=== PATIENT | female | born 2005 | race Caucasian/White ===

== ENCOUNTER 2023-06-19 23:42 | Emergency (ER) | payer MEDICAID, SELFPAY ==
[2023-06-19 23:48] VITALS: BP 132/85; PULSE 102; RESP 18; TEMP 37; O2SAT 100; BMI 17.8
--- NOTE | 2023-06-19 23:48 | ED_ITS ---
HPI - General Chief complaint: Urogenital-Female Stated complaint: WANTS A TEST DONE Time Seen by Provider: 06/19/23 23:48 History of Present Illness HPI Narrative: patient said that she took two tests at home but don't believe that the tests are correct. She has not contacted her PCP or a local [employer] C[employer]TING [employer] REPA[employer]ER. LMP was about 4 weeks ago. She admits to some fatigue and some nausea. She is not having an fever, chills, vaginal bleeding, pelvic pain or syncope. Her CONSULTING PROJECT DIRECTOR is Dr Womack. She had a previous with miscarriage at about 7 weeks. This would be her second . Related Data Home Medications Medication Instructions Recorded Confirmed venlafaxine 75 mg capsule,extended 75 mg PO DAILY 06/19/23 06/19/23 release 24 hr Allergies Allergy/AdvReac Type Severity Reaction Status Date / Time Sulfa (Sulfonamide Allergy Unknown Verified 06/19/23 23:52 Antibiotics) PFSH PFSH Social History Smoking status: Current every day smoker Exam Narrative Exam Narrative: Nurses notes and vital signs reviewed and patient is not hypoxic. afebrile General: Well-appearing and in no apparent distress. Skin: Warm, dry, no pallor noted. Head: Normocephalic, atraumatic. Eye: Pupils are equal, round and EOMI. No scleral icterus. Cardiovascular: Normal peripheral perfusion. Respiratory: No accessory muscle use or respiratory distress. Lungs are clear to auscultation, no wheezing, rales or rhonchi Back: No CVA tenderness GI: Abdomen is soft, non-distended. Normal bowel sounds. No masses appreciated. No tenderness to palpation. No rebound, guarding, or rigidity noted. Neurological: A&O x4. No cranial nerve dysfunction observed. No truncal ataxia. Moves all extremities. Sensation intact. Psychiatric: Cooperative and interactive. Normal mood and affect. Constitutional Vital Signs, click to edit/add: Last Vital Signs Temp 98.6 F 06/19/23 23:48 Pulse 102 H 06/19/23 23:48 Resp 18 06/19/23 23:48 BP 132/85 06/19/23 23:48 Pulse Ox 100 06/19/23 23:48 O2 Del Method Room Air 06/19/23 23:48 Course Vital Signs Vital signs: Vital Signs Temperature 98.6 F 06/19/23 23:48 Pulse Rate 102 H 08/31/23 23:48 Respiratory Rate 18 06/19/23 23:48 Blood Pressure 132/85 06/19/23 23:48 Pulse Oximetry 100 06/19/23 23:48 Oxygen Delivery Method Room Air 06/19/23 23:48 Temperature 98.6 F 06/19/23 23:48 Pulse Rate 102 H 06/19/23 23:48 Respiratory Rate 18 06/19/23 23:48 Blood Pressure 132/85 06/19/23 23:48 Pulse Oximetry 100 06/19/23 23:48 Oxygen Delivery Method Room Air 06/19/23 23:48 MDM - OB/Uterine Contractions MDM Narrative Medical decision making narrative: blood drawn for qualitative HCG test. Patient informed that this is not an emergency medical condition and improper use of the emergency department. Her serum HCG was positive. She was informed of results and discharged home. She can see Dr Womack for follow up in 4-6 weeks or sooner if necessary. Lab Data Labs: Lab Results 06/19/23 Range/Units 00:00 Serum HCG, Qual Positive A (NEGATIVE) Discharge Plan Discharge Chief Complaint: Urogenital-Female Clinical Impression: Patient Disposition: Home, Self-Care Time of Disposition Decision: 00:38 Prescriptions / Home Meds: No Action venlafaxine 75 mg capsule,extended release 24hr 75 mg PO DAILY Instructions: (ED) Stand Alone Forms: Portal Instructions Referrals: Preet Womack DO [Physician] - 1 week
[2023-06-20 00:15] LABS: HCG Qualitative POSITIVE (NEGATIVE)
== END 2023-06-20 01:10 | disposition home or self-care (01) ==
PROVIDERS: Emergency Provider Emergency Medicine; PCP Family Medicine
DX: Z32.01 Encounter for pregnancy test, result positive (principal)
CPT/HCPCS: 36415; 84703; 99283

== ENCOUNTER 2023-07-18 09:40 | Outpatient (OUT) | payer MEDICAID, SELFPAY ==
--- NOTE | 2023-07-18 09:42 | US_ITS ---
The [address] [address] Patient Name: SOLIS RASHID MRN: [id number] date: 2005 Sex: F Assigned Patient Location: US Current Patient Location: US Accession/Order Number: [id number] Exam Date: 07/18/2023 09:42 Report Date: 07/18/2023 16:30 At the request of: SARI RODRIGUEZ Procedure: US OB transvaginal EXAMINATION: US OB transvaginal HISTORY: MISSED MENSES COMPARISON: No relevant comparison available. FINDINGS: GESTATIONAL SAC: Present and normal appearing. YOLK SAC: Present and normal appearing. POLE: Present and normal appearing. CARDIAC: Present. UTERUS: Normal size and appearance. OVARIES: Right: Normal. Left: Normal. CERVIX: 3.9 cm in length and closed. CUL-DE-SAC: Normal. OTHER: None. AGE BY LMP: 8 weeks 5 days KAMRON BY LMP: 02/22/2024 AGE BY US CRL: 8 weeks 0 days KAMRON BY US CRL: 02/27/2024 US/US OB transvaginal IMPRESSION: 1. Single live intrauterine . Electronically authenticated by: PRESLEY ANDREWS Date: 07/18/2023 16:30
== END 2023-07-18 09:41 | disposition home or self-care (01) ==
LOC: US 09:41
PROVIDERS: PCP Family Medicine; Visit Provider Obstetrics & Gynecology
DX: Z34.91 Encounter for supervision of normal pregnancy, unspecified, first trimester (principal); Z3A.08 8 weeks gestation of pregnancy
CPT/HCPCS: 76817

== ENCOUNTER 2023-08-11 16:10 | Outpatient (OUT) | payer MEDICAID, SELFPAY ==
[2023-08-11 16:54] LABS: Basophils Percent Auto 0.3 % (0.2-2.0); Eosinophils Absolute Auto 0.1 10^3/uL (0.0-0.7); Eosinophils Percent Auto 0.7 % (0.9-7.0); Hematocrit 34.3 % (36.0-48.0); Immature Granulocytes Abs Auto 0.02 10^3/uL (0.00-0.03); Immature Granulocytes Pct Auto 0.2 % (0.0-0.5); Lymphocytes Percent Auto 21.2 % (20.5-60.0); Mean Corpuscular Hemoglobin 31.3 pg (26.7-34.0); Mean Corpuscular Volume 89.6 fL (81.0-99.0); Mean Platelet Volume 8.7 fL (9.5-13.5); Monocytes Absolute Auto 0.5 10^3/uL (0.3-0.8); Monocytes Percent Auto 5.2 % (1.7-12.0); Neutrophils Percent Auto 72.4 % (43.0-75.0); Platelet Count 228 10^3/uL (150-450); Red Blood Count 3.83 10^6/uL (4.20-5.40); Red Cell Distribution Width 11.7 % (11.0-15.0); White Blood Count 9.6 10^3/uL (4.0-11.0)
[2023-08-11 16:56] LABS: BOX Test Sent Out Y
[2023-08-11 17:09] LABS: Estimated Average Glucose 85 mg/dL; Glycohemoglobin A1C 4.6 % (4.5-6.2)
[2023-08-11 17:23] LABS: Thyroid Stimulating Hormone 1.257 uIU/mL (0.516-4.130)
[2023-08-13 07:12] LABS: Rubella Antibodies, IgG 5.01 index (Immune >0.99)
[2023-08-13 08:12] LABS: HIV Ab/p24 Ag Screen Non Reactive (Non Reactive)
[2023-08-13 10:11] LABS: Rapid Plasma Reagin, Quant Non Reactive titer (NonRea<1:1)
[2023-08-13 11:11] LABS: HBsAg Screen Negative (Negative); HCV Ab Non Reactive (Non Reactive)
== END 2023-08-11 16:11 | disposition home or self-care (01) ==
LOC: LAB 16:12
PROVIDERS: PCP Family Medicine; Visit Provider Obstetrics & Gynecology
DX: Z34.80 Encounter for supervision of other normal pregnancy, unspecified trimester (principal); Z3A.00 Weeks of gestation of pregnancy not specified
CPT/HCPCS: 36415; 83036; 84443; 85025; 86592; 86762; 86803; 86850; 86900; 86901; 87086; 87340; 87389

== ENCOUNTER 2023-10-06 12:51 | Outpatient (OUT) | payer MEDICAID, SELFPAY ==
--- NOTE | 2023-10-06 | US_ITS ---
[address] [address] Patient Name: SOLIS RASHID MRN: [id number] date: 2005 Sex: F Assigned Patient Location: US Current Patient Location: US Accession/Order Number: [id number] Exam Date: 10/06/2023 13:05 Report Date: 10/06/2023 15:23 At the request of: SARI RODRIGUEZ Procedure: US OB anatomy EXAMINATION: US OB anatomy, US OB transvaginal HISTORY: SECOND TRIMESTER COMPARISON: No relevant comparison available. TECHNIQUE: Transabdominal sonographic examination was performed for obstetrical and evaluation. FINDINGS: Number: 1 Heart Rate: 157.9 bpm H.B. /min Amniotic Fluid Volume: Subjectively normal position: cephalic presentation, longitudinal lie Placental Location: ANTERIOR, Grade 0, 4.2 cm from the placental edge to the internal os Cervix Length: 3.7 cm , closed Normal anatomy: Lateral ventricles, cerebellum, posterior fossa, nose, lips, orbits, four-chamber heart, RVOT, LVOT, diaphragm, stomach, kidneys, abdominal cord insertion, bladder, umbilical arteries, three-vessel cord, spine, extremities BIOMETRY: BPD: 4.6 cm 19 weeks 6 days , 39% HC: 17.5 cm 20 weeks 0 days, 36.3% AC: 14.7 cm 20 weeks 0 days, 39% FL: 3.1 cm 19 weeks 5 days ,26.4% EFW:318.0 grams; 11 oz, 30% FL/AC: 21.2 FL/BPD: 67.9 HC/AC: 1.2 GESTATIONAL AGE: Age by EDC: 20 weeks 1 days Age by current US: 19 weeks 6 days KAMRON by current US: 02/24/24 KAMRON by EDC: 02/22/24 US/US OB anatomy IMPRESSION: Normal anatomy scan *Reference: [facility] Practice Guideline for the performance of Obstetric Ultrasound Examinations, July 20, 2007. Electronically authenticated by: MEGHAN MELGAR Date: 10/06/2023 15:23
--- NOTE | 2023-10-06 | US_ITS ---
[address] [address] Patient Name: SOLIS RASHID MRN: [id number] date: 2005 Sex: F Assigned Patient Location: US Current Patient Location: US Accession/Order Number: [id number] Exam Date: 10/06/2023 13:05 Report Date: 10/06/2023 15:23 At the request of: SARI RODRIGUEZ Procedure: US OB transvaginal EXAMINATION: US OB anatomy, US OB transvaginal HISTORY: SECOND TRIMESTER COMPARISON: No relevant comparison available. TECHNIQUE: Transabdominal sonographic examination was performed for obstetrical and evaluation. FINDINGS: Number: 1 Heart Rate: 157.9 bpm H.B. /min Amniotic Fluid Volume: Subjectively normal position: cephalic presentation, longitudinal lie Placental Location: ANTERIOR, Grade 0, 4.2 cm from the placental edge to the internal os Cervix Length: 3.7 cm , closed Normal anatomy: Lateral ventricles, cerebellum, posterior fossa, nose, lips, orbits, four-chamber heart, RVOT, LVOT, diaphragm, stomach, kidneys, abdominal cord insertion, bladder, umbilical arteries, three-vessel cord, spine, extremities BIOMETRY: BPD: 4.6 cm 19 weeks 6 days , 39% HC: 17.5 cm 20 weeks 0 days, 36.3% AC: 14.7 cm 20 weeks 0 days, 39% FL: 3.1 cm 19 weeks 5 days ,26.4% EFW:318.0 grams; 11 oz, 30% FL/AC: 21.2 FL/BPD: 67.9 HC/AC: 1.2 GESTATIONAL AGE: Age by EDC: 20 weeks 1 days Age by current US: 19 weeks 6 days KAMRON by current US: 02/24/24 KAMRON by EDC: 02/22/24 US/US OB transvaginal IMPRESSION: Normal anatomy scan *Reference: [facility] Practice Guideline for the performance of Obstetric Ultrasound Examinations, July 20, 2007. Electronically authenticated by: MEGHAN MELGAR Date: 10/06/2023 15:23
== END 2023-10-06 12:52 | disposition home or self-care (01) ==
LOC: US 12:51
PROVIDERS: PCP Family Medicine; Visit Provider Obstetrics & Gynecology
DX: Z34.92 Encounter for supervision of normal pregnancy, unspecified, second trimester (principal); Z3A.20 20 weeks gestation of pregnancy
CPT/HCPCS: 76805; 76817

== ENCOUNTER 2023-11-13 19:14 | Emergency (ER) | payer MEDICAID, SELFPAY ==
[2023-11-13] VITALS (7 sets, daily range): BP systolic 103–106; BP diastolic 59–66; PULSE 78–98; RESP 14–21; TEMP 36.5; O2SAT 98–100; BMI 19.9
--- OUTSIDE RECORDS SUMMARY | 2023-11-13 19:25 | XMS_ITS | CCD ---
Author Name Unknown Address [address] [place] [address] Organization [facility] Care Team Providers Care User Interface Artist Name Role Phone Opal Neri CNP Unavailable ROGE NORTH Attending Unavailable MICHAEL, DR GUO Attending Unavailable MICHAEL, DR GUO Admitting Unavailable REQUEST, DR BASS LISTED Primary Care Unavaila daria RODRIGUEZ, DR GUO Attending Unavailable MICHAEL, DR GUO Consulting Unavailable MICHAEL, DR GUO Admitting Unavailable REQUEST, DR BASS LISTED Primary Care Unavaila daria AGUILAR, DR DEY Attending Unavailable LAUREN, DR DEY Admitting Unavailable REQUEST, DR BASS LISTED Primary Care Unavaila Maday Del Toro Unavailable SARI RODRIGUEZ Attending Unavailable JON KEITA Attending Unavailable JON KEITA Attending Unavailable JON KEITA Attending Unavailable Allergies Allergy Classification Reported Allergen(s) Allergy Type Date of Onset Reaction(s) Facility (1 source) Sulfonamides (Antibiotic) Drug Allergy 2 Unknown [facility] (2 sources) Sulfonamides (Antibiotic) Drug allergy (disorder) [facility] Repository (1 source) Amoxicillin Drug Allergy itching [facility] Other (1 source) Sulfamethoxazole / Trimethoprim Drug Allergy rash [facility] Other Medications Current Medications Medication Drug Class(es) Dates Sig (Normalized) Sig (Original) fluticasone propionate 0.05 mg/actuat metered dose nasal spray (1 source) Corticosteroid Start: 07-24-2023 take 1 spray(s) nasal route once daily Flonase Allergy Relief 50 MCG/ACT 1 spray in each nostril Nasally Once a day for 14 day(s) Jul, Active venlafaxine 50 mg oral tablet (1 source) Serotonin and Norepinephrine Reuptake Inhibitor take 1 tablet by mouth once daily at mealtime Effexor 50 MG 1 tablet with food Orally Once a day Active Completed/Discontinued Medications Medication Drug Class(es) Dates Sig (Normalized) Sig (Original) escitalopram 10 mg oral tablet (1 source) Serotonin Reuptake Inhibitor Start: 08-28-2022 take 1 tablet by mouth once daily escitalopram oxalate (LEXAPRO) 10 mg tablet Take 10 mg by mouth once daily. 0 08/28/2022 Active Comment on above: Take 10 mg by mouth once daily. Ethinyl Estradiol / Ferrous fumarate / Norethindrone (1 source) Estrogen Start: 08-25-2022 take 1 tablet by mouth once daily Norethin Boom-Eth Estrad-FE 1 mg-20 mcg (21)/75 mg (7) per tablet Take 1 tablet by mouth once daily. 0 08/25/2022 Active Comment on above: Take 1 tablet by ozzy once daily. Problems Problem Classification Problem Date Documented Da te Episodic/Chronic Abdominal pain (4 sources) Pelvic and perineal pain; Translations: [PELVIC AND PERINEAL PAIN] Onset: 09-16-2022 Episodic Acute and chronic tonsillitis (1 source) Acute tonsillitis; Translations: [ACUTE TONSILLITIS] Episodic Other bone disease and musculoskeletal deformities (1 source) Adolescent idiopathic scoliosis of thoracic spine; Translations: [Adolescent idiopathic scoliosis, thoracic region] Chronic Other upper respiratory disease (1 source) Nasal discharge; Translations: [Rhinorrhea] Episodic Other upper respiratory infections (3 sources) Streptococcal sore throat; Translations: [Strep pharyngitis] Episodic Results Test Name Value Interpretation Reference Range Facil ity Quick Strepon 07-24-2023 S. pyogenes Org specific cx Ql (Throat) Negative [facility] Other Quick Strep [facility] Other SARS-CoV-2 (COVID-19) RNA NA A+probe Ql (Resp)on 07-24-2023 SARS-CoV-2 (COVID-19) RNA DARON+probe Ql (Unsp spec) Negative [facility] Other CHLAMYDIA/GONOCOCCUS DARON (SW AB/URINE/PAPon 09-19-2022 Chlamydia trachomatis, DARON Negative Normal Negative [facility] Comment on above: Performed By: #### C T/NGNA #### [facility] [address] [place] [address] Dr. Kamryn Don Neisseria gonorrhoeae, DARON Negative Normal Negative [facility] Comment on above: Performed By: #### C T/NGNA #### [facility] [address] [address] [address] Kamryn Don VAGINITIS/VAGINOSIS DNA PROB Domenic 09-18-2022 Marsha species Negative Normal Negative [facility] Comment on above: Performed By: #### V AGINT #### [facility] [address] [place] [address] Dr. Kamryn Don Gardnerella vaginalis Positive Abnormal Negative [facility] Comment on above: Performed By: #### V AGINT #### [facility] [address] [address] [address] Kamryn Don Trichomonas vaginalis Negative Normal Negative [facility] Comment on above: Performed By: #### V AGINT #### [facility] [address] [place] [address] Dr. Kamryn Don CNOVon 09-05-2022 CNOV Office Visit (INOPIN ) SOLIS RASHID ([id number]) 1 F Date Time Provider Department 09/05/22 3:10 PM ROGE NORTH During your visit today, we recorded the following information about you: Weight Height Last Period 49.9 kg 1.676 m 08/22/22 Roge North MD 09/05/2022 3:59 PM Signed Medical Decision Making: Problems: Low: Stable chronic illness Data: Unique source(s) for external note(s) reviewed: 2 Unique test result(s) reviewed: 2 Risk: Low: Low risk from testing/treatment Medical Decision Making Level: 3 - Low This young lady returns today for follow-up of scoliosis. Its been about 2 years since have seen her. No complaints. Here for interval follow-up. I did surgery on her younger sister so mom is still somewhat worried about this young lady having a progressive curvature. No complaints. On exam she is in no acute distress. On standing shoulders are mildly asymmetric pelvis is level. Forward bend shows very mild scoliometer prominences in the right thoracic and left lumbar regions. Skin is normal. Nontender to palpation throughout the entire thoracic and lumbar spine. Her gait and neurologic examination are normal. X-rays from the outside institution show a 33 degree right thoracic curvature and a Risser sign of 5. Impression: Idiopathic scoliosis Discussed these findings in detail with her and her mother today. Recommend observation alone. Follow-up in 1 year with standing PA and lateral scoliosis film. Sooner should there be issues. Discussed the very remote likelihood of late progression that would require surgical intervention. Allergies As of Date: 09/05/2022 Noted Allergy Reaction SULFA (SULFONAMIDE ANTIBIOTICS) 09/05/2022 16 - Unknown Date Reviewed: 09/05/2022 Reviewed by: Tanvi Snow Ma - Fully Assessed Reason for Visit: New [[id number]] Primary Visit Diagnosis:Adolescent idiopathic scoliosis of thoracic region [M41.124] Order(s):XR SCOLIOSIS PA STAND/LAT 2V [[id number]] Order #: [id number] FUTURE Prescriptions as of 09/05/2022 - escitalopram oxalate (LEXAPRO) 10 mg tablet Take 10 mg by mouth once daily. - Norethin Boom-Eth Estrad-FE 1 mg-20 mcg (21)/75 mg (7) per tablet Take 1 tablet by mouth once daily. Problem List As Of Date: 09/05/2022 (None) Encounter Status:Closed by ROGE NORTH on 09/05/22 Normal [facility] XR Spine Scoliosis Study Standing CLINICAL HISTORY: Evaluate scoliosis. COMPARISON: 04/27/2020. TECHNIQUE: AP and lateral views of the thoracic and lumbar spine were obtained. FINDINGS: There is a dextroscoliosis of the dorsal spine. Measured from the superior endplate of T4 to the inferior endplate of T11, the dextroscoliosis measures 23.4??. There is a levoscoliosis of the lumbar spine. Measured from superior endplate of L1 to the inferior endplate of L4, the levoscoliosis measures 15??. No fracture or malalignment. Disc heights appear preserved. SI joints are symmetrical. IMPRESSION: Dextroscoliosis dorsal spine and levoscoliosis lumbar spine, see above. Report reported and signed by Carleen Graff on 06/17/2022 0849 Normal [facility] HCG,Quantitativeon 2 HCG,Quantitative 8536.00 m[iU]/mL Normal [facility] Comment on above: Order Comment: Reaso n for Exam Less than 8 weeks gestation of Result Comment: Appr oximate Approximate hCG Gestational Age Range (mIU/ml) (weeks) 0.2-1 5-50 1-2 50-500 2-3 100-5,000 3-4 500-10,000 4-5 1,000-50,000 5-6 10,000-100,000 6-8 15,000-200,000 8-12 10,000-100,000 PERFORMED BY: [place] [address] PATHOLOGIST [employer] SUPERVISOR EZEKIEL SERRANO M.D. Performed By: #### H CGQNT #### [address] HCG,Quantitativeon 2 HCG,Quantitative 8790.00 m[iU]/mL Normal [facility] Comment on above: Order Comment: Reaso n for Exam Missed menses;Positive blood test;Spotting affecti Result Comment: Appr oximate Approximate hCG Gestational Age Range (mIU/ml) (weeks) 0.2-1 5-50 1-2 50-500 2-3 100-5,000 3-4 500-10,000 4-5 1,000-50,000 5-6 10,000-100,000 6-8 15,000-200,000 8-12 10,000-100,000 PERFORMED BY: [facility] [address] [place] [address] PATHOLOGIST [employer] SUPERVISOR EZEKIEL SERRANO M.D. Performed By: #### H CGQNT #### [facility] [address] [place] [address] [facility] Q - HCG [place] Q[place] 2 [place] [address] m[IU]/mL [facility] Electrical Designer Drafter Comment on above: Order Comment: [facility] Testing performed at: [facility] [address], [address] [facility], [address] [place], [address], Professor Of Religion: Vikram Cadet MD [facility] Collection Date/Time: [facility] Results Received Date/Time: [facility] Reported Date/Time: Result Comment: Refe rence Range Non or premenopausal <5 Postmenopausal <10 Values from different assay methods may vary. The use of this assay to monitor or to diagnose patients with cancer or any condition unrelated to has not been cleared or approved by the FDA or the insurance and financial services agent of the assay. Performed By: #### 2 [id number] #### [facility] Default [address] [place] [address] US OB 1ST Trimesteron 2021 US OB 1ST Trimester HISTORY: Vaginal bleeding. COMPARISON: None available TECHNIQUE: Transabdominal and transvaginal ultrasound imaging of the pelvis was obtained. FINDINGS: UTERUS: The uterus measures 7.2 x 6.9 x 3.9 cm. A gestational sac containing a yolk sac is visualized within the uterus near the fundus. Estimated age by this ultrasound 5 weeks 0 days. pole was not visualized. RIGHT OVARY: The right ovary measures 3.3 x 2.7 x 1.9 cm. Vascular flow is visualized in the right ovary. LEFT OVARY: The left ovary measures 3.3 x 3.0 x 1.4 cm. Vascular flow is visualized in the left ovary. There is no free fluid visualized in the pelvis. There is no adnexal mass visualized. IMPRESSION: Gestational sac and yolk sac are identified however a pole is not identified. Serial beta-hCG monitoring and short-term follow-up pelvic ultrasound recommended. Report reported and signed by Sancho German on 12/11/2021 1006 Normal [facility] Electrical Designer Drafter Vital Signs Date Time Vital Sign Value Performing Clinician Facility 07-24-2023 16:00-0400 Body temperature 99.6 [degF] Maday Bragg Other [facility] Other 07-24-2023 16:00-0400 Body weight 49.9 kg Maday Bragg Other [facility] Other 07-24-2023 16:00-0400 Respiratory rate 20 /min Maday Yemi Other [facility] Other 07-24-2023 16:00-0400 SaO2% (BldA) [Mass fraction] 100 % Maday Bragg Other [facility] Other 09-05-2022 15:29-0500 Body height 167.6 cm Roge North MD Work Phone: [facility] 09-05-2022 15:29-0500 Body mass index (BMI) [Percentile] Per age and sex 5.14 % Roge North MD Work Phone: [facility] 09-05-2022 15:29-0500 Body weight 49.9 kg Roge North MD Work Phone: [facility] Encounters Encounter Date Encounter Type Care Provider Facility Start: 11-11-2023 End: 11-11-2023 ambulatory JON KEITA Not Available Start: 10-23-2023 End: 10-23-2023 ambulatory JON KEITA Not Available Start: 10-14-2023 End: 10-14-2023 ambulatory SARI RODRIGUEZ Not Available Start: 09-16-2023 End: 09-16-2023 ambulatory JON KEITA Not Available Start: 07-24-2023 End: 07-24-2023 ambulatory Maday Bragg Other [facility] Other Start: 07-24-2023 Office outpatient vi sit 25 minutes Maday Bragg [facility] Start: 09-16-2022 End: 09-16-[address] SARI RODRIGUEZ Facility:[facility] Start: 09-05-2022 End: 09-05-2022 ambulatory ROGE NORTH Facility:[facility] Start: 09-05-2022 End: 09-05-2022 Patient encounter procedure Roge North MD Work Phone: [facility] Comment on above: 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 (Primary Dx) Start: 01-03-[address] SARI RODRIGUEZ Facility :[facility] Start: 12-17-[address] TIBURCIO AGUILAR Facdusty lity:[facility] Plan of Treatment Date Care Activity Detail Author Start: 06-20-2022 Influenza vaccination INFLUENZA (#1) [facility] Start: 2021 CHLAMYDIA SCREENING (18-24) CHLAMYDIA SCREENING (18-24) [facility] Start: 2021 GC (GONORRHEA) SCREE SHARITA (18-24) GC (GONORRHEA) SCREENING (18-24) [facility] Start: 2021 HEPATITIS C SCREENING HEPATITIS C SC REENING [facility] Start: 2021 HIV SCREENING HIV SCREENING [facility] Start: 10-20-2021 DEPRESSION ASSESSMENT DEPRESSION ASS ESSMENT [facility] Start: 2019 MENINGOCOCCAL CONJUG ATE (1 - 2-dose series) MENINGOCOCCAL CONJUGATE (1 - 2-dose series) [facility] Start: 2017 PEDS TO ADULT TRANSI TION ANNUAL ASSESSMENT PEDS TO ADULT TRANSITION ANNUAL ASSESSMENT [facility] Start: 2015 PEDS TO ADULT TRANSI TION INITIAL DISCUSSION PEDS TO ADULT TRANSITION INITIAL DISCUSSION [facility] Start: 2014 HPV VACCINE (1 - 2-d ose series) HPV VACCINE (1 - 2-dose series) [facility] Start: 2013 MENINGOCOCCAL B: Consider based on risk (1 of 2 - Risk Bexsero 2-dose series) MENINGOCOCCAL B: Consider based on risk (1 of 2 - Risk Bexsero 2-dose series) [facility] Start: 2010 Urine microalbumin profile DTAP,TDAP,TD (1 - Tdap) [facility] Start: 05-14-2004 COVID-19 VACCINE (#1) COVID-19 VACCI NE (#1) [facility] Start: 2003 HEPATITIS B (1 of 3 - 3-dose series) HEPATITIS B (1 of 3 - 3-dose series) [facility] End: 10-05-2023 Radex entir thrc lmbr crv sac spi w/skull 2/3 vw XR SCOLIOSIS PA STAND/LAT 2V Radiology Routine Adolescent idiopathic scoliosis of thoracic region 1 Occurrences starting 09/05/2022 until 10/05/2023 [facility] Work Phone: Comment on above: 1 Occurrences starti ng 09/05/2022 until 10/05/2023 Immunizations Immunization Date Immunization Notes Care Provider Tanesha colby 06-12-2009 Diphtheria, tetanus toxoids and acellular pertussis vaccine, and poliovirus vaccine, inactivated Maday Bragg Other [facility] Other 06-12-2009 measles, mumps and rubella virus vaccine Maday Bragg Other [facility] Other 06-12-2009 varicella virus vaccine Maday Bragg Other [facility] Other Payers Date Payer Category Payer Medicaid [id number] 2017 Medicaid [place] MED[place] TERM 09/18 [employer] MEDICA[employer] [id number] 2017-Present [phone] [address] [place] [address] Medicaid [id number] 2003 Unknown [id number] 2003 Unknown [id number] 2003 Unknown [id number] 2003 Unknown [id number] 2003 Unknown [id number] 2003 Unknown [id number] 2003 Unknown [id number] 1959 Medicaid [id number] 1961 Self-pay Social History Date Type Detail Facility Start: 09-05-2022 Tobacco smoking status NHIS Never smoked tobacco [facility] Start: 09-05-2022 Tobacco use and exposure Smokeless tobacco non-user [facility] Start: 2003 Sex Assigned At Not on file C [facility] Sex Assigned At Sex Assigned At [facility] [employer] Other Evaluation note 07-24-2023 Note Date & Type Note Facility 07-24-2023 Evaluation note Encounter Date Diagnosis Assessment Notes Jul, Sore throat (ICD-10 - J02.9) Jul, Viral URI (ICD-10 - J06.9) Advised patient that COVID PCR test and rapid Strep test was negative today. Advised patient that will treat as viral URI. Supportive care as directed, increase fluids and rest, Tylenol as directed, OTC cough/cold remedies as directed on packaging that are safe in , cool mist humidifier, throat lozenges. Discussed infection control practices such as good hand washing and mask wearing. Patient to follow up with PCP if symptoms persist or worsen despite treatment. Immediate eval for SOB, difficulty breathing, chest pain, fevers that do not break with antipyretic or any other concerning symptoms as reviewed on patient education handout. Patient verbalizes understanding and is agreeable to treatment plan. Patient left in stable condition [facility] Other Progress note 09-05-2022 Note Date & Type Note Facility 09-05-2022 Note HNO ID: [id number] Author: Roge North MD Service: ? Author Type: Physician Type: Progress Notes Filed: 09/05/2022 3:59 PM Note Text: Medical Decision Making: Problems: Low: Stable chronic illness Data: Unique source(s) for external note(s) reviewed: 2 Unique test result(s) reviewed: 2 Risk: Low: Low risk from testing/treatment Medical Decision Making Level: 3 - Low This young lady returns today for follow-up of scoliosis. Its been about 2 years since have seen her. No complaints. Here for interval follow-up. I did surgery on her younger sister so mom is still somewhat worried about this young lady having a progressive curvature. No complaints. On exam she is in no acute distress. On standing shoulders are mildly asymmetric pelvis is level. Forward bend shows very mild scoliometer prominences in the right thoracic and left lumbar regions. Skin is normal. Nontender to palpation throughout the entire thoracic and lumbar spine. Her gait and neurologic examination are normal. X-rays from the outside institution show a 33 degree right thoracic curvature and a Risser sign of 5. Impression: Idiopathic scoliosis Discussed these findings in detail with her and her mother today. Recommend observation alone. Follow-up in 1 year with standing PA and lateral scoliosis film. Sooner should there be issues. Discussed the very remote likelihood of late progression that would require surgical intervention. [facility] History of Present illness Narrative 09-05-2022 Roge North MD - 09/05/2022 3:50 PM EST Note Date & Type Note Facility 09-05-2022 History of Presen t illness Narrative Medical Decision Making: Problems: Low: Stable chronic illness Data: Unique source(s) for external note(s) reviewed: 2 Unique test result(s) reviewed: 2 Risk: Low: Low risk from testing/treatment Medical Decision Making Level: 3 - Low This young lady returns today for follow-up of scoliosis. Its been about 2 years since have seen her. No complaints. Here for interval follow-up. I did surgery on her younger sister so mom is still somewhat worried about this young lady having a progressive curvature. No complaints. On exam she is in no acute distress. On standing shoulders are mildly asymmetric pelvis is level. Forward bend shows very mild scoliometer prominences in the right thoracic and left lumbar regions. Skin is normal. Nontender to palpation throughout the entire thoracic and lumbar spine. Her gait and neurologic examination are normal. X-rays from the outside institution show a 33 degree right thoracic curvature and a Risser sign of 5. Impression: Idiopathic scoliosis Discussed these findings in detail with her and her mother today. Recommend observation alone. Follow-up in 1 year with standing PA and lateral scoliosis film. Sooner should there be issues. Discussed the very remote likelihood of late progression that would require surgical intervention. documented in this encounter [facility] History general Narrative - Reported 2003 Note Date & Type Note Facility 2003 History general N arrative - Reported Type Medical History febrile seizures Medical History extropia left eye Medical History bronchititis Medical History dishydrotic eczema Hospitalization History RSV 12/23/19 04 [facility] Other Evaluation note Note Date & Type Note Facility Evaluation note Diagnosis Adolescent idiopathic scoliosis of thoracic region- Primary Scoliosis (and kyphoscoliosis), idiopathic documented in this encounter [facility] Reason for referral (narrative) Diagnostic Procedure Only (Routine) - Pending Review Note Date & Type Note Facility Reason for referral (narrati ve) Specialty Diagnoses / Procedures Referred By Contac t Referred To Contact XR IMAGING Diagnoses Adolescent idiopathic scoliosis of thoracic region Procedures XR SCOLIOSIS PA STAND/LAT 2V RADEX ENTIR THRC LMBR CRV SAC SPI W/SKULL 2/3 VW Roge North MD [address] [place] [address] Xr Imaging Referral ID Status Reason Start Date Expiration Date Visits Requested Visits Authorized [id number] Pending Review Auto-Generat ed Referral 2 10/05/2023 1 1 [facility] Summary Purpose Family History No Family History Records FoundNo Family History Records FoundNo Family History Records FoundNo Family History Records FoundNo Family History Records Found Advance Directives No Advanced Directives Records FoundNo Advanced Directives Records FoundNo Advanced Directives Records FoundNo Advanced Directives Records FoundNo Advanced Directives Records Found Additional Source Comments INFORMATION SOURCE (unrecogn ized section and content) DATE CREATED AUTHOR 12/16/2021 [facility] DATE CREATED AUTHOR AUTHOR'S ORGANIZ ATION 06/17/2022 [facility] Me dical Specialist DATE CREATED AUTHOR AUTHOR'S ORGANIZ ATION 09/07/2022 [facility] DATE CREATED AUTHOR AUTHOR'S ORGANIZ ATION 09/20/2022 [facility] DATE CREATED AUTHOR AUTHOR'S ORGANIZ ATION 11/12/2023 [facility] dical Specialists EPIC Source Comments (unrecognize d section and content) In the event this informatio n is protected by the Federal Confidentiality of Alcohol and Drug Abuse Patient Records regulations: The Federal rules restrict any use of the information to criminally investigate or prosecute any alcohol or drug abuse patient.[facility] Reason for Visit (unrecogniz ed section and content) Reason Comments New Care Teams (unrecognized sec tion and content) User Interface Artist Relationship Specialty Start Date End Date Opal Neri, NBA PLAYER [address] [place] [address] Referring Family Medicine 06/21/22 FOR RECORDS PERTAINING TO PATIENTS WHO ARE OR HAVE BEEN ENROLLED IN A CHEMICAL DEPENDENCY/SUBSTANCEABUSE PROGRAM, SOME INFORMATION MAY BE OMITTED. This clinical summary was aggregated from multiple sources. Caution should be exercised in using it in the provision of clinical care. This summary normalizes information from multiple sources, and as a consequence, information in this document may materially change the coding, format and clinical context of patient data. In addition, data may be omitted in some cases. CLINICAL DECISIONS SHOULD BE BASED ON THE PRIMARY CLINICAL RECORDS. [employer] [facility]. provides no warranty or guarantee of the accuracy or completeness of information in this document.
--- NOTE | 2023-11-13 19:26 | PC.NURSE ---
pt 100% on ra, no resp distress observed at time of assessment
--- NOTE | 2023-11-13 19:43 | XR_ITS ---
[facility] [place] [id number] Patient Name: SOLIS RASHID MRN: [id number] date: 2005 Sex: F Assigned Patient Location: ER Current Patient Location: ER Accession/Order Number: [id number] Exam Date: 11/13/2023 19:50 Report Date: 11/13/2023 20:48 At the request of: PATRICIA SELF Procedure: XR chest 1V EXAM: XR chest 1V TECHNIQUE: Single AP view chest HISTORY: palpitations COMPARISON: None. FINDINGS: The heart and mediastinum are unremarkable. The lung regan are clear of any acute infiltrate, effusion or mass. No acute bony abnormality. XR/XR chest 1V IMPRESSION: No acute pulmonary disease. Electronically authenticated by: BELKIS TAVARES Date: 11/13/2023 20:48
--- NOTE | 2023-11-13 19:43 | ECG_ITS ---
[facility] Test Date: 2023-11-13 Pat Name: SOLIS RASHID Department: Room: - Gender: Female Director Global Sales: : 2005 Requested By: SARI RODRIGUEZ Order Number: [id number] Reading MD: ISELA SEGAL Measurements Intervals [place] Rate: 81 P: 67 SC: 128 QRS: 60 QRSD: 72 T: 45 QT: 358 QTc: 396 Interpretive Statements 1100 Sinus rhythm 1102 Sinus arrhythmia 9110 normal ECG Compared to ECG 07/18/2018 20:43:07 No significant changes Electronically Signed On 11-13-2023 22:33:12 EST by ISELA SEGAL
--- NOTE | 2023-11-13 19:52 | ED_ITS ---
HPI - General Adult General Chief complaint: OB/Uterine Contractions Stated complaint: CHEST PAIN/ABD PAIN 25 WEEKS Time Seen by Provider: 11/13/23 19:27 Source: patient Mode of arrival: walk-in History of Present Illness HPI narrative: 17-year-old female currently twenty-five weeks to the emergency department with two chief complaints. The 1st is that she has had intermittent palpitations associated with shortness of breath and chest pain that been ongoing for Over a month. She reports a history of anxiety with similar symptoms. She currently does not have any new symptoms. She is taking her anxiety medication as prescribed. She also reports that she has some intermittent sharp pains and cramping in her abdomen. They're located in her lower abdomen near her uterus. She is unable to tell me how often they occur. S he denies any vaginal bleeding or discharge. Related Data Home Medications Medication Instructions Recorded Confirmed venlafaxine 75 mg capsule,extended 75 mg PO DAILY 06/19/23 06/19/23 release 24 hr Allergies Allergy/AdvReac Type Severity Reaction Status Date / Time Sulfa (Sulfonamide Allergy Unknown Verified 06/19/23 23:52 Antibiotics) Review of Systems ROS Status of ROS 10 or more systems reviewed and unremark able except as noted in history and below PFSH PFS Social History Smoking status: Current every day smoker Exam Narrative Exam Narrative: VITALS: I have reviewed the triage vital signs. GENERAL: Well developed, well appearing adult in no acute distress. NEURO: Alert and oriented. Moves all extremities. Face is symmetric and expressive. EYES: PERRL. No scleral icterus or conjunctival injection. No discharge. HENT: Normocephalic, atraumatic. Hearing is grossly intact. Nares grossly patent and without discharge. Mucous membranes moist. NECK: No JVD. Patient moves neck without restriction. CARDIO: Rhythm regular. Normal rate. No murmur, rub, or gallop. Pulses equal bilaterally in the upper and lower extremity. No lower extremity edema. PULM: Lungs clear to auscultation in all regan. No wheezes, rales, or rhonchi. No conversational dyspnea. No splinting, stridor, or accessory muscle use. GI/: Abdomen is soft and non-tender. Normoactive bowel sounds. Gravid uterus. Soft. EXTREMITIES: Symmetric muscle bulk. No joint swelling. No clubbing, cyanosis, or deformity. SKIN: Warm and dry. Normal turgor. No rash or lesions appreciated. PSYCH: Anxious Constitutional Vital Signs, click to edit/add: Last Vital Signs Temp 97.7 F 11/13/23 19:17 Pulse 83 11/13/23 20:30 Resp 17 11/13/23 20:30 BP 106/66 11/13/23 20:10 Pulse Ox 99 11/13/23 20:30 O2 Del Method Room Air 11/13/23 19:25 Course Vital Signs Vital signs: Vital Signs Temperature 97.7 F 11/13/23 19:17 Pulse Rate 98 H 11/13/23 19:17 Respiratory Rate 16 11/13/23 19:17 Blood Pressure 103/59 11/13/23 19:17 Pulse Oximetry 100 11/13/23 19:17 Oxygen Delivery Method Room Air 11/13/23 19:17 Temperature 97.7 F 11/13/23 19:17 Pulse Rate 83 11/13/23 20:30 Respiratory Rate 17 11/13/23 20:30 Blood Pressure 106/66 11/13/23 20:10 Pulse Oximetry 99 11/13/23 20:30 Oxygen Delivery Method Room Air 11/13/23 19:25 Medical Decision Making MDM Narrative Medical decision making narrative: 17-year-old female to the emergency department chief complain of palpitations/chest pain/shortness of breath that is been ongoing for months or longer and intermittent sharp abdominal pain with cramping abdominal pain for the last week. Vitals stable, the patient is afebrile. Her abdominal examination is benign. She has normal heart tones. We'll obtain basic labs, troponin, EKG, chest x-ray for her chest pain/shortness of breath. The clinical picture here is more that of anxiety, chronic process. A nap with this represents pulmonary embolism, she is low risk/ PERC neg. CBC and chemistry are unremarkable. Her troponin is very low. HEART Score 0. Chest x-ray without acute findings. Findings were discussed with the patient. She is low risk and appropriate for outpatient follow-up. For her cramping lower abdominal discomfort I do not believe there is an acute surgical pathology causing Discomfort. Her exam is benign. Given that has passed viability she'll be sent to OB triage for labor evaluation. Patient and her Mother agrees with this plan. The patient was discharged to OB triage. Lab Data Labs: Lab Results 11/13/23 Range/Units 20:04 WBC 10.6 (4.0-11.0) 10^3/uL RBC 3.65 L (4.20-5.40) 10^6/uL Hgb 11.5 L (12.0-16.0) g/dL Hct 34.2 L (36.0-48.0) % MCV 93.7 (81.0-99.0) fL MCH 31.5 (26.7-34.0) pg MCHC 33.6 (29.9-35.2) g/dL RDW 12.1 (11.0-15.0) % Plt Count 167 (150-450) 10^3/uL MPV 8.7 L (9.5-13.5) fL Neut % (Auto) 76.7 H (43.0-75.0) % Lymph % (Auto) 14.9 L (20.5-60.0) % Orange % (Auto) 6.9 (1.7-12.0) % Eos % (Auto) 0.6 L (0.9-7.0) % Baso % (Auto) 0.3 (0.2-2.0) % Neut # (Auto) 8.1 H (1.4-6.5) 10^3/uL Lymph # (Auto) 1.6 (1.2-3.8) 10^3/uL Orange # (Auto) 0.7 (0.3-0.8) 10^3/uL Eos # (Auto) 0.1 (0.0-0.7) 10^3/uL Baso # (Auto) 0.0 (0.0-0.1) 10^3/uL Abs Immat Gran (auto) 0.06 H (0.00-0.03) 10^3/uL Imm/Tot Granulo (auto) 0.6 H (0.0-0.5) % Sodium 139 (136-145) mmol/L Potassium 3.9 (3.5-5.1) mmol/L Chloride 105 (98-107) mmol/L Carbon Dioxide 27.5 (21.0-32.0) mmol/L Anion Gap 10.4 BUN 9.0 (6.4-19.3) mg/dL Creatinine 0.48 L (0.55-1.02) mg/dL Est GFR ( Amer) >60 (>=60) Est GFR (Non-Af Amer) >60 (>=60) BUN/Creatinine Ratio 18.8 Glucose 82 (74-106) mg/dL Calcium 8.9 (8.5-10.1) mg/dL Troponin I High Sens <4.0 L (4.0-51.3) pg/mL Discharge Plan Discharge Chief Complaint: OB/Uterine Contractions Clinical Impression: , Abdominal pain, Chest pain Patient Disposition: Home, Self-Care Time of Disposition Decision: 20:59 Condition: Good Mode of Transportation: Private Vehicle Prescriptions / Home Meds: No Action venlafaxine 75 mg capsule,extended release 24hr 75 mg PO DAILY Print Language: Mauritian Instructions: Chest Pain (ED), Abdominal Pain (ED), at 23 to 26 Weeks (ED) Stand Alone Forms: Portal Instructions Referrals: Preet Womack DO [Physician] - As soon as possible (PROCEED DIRECTLY TO OB TRIAGE) Tawnya ROGERS [Primary Care Provider] - 1 week
[2023-11-13 20:13] LABS: Basophils Percent Auto 0.3 % (0.2-2.0); Eosinophils Absolute Auto 0.1 10^3/uL (0.0-0.7); Eosinophils Percent Auto 0.6 % (0.9-7.0); Hematocrit 34.2 % (36.0-48.0); Hemoglobin 11.5 g/dL (12.0-16.0); Immature Granulocytes Abs Auto 0.06 10^3/uL (0.00-0.03); Immature Granulocytes Pct Auto 0.6 % (0.0-0.5); Lymphocytes Absolute Auto 1.6 10^3/uL (1.2-3.8); Lymphocytes Percent Auto 14.9 % (20.5-60.0); Mean Corpuscular HGB Conc 33.6 g/dL (29.9-35.2); Mean Corpuscular Hemoglobin 31.5 pg (26.7-34.0); Mean Corpuscular Volume 93.7 fL (81.0-99.0); Mean Platelet Volume 8.7 fL (9.5-13.5); Monocytes Absolute Auto 0.7 10^3/uL (0.3-0.8); Monocytes Percent Auto 6.9 % (1.7-12.0); Neutrophils Absolute Auto 8.1 10^3/uL (1.4-6.5); Neutrophils Percent Auto 76.7 % (43.0-75.0); Platelet Count 167 10^3/uL (150-450); Red Blood Count 3.65 10^6/uL (4.20-5.40); Red Cell Distribution Width 12.1 % (11.0-15.0); White Blood Count 10.6 10^3/uL (4.0-11.0)
[2023-11-13 20:29] LABS: Anion Gap 10.4; BUN Creatinine Ratio 18.8; Calcium 8.9 mg/dL (8.5-10.1); Carbon Dioxide 27.5 mmol/L (21.0-32.0); Chloride 105 mmol/L (98-107); Estimated GFR (African America >60 (>=60); Estimated GFR (Non-African Ame >60 (>=60); Glucose 82 mg/dL (74-106); Potassium 3.9 mmol/L (3.5-5.1); Sodium 139 mmol/L (136-145); Troponin I High Sensitivity <4.0 pg/mL (4.0-51.3)
== END 2023-11-13 21:17 | disposition home or self-care (01) ==
PROVIDERS: Emergency Provider Student in an Organized Health Care Education/Training Program; PCP Family Medicine
DX: O26.892 Other specified pregnancy related conditions, second trimester (principal); R10.9 Unspecified abdominal pain; R07.9 Chest pain, unspecified; O99.342 Other mental disorders complicating pregnancy, second trimester; F41.9 Anxiety disorder, unspecified; O99.332 Smoking (tobacco) complicating pregnancy, second trimester; F17.210 Nicotine dependence, cigarettes, uncomplicated; Z3A.25 25 weeks gestation of pregnancy; Z79.899 Other long term (current) drug therapy
CPT/HCPCS: 36415; 71045; 80048; 84484; 85025; 93005; 99284

== ENCOUNTER 2023-11-13 21:10 | Observation (INO) | payer MEDICAID, SELFPAY ==
--- OUTSIDE RECORDS SUMMARY | 2023-11-13 21:13 | XMS_ITS | CCD ---
Author Name Unknown Address [phone] [place] [address] Organization [facility] Care Team Providers Care Umbrella Finisher Name Role Phone Opal Neri CNP Unavailable [...] source) Sulfonamides (Antibiotic) Drug Allergy 2 Unknown [facility] (2 sources) Sulfonamides (Antibiotic) Drug allergy (disorder) [facility] (1 source) Amoxicillin Drug Allergy itching [facility] Other (1 source) Sulfamethoxazole / Trimethoprim Drug Allergy rash [facility] Other Medications Current Medications Medication Drug Class(es) [...] pyogenes Org specific cx Ql (Throat) Negative [facility] Other Quick Strep [facility] Other SARS-CoV-2 (COVID-19) RNA NA A+probe Ql (Resp)on 07-24-2023 SARS-CoV-2 (COVID-19) RNA DARON+probe Ql (Unsp spec) Negative [facility] Other CHLAMYDIA/GONOCOCCUS DARON (SW AB/URINE/PAPon 09-19-2022 Chlamydia trachomatis, DARON Negative Normal Negative [facility] Comment on above: Performed By: #### C T/NGNA #### [facility] [address] [place] [address] Dr. Kamryn Don Neisseria gonorrhoeae, DARON Negative Normal Negative [facility] Comment on above: Performed By: #### C T/NGNA #### [facility] [address] [address] [address] Kamryn Don VAGINITIS/VAGINOSIS DNA PROB Domenic 09-18-2022 Marsha species Negative Normal Negative [facility] Comment on above: Performed By: #### V AGINT #### [facility] [address] [place] [address] Dr. Kamryn Don Gardnerella vaginalis Positive Abnormal Negative [facility] Comment on above: Performed By: #### V AGINT #### [facility] [address] [address] [address] Kamryn Don Trichomonas vaginalis Negative Normal Negative [facility] Comment on above: Performed By: #### V AGINT #### [facility] [address] [place] [address] Dr. Kamryn Don CNOVon 09-05-2022 CNOV Office Visit (INOPIN ) SOLIS RASHID ([id number]) 1 F Date Time Provider Department 09/05/22 [...] - Fully Assessed Reason for Visit: New [[id number]] Primary Visit Diagnosis:Adolescent idiopathic scoliosis of thoracic region [M41.124] Order(s):XR SCOLIOSIS PA STAND/LAT 2V [[id number]] Order #: [id number] FUTURE Prescriptions as of 09/05/2022 - escitalopram oxalate (LEXAPRO) 10 mg tablet Take 10 mg by mouth once daily. - Norethin Boom-Eth Estrad-FE 1 mg-20 mcg (21)/75 mg (7) per tablet Take 1 tablet by mouth once daily. Problem List As Of Date: 09/05/2022 (None) Encounter Status:Closed by ROGE NORTH on 09/05/22 Normal [facility] 06-14-2022 XR Spine Scoliosis Study Standing CLINICAL [...] by Carleen Graff on 06/17/2022 0849 Normal [facility] HCG,Quantitativeon 2 HCG,Quantitative 8536.00 m[iU]/mL Normal [facility] Comment on above: Order Comment: Reaso n for Exam Less than 8 weeks gestation of Result Comment: Appr oximate Approximate hCG Gestational Age Range (mIU/ml) (weeks) 0.2-1 5-50 1-2 50-500 2-3 100-5,000 3-4 500-10,000 4-5 1,000-50,000 5-6 10,000-100,000 6-8 15,000-200,000 8-12 10,000-100,000 PERFORMED BY: [place] [address] PATHOLOGIST TECHNICIAN [employer] MAINTENANCE EZEKIEL SERRANO M.D. Performed By: #### H CGQNT #### [address] HCG,Quantitativeon 2 HCG,Quantitative 8790.00 m[iU]/mL Normal [facility] Comment on above: Order Comment: Reaso n for Exam Missed menses;Positive blood test;Spotting affecti Result Comment: Appr oximate Approximate hCG Gestational Age Range (mIU/ml) (weeks) 0.2-1 5-50 1-2 50-500 2-3 100-5,000 3-4 500-10,000 4-5 1,000-50,000 5-6 10,000-100,000 6-8 15,000-200,000 8-12 10,000-100,000 PERFORMED BY: [facility] [address] [place] [address] PATHOLOGIST TECHNICIAN [employer]ANT [employer] MAINTENANCE EZEKIEL SERRANO M.D. Performed By: #### H CGQNT #### [facility] [address] [place] [address] RUST Q - HCG [place] Q[place] 2 [place] [address] m[IU]/mL [facility] Supervisor Varnish Comment on above: Order Comment: [facility] Testing performed at: [facility], [address] [facility] [address], [address] [place], [address], Development System Efficiency Manager: Vikram Cadet MD [facility] Collection Date/Time: [facility] Results Received Date/Time: [facility] Reported Date/Time: Result Comment: Refe rence Range Non or premenopausal <5 Postmenopausal <10 Values from different assay methods may vary. The use of this assay to monitor or to diagnose patients with cancer or any condition unrelated to has not been cleared or approved by the FDA or the antique jewelry repairer of the assay. Performed By: #### 2 [id number] #### [facility] Default [address] [place] [address] US OB 1ST Trimesteron 2021 US OB [...] by Sancho German on 12/11/2021 1006 Normal [facility] Supervisor Varnish Vital Signs Date Time Vital Sign Value Performing Clinician Facility 07-24-2023 16:00-0400 Body temperature 99.6 [degF] Maday Bragg Other [facility] Other 07-24-2023 16:00-0400 Body weight 49.9 kg Maday Bragg Other [facility] Other 07-24-2023 16:00-0400 Respiratory rate 20 /min Maday Yemi Other [facility] Other 07-24-2023 16:00-0400 SaO2% (BldA) [Mass fraction] 100 % Maday Bragg Other [facility] Other 09-05-2022 15:29-0500 Body height 167.6 cm Roge North MD Work Phone: [facility] 09-05-2022 15:29-0500 Body mass index (BMI) [Percentile] Per age and sex 5.14 % Roge North MD Work Phone: [facility] 09-05-2022 15:29-0500 Body weight 49.9 kg Roge North MD Work Phone: [facility] Encounters Encounter Date Encounter Type Care Provider Facility Start: 11-11-2023 End: 11-11-2023 ambulatory JON KEITA Not Available Start: 10-23-2023 End: 10-23-2023 ambulatory JON KEITA Not Available Start: 10-14-2023 End: 10-14-2023 ambulatory SARI RODRIGUEZ Not Available Start: 09-16-2023 End: 09-16-2023 ambulatory JON KEITA Not Available Start: 07-24-2023 End: 07-24-2023 ambulatory Maday Bragg Other [facility] Other Start: 07-24-2023 Office outpatient vi sit 25 minutes Maday Bragg [facility] Start: 09-16-2022 End: 09-16-[address] SARI RODRIGUEZ Facility:[facility] Start: 09-05-2022 End: 09-05-2022 ambulatory ROGE NORHT Facility:[facility] Start: 09-05-2022 End: 09-05-2022 Patient encounter procedure Roge North MD Work Phone: [facility] Comment on above: 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 (Primary Dx) Start: 01-03-[address] SARI RODRIGUEZ Facility :[facility] Start: 12-17-[address] TIBURCIO AGUILAR Facdusty lity:[facility] Plan of Treatment Date Care Activity Detail Author Start: 06-20-2022 Influenza vaccination INFLUENZA (#1) [facility] Start: 2021 CHLAMYDIA SCREENING (18-24) CHLAMYDIA SCREENING (18-24) [facility] Start: 2021 GC (GONORRHEA) SCREE SHARITA (18-24) GC (GONORRHEA) SCREENING (18-24) [facility] Start: 2021 HEPATITIS C SCREENING HEPATITIS C SC REENING [facility] Start: 2021 HIV SCREENING HIV SCREENING [facility] Start: 10-20-2021 DEPRESSION ASSESSMENT DEPRESSION ASS ESSMENT [facility] Start: 2019 MENINGOCOCCAL CONJUG ATE (1 - 2-dose series) MENINGOCOCCAL CONJUGATE (1 - 2-dose series) [facility] Start: 2017 PEDS TO ADULT TRANSI TION ANNUAL ASSESSMENT PEDS TO ADULT TRANSITION ANNUAL ASSESSMENT [facility] Start: 2015 PEDS TO ADULT TRANSI TION INITIAL DISCUSSION PEDS TO ADULT TRANSITION INITIAL DISCUSSION [facility] Start: 2014 HPV VACCINE (1 - 2-d ose series) HPV VACCINE (1 - 2-dose series) [facility] Start: 2013 MENINGOCOCCAL B: Consider based on risk (1 of 2 - Risk Bexsero 2-dose series) MENINGOCOCCAL B: Consider based on risk (1 of 2 - Risk Bexsero 2-dose series) [facility] Start: 2010 Urine microalbumin profile DTAP,TDAP,TD (1 - Tdap) [facility] Start: 05-14-2004 COVID-19 VACCINE (#1) COVID-19 VACCI NE (#1) [facility] Start: 2003 HEPATITIS B (1 of 3 - 3-dose series) HEPATITIS B (1 of 3 - 3-dose series) [facility] End: 10-05-2023 Radex entir thrc lmbr crv sac spi w/skull 2/3 vw XR SCOLIOSIS PA STAND/LAT 2V Radiology Routine Adolescent idiopathic scoliosis of thoracic region 1 Occurrences starting 09/05/2022 until 10/05/2023 [facility] Work Phone: Comment on above: 1 Occurrences starti ng 09/05/2022 until 10/05/2023 Immunizations Immunization Date Immunization Notes Care Provider Tanesha colby 06-12-2009 Diphtheria, tetanus toxoids and acellular pertussis vaccine, and poliovirus vaccine, inactivated Maday Bragg Other [facility] Other 06-12-2009 measles, mumps and rubella virus vaccine Maday Bragg Other [facility] Other 06-12-2009 varicella virus vaccine Maday Bragg Other [facility] Other Payers Date Payer Category Payer Medicaid [id number] 2017 Medicaid [place] TERM 09/18 [place] [employer] [id number] 2017-Present [phone] [address] [place] [address] Medicaid [id number] 2005 Unknown [id number] 2003 Unknown [id number] 2003 Unknown [id number] 2003 Unknown [id number] 2003 Unknown [id number] 2003 Unknown [id number] 2003 Unknown [id number] 1961 Medicaid [id number] 1961 Self-pay Social History Date Type Detail Facility Start: 09-05-2022 Tobacco smoking status NHIS Never smoked tobacco [facility] Start: 09-05-2022 Tobacco use and exposure Smokeless tobacco non-user [facility] Start: 2005 Sex Assigned At Not on file [facility] Sex Assigned At Sex Assigned At [facility] Other Evaluation note 07-24-2023 Note Date & [...] treatment plan. Patient left in stable condition [facility] Other Progress note 09-05-2022 Note Date & Type Note Facility 09-05-2022 Note HNO ID: [id number] Author: Roge North MD Service: ? Author [...] late progression that would require surgical intervention. [facility] History of Present illness Narrative 09-05-2022 Roge [...] require surgical intervention. documented in this encounter [facility] History general Narrative - Reported 2005 Note Date & Type Note Facility 2005 History general N arrative - Reported Type Medical History febrile seizures Medical History extropia left eye Medical History bronchititis Medical History dishydrotic eczema Hospitalization History RSV 12/23/19 04 [facility] Other Evaluation note Note Date & Type Note Facility Evaluation note Diagnosis Adolescent idiopathic scoliosis of thoracic region- Primary Scoliosis (and kyphoscoliosis), idiopathic documented in this encounter [facility] Reason for referral (narrative) Diagnostic Procedure Only (Routine) - Pending Review Note Date & Type Note Facility Reason for referral (narrati ve) Specialty Diagnoses / Procedures Referred By Contac t Referred To Contact XR IMAGING Diagnoses Adolescent idiopathic scoliosis of thoracic region Procedures XR SCOLIOSIS PA STAND/LAT 2V RADEX ENTIR THRC LMBR CRV SAC SPI W/SKULL 2/3 VW Roge North MD [address] [place] [address] Xr Imaging Referral ID Status Reason Start Date Expiration Date Visits Requested Visits Authorized [id number] Pending Review Auto-Generat ed Referral 2 10/05/2023 1 1 [facility] Summary Purpose Family History No Family History Records FoundNo Family History Records FoundNo Family History Records FoundNo Family History Records FoundNo Family History Records Found Advance Directives No Advanced Directives Records FoundNo Advanced Directives Records FoundNo Advanced Directives Records FoundNo Advanced Directives Records FoundNo Advanced Directives Records Found Additional Source Comments INFORMATION SOURCE (unrecogn ized section and content) DATE CREATED AUTHOR 12/16/2021 [facility] DATE CREATED AUTHOR AUTHOR'S ORGANIZ ATION 06/17/2022 [facility] DATE CREATED AUTHOR AUTHOR'S ORGANIZ ATION 09/07/2022 [facility] DATE CREATED AUTHOR AUTHOR'S ORGANIZ ATION 09/20/2022 [facility] DATE CREATED AUTHOR AUTHOR'S ORGANIZ ATION 11/12/2023 [facility] dical Specialists EPIC Source Comments (unrecognize d section and content) In the event this informatio n is protected by the Federal Confidentiality of Alcohol and Drug Abuse Patient Records regulations: The Federal rules restrict any use of the information to criminally investigate or prosecute any alcohol or drug abuse patient.[facility] Reason for Visit (unrecogniz ed section and content) Reason Comments New Care Teams (unrecognized sec tion and content) Umbrella Finisher Relationship Specialty Start Date End Date Opal Neri, BATTERY MECHANIC [address] [place] [address] Referring Family Medicine 06/21/22 FOR RECORDS PERTAINING [...] BE BASED ON THE PRIMARY CLINICAL RECORDS. [facility]. provides no warranty or guarantee of the accuracy or completeness of information in this document.
[2023-11-13 21:25] VITALS: BP 103/58; PULSE 82
== END 2023-11-13 22:00 | disposition home or self-care (01) ==
LOC: FBC 21:11
PROVIDERS: Admitting Provider Obstetrics & Gynecology; PCP Family Medicine; Visit Provider Obstetrics & Gynecology
DX: O26.899 Other specified pregnancy related conditions, unspecified trimester (principal); R10.31 Right lower quadrant pain; Z3A.00 Weeks of gestation of pregnancy not specified; O26.892 Other specified pregnancy related conditions, second trimester; R10.9 Unspecified abdominal pain; R07.9 Chest pain, unspecified; O99.342 Other mental disorders complicating pregnancy, second trimester; F41.9 Anxiety disorder, unspecified; O99.332 Smoking (tobacco) complicating pregnancy, second trimester; F17.210 Nicotine dependence, cigarettes, uncomplicated; Z3A.25 25 weeks gestation of pregnancy; Z79.899 Other long term (current) drug therapy
CPT/HCPCS: 36415; 71045; 80048; 84484; 85025; 93005; 99284; G0378; G0379

== ENCOUNTER 2023-11-24 10:55 | Outpatient (OUT) | payer MEDICAID, SELFPAY ==
--- OUTSIDE RECORDS SUMMARY | 2023-11-24 10:59 | XMS_ITS | CCD ---
Author Name Unknown Address [address] [place] [address] Organization [facility] Care Team Providers Care Commercial Housekeeper Name Role Phone Opal Neri CNP Unavailable ROGE NORTH Attending Unavailable MICHAEL, DR GUO Attending Unavailable MICHAEL, DR GUO Admitting Unavailable REQUEST, DR BASS LISTED Primary Care Unavaila daria RODRIGUEZ, DR GUO Attending Unavailable MICHAEL, DR GUO Consulting Unavailable MICHAEL, DR GUO Admitting Unavailable REQUEST, DR BASS LISTED Primary Care Unavaila daria AGUILAR, DR DYE Attending Unavailable LAUREN, DR DEY Admitting Unavailable REQUEST, DR BASS LISTED Primary Care Unavaila Maday Del Toro Unavailable SARI RODRIGUEZ Attending Unavailable JON KEITA Attending Unavailable JON KEITA Attending Unavailable JON KEITA Attending Unavailable Allergies Allergy Classification Reported Allergen(s) Allergy Type Date of Onset Reaction(s) Facility (1 source) Sulfonamides (Antibiotic) Drug Allergy [address] [facility] (2 sources) Sulfonamides (Antibiotic) Drug allergy (disorder) [facility] Repository (1 source) Amoxicillin Drug Allergy itching [facility] (acquired by [facility] in 2014) Other (1 source) Sulfamethoxazole / Trimethoprim Drug Allergy rash [facility] (acquired by [facility] in 2014) Other Medications Current Medications Medication Drug Class(es) [...] pyogenes Org specific cx Ql (Throat) Negative [facility] (acquired by [facility] in 2014) Other Quick Strep [facility] (acquired by [facility] in 2014) Other SARS-CoV-2 (COVID-19) RNA NA A+probe Ql (Resp)on 07-24-2023 SARS-CoV-2 (COVID-19) RNA DARON+probe Ql (Unsp spec) Negative [facility] (acquired by [facility] in 2014) Other CHLAMYDIA/GONOCOCCUS DARON (SW AB/URINE/PAPon 09-19-2022 Chlamydia trachomatis, DARON Negative Normal Negative [facility] Comment on above: Performed By: #### C T/NGNA #### [facility] [address] [place] [address] Dr. Kamryn Don Neisseria gonorrhoeae, DARON Negative Normal Negative [facility] Comment on above: Performed By: #### C T/NGNA #### [facility] [address] [address] [address] Kamryn Don VAGINITIS/VAGINOSIS DNA PROB Domenic 09-18-2022 Marsha species Negative Normal Negative [facility] Comment on above: Performed By: #### V AGINT #### [facility] [address] [place] [address] Dr. Kamryn Don Gardnerella vaginalis Positive Abnormal Negative [facility] Comment on above: Performed By: #### V AGINT #### [facility] [address] [address] [address] Kamryn Don Trichomonas vaginalis Negative Normal Negative [facility] Comment on above: Performed By: #### V AGINT #### [facility] [address] [place] [address] Dr. Kamryn Don CNOVon 09-05-2022 CNOV Office Visit (INOPIN ) SOLIS RASHID ([id number]) 1 F Date Time Provider Department 09/05/22 [...] - Fully Assessed Reason for Visit: New [[id number]] Primary Visit Diagnosis:Adolescent idiopathic scoliosis of thoracic region [M41.124] Order(s):XR SCOLIOSIS PA STAND/LAT 2V [[id number]] Order #: [id number] FUTURE Prescriptions as of 09/05/2022 - escitalopram oxalate (LEXAPRO) 10 mg tablet Take 10 mg by mouth once daily. - Norethin Boom-Eth Estrad-FE 1 mg-20 mcg (21)/75 mg (7) per tablet Take 1 tablet by mouth once daily. Problem List As Of Date: 09/05/2022 (None) Encounter Status:Closed by ROGE NORTH on 09/05/22 Normal [facility] XR Spine Scoliosis Study [...] by Carleen Graff on 06/17/2022 0849 Normal [facility] HCG,Quantitativeon 2 HCG,Quantitative 8536.00 m[iU]/mL Normal [facility] Comment on above: Order Comment: Reaso n for Exam Less than 8 weeks gestation of Result Comment: Appr oximate Approximate hCG Gestational Age Range (mIU/ml) (weeks) 0.2-1 5-50 1-2 50-500 2-3 100-5,000 3-4 500-10,000 4-5 1,000-50,000 5-6 10,000-100,000 6-8 15,000-200,000 8-12 10,000-100,000 PERFORMED BY: [place] [address] PATHOLOGIST CARPENTER FORM EZEKIEL SERRANO M.D. Performed By: #### H CGQNT #### [address] HCG,Quantitativeon 2 HCG,Quantitative 8790.00 m[iU]/mL Normal [facility] Comment on above: Order Comment: Reaso n for Exam Missed menses;Positive blood test;Spotting affecti Result Comment: Appr oximate Approximate hCG Gestational Age Range (mIU/ml) (weeks) 0.2-1 5-50 1-2 50-500 2-3 100-5,000 3-4 500-10,000 4-5 1,000-50,000 5-6 10,000-100,000 6-8 15,000-200,000 8-12 10,000-100,000 PERFORMED BY: [facility] [address] [place] [address] PATHOLOGIST CARPENTER FORM EZEKIEL SERRANO M.D. Performed By: #### H CGQNT #### [facility] [address] [place] [address] RUST Q - H[place] Q[place] 2 [place] [address] m[IU]/mL [facility] Environmental Inspector Comment on above: Order Comment: [facility] Testing performed at: [employer], [employer] [facility], [address], [address] [place], [address], Daycare Director: Vikram Cadet MD [facility] Collection Date/Time: [facility] Results Received Date/Time: [facility] Reported Date/Time: Result Comment: Refe rence Range Non or premenopausal <5 Postmenopausal <10 Values from different assay methods may vary. The use of this assay to monitor or to diagnose patients with cancer or any condition unrelated to has not been cleared or approved by the FDA or the polymerization kettle operator of the assay. Performed By: #### 2 [id number] #### [facility] Default [address] [place] [address] US OB 1ST Trimesteron 2021 US OB [...] by Sancho German on 12/11/2021 1006 Normal [facility] Environmental Inspector Vital Signs Date Time Vital Sign Value Performing Clinician Facility 07-24-2023 16:00-0400 Body temperature 99.6 [degF] Maday Bragg Other [facility] (acquired by [facility] in 2014) Other 07-24-2023 16:00-0400 Body weight 49.9 kg Maday Bragg Other [facility] (acquired by [facility] in 2014) Other 07-24-2023 16:00-0400 Respiratory rate 20 /min Maday Yemi Other [facility] (acquired by [facility] in 2014) Other 07-24-2023 16:00-0400 SaO2% (BldA) [Mass fraction] 100 % Maday Bragg Other [facility] (acquired by [facility] in 2014) Other 09-05-2022 15:29-0500 Body height 167.6 cm Roge North MD Work Phone: [facility] 09-05-2022 15:29-0500 Body mass index (BMI) [Percentile] Per age and sex 5.14 % Roge North MD Work Phone: [facility] 09-05-2022 15:29-0500 Body weight 49.9 kg Roge North MD Work Phone: [facility] Encounters Encounter Date Encounter Type Care Provider Facility Start: 11-11-2023 End: 11-11-2023 ambulatory JON KEITA Not Available Start: 10-23-2023 End: 10-23-2023 ambulatory JON KEITA Not Available Start: 10-14-2023 End: 10-14-2023 ambulatory SARI RODRIGUEZ Not Available Start: 09-16-2023 End: 09-16-2023 ambulatory JON KEITA Not Available Start: 07-24-2023 End: 07-24-2023 ambulatory Maday Bragg Other [facility] (acquired by [facility] in 2014) Other Start: 07-24-2023 Office outpatient vi sit 25 minutes Maday Bragg [facility] Start: 09-16-2022 End: 09-16-[address] SARI RODRIGUEZ Facility:[facility] Start: 09-05-2022 End: 09-05-2022 ambulatory ROGE NORTH Facility:[facility] Start: 09-05-2022 End: 09-05-2022 Patient encounter procedure Roge North MD Work Phone: [facility] Comment on above: 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 (Primary Dx) Start: 01-03-[address] SARI RODRIGUEZ Facility :[facility] Start: 12-17-[address] TIBURCIO AGUILAR Facdusty lity:[facility]1 Plan of Treatment Date Care Activity Detail Author Start: 06-20-2022 Influenza vaccination INFLUENZA (#1) [facility] Start: 2021 CHLAMYDIA SCREENING (18-24) CHLAMYDIA SCREENING (18-24) [facility] Start: 2021 GC (GONORRHEA) SCREE SHARITA (18-24) GC (GONORRHEA) SCREENING (18-24) [facility] Start: 2021 HEPATITIS C SCREENING HEPATITIS C SC REENING [facility] Start: 2021 HIV SCREENING HIV SCREENING [facility] Start: 10-20-2021 DEPRESSION ASSESSMENT DEPRESSION ASS ESSMENT [facility] Start: 2019 MENINGOCOCCAL CONJUG ATE (1 - 2-dose series) MENINGOCOCCAL CONJUGATE (1 - 2-dose series) [facility] Start: 2017 PEDS TO ADULT TRANSI TION ANNUAL ASSESSMENT PEDS TO ADULT TRANSITION ANNUAL ASSESSMENT [facility] Start: 2015 PEDS TO ADULT TRANSI TION INITIAL DISCUSSION PEDS TO ADULT TRANSITION INITIAL DISCUSSION [facility] Start: 2014 HPV VACCINE (1 - 2-d ose series) HPV VACCINE (1 - 2-dose series) [facility] Start: 2013 MENINGOCOCCAL B: Consider based on risk (1 of 2 - Risk Bexsero 2-dose series) MENINGOCOCCAL B: Consider based on risk (1 of 2 - Risk Bexsero 2-dose series) [facility] Start: 2010 Urine microalbumin profile DTAP,TDAP,TD (1 - Tdap) [facility] Start: 05-14-2004 COVID-19 VACCINE (#1) COVID-19 VACCI NE (#1) [facility] Start: 2003 HEPATITIS B (1 of 3 - 3-dose series) HEPATITIS B (1 of 3 - 3-dose series) [facility] End: 10-05-2023 Radex entir thrc lmbr crv sac spi w/skull 2/3 vw XR SCOLIOSIS PA STAND/LAT 2V Radiology Routine Adolescent idiopathic scoliosis of thoracic region 1 Occurrences starting 09/05/2022 until 10/05/2023 [facility] Work Phone: Comment on above: 1 Occurrences starti ng 09/05/2022 until 10/05/2023 Immunizations Immunization Date Immunization Notes Care Provider Tanesha colby 06-12-2009 Diphtheria, tetanus toxoids and acellular pertussis vaccine, and poliovirus vaccine, inactivated Maday Bragg Other [facility] (acquired by [facility] in 2014) Other 06-12-2009 measles, mumps and rubella virus vaccine Maday Bragg Other [facility] (acquired by [facility] in 2014) Other 06-12-2009 varicella virus vaccine Maday Bragg Other [facility] (acquired by [facility] in 2014) Other Payers Date Payer Category Payer Medicaid [id number] 2017 Medicaid [place] TERM 09/18 [place] [employer] [id number] 2017-Present [phone] [address] [place] [address] Medicaid [id number] 2003 Unknown [id number] 2003 Unknown [id number] 2003 Unknown [id number] 2003 Unknown [id number] 2003 Unknown [id number] 2003 Unknown [id number] 2003 Unknown [id number] 1959 Medicaid [id number] 1961 Self-pay Social History Date Type Detail Facility Start: 09-05-2022 Tobacco smoking status NHIS Never smoked tobacco [facility] Start: 09-05-2022 Tobacco use and exposure Smokeless tobacco non-user [facility] Start: 2003 Sex Assigned At Not on file C [facility] Sex Assigned At Sex Assigned At [facility] Other Evaluation note 07-24-2023 Note Date & [...] treatment plan. Patient left in stable condition [facility] (acquired by [facility] in 2014) Other Progress note 09-05-2022 Note Date & Type Note Facility 09-05-2022 Note HNO ID: [id number] Author: Roge North MD Service: ? Author [...] late progression that would require surgical intervention. [facility] History of Present illness Narrative 09-05-2022 [...] require surgical intervention. documented in this encounter [facility] History general Narrative - Reported 2003 Note Date & Type Note Facility 2003 History general N arrative - Reported Type Medical History febrile seizures Medical History extropia left eye Medical History bronchititis Medical History dishydrotic eczema Hospitalization History RSV 12/23/19 04 [facility] (acquired by [facility] in 2014) Other Evaluation note Note Date & Type Note Facility Evaluation note Diagnosis Adolescent idiopathic scoliosis of thoracic region- Primary Scoliosis (and kyphoscoliosis), idiopathic documented in this encounter [facility] Reason for referral (narrative) Diagnostic Procedure Only (Routine) - Pending Review Note Date & Type Note Facility Reason for referral (narrati ve) Specialty Diagnoses / Procedures Referred By Contac t Referred To Contact XR IMAGING Diagnoses Adolescent idiopathic scoliosis of thoracic region Procedures XR SCOLIOSIS PA STAND/LAT 2V RADEX ENTIR THRC LMBR CRV SAC SPI W/SKULL 2/3 VW Roge North MD [address] [place] [address] Xr Imaging Referral ID Status Reason Start Date Expiration Date Visits Requested Visits Authorized [id number] Pending Review Auto-Generat ed Referral 2 10/05/[address] [facility] Summary Purpose Family History No Family History Records FoundNo Family History Records FoundNo Family History Records FoundNo Family History Records FoundNo Family History Records Found Advance Directives No Advanced Directives Records FoundNo Advanced Directives Records FoundNo Advanced Directives Records FoundNo Advanced Directives Records FoundNo Advanced Directives Records Found Additional Source Comments INFORMATION SOURCE (unrecogn ized section and content) DATE CREATED AUTHOR 12/16/2021 [facility] DATE CREATED AUTHOR AUTHOR'S ORGANIZ ATION 06/17/2022 [facility] Me dical Specialist DATE CREATED AUTHOR AUTHOR'S ORGANIZ ATION 09/07/2022 [facility] DATE CREATED AUTHOR AUTHOR'S ORGANIZ ATION 09/20/2022 [facility] DATE CREATED AUTHOR AUTHOR'S ORGANIZ ATION 11/12/2023 [facility] dical Specialists EPIC Source Comments (unrecognize d section and content) In the event this informatio n is protected by the Federal Confidentiality of Alcohol and Drug Abuse Patient Records regulations: The Federal rules restrict any use of the information to criminally investigate or prosecute any alcohol or drug abuse patient.[facility] Reason for Visit (unrecogniz ed section and content) Reason Comments New Care Teams (unrecognized sec tion and content) Commercial Housekeeper Relationship Specialty Start Date End Date Opal Neri, PANEL FLOW MACHINE OPERATOR [address] [place] [address] Referring Family Medicine 06/21/22 FOR RECORDS PERTAINING [...] BE BASED ON THE PRIMARY CLINICAL RECORDS. [facility]. provides no warranty or guarantee of the accuracy or completeness of information in this document.
[2023-11-24 12:44] LABS: Basophils Percent Auto 0.2 % (0.2-2.0); Eosinophils Absolute Auto 0.1 10^3/uL (0.0-0.7); Eosinophils Percent Auto 0.5 % (0.9-7.0); Hematocrit 37.7 % (36.0-48.0); Hemoglobin 12.4 g/dL (12.0-16.0); Immature Granulocytes Abs Auto 0.07 10^3/uL (0.00-0.03); Immature Granulocytes Pct Auto 0.7 % (0.0-0.5); Lymphocytes Absolute Auto 1.3 10^3/uL (1.2-3.8); Lymphocytes Percent Auto 13.8 % (20.5-60.0); Mean Corpuscular HGB Conc 32.9 g/dL (29.9-35.2); Mean Corpuscular Hemoglobin 31.1 pg (26.7-34.0); Mean Corpuscular Volume 94.5 fL (81.0-99.0); Mean Platelet Volume 8.5 fL (9.5-13.5); Monocytes Absolute Auto 0.5 10^3/uL (0.3-0.8); Monocytes Percent Auto 5.4 % (1.7-12.0); Neutrophils Absolute Auto 7.5 10^3/uL (1.4-6.5); Neutrophils Percent Auto 79.4 % (43.0-75.0); Platelet Count 176 10^3/uL (150-450); Red Blood Count 3.99 10^6/uL (4.20-5.40); Red Cell Distribution Width 12.1 % (11.0-15.0); White Blood Count 9.4 10^3/uL (4.0-11.0)
[2023-11-24 13:19] LABS: Glucose 1 Hour 83 mg/dL
== END 2023-11-24 10:56 | disposition home or self-care (01) ==
LOC: LAB 10:57
PROVIDERS: PCP Family Medicine; Visit Provider Physician Assistant
DX: Z13.1 Encounter for screening for diabetes mellitus (principal)
CPT/HCPCS: 36415; 82105; 82950; 85025

== ENCOUNTER 2023-11-24 10:58 | Outpatient (OUT) | payer MEDICAID, SELFPAY ==
--- OUTSIDE RECORDS SUMMARY | 2023-11-24 11:06 | XMS_ITS | CCD ---
Author Name Unknown Address [address] [place] [address] Organization [facility] Care Team Providers Care Digital Analyst Name Role Phone Opal Neri CNP Unavailable [...] source) Sulfonamides (Antibiotic) Drug Allergy 2 Unknown [facility] (2 sources) Sulfonamides (Antibiotic) Drug allergy (disorder) [facility] (1 source) Amoxicillin Drug Allergy itching [facility] Other (1 source) Sulfamethoxazole / Trimethoprim Drug Allergy rash [facility] Other Medications Current Medications Medication Drug Class(es) [...] pyogenes Org specific cx Ql (Throat) Negative [facility] Other Quick Strep [facility] Other SARS-CoV-2 (COVID-19) RNA NA A+probe Ql (Resp)on 07-24-2023 SARS-CoV-2 (COVID-19) RNA DARON+probe Ql (Unsp spec) Negative [facility] Other CHLAMYDIA/GONOCOCCUS DARON (SW AB/URINE/PAPon 09-19-2022 Chlamydia trachomatis, DARON Negative Normal Negative [facility] Comment on above: Performed By: #### C T/NGNA #### [facility] [address] [place] [address] Dr. Kamryn Don Neisseria gonorrhoeae, DARON Negative Normal Negative [facility] Comment on above: Performed By: #### C T/NGNA #### [facility] [address] [address] [address] Kamryn Don VAGINITIS/VAGINOSIS DNA PROB Domenic 09-18-2022 Marsha species Negative Normal Negative [facility] Comment on above: Performed By: #### V AGINT #### [facility] [address] [place] [address] Dr. Kamryn Don Gardnerella vaginalis Positive Abnormal Negative [facility] Comment on above: Performed By: #### V AGINT #### [facility] [address] [address] [address] Kamryn Don Trichomonas vaginalis Negative Normal Negative [facility] Comment on above: Performed By: #### V AGINT #### [facility] [address] [place] [address] Dr. Kamryn Don CNOVon 09-05-2022 CNOV Office Visit (INOPIN ) SOLIS RASHID ([id number]) 1 F Date Time Provider Department 09/05/22 [...] - Fully Assessed Reason for Visit: New [506580] Primary Visit Diagnosis:Adolescent idiopathic scoliosis of thoracic region [M41.124] Order(s):XR SCOLIOSIS PA STAND/LAT 2V [[id number]] Order #: [id number] FUTURE Prescriptions as of 09/05/2022 - escitalopram oxalate (LEXAPRO) 10 mg tablet Take 10 mg by mouth once daily. - Norethin Boom-Eth Estrad-FE 1 mg-20 mcg (21)/75 mg (7) per tablet Take 1 tablet by mouth once daily. Problem List As Of Date: 09/05/2022 (None) Encounter Status:Closed by ROGE NORTH on 09/05/[address] [facility] XR Spine Scoliosis Study Standing CLINICAL [...] by Carleen Graff on 06/17/2022 0849 Normal [facility] HCG,Quantitativeon 2 HCG,Quantitative 8536.00 m[iU]/mL Normal [facility] Comment on above: Order Comment: Reaso n for Exam Less than 8 weeks gestation of Result Comment: Appr oximate Approximate hCG Gestational Age Range (mIU/ml) (weeks) 0.2-1 5-50 1-2 50-500 2-3 100-5,000 3-4 500-10,000 4-5 1,000-50,000 5-6 10,000-100,000 6-8 15,000-200,000 8-12 10,000-100,000 PERFORMED BY: [place] [address] PATHOLOGIST INDUSTRIAL NURSE EZEKIEL SERRANO M.D. Performed By: #### H CGQNT #### [address] HCG,Quantitativeon 2 HCG,Quantitative 8790.00 m[iU]/mL Normal [facility] Comment on above: Order Comment: Reaso n for Exam Missed menses;Positive blood test;Spotting affecti Result Comment: Appr oximate Approximate hCG Gestational Age Range (mIU/ml) (weeks) 0.2-1 5-50 1-2 50-500 2-3 100-5,000 3-4 500-10,000 4-5 1,000-50,000 5-6 10,000-100,000 6-8 15,000-200,000 8-12 10,000-100,000 PERFORMED BY: [facility] [address] [place] [address] PATHOLOGIST INDUSTRIAL NURSE EZEKIEL SERRANO M.D. Performed By: #### H CGQNT #### [facility] [address] [place] [address] [facility] Q - H[place] Q[place] 2 [place] [address] m[IU]/mL [facility] Information Support Project Manager Comment on above: Order Comment: [facility] Testing performed at: [employer] [facility], [address] [facility], [address] [place], [address], Nurse Leader: Vikram Cadet MD [facility] Collection Date/Time: [facility] Results Received Date/Time: [facility] Reported Date/Time: Result Comment: Refe rence Range Non or premenopausal <5 Postmenopausal <10 Values from different assay methods may vary. The use of this assay to monitor or to diagnose patients with cancer or any condition unrelated to has not been cleared or approved by the FDA or the forest manager of the assay. Performed By: #### 2 [id number] #### [facility] Default [address] [place] [address] US OB 1ST Trimesteron 2021 US OB [...] by Sancho German on 12/11/2021 1006 Normal [facility] Information Support Project Manager Vital Signs Date Time Vital Sign Value Performing Clinician Facility 07-24-2023 16:00-0400 Body temperature 99.6 [degF] Maday Bragg Other [facility] Other 07-24-2023 16:00-0400 Body weight 49.9 kg Maday Bragg Other [facility] Other 07-24-2023 16:00-0400 Respiratory rate 20 /min Maday Yemi Other [facility] Other 07-24-2023 16:00-0400 SaO2% (BldA) [Mass fraction] 100 % Maday Bragg Other [facility] Other 09-05-2022 15:29-0500 Body height 167.6 cm Roge North MD Work Phone: [facility] 09-05-2022 15:29-0500 Body mass index (BMI) [Percentile] Per age and sex 5.14 % Roge North MD Work Phone: [facility] 09-05-2022 15:29-0500 Body weight 49.9 kg Roge North MD Work Phone: [facility] Encounters Encounter Date Encounter Type Care Provider Facility Start: 11-11-2023 End: 11-11-2023 ambulatory JON KEITA Not Available Start: 10-23-2023 End: 10-23-2023 ambulatory JON KEITA Not Available Start: 10-14-2023 End: 10-14-2023 ambulatory SARI RODRIGUEZ Not Available Start: 09-16-2023 End: 09-16-2023 ambulatory JON KEITA Not Available Start: 07-24-2023 End: 07-24-2023 ambulatory Maday Bragg Other [facility] Other Start: 07-24-2023 Office outpatient vi sit 25 minutes Maday Bragg [facility] Start: 09-16-2022 End: 09-16-[address] SARI RODRIGUEZ Facility:[facility] Start: 09-05-2022 End: 09-05-2022 ambulatory ROGE NORTH Facility:[facility] Start: 09-05-2022 End: 09-05-2022 Patient encounter procedure Roge North MD Work Phone: [facility] Comment on above: 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 (Primary Dx) Start: 01-03-[address] SARI RODRIGUEZ Facility :[facility] Start: 12-17-[address] TIBURCIO AGUILAR Facdusty lity:[facility] Plan of Treatment Date Care Activity Detail Author Start: 06-20-2022 Influenza vaccination INFLUENZA (#1) [facility] Start: 2021 CHLAMYDIA SCREENING (18-24) CHLAMYDIA SCREENING (18-24) [facility] Start: 2021 GC (GONORRHEA) SCREE SHARITA (18-24) GC (GONORRHEA) SCREENING (18-24) [facility] Start: 2021 HEPATITIS C SCREENING HEPATITIS C SC REENING [facility] Start: 2021 HIV SCREENING HIV SCREENING [facility] Start: 10-20-2021 DEPRESSION ASSESSMENT DEPRESSION ASS ESSMENT [facility] Start: 2019 MENINGOCOCCAL CONJUG ATE (1 - 2-dose series) MENINGOCOCCAL CONJUGATE (1 - 2-dose series) [facility] Start: 2017 PEDS TO ADULT TRANSI TION ANNUAL ASSESSMENT PEDS TO ADULT TRANSITION ANNUAL ASSESSMENT [facility] Start: 2015 PEDS TO ADULT TRANSI TION INITIAL DISCUSSION PEDS TO ADULT TRANSITION INITIAL DISCUSSION [facility] Start: 2014 HPV VACCINE (1 - 2-d ose series) HPV VACCINE (1 - 2-dose series) [facility] Start: 2013 MENINGOCOCCAL B: Consider based on risk (1 of 2 - Risk Bexsero 2-dose series) MENINGOCOCCAL B: Consider based on risk (1 of 2 - Risk Bexsero 2-dose series) [facility] Start: 2010 Urine microalbumin profile DTAP,TDAP,TD (1 - Tdap) [facility] Start: 05-14-2004 COVID-19 VACCINE (#1) COVID-19 VACCI NE (#1) [facility] Start: 2003 HEPATITIS B (1 of 3 - 3-dose series) HEPATITIS B (1 of 3 - 3-dose series) [facility] End: 10-05-2023 Radex entir thrc lmbr crv sac spi w/skull 2/3 vw XR SCOLIOSIS PA STAND/LAT 2V Radiology Routine Adolescent idiopathic scoliosis of thoracic region 1 Occurrences starting 09/05/2022 until 10/05/2023 [facility] Work Phone: Comment on above: 1 Occurrences starti ng 09/05/2022 until 10/05/2023 Immunizations Immunization Date Immunization Notes Care Provider Tanesha colby 06-12-2009 Diphtheria, tetanus toxoids and acellular pertussis vaccine, and poliovirus vaccine, inactivated Maday Bragg Other [facility] Other 06-12-2009 measles, mumps and rubella virus vaccine Maday Bragg Other [facility] Other 06-12-2009 varicella virus vaccine Maday Bragg Other [facility] Other Payers Date Payer Category Payer Medicaid [id number] 2017 Medicaid [place] TERM 09/18 [employer] MEDICAID [id number] 2017-Present [phone] [address] [place] [address] Medicaid [id number] 2003 Unknown [id number] 2003 Unknown [id number] 2003 Unknown [id number] 2003 Unknown [id number] 2003 Unknown [id number] 2003 Unknown [id number] 2003 Unknown [id number] 1959 Medicaid [id number] 1961 Self-pay Social History Date Type Detail Facility Start: 09-05-2022 Tobacco smoking status NHIS Never smoked tobacco [facility] Start: 09-05-2022 Tobacco use and exposure Smokeless tobacco non-user [facility] Start: 2003 Sex Assigned At Not on file [facility] Sex Assigned At Sex Assigned At [facility] Other Evaluation note 07-24-2023 Note Date & [...] treatment plan. Patient left in stable condition [facility] Other Progress note 09-05-2022 Note Date & Type Note Facility 09-05-2022 Note HNO ID: [id number] Author: Roge North MD Service: ? Author [...] late progression that would require surgical intervention. [facility] History of Present illness Narrative 09-05-2022 [...] require surgical intervention. documented in this encounter [facility] History general Narrative - Reported 2003 Note Date & Type Note Facility 2003 History general N arrative - Reported Type Medical History febrile seizures Medical History extropia left eye Medical History bronchititis Medical History dishydrotic eczema Hospitalization History RSV 12/23/19 04 [facility] Other Evaluation note Note Date & Type Note Facility Evaluation note Diagnosis Adolescent idiopathic scoliosis of thoracic region- Primary Scoliosis (and kyphoscoliosis), idiopathic documented in this encounter [facility] Reason for referral (narrative) Diagnostic Procedure Only (Routine) - Pending Review Note Date & Type Note Facility Reason for referral (narrati ve) Specialty Diagnoses / Procedures Referred By Contac t Referred To Contact XR IMAGING Diagnoses Adolescent idiopathic scoliosis of thoracic region Procedures XR SCOLIOSIS PA STAND/LAT 2V RADEX ENTIR THRC LMBR CRV SAC SPI W/SKULL 2/3 VW Roge North MD [address] [place] [address] Xr Imaging Referral ID Status Reason Start Date Expiration Date Visits Requested Visits Authorized [id number] Pending Review Auto-Generat ed Referral 2 10/05/2023 1 1 [facility] Summary Purpose Family History No Family History Records FoundNo Family History Records FoundNo Family History Records FoundNo Family History Records FoundNo Family History Records Found Advance Directives No Advanced Directives Records FoundNo Advanced Directives Records FoundNo Advanced Directives Records FoundNo Advanced Directives Records FoundNo Advanced Directives Records Found Additional Source Comments INFORMATION SOURCE (unrecogn ized section and content) DATE CREATED AUTHOR 12/16/2021 [facility] DATE CREATED AUTHOR AUTHOR'S ORGANIZ ATION 06/17/2022 [facility] dical Specialist DATE CREATED AUTHOR AUTHOR'S ORGANIZ ATION 09/07/2022 [facility] DATE CREATED AUTHOR AUTHOR'S ORGANIZ ATION 09/20/2022 [facility] DATE CREATED AUTHOR AUTHOR'S ORGANIZ ATION 11/12/2023 [facility] dical Specialists EPIC Source Comments (unrecognize d section and content) In the event this informatio n is protected by the Federal Confidentiality of Alcohol and Drug Abuse Patient Records regulations: The Federal rules restrict any use of the information to criminally investigate or prosecute any alcohol or drug abuse patient.[facility] Reason for Visit (unrecogniz ed section and content) Reason Comments New Care Teams (unrecognized sec tion and content) Digital Analyst Relationship Specialty Start Date End Date Opal Neri, CERTIFIED PERFORMANCE TECHNOLOGIST [address] [place] [address] Referring Family Medicine 06/21/22 FOR RECORDS PERTAINING [...] BE BASED ON THE PRIMARY CLINICAL RECORDS. [facility]. provides no warranty or guarantee of the accuracy or completeness of information in this document.
[2024-01-16 11:40] LABS: Results Report
[2024-01-16 11:41] LABS: Insulin Dep Diabetes No
[2024-01-16 11:42] LABS: OSBR Risk 1 IN 40
== END 2023-11-24 10:59 | disposition home or self-care (01) ==
LOC: LAB 10:59
PROVIDERS: PCP Family Medicine; Visit Provider Obstetrics & Gynecology
DX: Z13.1 Encounter for screening for diabetes mellitus (principal); Z34.92 Encounter for supervision of normal pregnancy, unspecified, second trimester
CPT/HCPCS: 36415; 82105; 82950; 85025

== ENCOUNTER 2023-12-03 10:38 | Outpatient (OUT) | payer MEDICAID, SELFPAY ==
--- OUTSIDE RECORDS SUMMARY | 2023-12-03 10:40 | XMS_ITS | CCD ---
Author Name Unknown Address [address] [place] [address] Organization [facility] Care Team Providers Care Narrow Fabric Calenderer Name Role Phone Opal Neri CNP Unavailable ROGE NORTH Attending Unavailable MICHAEL, DR GUO Attending Unavailable MICHAEL, DR GUO Admitting Unavailable REQUEST, DR BASS LISTED Primary Care Unavaila daria RODRIGUEZ, DR GUO Attending Unavailable MICHAEL, DR GUO Consulting Unavailable MICHAEL, DR GUO Admitting Unavailable REQUEST, DR BASS LISTED Primary Care Unavaila daria AGUILAR, DR DEY Attending Unavailable LAUREN, DR DEY Admitting Unavailable REQUEST, NONE LISTED Primary Care Unavaila Maday Del Toro Unavailable SARI RODRIGUEZ Attending Unavailable JON KEITA Attending Unavailable JON KEITA Attending Unavailable JON KEITA Attending Unavailable SARI RODRIGUEZ Attending Unavailable Allergies Allergy Classification Reported Allergen(s) Allergy Type Date of Onset Reaction(s) Facility (1 source) Sulfonamides (Antibiotic) Drug Allergy 2 Unknown [facility] (2 sources) Sulfonamides (Antibiotic) Drug allergy (disorder) [facility] (1 source) Amoxicillin Drug Allergy itching [facility] Other (1 source) Sulfamethoxazole / Trimethoprim Drug Allergy rash [facility] Other Medications Current Medications Medication Drug Class(es) [...] on above: Take 1 tablet by ozzy th once daily. Problems Problem Classification Problem Date [...] pyogenes Org specific cx Ql (Throat) Negative [facility] Other Quick Strep [facility] Other SARS-CoV-2 (COVID-19) RNA NA A+probe Ql (Resp)on 07-24-2023 SARS-CoV-2 (COVID-19) RNA DARON+probe Ql (Unsp spec) Negative [facility] Other CHLAMYDIA/GONOCOCCUS DARON (SW AB/URINE/PAPon 09-19-2022 Chlamydia trachomatis, DARON Negative Normal Negative [facility] Comment on above: Performed By: #### C T/NGNA #### [facility] [address] [place] [address] Dr. Kamryn Don Neisseria gonorrhoeae, DARON Negative Normal Negative [facility] Comment on above: Performed By: #### C T/NGNA #### [facility] [address] [address] [address] Kamryn Don VAGINITIS/VAGINOSIS DNA PROB Domenic 09-18-2022 Marsha species Negative Normal Negative [facility] Comment on above: Performed By: #### V AGINT #### [facility] [address] [place] [address] Dr. Kamryn Don Gardnerella vaginalis Positive Abnormal Negative [facility] Comment on above: Performed By: #### V AGINT #### [facility] [address] [address] [address] Kamryn Don Trichomonas vaginalis Negative Normal Negative [facility] Comment on above: Performed By: #### V AGINT #### [facility] [address] [place] [address] Dr. Kamryn Don CNOVon 09-05-2022 CNOV Office Visit (INOPIN ) SOLIS RASHID ([id number]) 1 F Date Time Provider Department 09/05/22 [...] - Fully Assessed Reason for Visit: New [088311] Primary Visit Diagnosis:Adolescent idiopathic scoliosis of thoracic region [M41.124] Order(s):XR SCOLIOSIS PA STAND/LAT 2V [[id number]] Order #: [id number] FUTURE Prescriptions as of 09/05/2022 - escitalopram oxalate (LEXAPRO) 10 mg tablet Take 10 mg by mouth once daily. - Norethin Boom-Eth Estrad-FE 1 mg-20 mcg (21)/75 mg (7) per tablet Take 1 tablet by mouth once daily. Problem List As Of Date: 09/05/2022 (None) Encounter Status:Closed by ROGE NORTH on 09/05/22 Normal [facility] XR Spine Scoliosis Study Sta [facility] 06-14-2022 XR Spine Scoliosis Study Standing CLINICAL [...] by Carleen Graff on 06/17/2022 0849 Normal [facility] HCG,Quantitativeon 2 HCG,Quantitative 8536.00 m[iU]/mL Normal [facility] Comment on above: Order Comment: Reaso n for Exam Less than 8 weeks gestation of Result Comment: Appr oximate Approximate hCG Gestational Age Range (mIU/ml) (weeks) 0.2-1 5-50 1-2 50-500 2-3 100-5,000 3-4 500-10,000 4-5 1,000-50,000 5-6 10,000-100,000 6-8 15,000-200,000 8-12 10,000-100,000 PERFORMED BY: [place] [address] PATHOLOGIST SIGNAL MANAGER EZEKIEL SERRANO M.D. Performed By: #### H CGQNT #### [address] HCG,Quantitativeon 2 HCG,Quantitative 8790.00 m[iU]/mL Normal [facility] Comment on above: Order Comment: Reaso n for Exam Missed menses;Positive blood test;Spotting affecti Result Comment: Appr oximate Approximate hCG Gestational Age Range (mIU/ml) (weeks) 0.2-1 5-50 1-2 50-500 2-3 100-5,000 3-4 500-10,000 4-5 1,000-50,000 5-6 10,000-100,000 6-8 15,000-200,000 8-12 10,000-100,000 PERFORMED BY: [facility] [address] [place] [address] PATHOLOGIST SIGNAL MANAGER EZEKIEL SERRANO M.D. Performed By: #### H CGQNT #### [facility] [address] [id number] [facility] Q - HCG [place] Q[place] [address] [place] [address] m[IU]/mL [facility] Remote Control Mirror Installer Comment on above: Order Comment: [facility] Testing performed at: [employer], [address], [address] [facility], [address] [place], [address], Data Entry Technician: Vikram Cadet MD [facility] Collection Date/Time: [facility] Results Received Date/Time: [facility] Reported Date/Time: Result Comment: Refe rence Range Non or premenopausal <5 Postmenopausal <10 Values from different assay methods may vary. The use of this assay to monitor or to diagnose patients with cancer or any condition unrelated to has not been cleared or approved by the FDA or the supervisor of operations of the assay. Performed By: #### 2 1113E #### [facility] Default [address] [place] [address] US OB 1ST Trimesteron 2021 US OB [...] by Sancho German on 12/11/2021 1006 Normal [facility] Remote Control Mirror Installer Vital Signs Date Time Vital Sign Value Performing Clinician Facility 07-24-2023 16:00-0400 Body temperature 99.6 [degF] Maday Bragg Other [facility] Other 07-24-2023 16:00-0400 Body weight 49.9 kg Maday Bragg Other [facility] Other 07-24-2023 16:00-0400 Respiratory rate 20 /min Maday Bragg Other [facility] Other 07-24-2023 16:00-0400 SaO2% (BldA) [Mass fraction] 100 % Maday Bragg Other [facility] Other 09-05-2022 15:29-0500 Body height 167.6 cm Roge North MD Work Phone: [facility] 09-05-2022 15:29-0500 Body mass index (BMI) [Percentile] Per age and sex 5.14 % Roge North MD Work Phone: [facility] 09-05-2022 15:29-0500 Body weight 49.9 kg Roge North MD Work Phone: [facility] Encounters Encounter Date Encounter Type Care Provider Facility Start: 12-01-2023 End: 12-01-2023 ambulatory SARI MICHAEL Not Available Start: 11-11-2023 End: 11-11-2023 ambulatory JON KEITA Not Available Start: 10-23-2023 End: 10-23-2023 ambulatory JON KEITA Not Available Start: 10-14-2023 End: 10-14-2023 ambulatory SARI MICHAEL Not Available Start: 09-16-2023 End: 09-16-2023 ambulatory JON KEITA Not Available Start: 07-24-2023 End: 07-24-2023 ambulatory Maday Bragg Other [facility] [employer] Other Start: 07-24-2023 Office outpatient vi sit 25 minutes Maday Bragg [facility] Start: 09-16-2022 End: 09-16-[address] SARI RODRIGUEZ Facility:[facility] Start: 09-05-2022 End: 09-05-2022 ambulatory ROGE NORTH Facility:[facility] Start: 09-05-2022 End: 09-05-2022 Patient encounter procedure Roge North MD Work Phone: [facility] Comment on above: 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 (Primary Dx) Start: 01-03-[address] SARI RODRIGUEZ Facility :[facility] Start: 12-17-[address] TIBURCIO ahn:H1 Plan of Treatment Date Care Activity Detail Author Start: 06-20-2022 Influenza vaccination INFLUENZA (#1) [facility] Start: 2021 CHLAMYDIA SCREENING (18-24) CHLAMYDIA SCREENING (18-24) [facility] Start: 2021 GC (GONORRHEA) SCREE SHARITA (18-24) GC (GONORRHEA) SCREENING (18-24) [facility] Start: 2021 HEPATITIS C SCREENING HEPATITIS C SC REENING [facility] Start: 2021 HIV SCREENING HIV SCREENING [facility] Start: 10-20-2021 DEPRESSION ASSESSMENT DEPRESSION ASS ESSMENT [facility] Start: 2019 MENINGOCOCCAL CONJUG ATE (1 - 2-dose series) MENINGOCOCCAL CONJUGATE (1 - 2-dose series) [facility] Start: 2017 PEDS TO ADULT TRANSI TION ANNUAL ASSESSMENT PEDS TO ADULT TRANSITION ANNUAL ASSESSMENT [facility] Start: 2015 PEDS TO ADULT TRANSI TION INITIAL DISCUSSION PEDS TO ADULT TRANSITION INITIAL DISCUSSION [facility] Start: 2014 HPV VACCINE (1 - 2-d ose series) HPV VACCINE (1 - 2-dose series) [facility] Start: 2013 MENINGOCOCCAL B: Consider based on risk (1 of 2 - Risk Bexsero 2-dose series) MENINGOCOCCAL B: Consider based on risk (1 of 2 - Risk Bexsero 2-dose series) [facility] Start: 2010 Urine microalbumin profile DTAP,TDAP,TD (1 - Tdap) [facility] Start: 05-14-2004 COVID-19 VACCINE (#1) COVID-19 VACCI NE (#1) [facility] Start: 2003 HEPATITIS B (1 of 3 - 3-dose series) HEPATITIS B (1 of 3 - 3-dose series) [facility] End: 10-05-2023 Radex entir thrc lmbr crv [...] and poliovirus vaccine, inactivated Maday Bragg Other [facility] Other 06-12-2009 measles, mumps and rubella virus vaccine Maday Bragg Other [facility] Other 06-12-2009 varicella virus vaccine Maday Bragg Other [facility] Other Payers Date Payer Category Payer Medicaid [id number] 2017 Medicaid [place] [employer] TERM 09/18 [place] [employer] [id number] 2017-Present [phone] [address] [place] [address] Medicaid [id number] 2003 Unknown [id number] 2003 Unknown [id number] 2003 Unknown [id number] 2003 Unknown [id number] 2003 Unknown [id number] 2003 Unknown [id number] 2003 Unknown [id number] 2003 Unknown [id number] 1961 Medicaid [id number] 1961 Self-pay Social History Date Type Detail Facility Start: 09-05-2022 Tobacco smoking status NHIS Never smoked tobacco [facility] Start: 09-05-2022 Tobacco use and exposure Smokeless tobacco non-user [facility] Start: 2003 Sex Assigned At Not on file C [facility] Sex Assigned At Sex Assigned At [facility] Other Evaluation note 07-24-2023 Note Date & [...] treatment plan. Patient left in stable condition [facility] Other Progress note 09-05-2022 Note Date & Type Note Facility 09-05-2022 Note HNO ID: [id number] Author: Roge North MD Service: ? Author [...] late progression that would require surgical intervention. [facility] History of Present illness Narrative 09-05-2022 [...] require surgical intervention. documented in this encounter [facility] History general Narrative - Reported 2003 Note Date & Type Note Facility 2003 History general N arrative - Reported Type Medical History febrile seizures Medical History extropia left eye Medical History bronchititis Medical History dishydrotic eczema Hospitalization History RSV 12/23/19 04 [facility] Other Evaluation note Note Date & Type Note Facility Evaluation note Diagnosis Adolescent idiopathic scoliosis of thoracic region- Primary Scoliosis (and kyphoscoliosis), idiopathic documented in this encounter [facility] Reason for referral (narrative) Diagnostic Procedure Only (Routine) - Pending Review Note Date & Type Note Facility Reason for referral (narrati ve) Specialty Diagnoses / Procedures Referred By Contac t Referred To Contact XR IMAGING Diagnoses Adolescent idiopathic scoliosis of thoracic region Procedures XR SCOLIOSIS PA STAND/LAT 2V RADEX ENTIR THRC LMBR CRV SAC SPI W/SKULL 2/3 VW Roge North MD [address] [place] [address] Xr Imaging Referral ID Status Reason Start Date Expiration Date Visits Requested Visits Authorized [id number] Pending Review Auto-Generat ed Referral 2 10/05/2023 1 1 [facility] Summary Purpose Family History No Family History Records FoundNo Family History Records FoundNo Family History Records FoundNo Family History Records FoundNo Family History Records Found Advance Directives No Advanced Directives Records FoundNo Advanced Directives Records FoundNo Advanced Directives Records FoundNo Advanced Directives Records FoundNo Advanced Directives Records Found Additional Source Comments INFORMATION SOURCE (unrecogn ized section and content) DATE CREATED AUTHOR 12/16/2021 [facility] DATE CREATED AUTHOR AUTHOR'S ORGANIZ ATION 06/17/2022 [facility] Me dical Specialist DATE CREATED AUTHOR AUTHOR'S ORGANIZ ATION 09/07/2022 [facility] DATE CREATED AUTHOR AUTHOR'S ORGANIZ ATION 09/20/2022 [facility] DATE CREATED AUTHOR AUTHOR'S ORGANIZ ATION 12/02/2023 [facility] dical Specialists EPIC Source Comments (unrecognize d section and content) In the event this informatio n is protected by the Federal Confidentiality of Alcohol and Drug Abuse Patient Records regulations: The Federal rules restrict any use of the information to criminally investigate or prosecute any alcohol or drug abuse patient.[facility] Reason for Visit (unrecogniz ed section and content) Reason Comments New Care Teams (unrecognized sec tion and content) Narrow Fabric Calenderer Relationship Specialty Start Date End Date Opal Neri, J2EE APPLICATION DEVELOPER [address] [place] [address] Referring Family Medicine 06/21/22 FOR RECORDS PERTAINING [...] BE BASED ON THE PRIMARY CLINICAL RECORDS. [facility] [employer] provides no warranty or guarantee of the accuracy or completeness of information in this document.
--- NOTE | 2023-12-03 10:41 | US_ITS ---
[address] [address] Patient Name: SOLIS RASHID MRN: [id number] date: 2005 Sex: F Assigned Patient Location: [facility] Current Patient Location: [facility] Accession/Order Number: [id number] Exam Date: 12/03/2023 10:42 Report Date: 12/03/2023 13:18 At the request of: SARI RODRIGUEZ Procedure: US OB growth EXAMINATION: US OB growth HISTORY: SGA COMPARISON: Ultrasound OB anatomy 10/06/2023 FINDINGS: Heart Rate: 151.0 bpm Number: 1.0 Position: CEPHALIC Amniotic Fluid Volume: 10.5 cm Maximum Vertical Pocket: 4.0 cm BIOMETRY: BPD: 7.5 cm cm; 30 weeks 2 days; 89% HC: 28.2 cmcm; 31 weeks 0 days; 89% AC: 24.3 cm cm; 28 weeks 4 days; 46% FL: 5.2 cm cm; 27 weeks 6 days; 19% EFW: 1258.8 grams; 45% FL/AC: 21.5 FL/BPD: 69.2 HC/AC: 1.2 GESTATIONAL AGE: Age by EDC: 28 weeks 3 days KAMRON by EDC: 02/22/2024 Age by US: 29 weeks 3 days KAMRON by US: 02/15/2024 US/US OB growth IMPRESSION: 1. Single live intrauterine with growth detailed above. Electronically authenticated by: PRESLEY ANDREWS Date: 12/03/2023 13:18
== END 2023-12-03 10:39 | disposition home or self-care (01) ==
PROVIDERS: PCP Family Medicine; Visit Provider Obstetrics & Gynecology
DX: O26.843 Uterine size-date discrepancy, third trimester (principal); Z3A.28 28 weeks gestation of pregnancy
CPT/HCPCS: 76816

== ENCOUNTER 2023-12-16 11:02 | Outpatient (OUT) | payer MEDICAID, SELFPAY ==
--- NOTE | 2023-12-16 | US_ITS ---
[address] [address] Patient Name: SOLIS RASHID MRN: [id number] date: 2005 Sex: F Assigned Patient Location: [facility] Current Patient Location: [facility] Accession/Order Number: [id number] Exam Date: 12/16/2023 11:05 Report Date: 12/16/2023 11:30 At the request of: SARI RODRIGUEZ Procedure: US OB amniotic fluid vol EXAMINATION: US OB amniotic fluid vol HISTORY: BORDERLINE LOW COMPARISON: No relevant comparison available. FINDINGS: position: Cephalic presentation, longitudinal lie Amniotic fluid volume: 14.9 cm, normal. Largest fluid pocket: 5.6 cm Heart rate: 167 bpm Gestational age: 30 weeks 2 days US/US OB amniotic fluid vol IMPRESSION: Normal amniotic fluid volume Electronically authenticated by: MEGHAN MELGAR Date: 12/16/2023 11:30
== END 2023-12-16 11:03 | disposition home or self-care (01) ==
LOC: NOMS 11:03
PROVIDERS: PCP Family Medicine; Visit Provider Obstetrics & Gynecology
DX: O28.8 Other abnormal findings on antenatal screening of mother (principal); Z3A.30 30 weeks gestation of pregnancy
CPT/HCPCS: 76815

== ENCOUNTER 2023-12-30 00:13 | Emergency (ER) | payer MEDICAID, SELFPAY ==
[2023-12-30] VITALS (9 sets, daily range): BP systolic 107–110; BP diastolic 65–66; PULSE 128–151; RESP 9–18; TEMP 36.4; O2SAT 95–99; BMI 20.7
--- NOTE | 2023-12-30 00:24 | ECG_ITS ---
[facility] Test Date: 2023-12-30 Pat Name: SOLIS RASHID Department: Room: - Gender: Female Um Nurse: : 2005 Requested By: [id number] Order Number: [id number] Reading MD: ISELA SEGAL Measurements Intervals [place] Rate: 152 P: 123 MT: 140 QRS: 43 QRSD: 72 T: 39 QT: 314 QTc: 400 Interpretive Statements 1220 Rapid atrial rhythm [address] depression 9150 abnormal ECG Electronically Signed On 12-30-2023 6:43:15 EDT by ISELA SEGAL
--- NOTE | 2023-12-30 00:31 | ED.NAVMDI1 ---
HPI - Nausea/Vomiting/Diarrhea General Chief complaint: Nausea/Vomiting/Diarrhea Stated complaint: nauseous 32 weeks Time Seen by Provider: 12/30/23 00:27 History of Present Illness HPI Narrative: 32 weeks . [id number] presents complaining of recurrent vomiting and diarrhea. Last ate this afternoon at [employer]. No dysuria or vaginal bleeding. some cramping Related Data Home Medications Medication Instructions Recorded Confirmed venlafaxine 75 mg capsule,extended 75 mg PO DAILY 06/19/23 06/19/23 release 24 hr vitamin with calcium tab 12/30/23 no.72-iron 27 mg-folic acid 1 mg tablet (M- Plus) Allergies Allergy/AdvReac Type Severity Reaction Status Date / Time amoxicillin Allergy Unknown Verified 12/30/23 00:22 Sulfa (Sulfonamide Allergy Unknown Verified 06/19/23 23:52 Antibiotics) Review of Systems ROS Status of ROS 10 or more systems reviewed and unremarkable except as noted in history and below PFSH PFS Social History Smoking status: Never smoker Exam Constitutional Vital Signs, click to edit/add: Last Vital Signs Temp 97.6 F 12/30/23 00:18 Pulse 131 H 12/30/23 01:10 Resp 9 L 12/30/23 01:10 BP 107/65 12/30/23 00:30 Pulse Ox 98 12/30/23 01:10 O2 Del Method Room Air 12/30/23 00:18 Common normals: no apparent distress, average body habitus, oriented x3, no limitations, healthy appearing, alert and well nourished [facility] Common normals: normocephalic and head/scalp atraumatic Eye Common normals: EOMs intact bilaterally and conjunctivae normal Respiratory Common normals: normal respiratory effort, no retractions, no use of accessory muscles and clear to auscultation bilaterally Cardio Common normals: regular rate, regular rhythm, S1 normal heart sound and S2 normal heart sound GI Common normals: Normal to inspection, nondistended, normoactive bowel sounds present and soft to palpation Other: gravid. nontender Extremity Common normals: normal to inspection and full ROM Neuro Common normals: oriented x3, CN's II-XII intact bilaterally, moves all extremities, no focal motor deficits and no sensory deficits noted Psych Appearance: grossly normal Course Vital Signs Vital signs: Vital Signs Temperature 97.6 F 12/30/23 00:18 Pulse Rate 136 H 12/30/23 00:18 Respiratory Rate 18 12/30/23 00:18 Blood Pressure 110/66 12/30/23 00:18 Pulse Oximetry 98 12/30/23 00:18 Oxygen Delivery Method Room Air 12/30/23 00:18 Temperature 97.6 F 12/30/23 00:18 Pulse Rate 131 H 12/30/23 01:10 Respiratory Rate 9 L 12/30/23 01:10 Blood Pressure 107/65 12/30/23 00:30 Pulse Oximetry 98 12/30/23 01:10 Oxygen Delivery Method Room Air 12/30/23 00:18 MDM - Nausea/Vomiting/Diarrhea MDM Narrative Medical decision making narrative: patient is 32wks . Last ate meal from [employer]. Vomiting and diarrhea tonight. Found to be dehydrated and lab demonstrate demargination. Patient hydrated and treated with antiemetics. Feeling better at the time of discharge. Able to eat some prior to discharge. Lab Data Labs: Lab Results 12/30/23 12/30/23 Range/Units 00:30 02:45 WBC 19.1 H (4.0-11.0) 10^3/uL RBC 4.17 L (4.20-5.40) 10^6/uL Hgb 13.1 (12.0-16.0) g/dL Hct 39.9 (36.0-48.0) % MCV 95.7 (81.0-99.0) fL MCH 31.4 (26.7-34.0) pg MCHC 32.8 (29.9-35.2) g/dL RDW 12.6 (11.0-15.0) % Plt Count 178 (150-450) 10^3/uL MPV 8.7 L (9.5-13.5) fL Seg Neuts % (Manual) 83.0 Band Neutrophils % 9.0 H (0-5) % Lymphocytes % (Manual) 4.0 L (20.5-60.0) % Monocytes % (Manual) 4.0 (1.7-12.0) % Eosinophils % (Manual) 0.0 L (0.9-7.0) % Basophils % (Manual) 0.0 L (0.2-2.0) % Neutrophils # (Manual) 15.85 H (1.4-6.5) 10^3/uL Band Neutrophils # 1.7 H (0.0-0.3) 10^3/uL Lymphocytes # (Manual) 0.76 L (1.20-3.80) 10^3/uL Monocytes # (Manual) 0.76 (0.30-0.80) 10^3/uL Eosinophils # (Manual) 0.00 (0.00-0.70) 10^3/uL Basophils # (Manual) 0.00 (0.00-0.10) 10^3/uL Sodium 139 (136-145) mmol/L Potassium 3.8 (3.5-5.1) mmol/L Chloride 104 (98-107) mmol/L Carbon Dioxide 25.0 (21.0-32.0) mmol/L Anion Gap 13.8 BUN 12.0 (7.0-18.0) mg/dL Creatinine 0.51 L (0.55-1.02) mg/dL Est GFR ( Amer) >60 (>=60) Est GFR (Non-Af Amer) >60 (>=60) BUN/Creatinine Ratio 23.5 Glucose 85 (74-106) mg/dL Calcium 8.9 (8.5-10.1) mg/dL Urine Color Yellow (YELLOW) Urine Clarity Clear (CLEAR) Urine pH 6.0 (5.0-9.0) Ur Specific Bronson >=1.030 A (1.005-1.025) Urine Protein Trace (NEG/TRACE) mg/dL Urine Glucose (UA) Negative (NEGATIVE) mg/dL Urine Ketones >=80 A (NEGATIVE) mg/dL Urine Occult Blood Negative (NEGATIVE) Urine Nitrite Negative (NEGATIVE) Urine Bilirubin Negative (NEGATIVE) Urine Urobilinogen 0.2 (0.2-1.0) EU/dL Ur Leukocyte Esterase Small A (NEGATIVE) Discharge Plan Discharge Stand Alone Forms: Portal Instructions Chief Complaint: Nausea/Vomiting/Diarrhea Clinical Impression: Food poisoning Patient Disposition: Home, Self-Care Prescriptions / Home Meds: No Action M-Ramiro Plus 27 mg iron- 1 mg tablet venlafaxine 75 mg capsule,extended release 24hr 75 mg PO DAILY Instructions: Food Poisoning (ED) Referrals: Tawnya ROGERS [Primary Care Provider] - 1 week
--- OUTSIDE RECORDS SUMMARY | 2023-12-30 00:32 | XMS_ITS | CCD ---
Author Name Unknown Address [address] [place] [address] Organization [facility] Care Team Providers Care Park Ranger Name Role Phone Opal Neri CNP Unavailable ROGE NORTH Attending Unavailable MICHAEL, DR GUO Attending Unavailable MICHAEL, DR GUO Admitting Unavailable REQUEST, DR BASS LISTED Primary Care Unavaila ble MICHAEL, DR GUO Attending Unavailable MICHAEL, DR GUO Consulting Unavailable MICHAEL, DR GUO Admitting Unavailable REQUEST, DR BASS LISTED Primary Care Unavaila ble KARMK, DR DEY Attending Unavailable KARMK, DR DEY Admitting Unavailable REQUEST, DR BASS LISTED Primary Care Unavaila ble Maday Bragg Unavailable SARI RODRIGUEZ Attending Unavailable NEELAJON Attending Unavailable NEELA, JON Attending Unavailable MICHAELSARI Albright Attending Unavailable JON KEITA Attending Unavailable MICHAEL, SARI Attending Unavailable NEELA, JON Attending Unavailable Allergies Allergy Classification Reported Allergen(s) Allergy Type Date of Onset Reaction(s) Facility (1 source) Sulfonamides (Antibiotic) Drug Allergy 2 Unknown [facility] (2 sources) Sulfonamides (Antibiotic) Drug allergy (disorder) [facility] (1 source) Amoxicillin Drug Allergy itching [facility] Other (1 source) Sulfamethoxazole / Trimethoprim Drug Allergy rash [facility] Other Medications Current Medications Medication Drug Class(es) [...] pyogenes Org specific cx Ql (Throat) Negative [facility] Other Quick Strep [facility] Other SARS-CoV-2 (COVID-19) RNA NA A+probe Ql (Resp)on 07-24-2023 SARS-CoV-2 (COVID-19) RNA DARON+probe Ql (Unsp spec) Negative [facility] Other CHLAMYDIA/GONOCOCCUS DARON (SW AB/URINE/PAPon 09-19-2022 Chlamydia trachomatis, DARON Negative Normal Negative [facility] Comment on above: Performed By: #### C T/NGNA #### [facility] [address] [place] [address] Dr. Kamryn Don Neisseria gonorrhoeae, DARON Negative Normal Negative [facility] Comment on above: Performed By: #### C T/NGNA #### [facility] [address] [address] [address] Kamryn Don VAGINITIS/VAGINOSIS DNA PROB Domenic 09-18-2022 Marsha species Negative Normal Negative [facility] Comment on above: Performed By: #### V AGINT #### [facility] [address] [place] [address] Dr. Kamryn Don Gardnerella vaginalis Positive Abnormal Negative [facility] Comment on above: Performed By: #### V AGINT #### [facility] [address] [place] [address] Dr. Kamryn Don Trichomonas vaginalis Negative Normal Negative [facility] Comment on above: Performed By: #### V AGINT #### [facility] [address] [place] [address] Dr. Kamryn Don CNOVon 09-05-2022 RAZ Office Visit (CHARISMA ) SOLIS RASHID ([id number]) 1 F Date Time Provider Department 09/05/22 [...] - Fully Assessed Reason for Visit: New [[id number]] Primary Visit Diagnosis:Adolescent idiopathic scoliosis of thoracic region [M41.124] Order(s):XR SCOLIOSIS PA STAND/LAT 2V [[id number]] Order #: [id number] FUTURE Prescriptions as of 09/05/2022 - escitalopram oxalate (LEXAPRO) 10 mg tablet Take 10 mg by mouth once daily. - Norethin Boom-Eth Estrad-FE 1 mg-20 mcg (21)/75 mg (7) per tablet Take 1 tablet by mouth once daily. Problem List As Of Date: 09/05/2022 (None) Encounter Status:Closed by ROGE NORTH on 09/05/22 Normal [facility] XR Spine Scoliosis Study [facility] 06-14-2022 XR Spine Scoliosis Study Standing [...] by Carleen Graff on 06/17/2022 0849 Normal [facility] HCG,Quantitativeon 2 HCG,Quantitative 8536.00 m[iU]/mL Normal [facility] Comment on above: Order Comment: Reaso n for Exam Less than 8 weeks gestation of Result Comment: Appr oximate Approximate hCG Gestational Age Range (mIU/ml) (weeks) 0.2-1 5-50 1-2 50-500 2-3 100-5,000 3-4 500-10,000 4-5 1,000-50,000 5-6 10,000-100,000 6-8 15,000-200,000 8-12 10,000-100,000 PERFORMED BY: [place] [address] PATHOLOGIST DIESEL ENGINE ENGINEER EZEKIEL SERRANO M.D. Performed By: #### H CGQNT #### [address] HCG,Quantitativeon 2 HCG,Quantitative 8790.00 m[iU]/mL Normal [facility] Comment on above: Order Comment: Reaso n for Exam Missed menses;Positive blood test;Spotting affecti Result Comment: Appr oximate Approximate hCG Gestational Age Range (mIU/ml) (weeks) 0.2-1 5-50 1-2 50-500 2-3 100-5,000 3-4 500-10,000 4-5 1,000-50,000 5-6 10,000-100,000 6-8 15,000-200,000 8-12 10,000-100,000 PERFORMED BY: [facility] [address] [id number] PATHOLOGIST DIESEL ENGINE ENGINEER EZEKIEL SERRANO M.D. Performed By: #### H CGQNT #### [facility] [address] [place] [address] [facility] Q - HCG [place] Q[place] 2 [place] [address] m[IU]/mL [facility] Comment on above: Order Comment: [facility] Testing performed at: [facility] [address], [address] [facility], [address] [place], [address], Groundman: Vikram Cadet MD [facility] Collection Date/Time: [facility] Results Received Date/Time: [facility] Reported Date/Time: Result Comment: Refe rence Range Non or premenopausal <5 Postmenopausal <10 Values from different assay methods may vary. The use of this assay to monitor or to diagnose patients with cancer or any condition unrelated to has not been cleared or approved by the FDA or the bee robber of the assay. Performed By: #### 2 [id number] #### [facility] Default [address] [place] [address] OB 1ST Trimesteron 2021 OB 1ST Trimester HISTORY: Vaginal bleeding. COMPARISON: [...] by Sancho German on 12/11/[address] [facility] Vital Signs Date Time Vital Sign Value Performing Clinician Facility 07-24-2023 16:00-0400 Body temperature 99.6 [degF] Maday Bragg Other [facility] Other 07-24-2023 16:00-0400 Body weight 49.9 kg Maday Bragg Other [facility] Other 07-24-2023 16:00-0400 Respiratory rate 20 /min Maday Bragg Other [facility] Other 07-24-2023 16:00-0400 SaO2% (BldA) [Mass fraction] 100 % Maday Bragg Other [facility] Other 09-05-2022 15:29-0500 Body height 167.6 cm Roge North MD Work Phone: [facility] 09-05-2022 15:29-0500 Body mass index (BMI) [Percentile] Per age and sex 5.14 % Roge North MD Work Phone: [facility] 09-05-2022 15:29-0500 Body weight 49.9 kg Roge North MD Work Phone: [facility] Encounters Encounter Date Encounter Type Care Provider Facility Start: 12-29-2023 End: 12-29-2023 ambulatory SARI MICHAEL Not Available Start: 12-15-2023 End: 12-15-2023 ambulatory JON NEELA Not Available Start: 12-01-2023 End: 12-01-2023 ambulatory SARI MICHAEL Not Available Start: 11-11-2023 End: 11-11-2023 ambulatory JON NEELA Not Available Start: 10-23-2023 End: 10-23-2023 ambulatory JON NEELA Not Available Start: 10-14-2023 End: 10-14-2023 ambulatory SARI MICHAEL Not Available Start: 09-16-2023 End: 09-16-2023 ambulatory JON KEITA Not Available Start: 07-24-2023 End: 07-24-2023 ambulatory Maday Bragg Other [employer] [facility] [employer] [facility] [employer] [facility] Other Start: 07-24-2023 Office outpatient vi sit 25 minutes Maday Bragg [facility] Start: 09-16-2022 End: 09-16-[address] SARI RODRIGUEZ Facility: Start: 09-05-2022 End: 09-05-2022 ambulatory ROGE NORTH Facility:[facility] Start: 09-05-2022 End: 09-05-2022 Patient encounter procedure Roge North MD Work Phone: [facility] Comment on above: 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 (Primary Dx) Start: 01-03-[address] SARI RODRIGUEZ Facility :[facility]1 Start: 12-17-[address] TIBURCIO AGUILAR Faci lity:H1 Plan of Treatment Date Care Activity Detail Author Start: 06-20-2022 Influenza vaccination INFLUENZA (#1) [facility] Start: 2021 CHLAMYDIA SCREENING (18-24) CHLAMYDIA SCREENING (18-24) [facility] Start: 2021 GC (GONORRHEA) SCREE SHARITA (18-24) GC (GONORRHEA) SCREENING (18-24) [facility] Start: 2021 HEPATITIS C SCREENING HEPATITIS C SC REENING [facility] Start: 2021 HIV SCREENING HIV SCREENING [facility] Start: 10-20-2021 DEPRESSION ASSESSMENT DEPRESSION ASS ESSMENT [facility] Start: 2019 MENINGOCOCCAL CONJUG ATE (1 - 2-dose series) MENINGOCOCCAL CONJUGATE (1 - 2-dose series) [facility] Start: 2017 PEDS TO ADULT TRANSI TION ANNUAL ASSESSMENT PEDS TO ADULT TRANSITION ANNUAL ASSESSMENT [facility] Start: 2015 PEDS TO ADULT TRANSI TION INITIAL DISCUSSION PEDS TO ADULT TRANSITION INITIAL DISCUSSION [facility] Start: 2014 HPV VACCINE (1 - 2-d ose series) HPV VACCINE (1 - 2-dose series) [facility] Start: 2013 MENINGOCOCCAL B: Consider based on risk (1 of 2 - Risk Bexsero 2-dose series) MENINGOCOCCAL B: Consider based on risk (1 of 2 - Risk Bexsero 2-dose series) [facility] Start: 2010 Urine microalbumin profile DTAP,TDAP,TD (1 - Tdap) [facility] Start: 05-14-2004 COVID-19 VACCINE (#1) COVID-19 VACCI NE (#1) [facility] Start: 2003 HEPATITIS B (1 of 3 - 3-dose series) HEPATITIS B (1 of 3 - 3-dose series) [facility] End: 10-05-2023 Radex entir thrc lmbr crv sac spi w/skull 2/3 vw XR SCOLIOSIS PA STAND/LAT 2V Radiology Routine Adolescent idiopathic scoliosis of thoracic region 1 Occurrences starting 09/05/2022 until 10/05/2023 [facility] Work Phone: Comment on above: 1 Occurrences starti ng 09/05/2022 until 10/05/2023 Immunizations Immunization Date Immunization Notes Care Provider Tanesha colby 06-12-2009 Diphtheria, tetanus toxoids and acellular pertussis vaccine, and poliovirus vaccine, inactivated Maday Bragg Other [facility] Other 06-12-2009 measles, mumps and rubella virus vaccine Maday Bragg Other [facility] Other 06-12-2009 varicella virus vaccine Maday Bragg Other [facility] Other Payers Date Payer Category Payer Medicaid [id number] 2017 Medicaid [place] [employer] [place] TERM 09/18 [employer] [id number] 2017-Present [phone] [address] [place] [address] Medicaid [id number] 2003 Unknown [id number] 2003 Unknown [id number] 2003 Unknown [id number] 2003 Unknown [id number] 2003 Unknown [id number] [id number] 2003 Unknown [id number] [id number] 2003 Unknown [id number] [id number] 2003 Unknown [id number] [id number] 2003 Unknown [id number] [id number] 2003 Unknown [id number] 1961 Medicaid [id number] 1961 Self-pay Social History Date Type Detail Facility Start: 09-05-2022 Tobacco smoking status NHIS Never smoked tobacco [facility] Start: 09-05-2022 Tobacco use and exposure Smokeless tobacco non-user [facility] Start: 2003 Sex Assigned At Not on file C [facility] Sex Assigned At Sex Assigned At [facility] Other Evaluation note 07-24-2023 Note Date & [...] treatment plan. Patient left in stable condition [facility] Other Progress note 09-05-2022 Note Date & Type Note Facility 09-05-2022 Note HNO ID: [id number] Author: Roge North MD Service: ? Author [...] late progression that would require surgical intervention. [facility] History of Present illness Narrative 09-05-2022 [...] require surgical intervention. documented in this encounter [facility] History general Narrative - Reported 2003 Note Date & Type Note Facility 2003 History general N arrative - Reported Type Medical History febrile seizures Medical History extropia left eye Medical History bronchititis Medical History dishydrotic eczema Hospitalization History RSV 12/23/19 04 [facility] Other Evaluation note Note Date & Type Note Facility Evaluation note Diagnosis Adolescent idiopathic scoliosis of thoracic region- Primary Scoliosis (and kyphoscoliosis), idiopathic documented in this encounter [facility] Reason for referral (narrative) Diagnostic Procedure Only (Routine) - Pending Review Note Date & Type Note Facility Reason for referral (narrati ve) Specialty Diagnoses / Procedures Referred By Shirin fang Referred To Contact XR IMAGING Diagnoses Adolescent idiopathic scoliosis of thoracic region Procedures XR SCOLIOSIS PA STAND/LAT 2V RADEX ENTIR THRC LMBR CRV SAC SPI W/SKULL 2/3 VW Roge North MD [address] [place] [address] Xr Imaging Referral ID Status Reason Start Date Expiration Date Visits Requested Visits Authorized [id number] Pending Review Auto-Generat ed Referral 2 10/05/2023 1 1 [facility] Summary Purpose Family History No Family History Records FoundNo Family History Records FoundNo Family History Records FoundNo Family History Records FoundNo Family History Records Found Advance Directives No Advanced Directives Records FoundNo Advanced Directives Records FoundNo Advanced Directives Records FoundNo Advanced Directives Records FoundNo Advanced Directives Records Found Additional Source Comments INFORMATION SOURCE (unrecogn ized section and content) DATE CREATED AUTHOR 12/16/2021 [facility] DATE CREATED AUTHOR AUTHOR'S ORGANIZ ATION 06/17/2022 [facility] dical Specialist DATE CREATED AUTHOR AUTHOR'S ORGANIZ ATION 09/07/2022 [facility] DATE CREATED AUTHOR AUTHOR'S ORGANIZ ATION 09/20/2022 [facility] DATE CREATED AUTHOR AUTHOR'S ORGANIZ ATION 12/29/2023 [facility] dical Specialists EPIC Source Comments (unrecognize d section and content) In the event this informatio n is protected by the Federal Confidentiality of Alcohol and Drug Abuse Patient Records regulations: The Federal rules restrict any use of the information to criminally investigate or prosecute any alcohol or drug abuse patient.[facility] Reason for Visit (unrecogniz ed section and content) Reason Comments New Care Teams (unrecognized sec tion and content) Park Ranger Relationship Specialty Start Date End Date Opal Neri, PRODUCT SUPPORT MANAGER [address] [place] [address] Referring Family Medicine 06/21/22 FOR RECORDS PERTAINING [...] BE BASED ON THE PRIMARY CLINICAL RECORDS. [facility]. provides no warranty or guarantee of the accuracy or completeness of information in this document.
[2023-12-30 00:40] LABS: Hematocrit 39.9 % (36.0-48.0); Hemoglobin 13.1 g/dL (12.0-16.0); Mean Corpuscular HGB Conc 32.8 g/dL (29.9-35.2); Mean Corpuscular Hemoglobin 31.4 pg (26.7-34.0); Mean Corpuscular Volume 95.7 fL (81.0-99.0); Mean Platelet Volume 8.7 fL (9.5-13.5); Platelet Count 178 10^3/uL (150-450); Red Blood Count 4.17 10^6/uL (4.20-5.40); Red Cell Distribution Width 12.6 % (11.0-15.0); White Blood Count 19.1 10^3/uL (4.0-11.0)
[2023-12-30] MEDS: PROMETHAZINE HCL 25 MG/ML VIAL 12.5 MG IV (00:57)
[2023-12-30] MEDS: 0.9 % SODIUM CHLORIDE 1,000 ML 999 ML IV ×2 (00:57→01:59)
[2023-12-30 00:58] LABS: Anion Gap 13.8; BUN Creatinine Ratio 23.5; Calcium 8.9 mg/dL (8.5-10.1); Chloride 104 mmol/L (98-107); Estimated GFR (African America >60 (>=60); Estimated GFR (Non-African Ame >60 (>=60); Glucose 85 mg/dL (74-106); Potassium 3.8 mmol/L (3.5-5.1); Sodium 139 mmol/L (136-145)
[2023-12-30 01:07] LABS: Band Neutrophils Absolute 1.7 10^3/uL (0.0-0.3); Lymphocytes Absolute Manual 0.76 10^3/uL (1.20-3.80); Monocytes Absolute Manual 0.76 10^3/uL (0.30-0.80); Segmented Neut Absolute Manual 15.85 10^3/uL (1.4-6.5)
[2023-12-30 03:08] LABS: Bilirubin Urine NEGATIVE (NEGATIVE); Blood Urine NEGATIVE (NEGATIVE); Clarity Urine CLEAR (CLEAR); Color Urine YELLOW (YELLOW); Glucose Urine UA NEGATIVE (NEGATIVE); Ketones Urine >=80 mg/dL (NEGATIVE); Leukocyte Esterase Urine SMALL (NEGATIVE); Nitrite Urine NEGATIVE (NEGATIVE); Protein Urine TRACE mg/dL (NEG/TRACE); Specific Gravity Urine >=1.030 (1.005-1.025); Urine Microscopic Indicated YES; Urobilinogen Urine 0.2 EU/dL (0.2-1.0)
[2023-12-30 03:22] LABS: Bacteria Urine TRACE #/HPF (NONE SEEN); Cast Seen? NONE SEEN #/LPF (NONE SEEN); Crystals Seen? None Seen #/HPF (None Seen); Mucus Urine TRACE (NONE SEEN); RBC Urine 0-2 #/HPF (0-2); Squamous Epithelial Cell Urine FEW #/LPF (NONE/RARE); Transitional Epi Cells Urine RARE #/LPF (NONE SEEN)
[2023-12-30] MEDS: ONDANSETRON 4 MG RAPDIS TABLET SL (03:27)
--- NOTE | 2023-12-30 03:28 | PC.NURSE ---
Nausea and vomiting have resolved. Pt is drinking water and eating chips in bed. States she is feeling better. To-go zofran and prescription sent home with pt. All questions answered. Pt verbalized understanding to follow up with Dr Womack or to return to [facility] if symptoms change or worsen.
== END 2023-12-30 03:30 | disposition home or self-care (01) ==
PROVIDERS: Emergency Provider Internal Medicine; PCP Family Medicine
DX: O26.893 Other specified pregnancy related conditions, third trimester (principal); A05.9 Bacterial foodborne intoxication, unspecified; Z3A.32 32 weeks gestation of pregnancy
CPT/HCPCS: 36415; 80048; 81001; 85007; 85027; 93005; 96361; 96374; 99284

== ENCOUNTER 2024-01-15 09:34 | Outpatient (OUT) | payer MEDICAID, SELFPAY ==
--- NOTE | 2024-01-15 | US_ITS ---
[address] [address] Patient Name: SOLIS RASHID MRN: [id number] date: 2005 Sex: F Assigned Patient Location: [facility] Current Patient Location: [facility] Accession/Order Number: [id number] Exam Date: 01/15/2024 09:40 Report Date: 01/15/2024 11:31 At the request of: SARI RODRIGUEZ Procedure: US OB growth EXAMINATION: US OB growth HISTORY: SGA COMPARISON: No relevant comparison available. FINDINGS: Heart Rate: 151.0 bpm Amniotic Fluid Volume: 12.1 cm Number: 1.0 Position: Cephalic presentation, longitudinal lie Maximum Vertical Pocket: 3.9 cm cm 2.0 cm cm 3.3 cm cm 2.8 cm cm BIOMETRY: BPD: 9.3 cm cm; 38 weeks 0 days; >97% HC: 34.2 cmcm; 39 weeks 3 days , >97% AC: 30.0 cm cm; 33 weeks 6 days, 36% FL: 6.6 cm cm; 34 weeks 1 days; 31.0 % % EFW: 2550.3 grams, 5lb 10 oz, 56% FL/AC: 22.2 FL/BPD: 71.1 HC/AC: 1.1 GESTATIONAL AGE: Age by EDC: 34 weeks 4 days KAMRON by EDC: 02/22/2024 Age by US: 36w 3d KAMRON by US: 02/09/2024 US/US OB growth IMPRESSION: BPD and head circumference are greater than the 97th percentile Estimated weight 56 percentile Electronically authenticated by: MEGHAN MELGAR Date: 01/15/2024 11:31
== END 2024-01-15 09:35 | disposition home or self-care (01) ==
LOC: NOMS 09:38
PROVIDERS: PCP Family Medicine; Visit Provider Obstetrics & Gynecology
DX: O26.843 Uterine size-date discrepancy, third trimester (principal); Z3A.36 36 weeks gestation of pregnancy
CPT/HCPCS: 76816

== ENCOUNTER 2024-01-27 20:57 | Outpatient (REF) | payer MEDICAID, SELFPAY | END 2024-01-27 20:58 | disposition home or self-care (01) | LOC: LAB 20:57 | PROVIDERS: PCP Family Medicine; Visit Provider Obstetrics & Gynecology | DX: Z34.93 Encounter for supervision of normal pregnancy, unspecified, third trimester (principal) | CPT/HCPCS: 87081; 87150; 87186 ==

== ENCOUNTER 2024-02-14 11:14 | Observation (INO) | payer MEDICAID, SELFPAY ==
--- OUTSIDE RECORDS SUMMARY | 2024-02-14 11:18 | XMS_ITS | CCD ---
Author Organization [facility] Care Team Providers Care Measurer Machine Name Role Phone Opal Neri CNP Unavailable ROGE NORTH Attending Unavailable MICHAEL, DR GUO Attending Unavailable MICHAEL, DR GUO Admitting Unavailable REQUEST, DR BASS LISTED Primary Care Unavaila ble MICHAEL, DR GUO Attending Unavailable MICHAEL, DR GUO Consulting Unavailable MICHAEL, DR GUO Admitting Unavailable REQUEST, DR BASS LISTED Primary Care Unavaila ble LAUREN, DR DEY Attending Unavailable KARMARCO ANTONIOK, DR DEY Admitting Unavailable REQUEST, DR BASS LISTED Primary Care Unavaila ble Yemi, Maday Unavailable SARI RODRIGUEZ Attending Unavailable NEELA, JON Attending Unavailable NEELA, JON Attending Unavailable MICHAEL, SARI Attending Unavailable NEELA, JON Attending Unavailable MICHAEL, SARI Attending Unavailable NEELA, JON Attending Unavailable MICHAEL, SARI Attending Unavailable MICHAEL, SARI Attending Unavailable MICHAEL, SARI Attending Unavailable NEELA, JON Attending Unavailable Allergies Allergy Classification Reported Allergen(s) Allergy Type Date of Onset Reaction(s) Facility (1 source) Sulfonamides (Antibiotic) Drug Allergy 2 Unknown [facility] (2 sources) Sulfonamides (Antibiotic) Drug allergy (disorder) [facility] (1 source) Amoxicillin Drug Allergy itching [employer] Other (1 source) Sulfamethoxazole / Trimethoprim Drug Allergy rash [employer] Other Medications Current Medications Medication Drug Class(es) [...] pyogenes Org specific cx Ql (Throat) Negative [employer] Other Quick Strep [employer] Other SARS-CoV-2 (COVID-19) RNA NA A+probe Ql (Resp)on 07-24-2023 SARS-CoV-2 (COVID-19) RNA DARON+probe Ql (Unsp spec) Negative [employer] Other CHLAMYDIA/GONOCOCCUS DARON (SW AB/URINE/PAPon 09-19-2022 Chlamydia trachomatis, DARON Negative Normal Negative [facility] Comment on above: Performed By: #### C T/NGNA #### [facility] [address] [place] [address] Dr. Kamryn Don Neisseria gonorrhoeae, DARON Negative Normal Negative [facility] Comment on above: Performed By: #### C T/NGNA #### [facility] [address] [address] [address] Kamryn Don VAGINITIS/VAGINOSIS DNA PROB Domenic 09-18-2022 Marsha species Negative Normal Negative [facility] Comment on above: Performed By: #### V AGINT #### [facility] [address] [place] [address] Dr. Kamryn Don Gardnerella vaginalis Positive Abnormal Negative [facility] Comment on above: Performed By: #### V AGINT #### [facility] [address] [place] [address] Dr. Kamryn Don Trichomonas vaginalis Negative Normal Negative [facility] Comment on above: Performed By: #### V AGINT #### [facility] [address] [place] [address] Dr. Kamryn Don CNOVon 09-05-2022 CNOV Office Visit (CHARISMA ) SOLIS RASHID ([id number]) 1 F Date Time Provider Department 09/05/22 [...] - Fully Assessed Reason for Visit: New [[id number]] Primary Visit Diagnosis:Adolescent idiopathic scoliosis of thoracic region [M41.124] Order(s):XR SCOLIOSIS PA STAND/LAT 2V [[id number]] Order #: [id number] FUTURE Prescriptions as of 09/05/2022 - escitalopram oxalate (LEXAPRO) 10 mg tablet Take 10 mg by mouth once daily. - Norethin Boom-Eth Estrad-FE 1 mg-20 mcg (21)/75 mg (7) per tablet Take 1 tablet by mouth once daily. Problem List As Of Date: 09/05/2022 (None) Encounter Status:Closed by ROGE NORTH on 09/05/[address] [facility] XR Spine Scoliosis Study [facility] 06-14-2022 XR Spine Scoliosis Study Standing [...] by Carleen Graff on 06/17/2022 0849 Normal [facility] HCG,Quantitativeon 2 HCG,Quantitative 8536.00 m[iU]/mL Normal [facility] Comment on above: Order Comment: Reaso n for Exam Less than 8 weeks gestation of Result Comment: Appr oximate Approximate hCG Gestational Age Range (mIU/ml) (weeks) 0.2-1 5-50 1-2 50-500 2-3 100-5,000 3-4 500-10,000 4-5 1,000-50,000 5-6 10,000-100,000 6-8 15,000-200,000 8-12 10,000-100,000 PERFORMED BY: [place] [address] PATHOLOGIST WHEEL INSTALLER EZEKIEL SERRANO M.D. Performed By: #### H CGQNT #### [address] HCG,Quantitativeon 2 HCG,Quantitative 8790.00 m[iU]/mL Normal [facility] Comment on above: Order Comment: Reaso n for Exam Missed menses;Positive blood test;Spotting affecti Result Comment: Appr oximate Approximate hCG Gestational Age Range (mIU/ml) (weeks) 0.2-1 5-50 1-2 50-500 2-3 100-5,000 3-4 500-10,000 4-5 1,000-50,000 5-6 10,000-100,000 6-8 15,000-200,000 8-12 10,000-100,000 PERFORMED BY: [facility] [address] [id number] PATHOLOGIST WHEEL INSTALLER EZEKIEL SERRANO M.D. Performed By: #### H CGQNT #### [facility] [address] [id number] [facility] Q - HCG [place] Q[place] 2 [place] [address] m[IU]/mL [facility] Segmental Paver Installer Comment on above: Order Comment: [facility] Testing performed at: [employer], [address] [facility], [address] [place] [address], [id number], Fuel Agent: Vikram Cadet MD [facility] Collection Date/Time: [facility] Results Received Date/Time: [facility] Reported Date/Time: Result Comment: Refe rence Range Non or premenopausal <5 Postmenopausal <10 Values from different assay methods may vary. The use of this assay to monitor or to diagnose patients with cancer or any condition unrelated to has not been cleared or approved by the FDA or the storage manager of the assay. Performed By: #### 2 [id number] #### [facility] Default [address] [place] [address] OB 1ST Trimesteron 2021 OB 1ST Trimester [...] by Sancho German on 12/11/2021 1006 Normal [facility] Seg[employer] Vital Signs Date Time Vital Sign Value Performing Clinician Facility 07-24-2023 16:00-0400 Body temperature 99.6 [degF] Maday Bragg Other [employer] Other 07-24-2023 16:00-0400 Body weight 49.9 kg Maday Bragg Other [employer] Other 07-24-2023 16:00-0400 Respiratory rate 20 /min Maday Bragg Other [employer] Other 07-24-2023 16:00-0400 SaO2% (BldA) [Mass fraction] 100 % Maday Bragg Other [employer] Other 09-05-2022 15:29-0500 Body height 167.6 cm Roge North MD Work Phone: [facility] 09-05-2022 15:29-0500 Body mass index (BMI) [Percentile] Per age and sex 5.14 % Roge North MD Work Phone: [facility] 09-05-2022 15:29-0500 Body weight 49.9 kg Roge North MD Work Phone: [facility] Encounters Encounter Date Encounter Type Care Provider Facility Start: 02-10-2024 End: 02-10-2024 ambulatory SARI MICHAEL Not Available Start: 02-03-2024 End: 02-03-2024 ambulatory SARI MICHAEL Not Available Start: 01-27-2024 End: 01-27-2024 ambulatory SARI MICHAEL Not Available Start: 01-12-2024 End: 01-12-2024 ambulatory JON KEITA Not Available Start: 12-29-2023 End: 12-29-2023 ambulatory SARI MICHAEL Not Available Start: 12-15-2023 End: 12-15-2023 ambulatory JON KEITA Not Available Start: 12-01-2023 End: 12-01-2023 ambulatory SARI RODRIGUEZ Not Available Start: 11-11-2023 End: 11-11-2023 ambulatory JON KEITA Not Available Start: 10-23-2023 End: 10-23-2023 ambulatory JON KEITA Not Available Start: 10-14-2023 End: 10-14-2023 ambulatory SARI RODRIGUEZ Not Available Start: 09-16-2023 End: 09-16-2023 ambulatory JON KEITA Not Available Start: 07-24-2023 End: 07-24-2023 ambulatory Maday Bragg Other [employer] Other Start: 07-24-2023 Office outpatient vi sit 25 minutes Maday Bragg [facility] Start: 09-16-2022 End: 09-16-[address] SARI RODRIGUEZ Facility: Start: 09-05-2022 End: 09-05-2022 ambulatory ROGE NORTH Facility:[facility] Start: 09-05-2022 End: 09-05-2022 Patient encounter procedure Roge North MD Work Phone: [facility] Comment on above: 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 (Primary Dx) Start: 01-03-[address] SARI RODRIGUEZ Facility :[facility] Start: 12-17-[address] TIBURCIO Salmeron lity:H1 Plan of Treatment Date Care Activity Detail Author Start: 06-20-2022 Influenza vaccination INFLUENZA (#1) [facility] Start: 2021 CHLAMYDIA SCREENING (18-24) CHLAMYDIA SCREENING (18-24) [facility] Start: 2021 GC (GONORRHEA) SCREE SHARITA (18-24) GC (GONORRHEA) SCREENING (18-24) [facility] Start: 2021 HEPATITIS C SCREENING HEPATITIS C SC CHRISTI [facility] Start: 2021 HIV SCREENING HIV SCREENING [facility] Start: 10-20-2021 DEPRESSION ASSESSMENT DEPRESSION ASS ESSMENT [facility] Start: 2019 MENINGOCOCCAL CONJUG ATE (1 - 2-dose series) MENINGOCOCCAL CONJUGATE (1 - 2-dose series) [facility] Start: 2017 PEDS TO ADULT TRANSI TION ANNUAL ASSESSMENT PEDS TO ADULT TRANSITION ANNUAL ASSESSMENT [facility] Start: 2015 PEDS TO ADULT TRANSI TION INITIAL DISCUSSION PEDS TO ADULT TRANSITION INITIAL DISCUSSION [facility] Start: 2014 HPV VACCINE (1 - 2-d ose series) HPV VACCINE (1 - 2-dose series) [facility] Start: 2013 MENINGOCOCCAL B: Consider based on risk (1 of 2 - Risk Bexsero 2-dose series) MENINGOCOCCAL B: Consider based on risk (1 of 2 - Risk Bexsero 2-dose series) [facility] Start: 2010 Urine microalbumin profile DTAP,TDAP,TD (1 - Tdap) [facility] Start: 05-14-2004 COVID-19 VACCINE (#1) COVID-19 VACCI NE (#1) [facility] Start: 2003 HEPATITIS B (1 of 3 - 3-dose series) HEPATITIS B (1 of 3 - 3-dose series) [facility] End: 10-05-2023 Radex entir thrc lmbr crv sac spi w/skull 2/3 vw XR SCOLIOSIS PA STAND/LAT 2V Radiology Routine Adolescent idiopathic scoliosis of thoracic region 1 Occurrences starting 09/05/2022 until 10/05/2023 [facility] Work Phone: Comment on above: 1 Occurrences starti ng 09/05/2022 until 10/05/2023 Immunizations Immunization Date Immunization Notes Care Provider Tanesha colby 06-12-2009 Diphtheria, tetanus toxoids and acellular pertussis vaccine, and poliovirus vaccine, inactivated Maday Bragg Other [employer] Other 06-12-2009 measles, mumps and rubella virus vaccine Maday Bragg Other [employer] Other 06-12-2009 varicella virus vaccine Maday Bragg Other [employer] Other Payers Date Payer Category Payer Medicaid [id number] 2017 Medicaid [employer]M 09/18 [employer] [id number] 2017-Present [phone] [address] [place] [address] Medicaid [id number] 2003 Unknown [id number] [id number] 2003 Unknown [id number] 2.16.840.1.080350.3.579.2.593 2003 Unknown [id number] 2.16.840.1.894067.3.579.2.593 2003 Unknown [id number] 2.16.840.1.337841.3.579.2.1259 2003 Unknown [id number] 2.16.840.1.925055.3.579.2.1259 2003 Unknown [id number] 2.16.840.1.071924.3.579.2.1259 2003 Unknown [id number] 2.16.840.1.386099.3.579.2.1259 2003 Unknown [id number] 2.16.840.1.988274.3.579.2.1259 2003 Unknown [id number] 2.16.840.1.033282.3.579.2.1259 2003 Unknown [id number] 2.16.840.1.516620.3.579.2.1259 2003 Unknown [id number] 2.16.840.1.115423.3.579.2.1259 2003 Unknown [id number] 2.16.840.1.908146.3.579.2.1259 2003 Unknown [id number] 2.16.840.1.516441.3.579.2.1259 2003 Unknown [id number] 2.16.840.1.084028.3.579.2.1259 1961 Medicaid [id number] 1961 Self-pay Social History Date Type Detail Facility Start: 09-05-2022 Tobacco smoking status NHIS Never smoked tobacco [facility] Start: 09-05-2022 Tobacco use and exposure Smokeless tobacco non-user [facility] Start: 2003 Sex Assigned At Not on file C [facility] Sex Assigned At Sex Assigned At Bir th [facility] [employer] Other Evaluation note 07-24-2023 Note Date & [...] treatment plan. Patient left in stable condition [facility] [employer] Other Progress note 09-05-2022 Note Date & Type Note Facility 09-05-2022 Note HNO ID: [id number] Author: Roge North MD Service: ? Author [...] that would require surgical intervention. [facility] History of Present illness Narrative 09-05-2022 [...] require surgical intervention. documented in this encounter [facility] History general Narrative - Reported 2003 Note Date & Type Note Facility 2003 History general N arrative - Reported Type Medical History febrile seizures Medical History extropia left eye Medical History bronchititis Medical History dishydrotic eczema Hospitalization History RSV 12/23/19 04 [employer] Other Evaluation note Note Date & Type Note Facility Evaluation note Diagnosis Adolescent idiopathic scoliosis of thoracic region- Primary Scoliosis (and kyphoscoliosis), idiopathic documented in this encounter [facility] Reason for referral (narrative) Diagnostic Procedure Only (Routine) - Pending Review Note Date & Type Note Facility Reason for referral (narrati ve) Specialty Diagnoses / Procedures Referred By Shirin fang Referred To Contact XR IMAGING Diagnoses Adolescent idiopathic scoliosis of thoracic region Procedures XR SCOLIOSIS PA STAND/LAT 2V RADEX ENTIR THRC LMBR CRV SAC SPI W/SKULL 2/3 VW Roge North MD [address] [place] [address] Xr Imaging Referral ID Status Reason Start Date Expiration Date Visits Requested Visits Authorized [id number] Pending Review Auto-Generat ed Referral 2 10/05/2023 1 1 [facility] Summary Purpose Family History No Family History Records FoundNo Family History Records FoundNo Family History Records FoundNo Family History Records FoundNo Family History Records Found Advance Directives No Advanced Directives Records FoundNo Advanced Directives Records FoundNo Advanced Directives Records FoundNo Advanced Directives Records FoundNo Advanced Directives Records Found Additional Source Comments INFORMATION SOURCE (unrecogn ized section and content) DATE CREATED AUTHOR 12/16/2021 [facility] DATE CREATED AUTHOR AUTHOR'S ORGANIZ ATION 06/17/2022 [facility] dical Specialist DATE CREATED AUTHOR AUTHOR'S ORGANIZ ATION 09/07/[address] [facility] DATE CREATED AUTHOR AUTHOR'S ORGANIZ ATION 09/20/2022 [facility] DATE CREATED AUTHOR AUTHOR'S ORGANIZ ATION 02/11/2024 [facility] dical Specialists EPIC Source Comments (unrecognize d section and content) In the event this informatio n is protected by the Federal Confidentiality of Alcohol and Drug Abuse Patient Records regulations: The Federal rules restrict any use of the information to criminally investigate or prosecute any alcohol or drug abuse patient.[facility] Reason for Visit (unrecogniz ed section and content) Reason Comments New Care Teams (unrecognized sec tion and content) Measurer Machine Relationship Specialty Start Date End Date Opal Neri, CLUB ATTENDANT [address] [place] [address] Referring Family Medicine 06/21/22 FOR RECORDS PERTAINING [...] BE BASED ON THE PRIMARY CLINICAL RECORDS. [employer] [facility]. provides no warranty or guarantee of the accuracy or completeness of information in this document.
[2024-02-14 11:35] VITALS: BP 133/58; PULSE 121
[2024-02-14 11:41] VITALS: BP 121/62; PULSE 100
[2024-02-14 17:40] LABS: Bilirubin Urine NEGATIVE (NEGATIVE); Blood Urine LARGE (NEGATIVE); Clarity Urine CLEAR (CLEAR); Color Urine LT. YELLOW (YELLOW); Glucose Urine UA NEGATIVE (NEGATIVE); Ketones Urine NEGATIVE (NEGATIVE); Leukocyte Esterase Urine MODERATE (NEGATIVE); Nitrite Urine NEGATIVE (NEGATIVE); Protein Urine NEGATIVE (NEG/TRACE); Urobilinogen Urine 0.2 EU/dL (0.2-1.0); pH Urine 6.5 (5.0-9.0)
[2024-02-14 17:47] LABS: Bacteria Urine TRACE #/HPF (NONE SEEN); Mucus Urine NONE SEEN (NONE SEEN); RBC Urine NONE SEEN #/HPF (0-2); Squamous Epithelial Cell Urine MANY #/LPF (NONE/RARE); Urine Microscopic Indicated YES
[2024-02-14 17:48] LABS: Cast Seen? NONE SEEN #/LPF (NONE SEEN); Crystals Seen? None Seen #/HPF (None Seen); Urine Culture Indicated YES
== END 2024-02-14 14:50 | disposition home or self-care (01) ==
PROVIDERS: Admitting Provider Obstetrics & Gynecology; PCP Family Medicine; Visit Provider Obstetrics & Gynecology
DX: O60.00 Preterm labor without delivery, unspecified trimester (principal); Z3A.00 Weeks of gestation of pregnancy not specified
CPT/HCPCS: 59025; 81001; 87086; 87150; 87186; G0378; G0379

== ENCOUNTER 2024-02-14 20:38 | Inpatient (IN) | payer MEDICAID, SELFPAY ==
--- OUTSIDE RECORDS SUMMARY | 2024-02-14 20:42 | XMS_ITS | CCD ---
Author Organization [facility] Care Team Providers Care Rehab Office Coordinator Name Role Phone Opal Neri CNP Unavailable [...] source) Sulfonamides (Antibiotic) Drug Allergy 2 Unknown [facility] (2 sources) Sulfonamides (Antibiotic) Drug allergy (disorder) [facility] (1 source) Amoxicillin Drug Allergy itching [facility] Other (1 source) Sulfamethoxazole / Trimethoprim Drug Allergy rash [facility] Other Medications Current Medications Medication Drug Class(es) [...] pyogenes Org specific cx Ql (Throat) Negative [facility] Other Quick Strep [facility] Other SARS-CoV-2 (COVID-19) RNA NA A+probe Ql (Resp)on 07-24-2023 SARS-CoV-2 (COVID-19) RNA DARON+probe Ql (Unsp spec) Negative [facility] Other CHLAMYDIA/GONOCOCCUS DARON (SW AB/URINE/PAPon 09-19-2022 Chlamydia trachomatis, DARON Negative Normal Negative [facility] Comment on above: Performed By: #### C T/NGNA #### [facility] [address] [place] [address] Dr. Kamryn Don Neisseria gonorrhoeae, DARON Negative Normal Negative [facility] Comment on above: Performed By: #### C T/NGNA #### [facility] [address] [address] [address] Kamryn Don VAGINITIS/VAGINOSIS DNA PROB Domenic 09-18-2022 Marsha species Negative Normal Negative [facility] Comment on above: Performed By: #### V AGINT #### [facility] [address] [place] [address] Dr. Kamryn Don Gardnerella vaginalis Positive Abnormal Negative [facility] Comment on above: Performed By: #### V AGINT #### [facility] [address] [place] [address] Dr. Kamryn Don Trichomonas vaginalis Negative Normal Negative [facility] Comment on above: Performed By: #### V AGINT #### [facility] [address] [place] [address] Dr. Kamryn Don CNOVon 09-05-2022 CNOV Office Visit (CHARISMA ) SOLIS RASHID ([id number]) 1 F Date Time Provider Department 09/05/22 [...] - Fully Assessed Reason for Visit: New [[id number]] Primary Visit Diagnosis:Adolescent idiopathic scoliosis of thoracic region [M41.124] Order(s):XR SCOLIOSIS PA STAND/LAT 2V [[id number]] Order #: [id number] FUTURE Prescriptions as of 09/05/2022 - escitalopram oxalate (LEXAPRO) 10 mg tablet Take 10 mg by mouth once daily. - Norethin Boom-Eth Estrad-FE 1 mg-20 mcg (21)/75 mg (7) per tablet Take 1 tablet by mouth once daily. Problem List As Of Date: 09/05/2022 (None) Encounter Status:Closed by ROGE NORTH on 09/05/22 Normal [facility] XR Spine Scoliosis Study [facility] 06-14-2022 XR Spine Scoliosis Study Standing [...] by Carleen Graff on 06/17/2022 0849 Normal [facility] HCG,Quantitativeon 2 HCG,Quantitative 8536.00 m[iU]/mL Normal [facility] Comment on above: Order Comment: Reaso n for Exam Less than 8 weeks gestation of Result Comment: Appr oximate Approximate hCG Gestational Age Range (mIU/ml) (weeks) 0.2-1 5-50 1-2 50-500 2-3 100-5,000 3-4 500-10,000 4-5 1,000-50,000 5-6 10,000-100,000 6-8 15,000-200,000 8-12 10,000-100,000 PERFORMED BY: [place] [address] PATHOLOGIST [employer] EZEKIEL SERRANO M.D. Performed By: #### H CGQNT #### [address] HCG,Quantitativeon 2 HCG,Quantitative 8790.00 m[iU]/mL Normal [facility] Comment on above: Order Comment: Reaso n for Exam Missed menses;Positive blood test;Spotting affecti Result Comment: Appr oximate Approximate hCG Gestational Age Range (mIU/ml) (weeks) 0.2-1 5-50 1-2 50-500 2-3 100-5,000 3-4 500-10,000 4-5 1,000-50,000 5-6 10,000-100,000 6-8 15,000-200,000 8-12 10,000-100,000 PERFORMED BY: [facility] [address] [id number] PATHOLOGIST [employer] EZEKIEL SERRANO M.D. Performed By: #### H CGQNT #### [facility] [address] [id number] [facility] [[email or web address]] Q - HCG TOTAL QNon 2 [place] [address] m[IU]/mL [facility] Comment on above: Order Comment: [facility] Testing performed at: [facility], [address] [facility], [address] [place] [address], [phone], Pipe Fitter [employer]: Vikram Cadet MD [facility] Collection Date/Time: [facility] Results Received Date/Time: [facility] Reported Date/Time: Result Comment: Refe rence Range Non or premenopausal <5 Postmenopausal <10 Values from different assay methods may vary. The use of this assay to monitor or to diagnose patients with cancer or any condition unrelated to has not been cleared or approved by the FDA or the retail field representative of the assay. Performed By: #### 2 [id number] #### [facility] Default [address] [place] [address] OB 1ST Trimesteron 2021 OB 1ST Trimester [...] by Sancho German on 12/11/2021 1006 Normal [facility] Vital Signs Date Time Vital Sign Value Performing Clinician Facility 07-24-2023 16:00-0400 Body temperature 99.6 [degF] Maday Bragg Other [facility] Other 07-24-2023 16:00-0400 Body weight 49.9 kg Maday Bragg Other [facility] Other 07-24-2023 16:00-0400 Respiratory rate 20 /min Maday Bragg Other [facility] Other 07-24-2023 16:00-0400 SaO2% (BldA) [Mass fraction] 100 % Maday Bragg Other [facility] Other 09-05-2022 15:29-0500 Body height 167.6 cm Roge North MD Work Phone: [facility] 09-05-2022 15:29-0500 Body mass index (BMI) [Percentile] Per age and sex 5.14 % Roge North MD Work Phone: [facility] 09-05-2022 15:29-0500 Body weight 49.9 kg Roge North MD Work Phone: [facility] Encounters Encounter Date Encounter Type Care Provider [...] 07-24-2023 End: 07-24-2023 ambulatory Maday Bragg Other [facility] Other Start: 07-24-2023 Office outpatient vi sit 25 minutes Maday Bragg [facility] Start: 09-16-2022 End: 09-16-[address] SARI RODRIGUEZ Facility: Start: 09-05-2022 End: 09-05-2022 ambulatory ROGE [facility]TH Facility:[facility] Start: 09-05-2022 End: 09-05-2022 Patient encounter procedure Roge North MD Work Phone: [facility] Comment on above: 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 (Primary Dx) Start: 01-03-[address] SARI RODRIGUEZ Facility :[facility] Start: 12-17-[address] TIBURCIO Salmeron lity:H1 Plan of Treatment Date Care Activity Detail Author Start: 06-20-2022 Influenza vaccination INFLUENZA (#1) [facility] Start: 2021 CHLAMYDIA SCREENING (18-24) CHLAMYDIA SCREENING (18-24) [facility] Start: 2021 GC (GONORRHEA) SCREE SHARITA (18-24) GC (GONORRHEA) SCREENING (18-24) [facility] Start: 2021 HEPATITIS C SCREENING HEPATITIS C SC CHRISTI [facility] Start: 2021 HIV SCREENING HIV SCREENING [facility] Start: 10-20-2021 DEPRESSION ASSESSMENT DEPRESSION ASS ESSMENT [facility] Start: 2019 MENINGOCOCCAL CONJUG ATE (1 - 2-dose series) MENINGOCOCCAL CONJUGATE (1 - 2-dose series) [facility] Start: 2017 PEDS TO ADULT TRANSI TION ANNUAL ASSESSMENT PEDS TO ADULT TRANSITION ANNUAL ASSESSMENT [facility] Start: 2015 PEDS TO ADULT TRANSI TION INITIAL DISCUSSION PEDS TO ADULT TRANSITION INITIAL DISCUSSION [facility] Start: 2014 HPV VACCINE (1 - 2-d ose series) HPV VACCINE (1 - 2-dose series) [facility] Start: 2013 MENINGOCOCCAL B: Consider based on risk (1 of 2 - Risk Bexsero 2-dose series) MENINGOCOCCAL B: Consider based on risk (1 of 2 - Risk Bexsero 2-dose series) [facility] Start: 2010 Urine microalbumin profile DTAP,TDAP,TD (1 - Tdap) [facility] Start: 05-14-2004 COVID-19 VACCINE (#1) COVID-19 VACCI NE (#1) [facility] Start: 2003 HEPATITIS B (1 of 3 - 3-dose series) HEPATITIS B (1 of 3 - 3-dose series) [facility] End: 10-05-2023 Radex entir thrc lmbr crv sac spi w/skull 2/3 vw XR SCOLIOSIS PA STAND/LAT 2V Radiology Routine Adolescent idiopathic scoliosis of thoracic region 1 Occurrences starting 09/05/2022 until 10/05/2023 [facility] Work Phone: Comment on above: 1 Occurrences starti ng 09/05/2022 until 10/05/2023 Immunizations Immunization Date Immunization Notes Care Provider Tanesha colby 06-12-2009 Diphtheria, tetanus toxoids and acellular pertussis vaccine, and poliovirus vaccine, inactivated Maday Bragg Other [facility] Other 06-12-2009 measles, mumps and rubella virus vaccine Maday Bragg Other [facility] Other 06-12-2009 varicella virus vaccine Maday Bragg Other [facility] Other Payers Date Payer Category Payer Medicaid [id number] 2017 Medicaid [employer] TERM 09/18 [employer]ICA[employer] [id number] 2017-Present [phone] [address] [place] [address] Medicaid [id number] 2003 Unknown [id number] [id number] 2003 Unknown [id number] 2.16.840.1.542673.3.579.2.593 2003 Unknown [id number] 2.16.840.1.388201.3.579.2.593 2003 Unknown [id number] 2.16.840.1.971087.3.579.2.1259 2003 Unknown [id number] 2.16.840.1.087901.3.579.2.1259 2003 Unknown [id number] 2.16.840.1.381856.3.579.2.1259 2003 Unknown [id number] 2.16.840.1.540479.3.579.2.1259 2003 Unknown [id number] 2.16.840.1.614388.3.579.2.1259 2003 Unknown [id number] 2.16.840.1.378381.3.579.2.1259 2003 Unknown [id number] 2.16.840.1.802940.3.579.2.1259 2003 Unknown [id number] 2.16.840.1.029127.3.579.2.1259 2003 Unknown [id number] 2.16.840.1.854570.3.579.2.1259 2003 Unknown [id number] 2.16.840.1.453814.3.579.2.1259 2003 Unknown [id number] 2.16.840.1.313044.3.579.2.1259 1959 Medicaid [id number] 1961 Self-pay Social History Date Type Detail Facility Start: 09-05-2022 Tobacco smoking status NHIS Never smoked tobacco [facility] Start: 09-05-2022 Tobacco use and exposure Smokeless tobacco non-user [facility] Start: 2003 Sex Assigned At Not on file C [facility] Sex Assigned At Sex Assigned At Bir th [facility] [employer] Other Evaluation note 07-24-2023 Note Date & [...] plan. Patient left in stable condition [facility] [employer] Other Progress note 09-05-2022 Note Date & Type Note Facility 09-05-2022 Note HNO ID: [id number] Author: Roge North MD Service: ? Author [...] late progression that would require surgical intervention. [facility] History of Present illness Narrative 09-05-2022 [...] require surgical intervention. documented in this encounter [facility] History general Narrative - Reported 2003 Note Date & Type Note Facility 2003 History general N arrative - Reported Type Medical History febrile seizures Medical History extropia left eye Medical History bronchititis Medical History dishydrotic eczema Hospitalization History RSV 12/23/19 04 [facility] Other Evaluation note Note Date & Type Note Facility Evaluation note Diagnosis Adolescent idiopathic scoliosis of thoracic region- Primary Scoliosis (and kyphoscoliosis), idiopathic documented in this encounter [facility] Reason for referral (narrative) Diagnostic Procedure Only (Routine) - Pending Review Note Date & Type Note Facility Reason for referral (narrati ve) Specialty Diagnoses / Procedures Referred By Shirin fang Referred To Contact XR IMAGING Diagnoses Adolescent idiopathic scoliosis of thoracic region Procedures XR SCOLIOSIS PA STAND/LAT 2V RADEX ENTIR THRC LMBR CRV SAC SPI W/SKULL 2/3 VW Roge North MD [address] [place] [address] Xr Imaging Referral ID Status Reason Start Date Expiration Date Visits Requested Visits Authorized [id number] Pending Review Auto-Generat ed Referral 2 10/05/2023 1 1 [facility] Summary Purpose Family History No Family History Records FoundNo Family History Records FoundNo Family History Records FoundNo Family History Records FoundNo Family History Records Found Advance Directives No Advanced Directives Records FoundNo Advanced Directives Records FoundNo Advanced Directives Records FoundNo Advanced Directives Records FoundNo Advanced Directives Records Found Additional Source Comments INFORMATION SOURCE (unrecogn ized section and content) DATE CREATED AUTHOR 12/16/2021 [facility] DATE CREATED AUTHOR AUTHOR'S ORGANIZ ATION 06/17/2022 [facility] dical Specialist DATE CREATED AUTHOR AUTHOR'S ORGANIZ ATION 09/07/2022 [facility] DATE CREATED AUTHOR AUTHOR'S ORGANIZ ATION 09/20/2022 [facility] DATE CREATED AUTHOR AUTHOR'S ORGANIZ ATION 02/11/2024 [facility] dical Specialists EPIC Source Comments (unrecognize d section and content) In the event this informatio n is protected by the Federal Confidentiality of Alcohol and Drug Abuse Patient Records regulations: The Federal rules restrict any use of the information to criminally investigate or prosecute any alcohol or drug abuse patient.[facility] Reason for Visit (unrecogniz ed section and content) Reason Comments New Care Teams (unrecognized sec tion and content) Rehab Office Coordinator Relationship Specialty Start Date End Date Opal Neri, EMOTIONAL DISABILITIES TEACHER [address] [place] [address] Referring Family Medicine 06/21/22 FOR RECORDS PERTAINING [...] BE BASED ON THE PRIMARY CLINICAL RECORDS. [employer] [facility]. provides no warranty or guarantee of the accuracy or completeness of information in this document.
[2024-02-14 20:51] VITALS: BP 122/69; PULSE 115
--- OUTSIDE RECORDS SUMMARY | 2024-02-14 21:25 | XMS_ITS | CCD ---
Author Organization [facility] Care Team Providers Care Cut Out Worker Name Role Phone Opal Neri CNP Unavailable [...] source) Sulfonamides (Antibiotic) Drug Allergy 2 Unknown [facility] (2 sources) Sulfonamides (Antibiotic) Drug allergy (disorder) [facility] (1 source) Amoxicillin Drug Allergy itching [facility] Other (1 source) Sulfamethoxazole / Trimethoprim Drug Allergy rash [facility] Other Medications Current Medications Medication Drug Class(es) [...] pyogenes Org specific cx Ql (Throat) Negative [facility] Other Quick Strep [facility] Other SARS-CoV-2 (COVID-19) RNA NA A+probe Ql (Resp)on 07-24-2023 SARS-CoV-2 (COVID-19) RNA DARON+probe Ql (Unsp spec) Negative [facility] Other CHLAMYDIA/GONOCOCCUS DARON (SW AB/URINE/PAPon 09-19-2022 Chlamydia trachomatis, DARON Negative Normal Negative [facility] Comment on above: Performed By: #### C T/NGNA #### [facility] [address] [place] [address] Dr. Kamryn Don Neisseria gonorrhoeae, DARON Negative Normal Negative [facility] Comment on above: Performed By: #### C T/NGNA #### [facility] [address] [address] [address] Kamryn Don VAGINITIS/VAGINOSIS DNA PROB Domenic 09-18-2022 Marsha species Negative Normal Negative [facility] Comment on above: Performed By: #### V AGINT #### [facility] [address] [place] [address] Dr. Kamryn Don Gardnerella vaginalis Positive Abnormal Negative [facility] Comment on above: Performed By: #### V AGINT #### [facility] [address] [place] [address] Dr. Kamryn Don Trichomonas vaginalis Negative Normal Negative [facility] Comment on above: Performed By: #### V AGINT #### [facility] [address] [place] [address] Dr. Kamryn Don CNOVon 09-05-2022 CNOV Office Visit (CHARISMA ) SOLIS RASHID ([id number]) 1 F Date Time Provider Department 09/05/22 [...] - Fully Assessed Reason for Visit: New [[id number]] Primary Visit Diagnosis:Adolescent idiopathic scoliosis of thoracic region [M41.124] Order(s):XR SCOLIOSIS PA STAND/LAT 2V [[id number]] Order #: [id number] FUTURE Prescriptions as of 09/05/2022 - escitalopram oxalate (LEXAPRO) 10 mg tablet Take 10 mg by mouth once daily. - Norethin Boom-Eth Estrad-FE 1 mg-20 mcg (21)/75 mg (7) per tablet Take 1 tablet by mouth once daily. Problem List As Of Date: 09/05/2022 (None) Encounter Status:Closed by ROGE NORTH on 09/05/22 Normal [facility] XR Spine Scoliosis Study [facility] 06-14-2022 XR Spine Scoliosis Study Standing CLINICAL [...] by Carleen Graff on 06/17/2022 0849 Normal [facility] HCG,Quantitativeon 2 HCG,Quantitative 8536.00 m[iU]/mL Normal [facility] Comment on above: Order Comment: Reaso n for Exam Less than 8 weeks gestation of Result Comment: Appr oximate Approximate hCG Gestational Age Range (mIU/ml) (weeks) 0.2-1 5-50 1-2 50-500 2-3 100-5,000 3-4 500-10,000 4-5 1,000-50,000 5-6 10,000-100,000 6-8 15,000-200,000 8-12 10,000-100,000 PERFORMED BY: [place] [address] PATHOLOGIST NUT FEEDER EZEKIEL SERRANO M.D. Performed By: #### H CGQNT #### [address] HCG,Quantitativeon 2 HCG,Quantitative 8790.00 m[iU]/mL Normal [facility] Comment on above: Order Comment: Reaso n for Exam Missed menses;Positive blood test;Spotting affecti Result Comment: Appr oximate Approximate hCG Gestational Age Range (mIU/ml) (weeks) 0.2-1 5-50 1-2 50-500 2-3 100-5,000 3-4 500-10,000 4-5 1,000-50,000 5-6 10,000-100,000 6-8 15,000-200,000 8-12 10,000-100,000 PERFORMED BY: [facility] [address] [id number] PATHOLOGIST NUT FEEDER EZEKIEL SERRANO M.D. Performed By: #### H CGQNT #### [place] [address] [id number] [facility] Q - [place] Q[place] [address] [place] [address] m[IU]/mL [facility] Comment on above: Order Comment: [facility] Testing performed at: [facility] [employer] [facility], [address] [facility], [address] [place] [address], [id number], Hot Frame Tender: Vikram Cadet MD [facility] Collection Date/Time: [facility] Results Received Date/Time: [facility] Reported Date/Time: Result Comment: Refe rence Range Non or premenopausal <5 Postmenopausal <10 Values from different assay methods may vary. The use of this assay to monitor or to diagnose patients with cancer or any condition unrelated to has not been cleared or approved by the FDA or the trial court judge of the assay. Performed By: #### 2 [id number] #### [facility] Default [address] [place] [address] OB 1ST Trimesteron 2021 OB 1ST Trimester [...] by Sancho German on 12/11/2021 1006 Normal [facility] Vital Signs Date Time Vital Sign Value Performing Clinician Facility 07-24-2023 16:00-0400 Body temperature 99.6 [degF] Maday Bragg Other [facility] Other 07-24-2023 16:00-0400 Body weight 49.9 kg Maday Bragg Other [facility] Other 07-24-2023 16:00-0400 Respiratory rate 20 /min Maday Bragg Other [facility] Other 07-24-2023 16:00-0400 SaO2% (BldA) [Mass fraction] 100 % Maday Bragg Other [facility] Other 09-05-2022 15:29-0500 Body height 167.6 cm Roge North MD Work Phone: [facility] 09-05-2022 15:29-0500 Body mass index (BMI) [Percentile] Per age and sex 5.14 % Roge North MD Work Phone: [facility] 09-05-2022 15:29-0500 Body weight 49.9 kg Roge North MD Work Phone: [facility] Encounters Encounter Date Encounter Type Care Provider [...] 07-24-2023 End: 07-24-2023 ambulatory Maday Bragg Other [facility] Other Start: 07-24-2023 Office outpatient vi sit 25 minutes Maday Bragg [facility] Start: 09-16-2022 End: 09-16-[address] SARI RODRIGUEZ Facility: Start: 09-05-2022 End: 09-05-2022 ambulatory ROGE [facility]TH Facility:[facility] Start: 09-05-2022 End: 09-05-2022 Patient encounter procedure Roge North MD Work Phone: [facility] Comment on above: 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 (Primary Dx) Start: 01-03-[address] SARI RODRIGUEZ Facility :[facility]1 Start: 12-17-[address] TIBURCIO Salmeron lity:H1 Plan of Treatment Date Care Activity Detail Author Start: 06-20-2022 Influenza vaccination INFLUENZA (#1) [facility] Start: 2021 CHLAMYDIA SCREENING (18-24) CHLAMYDIA SCREENING (18-24) [facility] Start: 2021 GC (GONORRHEA) SCREE SHARITA (18-24) GC (GONORRHEA) SCREENING (18-24) [facility] Start: 2021 HEPATITIS C SCREENING HEPATITIS C SC CHRISTI [facility] Start: 2021 HIV SCREENING HIV SCREENING [facility] Start: 10-20-2021 DEPRESSION ASSESSMENT DEPRESSION ASS ESSMENT [facility] Start: 2019 MENINGOCOCCAL CONJUG ATE (1 - 2-dose series) MENINGOCOCCAL CONJUGATE (1 - 2-dose series) [facility] Start: 2017 PEDS TO ADULT TRANSI TION ANNUAL ASSESSMENT PEDS TO ADULT TRANSITION ANNUAL ASSESSMENT [facility] Start: 2015 PEDS TO ADULT TRANSI TION INITIAL DISCUSSION PEDS TO ADULT TRANSITION INITIAL DISCUSSION [facility] Start: 2014 HPV VACCINE (1 - 2-d ose series) HPV VACCINE (1 - 2-dose series) [facility] Start: 2013 MENINGOCOCCAL B: Consider based on risk (1 of 2 - Risk Bexsero 2-dose series) MENINGOCOCCAL B: Consider based on risk (1 of 2 - Risk Bexsero 2-dose series) [facility] Start: 2010 Urine microalbumin profile DTAP,TDAP,TD (1 - Tdap) [facility] Start: 05-14-2004 COVID-19 VACCINE (#1) COVID-19 VACCI NE (#1) [facility] Start: 2003 HEPATITIS B (1 of 3 - 3-dose series) HEPATITIS B (1 of 3 - 3-dose series) [facility] End: 10-05-2023 Radex entir thrc lmbr crv sac spi w/skull 2/3 vw XR SCOLIOSIS PA STAND/LAT 2V Radiology Routine Adolescent idiopathic scoliosis of thoracic region 1 Occurrences starting 09/05/2022 until 10/05/2023 [facility] Work Phone: Comment on above: 1 Occurrences starti ng 09/05/2022 until 10/05/2023 Immunizations Immunization Date Immunization Notes Care Provider Tanesha colby 06-12-2009 Diphtheria, tetanus toxoids and acellular pertussis vaccine, and poliovirus vaccine, inactivated Maday Bragg Other [facility] Other 06-12-2009 measles, mumps and rubella virus vaccine Maday Bragg Other [facility] Other 06-12-2009 varicella virus vaccine Maday Bragg Other [facility] Other Payers Date Payer Category Payer Medicaid [id number] 2017 Medicaid [employer] TERM 09/18 [employer]ICA[employer] [id number] 2017-Present [phone] [address] [place] [address] Medicaid [id number] 2003 Unknown [id number] 2003 Unknown [id number] [id number] 2003 Unknown [id number] [id number] 2003 Unknown [id number] [id number] 2003 Unknown [id number] 2.16.840.1.431813.3.579.2.1259 2003 Unknown [id number] 2.16.840.1.921469.3.579.2.1259 2003 Unknown [id number] 2.16.840.1.548265.3.579.2.1259 2003 Unknown [id number] 2.16.840.1.938730.3.579.2.1259 2003 Unknown [id number] 2.16.840.1.683444.3.579.2.1259 2003 Unknown [id number] 2.16.840.1.900002.3.579.2.1259 2003 Unknown [id number] 2.16.840.1.723705.3.579.2.1259 2003 Unknown [id number] 2.16.840.1.318277.3.579.2.1259 2003 Unknown [id number] 2.16.840.1.828005.3.579.2.1259 2003 Unknown [id number] [id number] 1959 Medicaid [id number] 1961 Self-pay Social History Date Type Detail Facility Start: 09-05-2022 Tobacco smoking status NHIS Never smoked tobacco [facility] Start: 09-05-2022 Tobacco use and exposure Smokeless tobacco non-user [facility] Start: 2003 Sex Assigned At Not on file C [facility] Sex Assigned At Sex Assigned At Bir th [facility] Other Evaluation note 07-24-2023 Note Date & [...] treatment plan. Patient left in stable condition [facility] Other Progress note 09-05-2022 Note Date & Type Note Facility 09-05-2022 Note HNO ID: [id number] Author: Roge North MD Service: ? Author [...] late progression that would require surgical intervention. [facility] History of Present illness Narrative [...] require surgical intervention. documented in this encounter [facility] History general Narrative - Reported 2003 Note Date & Type Note Facility 2003 History general N arrative - Reported Type Medical History febrile seizures Medical History extropia left eye Medical History bronchititis Medical History dishydrotic eczema Hospitalization History RSV 12/23/19 04 [facility] Other Evaluation note Note Date & Type Note Facility Evaluation note Diagnosis Adolescent idiopathic scoliosis of thoracic region- Primary Scoliosis (and kyphoscoliosis), idiopathic documented in this encounter [facility] Reason for referral (narrative) Diagnostic Procedure Only (Routine) - Pending Review Note Date & Type Note Facility Reason for referral (narrati ve) Specialty Diagnoses / Procedures Referred By Shirin fang Referred To Contact XR IMAGING Diagnoses Adolescent idiopathic scoliosis of thoracic region Procedures XR SCOLIOSIS PA STAND/LAT 2V RADEX ENTIR THRC LMBR CRV SAC SPI W/SKULL 2/3 VW Roge North MD [address] [place] [address] Xr Imaging Referral ID Status Reason Start Date Expiration Date Visits Requested Visits Authorized [id number] Pending Review Auto-Generat ed Referral 2 10/05/2023 1 1 [facility] Summary Purpose Family History No Family History Records FoundNo Family History Records FoundNo Family History Records FoundNo Family History Records FoundNo Family History Records Found Advance Directives No Advanced Directives Records FoundNo Advanced Directives Records FoundNo Advanced Directives Records FoundNo Advanced Directives Records FoundNo Advanced Directives Records Found Additional Source Comments INFORMATION SOURCE (unrecogn ized section and content) DATE CREATED AUTHOR 12/16/2021 [facility] DATE CREATED AUTHOR AUTHOR'S ORGANIZ ATION 06/17/2022 [facility] dical Specialist DATE CREATED AUTHOR AUTHOR'S ORGANIZ ATION 09/07/2022 [facility] DATE CREATED AUTHOR AUTHOR'S ORGANIZ ATION 09/20/2022 [facility] DATE CREATED AUTHOR AUTHOR'S ORGANIZ ATION 02/11/2024 [facility] dical Specialists EPIC Source Comments (unrecognize d section and content) In the event this informatio n is protected by the Federal Confidentiality of Alcohol and Drug Abuse Patient Records regulations: The Federal rules restrict any use of the information to criminally investigate or prosecute any alcohol or drug abuse patient.[facility] Reason for Visit (unrecogniz ed section and content) Reason Comments New Care Teams (unrecognized sec tion and content) Cut Out Worker Relationship Specialty Start Date End Date Opal Neri, PROCESSOR [employer]RA[employer] [address] [place] [address] Referring Family Medicine 06/21/22 FOR RECORDS PERTAINING [...] BE BASED ON THE PRIMARY CLINICAL RECORDS. [employer] [facility]. provides no warranty or guarantee of the accuracy or completeness of information in this document.
[2024-02-14] MEDS: 0.9 % SODIUM CHLORIDE 1,000 ML 1000 ML IV (22:09)
[2024-02-14 22:10] LABS: Hematocrit 39.1 % (36.0-48.0); Hemoglobin 12.8 g/dL (12.0-16.0); Mean Corpuscular HGB Conc 32.7 g/dL (29.9-35.2); Mean Corpuscular Hemoglobin 30.5 pg (26.7-34.0); Mean Corpuscular Volume 93.1 fL (81.0-99.0); Mean Platelet Volume 8.9 fL (9.5-13.5); Platelet Count 206 10^3/uL (150-450); Red Cell Distribution Width 12.3 % (11.0-15.0); White Blood Count 16.6 10^3/uL (4.0-11.0)
[2024-02-14] MEDS: CLINDAMYCIN PHOSPHATE/D5W 900 MG/50 ML PIGGYBACK 100 MG IV (22:10)
[2024-02-14 22:13] VITALS: BP 118/60; PULSE 101; TEMP 36
[2024-02-14 23:06] LABS: Amphetamine Screen Urine NEGATIVE (NEGATIVE); Barbiturates Screen Urine NEGATIVE (NEGATIVE); Benzodiazepines Screen Urine NEGATIVE (NEGATIVE); Buprenorphine Screen Urine NEGATIVE (NEGATIVE); Cannabinoid Screen Urine NEGATIVE (NEGATIVE); Cocaine Screen Urine NEGATIVE (NEGATIVE); Methadone Screen Urine NEGATIVE (NEGATIVE); Methamphetamines Screen Urine NEGATIVE (NEGATIVE); Opiate Screen Urine NEGATIVE (NEGATIVE); Oxycodone Screen Urine NEGATIVE (NEGATIVE); Phencyclidine Screen Urine NEGATIVE (NEGATIVE); Tricyclic Antidepressant Urine NEGATIVE (NEGATIVE)
[2024-02-14 23:43] VITALS: BP 104/70; PULSE 114
[2024-02-14 23:48] VITALS: TEMP 36.7
[2024-02-15] VITALS (68 sets, daily range): BP systolic 79–176; BP diastolic 47–131; PULSE 71–141; TEMP 35.9–36.7
[2024-02-15] MEDS: ACETAMINOPHEN 500 MG TABLET 1000 MG PO (00:30)
[2024-02-15] MEDS: 0.9 % SODIUM CHLORIDE 1,000 ML 125 ML IV ×3 (00:32→08:32)
--- NOTE | 2024-02-15 01:13 | P.OBPN_ITS ---
OB - PN: Subj Subjective Patient comments: other (contractions painful, requesting epidural, maternal heart rate 120 which is increased from admission likely reflecting pain) infant status: doing well (have been watching FHR tracing. CAT I on admission. at about midnight or slightly earlier baseline changed from 120 to 130 to 150-160 with good variability and acces) Exam Constitutional Vital Signs, click to edit/add: Last Vital Signs Temp 98.1 F 02/14/24 23:48 Pulse 126 H 02/15/24 01:11 BP 118/85 02/15/24 01:11 Results Labs Labs: Short CBC 02/14/24 Range/Units 22:00 WBC 16.6 H (4.0-11.0) 10^3/uL Hgb 12.8 (12.0-16.0) g/dL Hct 39.1 (36.0-48.0) % Plt Count 206 (150-450) 10^3/uL OB - PN: A/P Assessment and Plan (1) Tachycardia with heart rate 100-120 beats per minute: Assessment and Plan: WITH NEW ONSET OF PAIN WITH CONTRACTIONS, MATERNAL HEARTRATE NOW 120 AND FHR HAS INCREASED WELL. BASELINE UP TO 160 WITH ACCELS TO 200. AFEBRILE. Plan MULTIPLE BOLUSES OF IVF AND RUNNING AT 200CC PER HOUR. REPOSITIONED ON RIGHT SIDE AFTER LEFT SIDE TO INCREASE BLOOD FLOW TO PLACENTA. CALLED FOR EPIDURAL TO DECREASED PAIN AND MATERNAL HEART RATE. IF NOR NORMALIZATION OF FHR AFTER MATERNAL HEART RATE NORMALIZED, WILL PROCEED TO PRIMARY CS. SUSPECT MATERNAL TEMP THOUGH ORAL READING NORMAL. WILL GIVE TYLENOL 650 MG PO TIMES ONCE. WILL CONTINUE TO MONITOR FOR RESOLUTION OF MATERNAL AND TACHYCARDIA AFTER EPIDURAL PLACED. Time Spent with Patient Time: Total time spent is greater than 50% in coordination of care (as documented) at patient's floor/unit and/or counseling patient: Total time spent with greater than 50% in coordination of care (as documented) at patient's floor/unit and/or counseling patient: less than 15 minutes (MON ITORING PATIENT AND FHR TRACING FROM HOME)
[2024-02-15] MEDS: ROPIVACAINE HCL/PF 400 MG/200 ML PREMIX 6 MG EPIDURAL (01:44)
[2024-02-15] MEDS: LIDOCAINE HCL 2% PF 100 MG/5 ML VIAL INJ (02:39)
[2024-02-15] MEDS: CLINDAMYCIN PHOSPHATE/D5W 900 MG/50 ML PIGGYBACK 100 MG IV (06:28)
--- NOTE | 2024-02-15 09:21 | P.OBHP_ITS ---
OB - H&P: HPI History of Present Illness Chief complaint: contractions 2-3 min 02-22-24 : 1 Para: 0 Date of last menstrual period: SEE CHART Gestational age based on last menstrual period: SEE CHART Comments: PRESENTED TO MATERNITY WITH CONTRACTIONS. ADMITTED AFTER EVALUATION FOR LABOR AND EXPECTED History of Present Dating criteria: LMP confirmed by 2nd trimester US care: good care Ultrasounds: normal 1st trimester US and normal mid trimester US Medical complications OB: none Labs Narrative: OB CHART REVIEWED Review of Systems ROS Status of ROS: 10 or more systems reviewed and unremarkable except as noted in history and below Gastrointestinal: Reports: other (PAINFUL CONTRACTIONS) [facility] Medical History (Updated 02/15/24 @ 01:17 by Roxana Garcia MD) Prior miscarriage with in first trimester, antepartum ?O09.291 - Supervision of with other poor reproductive or obstetric history, first trimester (ICD-10) Scoliosis ?M41.9 - Scoliosis, unspecified (ICD-10) Anxiety with depression ?F41.8 - Other specified anxiety disorders (ICD-10) Social History Smoking status: Never smoker Highest level of school completed/degree received: high school graduate Meds Home Medications and Allergies Home Medications ?Medication ?Instructions ?Recorded ?Confirmed ?Type venlafaxine 75 mg capsule,extended 75 mg PO DAILY 06/19/23 02/14/24 History release 24 hr vitamin with calcium 1 tab 12/30/23 History no.72-iron 27 mg-folic acid 1 mg tablet (M- Plus) venlafaxine 37.5 mg tablet 37.5 mg PO DAILY 02/14/24 02/14/24 History Allergies Allergy/AdvReac Type Severity Reaction Status Date / Time amoxicillin Allergy Unknown Verified 12/30/23 00:22 Sulfa (Sulfonamide Allergy Unknown Verified 06/19/23 23:52 Antibiotics) Exam Constitutional Vital Signs, click to edit/add: Last Vital Signs Temp 97.5 F L 02/15/24 06:45 Pulse 100 H 02/15/24 09:09 Resp 16 02/15/24 07:24 BP 112/58 02/15/24 09:09 Documenting provider has reviewed patient's vital signs: yes Common normals: no apparent distress, oriented x3, no limitations, healthy appearing, alert and well nourished HENMT Common normals: normocephalic and head/scalp atraumatic Eye Pupil: PERRL and accommodation reflex normal Neck & C-Spine Common normals: full ROM Respiratory Common normals: normal respiratory effort Cardio Common normals: regular rate and regular rhythm GI Common normals: Normal to inspection, nondistended, normoactive bowel sounds present Common normals: no CVA tenderness Back & Pelvis Common normals: no thoracic nor lumbar tenderness Extremity Common normals: normal to inspection, full ROM and no calf tenderness Neuro Common normals: CN's II-XII intact bilaterally, moves all extremities, no focal motor deficits and no sensory deficits noted Psych Common normals: mental status grossly normal, thought process normal, cooperative, affect normal and speech normal Results Labs Labs: Short CBC 02/14/24 Range/Units 22:00 WBC 16.6 H (4.0-11.0) 10^3/uL Hgb 12.8 (12.0-16.0) g/dL Hct 39.1 (36.0-48.0) % Plt Count 206 (150-450) 10^3/uL OB - A/P Assessment and Plan (1) Tachycardia with heart rate 100-120 beats per minute: Assessment and Plan: RESOLVED WITH PLACEMENT OF EPIDURAL, FLUIDS AND POSITION CHANGE AFEBRIL SUBSEQUENT TACHYCARDIA RESOLVED WITH MATERNAL TACHYCARDIA Plan ROUTINE CARE FOR EXPECTED Urinary Catheter Management Urinary Catheter Management Urethral: Cath placed during this visit: YES Urethral indwelling: Yes Insertion date: 02/15/24 Insertion time: 02:05
--- NOTE | 2024-02-15 11:55 | PC.NURSE ---
DR NGUYEN AT BEDSIDE- PITOCIN AUGMENTATION STAAARTED AT 4 MU/MIN PER INFUSION PUMP
[2024-02-15] MEDS: HYDROMORPHONE HCL 0.5 MG/0.5 ML SYRINGE IV (12:50)
[2024-02-15] MEDS: OXYTOCIN/0.9 % SODIUM CHLORIDE 20 UNITS/1,000 ML PLAST..BAG 125 UNIT IV (12:56)
[2024-02-15] MEDS: IBUPROFEN 600 MG TABLET PO (17:06)
[2024-02-15] MEDS: GLYCERIN/WITCH HAZEL PADS 1 PAD TOPICAL (17:24)
[2024-02-15] MEDS: BENZOCAINE/MENTHOL 85 GRAM SPRAY BOTTLE 1 APPLIC TOPICAL (17:24)
--- NOTE | 2024-02-15 21:45 | PC.NURSE ---
1130: Dr Garcia states to start pushing with patient. Patient informed of pushing procedures and placed in stirrups. FOB and patient's mother present for support. 1135: Explained how to breathe and push 2-3 x with each ctx and bear down like with bowel movement. fhr 160's with moderate variability and accels. ctx's q 3-4 minutes per palpation. 1140: pushing 2-3 times with each ctx every 3-4 minutes and palpate strong and abdomen softens between ctx. Encouragement given with pushing technique and patient responds to quiet and calm in between ctx. FOB and mother supportive. 1145: Prolonged accel x 5 minutes to 180-200 . abdomen palpates soft between ctx's. quiet, calm encouragement given and some descent noted with pushing- +1 station with pushing. Ethan HAWLEY remains in room. 1150: continues to push 2x with each ctx every 3-4 minutes, abdomen soft between, Patient given encouragement by staff and responds well. Pushing efforts inconsistent with effectiveness and descent. Continue with encouragement from staff and family- quiet between ctx's. 1155: Dr Garcia at bedside to inquire on progress-orders pitocin augmentation to be started at 4mu/min per infusion pump. remains in department. Augmentation explained to patient and family by food writer. 1200: continues to push 2-3 x with each ctx and efforts inconsistent and encouragement given with breathing and positioning. 1205: continues to push 2-3x with each ctx. encouragement given to relax between ctx-family supportive. 1210: Some descent noted with some pushing efforts - pushing 2-3x with ctxs., leaking small amounts clear fluid and bloody show. 1210: Patients mother observes presenting part with pushing and comments, yep that hair looks light . Continues to push 2-3 x with ctxs and onformed of progress for encouragement. 1215: continues to push more effective and consistent- 2-3 x with each ctx. 1219: Dr Garcia enters room and states get the vacuum out and ready to use . 1221: states to increase pitocin to 6 mu/min per infusion pump now. 1221:20- Dr Garcia applies vacuum and instructed pt to push with ctx. Vacuum pressure 40-50 cmHg during ctx- pop off during ctx and remains off head. 1224: Instructed to push with ctx - no vacuum applied per MD. 1225:40 vacuum applied per MD during ctx and pressure 40-50cmHg (green zone on gauge). 1226:05- pop off. Patient very anxious and encouraged to follow physician instructions. 1228:05- vacuum applied per MD with ctx and pressure applied to 40-50 cmHg per food writer. moderate crown noted. 1228:40- pop off and MD informed of #3 pop off. Called for additional assistance. 1230: Bobo Gerard RN present and Shad Mcdonald RRT present. FHR tracing 140's. Encouragement 1231: pushing with ctx and noted. 1233: MD applies vacuum with ctx and informed of 3 previous pop offs. pressure to 40-50 cmHg per food writer and pop off. 1234: Bobo Gerard RN notifies Dr Brock- presence requested. 1235:55 head delivers. 1236: viable male delivers per Dr Garcia.
[2024-02-16] MEDS: IBUPROFEN 600 MG TABLET PO ×2 (00:09→08:22)
[2024-02-16 00:10] VITALS: BP 104/55; PULSE 85; TEMP 36.3
[2024-02-16 08:24] VITALS: BP 105/57; PULSE 115
[2024-02-16 08:30] VITALS: TEMP 36.8
--- NOTE | 2024-02-17 08:17 | PM.OBPRCVD ---
Procedure events: Labor Augmentation Induction method: none Delivery augmentation: rupture of membranes and pitocin Delivery monitor: external FHT and external uterine (toco) Route of delivery: vacuum extraction Indication for instrumentation: other (patient with history of anxiety disorder developed a panic attack so severe that it was disruptive to unassisted vaginal delivery as patient tightening up pelvic muscles as began flailing legs and arms) Episiotomy Description: midline Delivery repair: Vicryl Estimated blood loss (mL): 200 Anesthesia type: Epidural (lidocaine 2 percent plain was administered for perineal repair subcu) Disposition: floor Narrative: Membranes were ruptured when 9 cm for clear fluid. Within 30 minutes the patient was complete and instructed by me on how to push effectively. Her mother and FOB were support persons and Rochelle the RN took over having Kath push. She was clearly anxious and fearful but was reassured. After over an hour I checked on the progression of patient's pushing efforts. I could see she was not pushing effectively as she was yelling through each push and all her effort was manifested in her face. I then checked the lower vaginal cavity and found adequate room. A thin anterior lip was easily pushed behind the head and I stayed with Kath to manually spread vaginal outlet to facilitate delivery. However, Kath was not pushing effectively. When contractions were palpated she would grimace with eyes closed and only yell. She would flail both legs as her mother and FOB tried to keep them in position for delivery and also flail her arms. Though her epidural was working she was bolused to ensure adequate anesthesia. At that point it was apparent to me she was having a panic attack. She had to be told to open her eyes and look at me and follow instruction in an encouraging manner. She would manage to have one effective push in three and was strongly validated that that effective push was bringing the baby down. However panic would set in again and there would be 2 or three pushing efforts that were ineffective. At this point, given that the baby maintained a reassurring heart rate tracing my focus in delivery was on the deleterious effect pushing was having on this patient. She was in terror. I cut a midline episiotomy, and at a plus three station placed the vacuum cup posterior to the anterior fontanelle and anterior to the posterior fontanelle midposition over the sagital suture and applied traction when Rochelle indicated the vacuum was in green range. 4 applications were required which was over the recommended 2 applications however as the baby was the paitients lack of bodily control increased and it was necessary to get this baby's head delivered expeditiously. the head was delivered and there was no nuchal cord. Clear amniotic fluid was observed and the torso was delivered with the next push. A baby boy crying on delivery was observed. his mouth and nose was suctioned as there was significant amniotic fluid in his mouth and the umbilical cord was clamped and cut. The Baby was shown to Kath and then handed off to the NPR team for more suctioning and evaluation. The placenta was spontaneously delivered intact after five minutes. Pitocin which was begun just to assist with second stage was run in as a bolus. Bleeding was not heavy. A second degree repair was completed with 2 - 0 vicryl in layers with excellent approximation of tissue edges. the rectum, urethra, and cervix were intact. After the delivery the patient was administered 0.5 mg IV dilaudid to calm her as her panic attack continued at the prospect of having sutures placed. Her demeanor within ten minutes of receiving dilaudid became calm and happy. The sponge, needle and instrument count was correct at the end of the repair. The baby was taken to the nursery for further evaluation as he required a short course of PPV and suctioning for amniotic fluid. Routing postdelivery care was provided to Akth. Infant Delivery date: 02/[birth year]/24 Gender: male presentation: vertex Placental delivery description: Spontaneous cord description: 3 Vessels Labor State Duration Labor - Stage 3 Duration: 4 minutes
== END 2024-02-16 13:45 | disposition home or self-care (01) | DRG 560 ==
PROVIDERS: Admitting Provider Obstetrics & Gynecology; PCP Family Medicine; Visit Provider Obstetrics & Gynecology
DX: O99.344 Other mental disorders complicating childbirth (principal); F41.8 Other specified anxiety disorders; F41.0 Panic disorder [episodic paroxysmal anxiety]; O99.824 Streptococcus B carrier state complicating childbirth; O99.892 Other specified diseases and conditions complicating childbirth; R00.0 Tachycardia, unspecified; O76 Abnormality in fetal heart rate and rhythm complicating labor and delivery; Z37.0 Single live birth; Z3A.38 38 weeks gestation of pregnancy; Z88.0 Allergy status to penicillin; Z88.2 Allergy status to sulfonamides; Z79.899 Other long term (current) drug therapy
CPT/HCPCS: 36415; 51702; 59025; 59050; 59410; 80307; 81001; 85027; 86850; 86900; 86901; 87086; 87150; 87186; 96374; 96375; 96376; G0378; G0379; J1170

== ENCOUNTER 2024-12-08 22:09 | Outpatient (REF) | payer MEDICAID, SELFPAY ==
--- OUTSIDE RECORDS SUMMARY | 2024-12-08 22:13 | XMS_ITS | CCD ---
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 Name Role Phone Daron LYN, Opal L Unavailable ROGE NORTH Attending Unavailable MICHAEL, DR GUO Attending Unavailable MICHAEL, DR GUO Admitting Unavailable REQUEST, NONE LISTED Primary Care Unavaila ble MICHAEL, DR GUO Attending Unavailable MICHAEL, DR GUO Consulting Unavailable MICHAEL, DR GUO Admitting Unavailable REQUEST, NONE LISTED Primary Care Unavaila ble LAUREN, DR DEY Attending Unavailable LAUREN, DR DEY Admitting Unavailable REQUEST, NONE LISTED Primary Care Unavaila Maday Del Toro Unavailable SARI WOMACK Referring Unavailable Opal Neri NP Unavailable Wendy Nevarez DO Primary Care Provider Adilson Lane NP Unavailable Sari Womack DO Unavailable Gurpreet Reynolds LPC Unavailable Unavailable GURPREET REYNOLDS Attending Unavailable ADILSON LANE Attending Unavailable GURPREET REYNOLDS Attending Unavailable JON KEITA Attending Unavailable MICHAELSARI MENDEZ Attending Unavailable JON KEITA Attending Unavailable SARI WOMACK Attending Unavailable SARI WOMACK Attending Unavailable SARI WOMACK Attending Unavailable SARI WOMACK Attending Unavailable ADILSON LANE Attending Unavailable WENDY NEVAREZ Referring Unavailable ADILSON LANE Attending Unavailable ADILSON LANE Attending Unavailable Allergies Allergy Classification Reported Allergen(s) Allergy Type Date of Onset Reaction(s) Facility (19 sources) Sulfonamides (Antibiotic) Drug Allergy 2 Unknown [facility] (2 sources) Sulfonamides (Antibiotic) Drug allergy (disorder) [facility] Repository (19 sources) Amoxicillin Drug Allergy 3 Hives [facility] Work Phone: (1 source) Sulfamethoxazole / Trimethoprim Drug Allergy rash [employer] Other (15 sources) ARIPiprazole Drug Allergy 4 Dizziness [facility] Healthcare Medications Current Medications Medication Drug Class(es) Dates Sig (Normalized) Sig (Original) ARIPiprazole 5 mg oral tablet (5 sources) Atypical Antipsychotic Start: 06-29-2024 End: 08-18-2024 take 1 tablet by mouth at bedtime ARIPiprazole (Abilify) 5 MG tablet Indications: Anxiety with depression , Anxiety Take 1 tablet (5 mg) by mouth at bedtime 30 tablet 3 06/29/2024 08/18/2024 Discontinued (Side effects) 24 hr buPROPion hydrochloride 150 mg extended release oral tablet (8 sources) Aminoketone Start: 10-27-2024 End: 11-26-2024 take 1 tablet by mouth every twenty-four hours in the morning buPROPion XL (Wellbutrin XL) 150 MG 24 hr tablet Indications: Moderate episode of recurrent major depressive disorder (CMS/HCC) , Social anxiety disorder (CMS/HCC) Take 1 tablet (150 mg) by mouth in the morning. Do not crush, chew, or split.. 30 tablet 1 10/27/2024 Active desogestrel 0.15 mg / ethinyl estradiol 0.03 mg oral tablet (18 sources) Progestin, Estrogen Start: 04-12-2024 End: 04-12-2025 desogestrel-ethin yl estradiol (Apri) 0.15-30 MG-MCG tablet Indications: control counseling Take 1 tablet by mouth Daily 28 tablet 12 04/12/2024 04/12/2025 Active fluticasone propionate 0.05 mg/actuat metered dose nasal spray (1 source) Corticosteroid Start: 07-24-2023 take 1 spray(s) nasal route once daily Flonase Allergy Relief 50 MCG/ACT 1 spray in each nostril Nasally Once a day for 14 day(s) Jul, Active hydrOXYzine hydrochloride 10 mg oral tablet (4 sources) Antihistamine Start: 11-24-2024 take 1 tablet by mouth every eight hours for anxiety hydrOXYzine HCl (Atarax) 10 MG tablet Indications: Social anxiety disorder (CMS/HCC) Take 1 tablet (10 mg) by mouth every 8 (eight) hours if needed for anxiety for up to 20 doses 20 tablet 11/24/2024 Active propranolol hydrochloride 10 mg oral tablet (12 sources) beta-Adrenergic Francisco Start: 09-15-2024 End: 11-26-2024 take 1 tablet by mouth three times daily as needed for anxiety propranolol (Inderal) 10 MG tablet Indications: Social anxiety disorder (CMS/HCC) Take 1 tablet (10 mg) by mouth 3 (three) times a day as needed (for anxiety) 90 tablet 10/27/2024 11/24/2024 Discontinued (Other) 24 hr venlafaxine 37.5 mg extended release oral capsule (20 sources) Serotonin and Norepinephrine Reuptake Inhibitor Start: 11-24-2024 End: 12-08-2024 take 2 capsules by mouth once daily, then take 1 capsule by mouth once daily venlafaxine XR (Effexor XR) 37.5 MG 24 hr capsule Indications: Social anxiety disorder (CMS/HCC) , Moderate episode of recurrent major depressive disorder (CMS/HCC) Take 2 capsules (75 mg) by mouth Daily for 7 days, THEN 1 capsule (37.5 mg) Daily for 7 days. Do not crush or chew.. 21 capsule 11/24/2024 12/08/2024 Active Start: 08-18-2024 End: 11-24-2024 take 1 capsule by mouth once daily venlafaxine XR (Effexor XR) 150 MG 24 hr capsule Indications: Moderate episode of recurrent major depressive disorder (CMS/HCC) , Social anxiety disorder (CMS/HCC) Take 1 capsule (150 mg) by mouth Daily Do not crush or chew. 30 capsule 1 09/15/2024 11/24/2024 Discontinued Start: 03-04-2024 End: 06-29-2025 take 1 capsule by mouth once daily venlafaxine XR (Effexor XR) 75 MG 24 hr capsule Indications: Anxiety with depression Take 1 capsule (75 mg) by mouth Daily Do not crush or chew. 30 capsule 5 06/29/2024 06/29/2025 Active take 1 tablet by ozzy th once daily at mealtime Effexor 50 MG [...] 1 tablet by ozzy once daily. Problems Active Problems Problem Classification Problem Date Documented Da te Episodic/Chronic Acute and chronic tonsillitis (1 source) Acute tonsillitis; Translations: [ACUTE TONSILLITIS] Episodic Anxiety disorders (20 sources) Mixed anxiety and depressive disorder; Translations: [Other specified anxiety disorders] Onset: 06-02-2023 Resolved: 09-15-2024 03-04-2024 Chronic Malaise and fatigue (1 source) Weakness; Translations: [Weakness] Onset: 02-20-2024 Episodic Mood disorders (20 sources) Moderate recurrent major depression; Translations: [Major depressive disorder, recurrent, moderate] Onset: 08-18-2024 08-18-2024 Chronic Other acquired deformities (18 sources) Scoliosis of thoracic spine; Translations: [Scoliosis, unspecified] Onset: 06-02-2023 06-02-2023 Chronic Other bone disease and musculoskeletal deformities (1 source) Adolescent idiopathic scoliosis of thoracic spine; Translations: [Adolescent idiopathic scoliosis, thoracic region] Chronic Other upper respiratory disease (1 source) Nasal discharge; Translations: [Rhinorrhea] Episodic Other upper respiratory infections (3 sources) Streptococcal sore throat; Translations: [Strep pharyngitis] Episodic Past or Other Problems Problem Classification Problem Date Documented Date Episodic/Chronic Abdominal pain (20 sources) Pelvic and perineal pain; Translations: [Pain in female pelvis] Onset: 09-16-2022 Resolved: 09-15-2024 Episodic Mood disorders (18 sources) Mood disorders Onset: 04-02-2023 04-02-2023 Other female genital disorders (18 sources) Noninflammatory disorder of the vagina; Translations: [Other specified noninflammatory disorders of vagina] Onset: 06-02-2023 Resolved: 09-15-2024 06-02-2023 Episodic Results Test Name Value Interpretation Reference Range Facility CBC (INCLUDES DIFF/PLT)on Basophils (Bld) [#/Vol] 0.031 10*3/uL Normal 0-200 [facility] Comment on above: Performed By: #### 6 399, 08732, 29554 #### [facility] [place] [address] Surgical Oncologist: Vikram Cadet MD Basophils/100 WBC (Bld) 0.5 % Normal [facility] Comment on above: Performed By: #### 6 399, 15995, 99508 #### [facility] [place] [address] Surgical Oncologist: Vikram Cadet MD Eosinophils (Bld) [#/Vol] 0.062 10*3/uL Normal 15-500 [facility] Comment on above: Performed By: #### 6 399, 28567, 84145 #### [facility] [place] [address] Surgical Oncologist: Vikram Cadet MD Eosinophils/100 WBC (Bld) 1.0 % Normal [facility] Comment on above: Performed By: #### 6 399, 01160, 36046 #### [facility] [place] [address] Surgical Oncologist: Vikram Cadet MD Erythrocyte distribution width (RBC) [Ratio] 11.3 % Normal 11.0-15.0 [facility] Comment on above: Performed By: #### 6 399, 56406, 21339 #### [facility] [place] [address] Surgical Oncologist: Vikram Cadet MD Hematocrit (Bld) [Volume fraction] 41.9 % Normal 35.0-45.0 [facility] Comment on above: Performed By: #### 6 399, 68563, 00816 #### [facility] of [address], [address] [place] [address] Surgical Oncologist: Vikram Cadet MD Hemoglobin (Bld) [Mass/Vol] 13.9 g/dL Normal 11.7-15.5 [facility] Comment on above: Performed By: #### 6 399, 29896, 43134 #### [facility] of [address], [address] [place] [address] Surgical Oncologist: Vikram Cadet MD Lymphocytes (Bld) [#/Vol] 2.232 10*3/uL Normal 850-3900 [facility] Comment on above: Performed By: #### 6 399, 37706, 95222 #### [facility] of [place] [address] Surgical Oncologist: Vikram Cadet MD Lymphocytes/100 WBC (Bld) 36.0 % Normal [facility] Comment on above: Performed By: #### 6 399, 86881, 30727 #### [facility] of [place] [address] Surgical Oncologist: Vikram Cadet MD MCH (RBC) [Entitic mass] 30.2 pg Normal 27.0-33.0 [facility] Comment on above: Performed By: #### 6 399, 11766, 75474 #### [facility] [address], [address] [place] [address] Surgical Oncologist: Vikram Cadet MD MCHC (RBC) [Mass/Vol] 33.2 g/dL Normal 32.0-36.0 [facility] Comment on above: Result Comment: For adults, a slight decrease in the calculated MCHC value (in the range of 30 to 32 g/dL) is most likely not clinically significant; however, it should be interpreted with caution in correlation with other red cell parameters and the patient's clinical condition. Performed By: #### 6 399, 22404, 57301 #### [facility] of [address] [place] [address] Surgical Oncologist: Vikram Cadet MD MCV (RBC) [Entitic vol] 90.9 fL Normal 80.0-100.0 [facility] Comment on above: Performed By: #### 6 399, 98354, 46460 #### [facility] of [address], [address] [place] [address] Surgical Oncologist: Vikram Cadet MD Monocytes (Bld) [#/Vol] 0.341 10*3/uL Normal 200-950 [facility] Comment on above: Performed By: #### 6 399, 58544, 66357 #### [facility] of [address], [address] [place] [address] Surgical Oncologist: Vikram Cadet MD Monocytes/100 WBC (Bld) 5.5 % Normal [facility] Comment on above: Performed By: #### 6 399, 07422, 54853 #### [facility] of [address], [address] [place] [address] Surgical Oncologist: Vikram Cadet MD Neutrophils (Bld) [#/Vol] 3.534 10*3/uL Normal 2091-0275 [facility] Comment on above: Performed By: #### 6 399, 46369, 57256 #### [facility] [address], [address] [place] [address] Surgical Oncologist: Vikram Cadet MD Neutrophils/100 WBC (Bld) 57 % Normal [facility] Comment on above: Performed By: #### 6 399, 21246, 42139 #### [facility] of [address], [address] [place] [address] Surgical Oncologist: Vikram Cadet MD Platelet mean volume (Bld) [Entitic vol] 9.2 fL Normal 7.5-12.5 [facility] Comment on above: Performed By: #### 6 399, 29532, 31645 #### [facility] of [address], [address] [place] [address] Surgical Oncologist: Vikram Cadet MD Platelets (Bld) [#/Vol] 289 10*3/uL Normal 140-400 [facility] Comment on above: Performed By: #### 6 399, 41940, 95854 #### [facility] of [address], [address] [place] [address] Surgical Oncologist: Vikram Cadet MD RBC (Bld) [#/Vol] 4.61 10*6/uL Normal 3.80-5.10 [facility] Comment on above: Performed By: #### 6 399, 21049, 88936 #### [facility] of [address], [address] [place] [address] Surgical Oncologist: Vikram Cadet MD WBC (Bld) [#/Vol] 6.2 10*3/uL Normal 3.8-10.8 [facility] Comment on above: Performed By: #### 6 399, 67956, 94486 #### [facility] of [address], [address] [place] [address] Surgical Oncologist: Vikram Cadet MD [facility] 10-01-2024 Albumin [Mass/Vol] 4.6 g/dL Normal 3.6-5.1 [facility] Comment on above: Performed By: #### 6 399, 31320, 69352 #### [facility] of [address], [address] [place] [address] Surgical Oncologist: Vikram Cadet MD Albumin/Globulin [Mass ratio] 1.7 {ratio} Normal 1.0-2.5 [facility] Comment on above: Performed By: #### 6 399, 13598, 83855 #### [facility] of [address], [address] [place] [address] Surgical Oncologist: Vikram Cadet MD ALP [Catalytic activity/Vol] 52 U/L Normal 31-125 [facility] Comment on above: Performed By: #### 6 399, 76541, 52457 #### [facility] of [address], [address] [place] [address] Surgical Oncologist: Vikram Cadet MD ALT [Catalytic activity/Vol] 7 U/L Normal 6-29 [facility] Comment on above: Performed By: #### 6 399, 60307, 01814 #### [facility] of [address], [address] [place] [address] Surgical Oncologist: Vikram Cadet MD AST [Catalytic activity/Vol] 13 U/L Normal 10-30 [facility] Comment on above: Performed By: #### 6 399, 37713, 68136 #### [facility] of [address], [address] [place] [address] Surgical Oncologist: Vikram Cadet MD Bilirubin [Mass/Vol] 0.3 mg/dL Normal 0.2-1.2 [facility] Comment on above: Performed By: #### 6 399, 58853, 87563 #### [facility] [address], [address] [place] [address] Surgical Oncologist: Vikram Cadet MD BUN/CREATININE RATIO SEE NOTE: Normal 6-22 [facility] Comment on above: Result Comment: Not Reported: BUN and Creatinine are within reference range. Performed By: #### 6 399, 15963, 40293 #### [facility] [place] [address] Surgical Oncologist: Vikram Cadet MD Calcium [Mass/Vol] 9.4 mg/dL Normal 8.6-10.2 [facility] Comment on above: Performed By: #### 6 399, 37734, 65064 #### [facility] of [place] [address] Surgical Oncologist: Vikram Cadet MD Chloride [Moles/Vol] 100 mmol/L Normal 98-110 [facility] Comment on above: Performed By: #### 6 399, 51644, 92574 #### [facility] of [address], [address] [place] [address] Surgical Oncologist: Vikram Cadet MD CO2 [Moles/Vol] 27 mmol/L Normal 20-32 [facility] Comment on above: Performed By: #### 6 399, 42215, 65311 #### [facility] [place] [address] Surgical Oncologist: Vikram Cadet MD Creatinine [Mass/Vol] 0.74 mg/dL Normal 0.50-0.96 [facility] Comment on above: Performed By: #### 6 399, 75593, 89231 #### [facility] [place] [address] Surgical Oncologist: Vikram Cadet MD GFR/1.73 sq M.predicted among non-blacks MDRD (S/P/Bld) [Vol rate/Area] 119 mL/min/{1.73_m2} Normal > OR = 60 [facility] Comment on above: Performed By: #### 6 399, 38331, 35288 #### [facility] [place] [address] Surgical Oncologist: Vikram Cadet MD Globulin (S) [Mass/Vol] 2.7 g/dL Normal 1.9-3.7 [facility] Comment on above: Performed By: #### 6 399, 59252, 17630 #### [facility] [place] [address] Surgical Oncologist: Vikram Cadet MD Glucose [Mass/Vol] 96 mg/dL Normal 65-139 [facility] Comment on above: Result Comment: Non-fasting reference interval Performed By: #### 6 399, 54694, 50945 #### [facility] [place] [address] Surgical Oncologist: Vikram Cadet MD Potassium [Moles/Vol] 3.5 mmol/L Normal 3.5-5.3 [facility] Comment on above: Performed By: #### 6 399, 61071, 78187 #### [facility] [place] [address] Surgical Oncologist: Vikram Cadet MD Protein [Mass/Vol] 7.3 g/dL Normal 6.1-8.1 [facility] Comment on above: Performed By: #### 6 399, 28132, 71794 #### [facility] [place] [address] Surgical Oncologist: Vikram Cadet MD Sodium [Moles/Vol] 137 mmol/L Normal 135-146 [facility] Comment on above: Performed By: #### 6 399, 97760, 70953 #### [facility] [place] [address] Surgical Oncologist: Vikram Cadet MD Urea nitrogen [Mass/Vol] 13 mg/dL Normal 7-25 [facility] Comment on above: Performed By: #### 6 399, 63758, 76734 #### [facility] [place] [address] Surgical Oncologist: Vikram Cadet MD TSH+FREE T4on 10-01-2024 Free T4 [Mass/Vol] 1.0 ng/dL Normal 0.8-1.4 [facility] Comment on above: Order Comment: FASTI NG:NO FASTING: NO Performed By: #### 6 399, 88437, 46365 #### [facility] [place] [address] Surgical Oncologist: Vikram Cadet MD TSH Qn 0.47 m[IU]/L Normal [facility] Comment on above: Order Comment: FASTI NG:NO FASTING: NO Result Comment: Refe rence Range > or = 20 Years 0.40-4.50 Ranges First trimester 0.26-2.66 Second trimester 0.55-2.73 Third trimester 0.43-2.91 Performed By: #### 6 399, 15022, 17689 #### [facility] [place] [address] Surgical Oncologist: Vikram Cadet MD VITAMIN D,25-OH,TOTAL,IAon 1 12-02-2023 VITAMIN D,25-OH,TOTAL,IA 45 ng/mL Normal 30-100 [facility] Comment on above: Result Comment: Thao min D Status 25-OH Vitamin D: Deficiency: <20 ng/mL Insufficiency: 20 - 29 ng/mL Optimal: > or = 30 ng/mL For 25-OH Vitamin D testing on patients on D2-supplementation and patients for whom quantitation of D2 and D3 fractions is required, the [facility](TM) 25-OH VIT D, (D2,D3), LC/MS/MS is recommended: order code 16170 (patients >2yrs). See Note 1 Note 1 For additional information, please refer to http://education.[employer]faq/IRM700 (This link is being provided for informational/ educational purposes only.) Performed By: #### 6 399, 79386, 51231 #### [facility] [address] [facility], [address] [place] [address] Surgical Oncologist: Vikram Cadet MD COMPLETE BLOOD COUNT 02-19 Erythrocyte distribution width (RBC) [Ratio] 12.7 % Normal 11.5-15.0 [facility] Comment on above: Performed By: #### C BC #### [facility] ([id number]) [address], [address] [place] [address] Hematocrit (Bld) [Volume fraction] 33.7 % Low 35-47 [facility] Comment on above: Performed By: #### C BC #### [facility] ([id number]) [address], [address] [place] [address] Hemoglobin (Bld) [Mass/Vol] 11.4 g/dL Low 11.7-15.5 [facility] Comment on above: Performed By: #### C BC #### [facility] ([id number]) [address], [address] [place] [address] MCH (RBC) [Entitic mass] 31.2 pg Normal 27-34 [facility] Comment on above: Performed By: #### C BC #### [facility] ([id number]) [address], [address] [place] [address] MCHC (RBC) [Mass/Vol] 33.7 g/dL Normal 32-36 [facility] Comment on above: Performed By: #### C BC #### [facility] ([id number]) [address], [address] [place] [address] MCV (RBC) [Entitic vol] 93 fL Normal 80-100 [facility] Comment on above: Performed By: #### C BC #### [facility] ([id number]) [address] [place] [address] Platelet mean volume (Bld) [Entitic vol] 6.4 fL Low 7-12 [facility] Comment on above: Performed By: #### C BC #### [facility] ([id number]) [address] [place] [address] Platelets (Bld) [#/Vol] 308 10*3/uL Normal 150-450 [facility] Comment on above: Performed By: #### C BC #### [facility] ([id number]) [address] [place] [address] RBC COUNT 3.64 X10E12/L Low 3.80-5.20 [facility] Comment on above: Performed By: #### C BC #### [facility] ([id number]) [address] [place] [address] WBC (Bld) [#/Vol] 10.4 10*3/uL Normal 4.0-11.0 [facility] Comment on above: Performed By: #### C BC #### [facility] ([id number]) [address] [place] [address] Quick Strepon 07-24-2023 S. pyogenes Org specific cx Ql (Throat) Negative [employer] Other Quick Strep [employer] Other SARS-CoV-2 (COVID-19) RNA NA A+probe Ql (Resp)on 07-24-2023 SARS-CoV-2 (COVID-19) RNA DARON+probe Ql (Unsp spec) Negative [employer] Other CHLAMYDIA/GONOCOCCUS DARON (SW AB/URINE/PAPon 09-19-2022 Chlamydia trachomatis, DARON Negative Normal Negative [facility] Comment on above: Performed By: #### C T/NGNA #### [facility] [address] [place] [address] Dr. Kamryn Don Neisseria gonorrhoeae, DARON Negative Normal Negative [facility] Comment on above: Performed By: #### C T/NGNA #### [facility] [address] [place] [address] Dr. Kamryn Don VAGINITIS/VAGINOSIS DNA PROB Domenic 09-18-2022 Marsha species Negative Normal Negative [facility] Comment on above: Performed By: #### V AGINT #### [facility] [address] [place] [address] Dr. Kamryn Don Gardnerella vaginalis Positive Abnormal Negative [facility] Comment on above: Performed By: #### V AGINT #### [facility] [address] [place] [address] Dr. Kamryn Don Trichomonas vaginalis Negative Normal Negative [facility] Comment on above: Performed By: #### V AGINT #### [facility] [address] [place] [address] Dr. Kamryn Don CNOVon 09-05-2022 CNOV Office Visit (INOPIN) SOLIS WALLACE ([id number]) 1 F Date Time Provider Department 09/05/22 [...] - Fully Assessed Reason for Visit: New [[id number]] Primary Visit Diagnosis:Adolescent idiopathic scoliosis of thoracic region [M41.124] Order(s):XR SCOLIOSIS PA STAND/LAT 2V [3042303] Order #: [id number] FUTURE Prescriptions as of 09/05/2022 - escitalopram oxalate (LEXAPRO) 10 mg tablet Take 10 mg by mouth once daily. - Norethin Boom-Eth Estrad-FE 1 mg-20 mcg (21)/75 mg (7) per tablet Take 1 tablet by mouth once daily. Problem List As Of Date: 09/05/2022 (None) Encounter Status:Closed by ROGE NORTH on 09/05/22 Normal [facility] XR Spine Scoliosis Study Sta ndingon 06-14-2022 XR Spine Scoliosis Study Standing CLINICAL [...] by Carleen Graff on 06/17/2022 0849 Normal [facility] HCG,Quantitativeon 2 HCG,Quantitative 8536.00 m[iU]/mL Normal [facility] Comment on above: Order Comment: Reaso n for Exam Less than 8 weeks gestation of Result Comment: Appr oximate Approximate hCG Gestational Age Range (mIU/ml) (weeks) 0.2-1 5-50 1-2 50-500 2-3 100-5,000 3-4 500-10,000 4-5 1,000-50,000 5-6 10,000-100,000 6-8 15,000-200,000 8-12 10,000-100,000 PERFORMED BY: [place] [address] PATHOLOGIST [employer] EZEKIEL SERRANO M.D. Performed By: #### H CGQNT #### [address] HCG,Quantitativeon 2 HCG,Quantitative 8790.00 m[iU]/mL Normal [facility] Comment on above: Order Comment: Reaso n for Exam Missed menses;Positive blood test;Spotting affecti Result Comment: Appr oximate Approximate hCG Gestational Age Range (mIU/ml) (weeks) 0.2-1 5-50 1-2 50-500 2-3 100-5,000 3-4 500-10,000 4-5 1,000-50,000 5-6 10,000-100,000 6-8 15,000-200,000 8-12 10,000-100,000 PERFORMED BY: [facility] [address] [place] [address] PATHOLOGIST [employer] EZKEIEL SERRANO M.D. Performed By: #### H CGQNT #### [facility] [address] [place] [address] [facility] Q - HCG [place] Q[place] [address] [place] [address] m[IU]/mL [facility] Comment on above: Order Comment: [facility] performed at: QPT, [facility], [address] [place] [address], [address] [place] [address], [id number], Windows Server Administrator: Vikram Cadet MD [facility] Date/Time: [facility] Results Received Date/Time: [facility] Reported Date/Time: Result Comment: Refe rence Range Non or premenopausal <5 Postmenopausal <10 Values from different assay methods may vary. The use of this assay to monitor or to diagnose patients with cancer or any condition unrelated to has not been cleared or approved by the FDA or the clinical rn manager of the assay. Performed By: #### 2 [id number] #### [facility] Default [address] [place] [address] OB 1ST Trimesteron 2021 US OB 1ST [...] by Sancho German on 12/11/2021 1006 Normal [facility] Specialist Vital Signs Date Time Vital Sign Value Performing Clinician Facility 11-24-2024 11:34-0500 Body mass index (BMI) [Ratio] 17.11 kg/m2 Adilson [address] TELEPHONE INTERVIEWER Work Phone: [facility] 11-24-2024 11:34-0500 Body weight 48.[address] TELEPHONE INTERVIEWER Work Phone: [facility] 11-24-2024 11:34-0500 Diastolic blood pressure 72 mm[Hg] Adilson Lane TELEPHONE INTERVIEWER Work Phone: [facility] 11-24-2024 11:34-0500 Heart rate 112 /min Adilson Lane TELEPHONE INTERVIEWER Work Phone: [facility] 11-24-2024 11:34-0500 Systolic blood pressure 108 mm[Hg] Adilson Lane TELEPHONE INTERVIEWER Work Phone: [facility] 10-27-2024 11:35-0500 Body mass index (BMI) [Ratio] 17.59 kg/m2 Adilson [address] TELEPHONE INTERVIEWER Work Phone: [facility] 10-27-2024 11:35-0500 Body weight 49.[address] TELEPHONE INTERVIEWER Work Phone: [facility] 10-27-2024 11:35-0500 Diastolic blood pressure 72 mm[Hg] Adilson Lane TELEPHONE INTERVIEWER Work Phone: [facility] 10-27-2024 11:35-0500 Heart rate 106 /min Adilson Lane TELEPHONE INTERVIEWER Work Phone: [facility] 10-27-2024 11:35-0500 Systolic blood pressure 96 mm[Hg] Adilson Lane TELEPHONE INTERVIEWER Work Phone: [facility] 08-18-2024 10:26-0400 Body mass index (BMI) [Ratio] 17.59 kg/m2 Adilson [address] TELEPHONE INTERVIEWER Work Phone: [facility] 08-18-2024 10:26-0400 Body weight 49.[address] TELEPHONE INTERVIEWER Work Phone: [facility] 08-18-2024 10:26-0400 Diastolic blood pressure 66 mm[Hg] Adilson Lane TELEPHONE INTERVIEWER Work Phone: [facility] 08-18-2024 10:26-0400 Heart rate 119 /min Adilson Lane TELEPHONE INTERVIEWER Work Phone: [facility] 08-18-2024 10:26-0400 Systolic blood pressure 98 mm[Hg] Adilson Lane TELEPHONE INTERVIEWER Work Phone: [facility] 07-24-2023 16:00-0400 Body temperature 99.6 [degF] [employer] Other [employer] Other 07-24-2023 16:00-0400 Body weight 49.9 kg [employer] Other [employer] Other 07-24-2023 16:00-0400 Respiratory rate 20 /min [employer] Other [employer] Other 07-24-2023 16:00-0400 SaO2% (BldA) [Mass fraction] 100 % [employer] Other [employer] Other 09-05-2022 15:29-0500 Body height 167.6 cm Roge North MD Work Phone: [facility] 09-05-2022 15:29-0500 Body mass index (BMI) [Percentile] Per age and sex 5.14 % Roge North MD Work Phone: [facility] 09-05-2022 15:29-0500 Body weight 49.9 kg Roge North MD Work Phone: [facility] Encounters Encounter Date Encounter Type Care Provider Facility Start: 12-01-2024 End: 12-01-2024 Bamboo flowsheet Gurpreet Shethi BEAUTY DIRECTOR [facility] Start: 12-01-2024 End: 12-01-2024 Bamboo flowsheet Gurpreet Shethi BEAUTY DIRECTOR [facility] Start: 12-01-2024 End: 12-01-2024 ambulatory GURPREET RIVASICKI Not Available Start: 11-24-2024 End: 11-24-[address] Not Available Start: 11-24-2024 End: 11-24-2024 Office outpatient visit [address] TELEPHONE INTERVIEWER Work Phone: [facility] Comment on above: Social anxiety disor angel (CMS/HCC); Moderate episode of recurrent major depressive disorder (CMS/HCC) Start: 11-17-2024 End: 11-17-2024 Bamboo flowsheet Gurpreet Shethi BEAUTY DIRECTOR [facility] Start: 11-17-2024 End: 11-17-2024 Bamboo flowsheet Gurpreet Shethi BEAUTY DIRECTOR [facility] Start: 11-17-2024 End: 11-17-2024 ambulatory GURPREET SHETHI Not Available Start: 10-27-2024 End: 10-27-[address] TELEPHONE INTERVIEWER Work Phone: [facility] Start: 10-27-2024 End: 10-27-[address] TELEPHONE INTERVIEWER Work Phone: [facility] Start: 10-27-2024 End: 10-27-[address] Not Available Start: 10-27-2024 End: 10-27-2024 Office outpatient visit [address] TELEPHONE INTERVIEWER Work Phone: [facility] Comment on above: Moderate episode of recurrent major depressive disorder (CMS/HCC); Social anxiety disorder (CMS/HCC) Start: 10-04-2024 End: 10-04-[address] TELEPHONE INTERVIEWER Work Phone: [facility] Start: 09-15-2024 End: 09-15-[address] TELEPHONE INTERVIEWER Work Phone: [facility] Start: 09-15-2024 End: 09-15-[address] TELEPHONE INTERVIEWER Work Phone: [facility] Start: 09-15-2024 End: 09-15-[address] Not Available Start: 09-15-2024 End: 09-15-2024 Office outpatient visit [address] TELEPHONE INTERVIEWER Work Phone: [facility] Comment on above: Moderate episode of recurrent major depressive disorder (CMS/HCC); Social anxiety disorder (CMS/HCC) Start: 08-18-2024 End: 08-18-[address] TELEPHONE INTERVIEWER Work Phone: [facility] Start: 08-18-2024 End: 08-18-[address] TELEPHONE INTERVIEWER Work Phone: [facility] Start: 08-18-2024 End: 08-18-2024 Office outpatient new [address] TELEPHONE INTERVIEWER Work Phone: [facility] Comment on above: Moderate episode of recurrent major depressive disorder (CMS/HCC); Social anxiety disorder (CMS/HCC) Start: 08-18-2024 End: 08-18-[address] Not Available Start: 06-29-2024 End: 06-29-2024 Office outpatient visit 15 minutes Wendy Nevarez DO Work Phone: [phone] Comment on above: Anxiety with depress ion (Primary Dx); Anxiety Start: 03-29-2024 End: 03-29-2024 ambulatory SARI MICHAEL Not Available Start: 02-20-2024 End: 02-21-2024 ambulatory SARI R MICHAEL [facility] Start: 02-10-2024 End: 02-10-2024 ambulatory SARI MICHAEL Not Available Start: 02-03-2024 End: 02-03-2024 ambulatory SARI WOMACK Not Available Start: 01-27-2024 End: 01-27-2024 ambulatory SARI WOMACK Not Available Start: 01-12-2024 End: 01-12-2024 ambulatory JON KEITA Not Available Start: 12-29-2023 End: 12-29-2023 ambulatory SARI MICHAEL Not Available Start: 12-15-2023 End: 12-15-2023 ambulatory JON KEITA Not Available Start: 07-24-2023 End: 07-24-2023 ambulatory Maday Bragg Other [employer] Other Start: 07-24-2023 Office outpatient vi sit 25 minutes Maday Bragg [facility] Start: 09-16-2022 End: 09-16-[address] SARI WOMACK Facility: Start: 09-05-2022 End: 09-05-2022 ambulatory ROGE NORTH Facility:[facility] Start: 09-05-2022 End: 09-05-2022 Patient encounter procedure Roge North MD Work Phone: [facility] Comment on above: 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 (Primary Dx) Start: 01-03-[address] SARI WOMACK Facility :[facility]1 Start: 12-17-[address] TIBURCIO Salmeron lity:H1 Procedures Date Procedure Procedure Detail Performing Clinician Start: 12-01-2024 End: 12-01-2024 Psychotherapy w/patient 60 minutes Moderate episode of recurrent major depressive disorder (CMS/HCC) Gurpreet Reynolds BEAUTY DIRECTOR Comment on above: Moderate episode of recurrent major depressive disorder (CMS/HCC); Social anxiety disorder (CMS/HCC) Start: 11-17-2024 End: 11-17-2024 Psychiatric diagnostic evaluation Social anxiety disorder (CMS/HCC) Gurpreet Reynolds BEAUTY DIRECTOR Comment on above: Social anxiety disor angel (CMS/HCC); Moderate episode of recurrent major depressive disorder (CMS/HCC) Plan of Treatment Date Care Activity Detail Author Start: 12-22-2024 End: 12-22-2024 Patient encounter procedure 12/22/2024 2:00 PM EST Office Visit [facility] [address] [place] [address] NP [address] [place] [address] [facility] Start: 12-15-2024 End: 12-15-2024 Social Work 12/15/2024 11:30 AM EST Social Work [facility] [address] [place] [address] Gurpreet Reynolds LPC [facility] Start: 12-01-2024 End: 12-01-2024 Social Work 12/01/2024 12:30 PM EST Social Work [facility] [address] [place] [address] Gurpreet Reynolds LPC [facility] Start: 11-24-2024 End: 11-24-2024 Patient encounter procedure 11/24/2024 11:30 AM EST Office Visit [facility] [address] [place] [address], ABEL [address] [place] [address] [facility] Start: 11-17-2024 End: 11-17-2024 Social Work 11/17/2024 12:30 PM EST Social Work [facility] [address] [place] [address] Gurpreet Reynolds, DUANE [facility] Start: 10-27-2024 End: 10-27-2024 Patient encounter procedure 10/27/2024 11:30 AM EST Office Visit [facility] [address] [place] [address], ABEL [address] [place] [address] [facility] Start: 09-15-2024 End: 09-15-2024 Patient encounter procedure 09/15/2024 11:30 AM EST Office Visit [facility] [address] [facility] [address] [place] [id number] NP [address] [facility] [address] [place] [address] [facility] Start: 08-18-2024 End: 08-18-2025 25-hydroxyvitamin D3 [Mass/volume] in Serum or Plasma Vitamin D 25 hydroxy Total Lab Routine Social anxiety disorder (CMS/HCC) Moderate episode of recurrent major depressive disorder (HCC) (CMS/HCC) Expected: 08/18/2024 (Approximate), Expires: 08/18/2025 [facility] Comment on above: Expected: 08/18/2024 (Approximate), Expires: 08/18/2025 Start: 08-18-2024 End: 08-18-2025 CBC W Auto Differential panel - Blood CBC and differential Lab Routine Social anxiety disorder (CMS/HCC) Moderate episode of recurrent major depressive disorder (HCC) (CMS/HCC) Expected: 08/18/2024 (Approximate), Expires: 08/18/2025 [facility] Work Phone: Comment on above: Expected: 08/18/2024 (Approximate), Expires: 08/18/2025 Start: 08-18-2024 End: 08-18-2025 Comprehensive metabolic 2000 panel - Serum or Plasma Comprehensive metabolic panel Lab Routine Social anxiety disorder (CMS/HCC) Moderate episode of recurrent major depressive disorder (HCC) (CMS/HCC) Expected: 08/18/2024 (Approximate), Expires: 08/18/2025 [facility] Comment on above: Expected: 08/18/2024 (Approximate), Expires: 08/18/2025 Start: 08-18-2024 End: 08-18-2025 Thyrotropin [Units/volume] in Serum or Plasma Tsh+free t4 Lab Routine Social anxiety disorder (CMS/HCC) Moderate episode of recurrent major depressive disorder (HCC) (CMS/HCC) Expected: 08/18/2024 (Approximate), Expires: 08/18/2025 [facility] Comment on above: Expected: 08/18/2024 (Approximate), Expires: 08/18/2025 Start: 08-18-2024 End: 08-18-2024 Patient encounter procedure 08/18/2024 10:00 AM EDT Office Visit [facility] [address] [facility] [address] [place] [address] NP [address] [facility] [address] [place] [id number] Anxiety with depression; Anxiety [facility] Comment on above: Anxiety with depress ion; Anxiety Start: 06-20-2024 Influenza vaccination Influenza Vacc ine (#1) [facility] Start: 06-20-2022 Influenza vaccination INFLUENZA (#1) [facility] Start: 2021 CHLAMYDIA SCREENING (18-24) CHLAMYDIA SCREENING (18-24) [facility] Start: 2021 GC (GONORRHEA) SCREE SHARITA (18-24) GC (GONORRHEA) SCREENING (18-24) [facility] Start: 2021 HEPATITIS C SCREENING HEPATITIS C [facility] Start: 2021 HIV SCREENING HIV SCREENING [facility] Start: 10-20-2021 DEPRESSION ASSESSMENT DEPRESSION ASS ESSMENT [facility] Start: 2019 MENINGOCOCCAL CONJUG ATE (1 - 2-dose series) MENINGOCOCCAL CONJUGATE (1 - 2-dose series) [facility] Start: 2017 PEDS TO ADULT TRANSI TION ANNUAL ASSESSMENT PEDS TO ADULT TRANSITION ANNUAL ASSESSMENT [facility] Start: 2015 PEDS TO ADULT TRANSI TION INITIAL DISCUSSION PEDS TO ADULT TRANSITION INITIAL DISCUSSION [facility] Start: 2014 HPV VACCINE (1 - 2-d ose series) HPV VACCINE (1 - 2-dose series) [facility] Start: 2013 MENINGOCOCCAL B: Consider based on risk (1 of 2 - Risk Bexsero 2-dose series) MENINGOCOCCAL B: Consider based on risk (1 of 2 - Risk Bexsero 2-dose series) [facility] Start: 2010 Urine microalbumin profile DTAP,TDAP,TD (1 - Tdap) [facility] Start: 07-26-2004 COVID-19 VACCINE (#1) COVID-19 VACCI NE (#1) [facility] Start: 2003 HEPATITIS B (1 of 3 - 3-dose series) HEPATITIS B (1 of 3 - 3-dose series) [facility] End: 10-05-2023 Radex entir thrc lmbr crv sac spi w/skull 2/3 vw XR SCOLIOSIS PA STAND/LAT 2V Radiology Routine Adolescent idiopathic scoliosis of thoracic region 1 Occurrences starting 09/05/2022 until 10/05/2023 [facility] Work Phone: Comment on above: 1 Occurrences starti ng 09/05/2022 until 10/05/2023 Immunizations Immunization Date Immunization Notes Care Provider Tanesha colby 06-12-2016 Human Papillomavirus 9-valent vaccine Wendy Nevarez DO Work Phone: [facility] 06-12-2016 meningococcal oligosaccharide (groups A, C, Y and W-135) diphtheria toxoid conjugate vaccine (MCV4O) Wendy Nevarez DO Work Phone: [facility] 06-12-2016 tetanus toxoid, redu nevaeh diphtheria toxoid, and acellular pertussis vaccine, adsorbed Wendy Vogelcollin DO Work Phone: [facility] 06-12-2009 Diphtheria, tetanus toxoids and acellular pertussis vaccine, and poliovirus vaccine, inactivated Maday [employer] Other [employer] Other 06-12-2009 measles, mumps and rubella virus vaccine Maday Bragg Other [employer] Other 06-12-2009 varicella virus vaccine Danii Br[employer] Other [employer] Other 06-18-2005 diphtheria, tetanus toxoids and acellular pertussis vaccine, unspecified formulation Wendy Nevarez DO Work Phone: [facility] 06-18-2005 poliovirus vaccine, inactivated Wendy Nevarez DO Work Phone: [facility] 05-15-2004 diphtheria, tetanus toxoids and acellular pertussis vaccine, unspecified formulation Wendy Nevarez DO Work Phone: [facility] 05-15-2004 haemophilus influenz ae type b conjugate and Hepatitis B vaccine Wendy Nevarez DO Work Phone: [facility] 05-15-2004 pneumococcal conjuga te vaccine, 7 valent Wendy Nevarez DO Work Phone: [facility] 03-15-2004 diphtheria, tetanus toxoids and acellular pertussis vaccine, unspecified formulation Wendy Nevarez DO Work Phone: [facility] 03-15-2004 pneumococcal conjuga te vaccine, 7 valent Wendy Nevarez DO Work Phone: [facility] 03-15-2004 poliovirus vaccine, inactivated Wendy Nevarez DO Work Phone: [facility] 01-13-2004 diphtheria, tetanus toxoids and acellular pertussis vaccine, unspecified formulation Wendy Nevarez DO Work Phone: [facility] 01-13-2004 haemophilus influenz ae type b conjugate and Hepatitis B vaccine Wendy Nevarez DO Work Phone: [facility] 01-13-2004 poliovirus vaccine, inactivated Wendy Nevarez DO Work Phone: [facility] Payers Date Payer Category Payer Medicaid [id number]. [id number] 2017 Medicaid [id number] 2003 Unknown [id number] 2.16.84 [id number] 2003 Unknown [id number] 2.16.84 [id number] 2003 Unknown [id number] 2.16.84 [id number] 2003 Unknown [id number] 2.16.8 [id number] 2003 Unknown [id number] 2.16.84 0.1.259417.3.579.2.1259 2003 Unknown [id number] 2.16.84 0.1.286541.3.579.2.1259 2003 Unknown [id number] 2.16.84 0.1.094729.3.579.2.1259 2003 Unknown [id number] 2.16.84 0.1.145780.3.579.2.9 2003 Unknown [id number] 2.16.84 0.1.334900.3.579.2.1259 2003 Unknown [id number] 2.16.84 0.1.839407.3.579.2.9 2003 Unknown [id number] 2.16.84 0.1.316971.3.579.2.9 2003 Unknown [id number] 2.16.84 0.1.836791.3.579.2.9 2003 Unknown [id number] 2.16.84 0.1.661483.3.579.2.9 2003 Unknown [id number] 2.16.84 0.1.981358.3.579.2.9 2003 Unknown [id number] 2.16.84 0.1.477249.3.579.2.9 2003 Unknown [id number] 2.16.84 0.1.821210.3.579.2.9 2003 Unknown [id number] 2.16.84 [id number] 1959 Medicaid [id number] 1961 Self-pay Social History Date Type Detail Facility Start: 09-05-2022 End: 10-27-2024 Tobacco smoking status NHIS Never smoked tobacco [facility] Start: 09-05-2022 End: 10-27-2024 Tobacco use and exposure Smokeless tobacco non-user [facility] Start: 2003 Sex Assigned At Not on file [facility] Start: 06-29-2024 End: 10-27-2024 Sex Assigned At [facility] Start: 06-29-2024 End: 11-24-2024 Alcoholic beverage intake Lifetime non-drinker (finding) [facility] Start: 06-29-2024 End: 10-27-2024 History of Social function [facility] Do you belong to any clubs or organizations such as roman catholic groups, unions, fraternal or athletic groups, or school groups? No [facility] Are you now , , , , never or living with a partner? Never [facility] How often to you hav e a drink containing alcohol? Never [facility] How many standard dr inks containing alcohol do you have on a typical day? Patient does not drink [facility] How hard is it for y ou to pay for the very basics like food, housing, medical care, and heating Not very hard [facility] Do you feel stress - tense, restless, nervous, or anxious, or unable to sleep at night because your mind is troubled all the time - these days [OSQ] Rather much [facility] (I/We) worried whe er (my/our) food would run out before (I/we) got money to buy more. Never true [facility] Start: 12-12-2023 Alcohol Comment Caffeine intake: non e [facility] Start: 01-01-2023 Gender identity Identifies as female gender (finding) [facility] Start: 08-18-2024 Tobacco use and exposure User of smokeless tobacco [facility] Start: 08-18-2024 Education 21 [facility] Start: 08-18-2024 Alcohol Comment Caffeine intak e: half cup pop or coffee daily [facility] NEGATED: Highlighted rowStart: NINF History of tobacco use Passive smoker [facility] Clinical Notes 2003 to 11-24-[address] NP - 11/24/2024 11:[address] NP - 10/27/2024 11:30 AM ESTTelephone Encounter - Adilson Lane NP - 10/04/2024 12:46 PM EST Note Date & Type Note Facility 11-24-2024 History of Presen t illness Narrative Images from the original note were not included. Solis Wallace is a 19 y.o. female with a history of scoliosis, social anxiety, and depression presents for psychiatric medication follow-up. HPI: At patient's last visit on 10/27/24, she was started on Wellbutrin. She states that she hasn't noticed much difference in her mood or anxiety since last visit. She continues to have anxiety on a regular basis, especially in social situations. She reports that she has also noticed an itchy rash that comes and goes on her hands and arms. She states this has been going on for the past couple of weeks and will occur randomly. She states that it doesn't happen every day. She states that she did change her detergent. She has taken an allergy pill when she gets the rash and states this has helped. She continues to take Effexor and Wellbutrin on a daily basis. She is no longer taking the Propranolol as she felt that it didn't help her anxiety. She reports frequent heart palpitations and is worried about something being wrong with her heart. She saw Gurpreet on 11/17/24 for counseling and has next appointment scheduled for 12/01. She states she is glad she is doing counseling because she feels it will help her and that she needs it. SUBJECTIVE: PAST MEDICAL HISTORY: Past Medical History: Diagnosis Date Anxiety Depression ([facility]) Headache History of febrile seizure as an Pelvic pain in female 10/2021 miscarraige Scoliosis MEDICATIONS: Current Outpatient Medications Medication Instructions buPROPion XL (WELLBUTRIN XL) 150 mg, Oral, Every morning, Do not crush, chew, or split. desogestrel-ethinyl estradiol (Apri) 0.15-30 MG-MCG tablet 1 tablet, Oral, Daily hydrOXYzine HCl (ATARAX) 10 mg, Oral, Every 8 hours PRN venlafaxine XR (Effexor XR) 37.5 MG 24 hr capsule Take 2 capsules (75 mg) by mouth Daily for 7 days, THEN 1 capsule (37.5 mg) Daily for 7 days. Do not crush or chew.. ALLERGIES: Allergies Allergen Reactions Abilify [Aripiprazole] Dizziness nausea Amoxicillin Hives Sulfa Antibiotics Unknown SURGICAL HISTORY: No past surgical history on file. FAMILY HISTORY: Family History Problem Relation Name Age of Onset Depression Mother Anxiety disorder Mother Depression Father Drug abuse Father Depression Sister Anxiety disorder Sister ADD / ADHD Sister Hypertension Maternal Grandfather Alcohol abuse Maternal Grandfather Mental illness Maternal Grandmother Scoliosis Maternal Grandmother Alcohol abuse Paternal Grandfather Hypertension Paternal Grandfather Mental illness Paternal Grandfather No Known Problems Half-Brother Schizophrenia Maternal Great-Grandmother Bipolar disorder Maternal Great-Grandmother SOCIAL HISTORY: Social History Tobacco Use Smoking status: Never Passive exposure: Never Smokeless tobacco: Never Vaping Use Vaping status: Every Day Substances: Nicotine Devices: Disposable Passive vaping exposure: Yes Substance Use Topics Alcohol use: Never Comment: Caffeine intake: half cup pop or coffee daily Drug use: Not Currently Types: Marijuana Depression: At risk (10/27/2024) PHQ-2 PHQ-2 Score: 6 Patient Care Team: Wendy Nevarez DO as PCP - General (Family Medicine) Adilson Lane TELEPHONE INTERVIEWER as Nurse Practitioner (Behavioral Health) Sari Womack DO as Termite Technician (Obstetrics and Gynecology) Gurpreet Reynolsd LPC as Bottle Sorter (Behavioral Health) PSYCHIATRIC REVIEW OF SYMPTOMS AND MENTAL STATUS EXAM ROS: Patient denies fatigue, malaise, night sweats, weight loss, weight gain, cough, SOB, chest pain, insomnia, dysphagia, abdominal pain, N/V/D, pruritus, rash, headache, dizziness, seizures, tremors, headache. Appearance Appearance: Normal grooming and hygiene. Appears stated age. Dressed appropriately for weather. Behavior Calm, cooperative, pleasant. Good posture.. No abnormal movements noted. Speech Normal, clear, regular rate, rhythm and volume Affect Full range. Stable. Appropriate and congruent with mood. Mood Anxious, Depressed, and Irritable Thought Process Organized, logical, and goal directed Thought Content: Denies suicidal and homicidal ideation. Perception: Denies auditory or visual hallucinations. No evidence of delusions. Denies derealization and depersonalization. Orientation Appropriate to age Memory/Concentration Immediate, recent and remote memory intact Insight/Judgement Good OBJECTIVE: Visit Vitals BP 108/72 (BP Location: Right arm, Patient Position: Sitting) Pulse (!) 112 Wt 106 lb BMI 17.11 kg/m OB Status Having periods Smoking Status Never BSA 1.5 m Lab Results Component Value Date TSH 0.47 09/30/2024 Lab Results Component Value Date GLU 96 09/30/2024 CALCIUM 9.4 09/30/2024 NA 137 09/30/2024 K 3.5 09/30/2024 CO2 27 09/30/2024 CL 100 09/30/2024 BUN 13 09/30/2024 CREATININE 0.74 09/30/2024 Lab Results Component Value Date WBC 6.2 09/30/2024 HGB 13.9 09/30/2024 HCT 41.9 09/30/2024 MCV 90.9 09/30/2024 PLT 289 09/30/2024 09/30/24 Vitamin D 45 ASSESSMENT AND PLAN: Impression: She reports little to no improvement in her symptoms since last visit. She has high levels of anxiety and is noted to be tachycardic the last few visits. Discussed possible cardiac causes versus being medication-induced from the Effexor as it appears her HR elevation started after starting this medication. Patient agreeable to titrate off this medication over the next 2 weeks with 1 additional week of a wash out period. Will use low dose of PRN Hydroxyzine to help with anxiety while titrating off. Discussed possible side effects of this medication with patient. Will bring her back in 4 weeks once she has been ff medication for 1 week and re-evaluate her HR. If HR remains elevated off Effexor, discussed getting in with PCP to start cardiac work-up. Can consider trying Sertraline again as she had only been on low dose of 50 mg previously, or can consider Paxil for her anxiety. Assessment/Plan Diagnoses and all orders for this visit: Social anxiety disorder (CMS/HCC) - venlafaxine XR (Effexor XR) 37.5 MG 24 hr capsule; Take 2 capsules (75 mg) by mouth Daily for 7 days, THEN 1 capsule (37.5 mg) Daily for 7 days. Do not crush or chew.. - hydrOXYzine HCl (Atarax) 10 MG tablet; Take 1 tablet (10 mg) by mouth every 8 (eight) hours if needed for anxiety for up to 20 doses Moderate episode of recurrent major depressive disorder (CMS/HCC) - venlafaxine XR (Effexor XR) 37.5 MG 24 hr capsule; Take 2 capsules (75 mg) by mouth Daily for 7 days, THEN 1 capsule (37.5 mg) Daily for 7 days. Do not crush or chew.. Treatment Plan/Recommendations: - Titrate off Effexor due to possible side effects. Take 75 mg daily for 1 week, decrease to 37.5 mg daily for 1 week, then stop medication - Stop Propranolol due to ineffectiveness. - Start Hydrozyine 10 mg q8h PRN for anxiety. - Continue Wellbutrin XL 150 mg for depression. - Continue counseling additional mental health support and treatment - RTC in 4 weeks. Discussed any medication changes and follow-up plan with patient. Encouraged patient to call office sooner if symptoms worsen or if any questions/concerns arise. Patient was seen Face to Face, Total time spent with patient was 20 minutes, which includes reviewing chart documents, previous notes/records, counseling and discussion with patient and/or coordination of care as described above. documented in this encounter [facility] 10-27-2024 History of Presen t illness Narrative Solis Wallace is a 18 y.o. female with a history of scoliosis, anxiety, and depression who presents for psychiatric medication follow-up. HPI: Patient was seen for initial intake on 08/18/24. At patient's last visit on 09/15/24, her Effexor was continued at 150 mg. She was started on Propranolol 10 mg three times a day as needed for social anxiety. She states that she has taken Propranolol on occasion, but has not noticed a difference in her social anxiety. She states she still gets overstimulated easily. She states she feels more down and depressed. She states she is sleeping more. She contributes some of her feelings to the winter weather. She has not been to counseling since August due to insurance purposes. SUBJECTIVE: PAST MEDICAL HISTORY: Past Medical History: Diagnosis Date Anxiety control counseling Clear vaginal discharge Depression (CMS/HCC) Headache Negative test Pelvic pain in female 10/2021 miscarraige Scoliosis Screen for sexually transmitted diseases Seizures (CMS/HCC) Febrile-one as ALLERGIES: Allergies Allergen Reactions Abilify [Aripiprazole] Dizziness nausea Amoxicillin Hives Sulfa Antibiotics Unknown SURGICAL HISTORY: No past surgical history on file. FAMILY HISTORY: Family History Problem Relation Name Age of Onset Depression Mother Anxiety disorder Mother Depression Father Drug abuse Father Depression Sister Anxiety disorder Sister ADD / ADHD Sister Hypertension Maternal Grandfather Alcohol abuse Maternal Grandfather Mental illness Maternal Grandmother Scoliosis Maternal Grandmother Alcohol abuse Paternal Grandfather Hypertension Paternal Grandfather Mental illness Paternal Grandfather No Known Problems Half-Brother Schizophrenia Maternal Great-Grandmother Bipolar disorder Maternal Great-Grandmother SOCIAL HISTORY: Social History Tobacco Use Smoking status: Never Passive exposure: Never Smokeless tobacco: Never Vaping Use Vaping status: Every Day Substances: Nicotine Devices: Disposable Passive vaping exposure: Yes Substance Use Topics Alcohol use: Never Comment: Caffeine intake: half cup pop or coffee daily Drug use: Not Currently Types: Marijuana Depression: At risk (10/27/2024) PHQ-2 PHQ-2 Score: 6 Patient Care Team: Wendy Nevarez DO as PCP - General (Family Medicine) Adilson Lane NP as Nurse Practitioner (Behavioral Health) Sari Womack DO as Termite Technician (Obstetrics and Gynecology)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 for this visit: Anxiety with depression Patient advised to return if symptoms worsen and/or persist despite treatment. - venlafaxine XR (Effexor XR) 75 MG 24 hr capsule; Take 1 capsule (75 mg) by mouth Daily Do not crush or chew. - Ambulatory referral to Psychiatry; Future - ARIPiprazole (Abilify) 5 MG tablet; Take 1 tablet (5 mg) by mouth at bedtime Anxiety - Ambulatory referral to Psychiatry; Future - ARIPiprazole (Abilify) 5 MG tablet; Take 1 tablet (5 mg) by mouth at bedtime Updated Medications: I have reviewed and reconciled the history and medication list with the patient today. Current Outpatient Medications: desogestrel-ethinyl estradiol (Apri) 0.15-30 MG-MCG tablet, Take 1 tablet by mouth Daily, Disp: 28 tablet, Rfl: 12 venlafaxine XR (Effexor XR) 75 MG 24 hr capsule, Take 1 capsule (75 mg) by mouth Daily Do not crush or chew., Disp: 30 capsule, Rfl: 11 documented in this encounter [facility] 07-24-2023 Evaluation note Encounter Date Diagnosis Assessment [...] treatment plan. Patient left in stable condition [employer] Other 11-17-2022 NoteHNO ID: [id number] Author: Roge North MD Service: ? Author [...] of late progression that would require surgical intervention.[facility]11-17-2022 History of Present illness Narrative* Roge North MD - 09/05/2022 3:50 PM EST Medical Decision Making: Problems: Low: Stable chronic [...] would require surgical intervention. [facility] general Narrative - Reported* Type Description Date Medical History febrile seizures Medical History extropia left eye Medical History bronchititis Medical History dishydrotic eczema Hospitalization History RSV 12/23/19 04 [employer] Other Evaluation note* Diagnosis Adolescent idiopathic scoliosis of thoracic region- Primary Scoliosis (and kyphoscoliosis), idiopathic [facility] Diagnosis Moderate episode of recurrent major depressive disorder (CMS/HCC) Social anxiety disorder (CMS/HCC) Social phobia [facility] Diagnosis Moderate episode of recurrent major depressive disorder (CMS/HCC) Social anxiety disorder (CMS/HCC) Social phobia [facility] Diagnosis Anxiety with depression- Primary Anxiety Anxiety state, unspecified [facility] Diagnosis Moderate episode of recurrent major depressive disorder (CMS/HCC) Social anxiety disorder (CMS/HCC) Social phobia [facility] Diagnosis Social anxiety disorder (CMS/HCC) Social phobia Moderate episode of recurrent major depressive disorder (CMS/HCC) Social anxiety disorder (CMS/HCC) Social phobia Moderate episode of recurrent major depressive disorder (CMS/HCC) [facility] Diagnosis Social anxiety disorder (CMS/HCC) Social phobia Moderate episode of recurrent major depressive disorder (CMS/HCC) [facility] Diagnosis Moderate episode of recurrent major depressive disorder (CMS/HCC) Social anxiety disorder (CMS/HCC) Social phobia [facility] Diagnostic Procedure Only (Routine) - Pending Review Specialty Diagnoses / Procedures Referred By Shirin fang Referred To Contact XR IMAGING Diagnoses Adolescent idiopathic scoliosis of thoracic region Procedures XR SCOLIOSIS PA STAND/LAT 2V RADEX ENTIR THRC LMBR CRV SAC SPI W/SKULL 2/3 VW Roge North MD [address] [place] [address] Xr Imaging Referral ID Status Reason Start Date Expiration Date Visits Requested Visits Authorized [id number] Pending Review Auto-Generat ed Referral 2 10/05/2023 1 1 [facility] for referral (narrative)* Consultation (Routine) - Pending Review Specialty Diagnoses / Procedures Referred By Shirin t Referred To Contact Psychiatry Diagnoses Anxiety with depression Anxiety Procedures [place] OFFICE/OUTPATIENT NEW HIGH MDM 60 MINUTES Wendy Nevarez DO [address] [place] [address] Referral ID Status Reason Start Date Expiration Date Visits Requested Visits Authorized [id number] Pending Review Specialty Services Required 06/29/2024 12/26/2024 1 1 [facility] Summary Purpose Family History No Family [...] section and content) DATE CREATED AUTHOR 12/16/2021 [facility] DATE CREATED AUTHOR AUTHOR'S ORGANIZ ATION 06/17/2022 [facility] dical Specialist DATE CREATED AUTHOR AUTHOR'S ORGANIZ ATION 09/07/2022 [facility] DATE CREATED AUTHOR AUTHOR'S ORGANIZ ATION 09/20/2022 [facility] DATE CREATED AUTHOR AUTHOR'S ORGANIZ ATION 02/22/2024 [facility] DATE CREATED AUTHOR AUTHOR'S ORGANIZ ATION 10/03/2024 [facility] DATE CREATED AUTHOR AUTHOR'S ORGANIZ ATION 12/03/2024 [facility] dical Specialists EPIC Source Comments (unrecognize d section and content) In the event this informatio n is protected by the Federal Confidentiality of Alcohol and Drug Abuse Patient Records regulations: The Federal rules restrict any use of the information to criminally investigate or prosecute any alcohol or drug abuse patient.[facility] Reason for Visit (unrecogniz ed section and content) Reason Comments New Reason Comments Psychiatric Evaluation [facility] referral Specialty Diagnoses / Procedures Referred By Contact Referred To Contact Psychiatry / Behavioral Health Diagnoses Anxiety with depression Anxiety Procedures [place] OFFICE/OUTPATIENT NEW HIGH MDM 60 MINUTES Wendy Nevarez DO [address] [place] [address] Phone: tel: fax: Jayla Shelby, REGULATORY LAW SPECIALIST-DRYING EQUIPMENT OPERATOR [address] [place] [address] Phone: tel: fax: Referral ID Status Reason Start Date Expiration Date V isits Requested Visits Authorized [id number] Closed Specialty Services Required 06/29/2024 12/26/2024 1 1 Reason Comments Anxiety Depression Reason Comments Med Management Follow-up Reason Comments Depression Specialty Diagnoses / Procedures Referred By Contac t Referred To Contact Behavioral Health Diagnoses Generalized anxiety disorder ([facility]/HCC) Procedures [place] PSYCHIATRIC DIAGNOSTIC EVALUATION [facility] [address] [facility] [address] [place] [address] Phone: tel: fax: Lakeisha Villatoro, [facility] [address] [facility] [address] [place] [address] Phone: tel: fax: Referral ID Status Reason Start Date Expiration Date Visits Re quested Visits Authorized [id number] Closed 10/27/2024 04/25/2025 1 1 Care Teams (unrecognized sec tion and content) Sinter Machine Operator Relationship Specialty Start Date End Date Opal Neri, WIRE WEAVER [address] [place] [address] Referring Family Medicine 06/21/22 Sinter Machine Operator Relationship Specialty Start Date End Date Wendy Nevarez DO [address] [place] [address] PCP - General Family Medicine 12/01/23 Opal Neri NP [address] [place] [address] Nurse Practitioner Family Medicine 04/02/23 Sinter Machine Operator Relationship Specialty Start Date End Date Wendy Nevarez DO [address] [place] [address] PCP - General Family Medicine 12/01/[address] NP [address] [facility] [address] [place] [phone] Nurse Practitioner Behavioral Health 08/18/24 Sari Womack DO [address] [place] [address] Ladle Car Operator/Gynecolog ist Obstetrics and Gynecology 08/18/24 Sinter Machine Operator Relationship Specialty Start Date End Date Wendy Nevarez DO [address] [place] [address] PCP - General Family Medicine 12/01/[address] NP [address] [facility] [place] [phone] Nurse Practitioner Behavioral Health 08/18/24 Sari Womack DO [address] [place] [address] Ladle Car Operator/Gynecolog ist Obstetrics and Gynecology 08/18/24 Sinter Machine Operator Relationship Specialty Start Date End Date Wendy Nevarez DO [address] [place] [address] PCP - General Family Medicine 12/01/[address] NP [address] [facility] [address] [place] [phone] Nurse Practitioner Behavioral Health 08/18/24 Sari Womack DO [address] [place] [id number] Ladle Car Operator/Gynecolog ist Obstetrics and Gynecology 08/18/24 Sinter Machine Operator Relationship Specialty Start Date End Date Wendy Nevarez DO [address] [place] [address] PCP - General Family Medicine 12/01/[address] NP [address] [facility] [address] [place] [phone] Nurse Practitioner Behavioral Health 08/18/24 Sari Womack DO [address] [place] [phone] Ladle Car Operator/Gynecolog ist Obstetrics and Gynecology 08/18/24 Sinter Machine Operator Relationship Specialty Start Date End Date Wendy Nevarez DO [address] [place] [address] PCP - General Family Medicine 12/01/23 Opal Neri NP [address] [place] [address] Nurse Practitioner Family Medicine 04/02/23 Sinter Machine Operator Relationship Specialty Start Date End Date Wendy Nevarez DO [address] [place] [address] PCP - General Family Medicine 12/01/[address] NP [address] [place] [address] Nurse Practitioner Behavioral Health 08/18/24 Sari Womack DO [address] [place] [address] Ladle Car Operator/Gynecolog ist Obstetrics and Gynecology 08/18/24 Sinter Machine Operator Relationship Specialty Start Date End Date Wendy Nevarez DO [address] [place] [address] PCP - General Family Medicine 12/01/[address] NP [address] [facility] [address] [place] [address] Nurse Practitioner Behavioral Health 08/18/24 Sari Womack DO [address] [place] [phone] Ladle Car Operator/Gynecolog ist Obstetrics and Gynecology 08/18/24 Sinter Machine Operator Relationship Specialty Start Date End Date Wendy Nevarez DO [address] [place] [address] PCP - General Family Medicine 12/01/[address] NP [address] [facility] [address] [place] [address] Nurse Practitioner Behavioral Health 08/18/24 Sari Womack DO [address] [place] [address] Ladle Car Operator/Gynecolog ist Obstetrics and Gynecology 08/18/24 Sinter Machine Operator Relationship Specialty Start Date End Date Wendy Nevarez DO [address] [place] [address] PCP - General Family Medicine 12/01/[address], ABEL [address] [place] [id number] Nurse Practitioner Behavioral Health 08/18/24 Sari Womack DO [address] [place] [phone] Ladle Car Operator/Gynecolog ist Obstetrics and Gynecology 08/18/24 Sinter Machine Operator Relationship Specialty Start Date End Date Wendy Nevarez DO [address] [facility] [address] [place] [address] PCP - General Family Medicine 12/01/[address] NP [address] [facility] [address] [place] [phone] Nurse Practitioner Behavioral Health 08/18/24 Sari Womack DO [address] [place] [phone] Ladle Car Operator/Gynecolog ist Obstetrics and Gynecology 08/18/24 Gurpreet Reynolds LPC Bottle Sorter Behavioral Health 11/24/24 Sinter Machine Operator Relationship Specialty Start Date End Date Wendy Nevarez DO [address] [place] [address] PCP - General Family Medicine 12/01/[address] NP [address] [facility] [address] [place] [phone] Nurse Practitioner Behavioral Health 08/18/24 Sari Womack DO [address] [place] [address] Ladle Car Operator/Gynecolog ist Obstetrics and Gynecology 08/18/24 Gurpreet Reynolds LPC Bottle Sorter Behavioral Health 11/24/24 Sinter Machine Operator Relationship Specialty Start Date End Date Wendy Nevarez [address] [place] [address] PCP - General Family Medicine 12/01/[address] NP [address] [place] [address] Nurse Practitioner Behavioral Health 08/18/24 Sari Womack DO [address] [place] [address] Ladle Car Operator/Gynecolog ist Obstetrics and Gynecology 08/18/24 Gurpreet Reynolds LPC Bottle Sorter Behavioral Health 11/24/24 FOR RECORDS PERTAINING TO PATIENTS WHO ARE [...] BE BASED ON THE PRIMARY CLINICAL RECORDS. [facility] [employer] [facility]. provides no warranty or guarantee of the accuracy or completeness of information in this document.
== END 2024-12-08 22:10 | disposition home or self-care (01) ==
LOC: LAB 22:09
PROVIDERS: PCP Family Medicine; Visit Provider Physician Assistant
DX: Z01.419 Encounter for gynecological examination (general) (routine) without abnormal findings (principal)
CPT/HCPCS: 88175

== ENCOUNTER 2025-03-30 12:38 | Outpatient (OUT) | payer MEDICAID, SELFPAY ==
--- OUTSIDE RECORDS SUMMARY | 2025-03-30 12:55 | XMS_ITS | CCD ---
Author Organization [facility] Care Team Providers Care Director Of Assessment Name Role Phone Daron LYN, Opal L Unavailable ROGE NORTH Attending Unavailable MICHAEL, DR GUO Attending Unavailable MICHAEL, DR GUO Admitting Unavailable REQUEST, NONE LISTED Primary Care Unavaila daria WOMACK, DR GUO Attending Unavailable MICHAEL, DR GUO Consulting Unavailable MICHAEL, DR GUO Admitting Unavailable REQUEST, NONE LISTED Primary Care Unavaila daria AGUILAR, DR DEY Attending Unavailable LAUREN, DR DEY Admitting Unavailable REQUEST, NONE LISTED Primary Care Unavaila Maday Del Toro Unavailable PREET WOMACK Referring Unavailable Opal Neri NP Unavailable Wendy Nevarez DO Primary Care Provider Adilson Lane NP Unavailable Preet Womack DO Unavailable Chet Reynolds LPC Unavailable Unavailable Wild PMHNP-Adilson Unavailable NEPTALI TORRES Attending Unavailabl e PCP, NOT IN SYSTEM Primary Care Unavailable CHET REYNOLDS Attending Unavailable ADILSON LANE Attending Unavailable CHET REYNOLDS Attending Unavailable KARINE KEITA Attending Unavailable CHET REYNOLDS Attending Unavailable ADILSON LANE Attending Unavailable CHET REYNOLDS Attending Unavailable ADILSON LANE Attending Unavailable CHET REYNOLDS Attending Unavailable KARINE KEITA Attending Unavailable ROGE MCMAHON Attending Unavailable ROGE MCMAHON Referring Unavailable CHET REYNOLDS Attending Unavailable CHET REYNOLDS Attending Unavailable PREET WOMACK Attending Unavailable ADILSON LANE Attending Unavailable KAFTAN, WENDY R Referring Unavailable ADILSON LANE Attending Unavailable ADILSON LANE Attending Unavailable ADILSON LANE Attending Unavailable WENDY NEVAREZ Attending Unavailable CHET REYNOLDS Attending Unavailable Allergies Allergy Classification Reported Allergen(s) Allergy Type Date of Onset Reaction(s) Facility (20 sources) Sulfonamides (Antibiotic); Translations: [SULFA (SULFONAMIDE ANTIBIOTICS)] Drug Allergy 2 Unknown [facility] (2 sources) Sulfonamides (Antibiotic) Drug allergy (disorder) [facility] Repository (20 sources) Amoxicillin; Translations: [AMOXICILLIN] Drug Allergy 3 Hives [facility] Work Phone: (1 source) Sulfamethoxazole / Trimethoprim Drug Allergy rash [facility] Other (20 sources) ARIPiprazole Drug Allergy 4 Dizziness [facility] Medications Current Medications Medication Drug [...] hydrochloride 150 mg extended release oral tablet (20 sources) Aminoketone Start: 01-17-2025 End: 03-18-2025 take 1 tablet by mouth every twenty-four hours in the morning buPROPion XL (Wellbutrin XL) 150 MG 24 hr tablet Indications: Moderate episode of recurrent major depressive disorder (CMS/HCC) , Social anxiety disorder (CMS/HCC) TAKE 1 TABLET BY MOUTH IN THE MORNING *DO NOT CRUSH,CHEW,OR SPLIT* 30 tablet 1 03/15/2025 Active Start: 12-22-2024 End: 02-20-2025 take 1 tablet by mouth every twenty-four hours in the morning buPROPion XL (Wellbutrin XL) 300 MG 24 hr tablet Indications: Moderate episode of recurrent major depressive disorder (CMS/HCC) Take 1 tablet (300 mg) by mouth in the morning. Do not crush, chew, or split.. 30 tablet 1 12/22/2024 01/17/2025 Discontinued (Dose adjustment) Start: 10-27-2024 End: 12-22-2024 take 1 tablet by mouth every twenty-four hours in the morning buPROPion XL (Wellbutrin XL) 150 MG 24 hr tablet Indications: Moderate episode of recurrent major depressive disorder (CMS/HCC) , Social anxiety disorder (CMS/HCC) Take 1 tablet (150 mg) by mouth in the morning. Do not crush, chew, or split.. 30 tablet 1 10/27/2024 12/22/2024 Discontinued (Dose adjustment) cholecalciferol 0.025 mg oral capsule (20 sources) Vitamin D take 1 capsule by mouth once daily cholecalciferol (Vitamin D-3) 25 MCG (1000 UT) capsule Take 1,000 Units by mouth Daily Active desogestrel 0.15 mg / ethinyl estradiol 0.03 mg oral tablet (20 sources) Progestin, Estrogen Start: End: desogestrel-ethinyl estradiol (Apri) 0.15-30 MG-MCG tablet Indications: control counseling Take 1 tablet by mouth Daily 28 tablet 12 04/12/2024 04/12/2025 Active doxycycline hyclate 100 mg oral capsule (2 sources) Tetracycline-class Drug Start: End: doxycycline (Vibramycin) 100 MG capsule Indications: 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 Do all this for 7 days. Take with at least 8 ounces (large glass) of water, do not lie down for 30 minutes after. 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 7 tablet 12/20/2024 12/27/2024 Active propranolol hydrochloride 10 mg oral tablet (18 sources) beta-Adrenergic Francisco Start: take 1 tablet by mouth at bedtime propranolol (Inderal) 10 MG tablet Indications: Tachycardia , Social anxiety disorder (CMS/HCC) TAKE 1 TABLET BY MOUTH IN THE MORNING, EVENING AND BEFORE BEDTIME 90 tablet 03/30/2025 Active Start: 03-02-2025 End: 03-02-2026 take 1 tablet by mouth in the morning, then take 1 tablet by mouth in the evening, then take 1 tablet by mouth at bedtime propranolol (Inderal) 10 MG tablet Indications: Tachycardia , Social anxiety disorder (CMS/HCC) Take 1 tablet (10 mg) by mouth in the morning and 1 tablet (10 mg) in the evening and 1 tablet (10 mg) before bedtime. 90 tablet 03/02/2025 03/30/2025 Discontinued Start: 09-15-2024 End: 11-26-2024 take 1 tablet [...] sources) Serotonin and Norepinephrine Reuptake Inhibitor Start: 01-17-2025 End: 02-16-2025 take 1 capsule by mouth once daily venlafaxine XR (Effexor XR) 37.5 MG 24 hr capsule Indications: Moderate episode of recurrent major depressive disorder (CMS/HCC) , Social anxiety disorder (CMS/HCC) Take 1 capsule (37.5 mg) by mouth Daily Do not crush or chew. 30 capsule 1 01/17/2025 Active Start: 11-24-2024 End: 01-17-2025 take 2 capsules by mouth once daily, then take 1 capsule by mouth once daily venlafaxine XR (Effexor XR) 37.5 MG 24 hr capsule Indications: Social anxiety disorder (CMS/HCC) , Moderate episode of recurrent major depressive disorder (CMS/HCC) Take 2 capsules (75 mg) by mouth Daily for 7 days, THEN 1 capsule (37.5 mg) Daily for 14 days. Do not crush or chew.. 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 Day 1: Take 2 tablets PO onetime dose; Day 2,3,4: Take 1 tablet daily 5 tablet 12/20/2024 Active benzonatate 100 mg oral capsule (9 sources) Non-narcotic Antitussive Start: 01-09-2025 End: 02-01-2025 take 1 capsule by mouth every eight hours benzonatate (Tessalon) 100 MG capsule Take 100 mg by mouth every 8 (eight) hours 01/09/2025 02/01/2025 Discontinued ciprofloxacin 500 mg oral tablet (4 sources) Quinolone Antimicrobial Start: 12-09-2024 End: 12-22-2024 take 1 tablet by mouth in the morning ciprofloxacin (Cipro) 500 MG tablet Indications: Urinary Tract Infection Take 1 tablet (500 mg) by mouth in the morning and 1 tablet (500 mg) before bedtime. Do all this for 7 days. 14 tablet 12/09/2024 12/22/2024 Discontinued (Other) escitalopram 10 mg oral tablet (1 source) [...] Take 1 tablet by ozzy once daily. fluticasone propionate 0.05 mg/actuat metered dose nasal spray (10 sources) Corticosteroid Start: 01-09-2025 End: 02-01-2025 take 1 spray(s) nasal route in the morning fluticasone (Flonase) 50 MCG/ACT nasal spray Administer 1 spray into affected nostril(s) in the morning. 01/09/2025 02/01/2025 Discontinued Start: 07-24-2023 take 1 spray(s) nasa l route once daily Flonase Allergy Relief 50 MCG/ACT 1 spray in each nostril Nasally Once a day for 14 day(s) Jul, Active Problems Active Problems Problem Classification Problem Date Documented Da te Episodic/Chronic Acute and chronic tonsillitis (1 source) Acute tonsillitis; Translations: [ACUTE TONSILLITIS] Episodic Anxiety disorders (20 sources) Mixed anxiety and depressive disorder; Translations: [Other specified anxiety disorders] Onset: 06-02-2023 Resolved: 09-15-2024 03-04-2024 Chronic Cardiac dysrhythmias (3 sources) Tachycardia; Translations: [Tachycardia, unspecified] 03-02-2025 Episodic Inflammatory diseases of female pelvic organs (4 sources) Bacterial vaginosis; Translations: [Acute vaginitis] 12-08-2024 Episodic Malaise and fatigue (3 sources) Weakness; Translations: [Fatigue] Onset: 02-20-2024 03-02-2025 Episodic Mood disorders (20 sources) Moderate recurrent major depression; Translations: [Major depressive disorder, recurrent, moderate] Onset: 08-18-2024 08-18-2024 Chronic Other acquired deformities (20 sources) Scoliosis of thoracic spine; Translations: [Scoliosis, unspecified] Onset: 06-02-2023 06-02-2023 Chronic Other bone disease and musculoskeletal deformities (1 source) Adolescent idiopathic scoliosis of thoracic spine; Translations: [Adolescent idiopathic scoliosis, thoracic region] Chronic Other upper respiratory disease (1 source) Nasal discharge; Translations: [Rhinorrhea] Episodic Other upper respiratory infections (3 sources) Streptococcal sore throat; Translations: [Strep pharyngitis] Episodic Residual codes; unclassified (2 sources) Reduced libido; Translations: [Decreased libido] 12-08-2024 Episodic Spondylosis; intervertebral disc disorders; other back problems (2 sources) Low back pain; Translations: [Lumbar back pain] 02-01-2025 Episodic Unclassified (1 source) Cold Like Symptoms Onset: 01-09-2025 Unclassified (1 source) cough, fever, sore throat Onset: 01-09-2025 Viral infection (1 source) Viral infection, unspecified; Translations: [Viral infection, unspecified] Onset: 01-09-2025 Episodic Past or Other Problems Problem Classification Problem Date Documented Date Episodic/Chronic Abdominal pain (20 sources) Pelvic and perineal pain; Translations: [Pain in female pelvis] Onset: 09-16-2022 Resolved: 09-15-2024 Episodic Mood disorders (20 sources) Mood disorders Onset: 04-02-2023 04-02-2023 Other female genital disorders (20 sources) Noninflammatory disorder of the vagina; Translations: [Other specified noninflammatory disorders of vagina] Onset: 06-02-2023 Resolved: 09-15-2024 06-02-2023 Episodic Urinary tract infections (20 sources) 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 FINDINGS: There is S shaped thoracolumbar scoliosis convex to the right at T7-8 and convex to the left at L3. The lumbar curvature measures 13 degrees between L1 and L5. The thoracic curvature is split between 2 different images and cannot be measured directly. IMPRESSION: Persistent thoracolumbar scoliosis, also present on 06/14/2022. Dictated on: 02/01/2025 6:03 PM This report has been electronically signed and approved by the interpreting Radiologist. Normal Not Available SARS/FLU A+B/RSV by NAAT/Mol ecularon 01-09-2025 SARS/FLU A+B/RSV by NAAT/Molecular FLU A PCR Negative (qualifier value) FLU B PCR Negative (qualifier value) RSV by PCR Negative (qualifier value) SARS CoV 2 Not detected (qualifier value) NOTE The Xpert Xpress SARS-CoV-2/Flu/RSV Plus test is a rapid, multiplexed real-time RT-PCR test intended for the simultaneous qualitative detection and differentiation of SARS-CoV-2, influenza A, influenza B and respiratory syncytial virus (RSV) viral RNA from individuals suspected of respiratory viral infection consistent with COVID-19 by their healthcare provider. This test has not been validated in asymptomatic patients. The Xpert Xpress SARS-CoV-2 test is intended for use by qualified and trained operators who are performing tests using either Little1 or FindMySong systems and is limited to laboratories that meet the CLIA requirements to perform high and moderate complexity tests. The Xpert Xpress SARS-CoV-2/Flu/RSV Plus is only for use under the Food and Drug Administration's Emergency Use Authorization. Results are for the simultaneous detection and differentiation of SARS-CoV-2, influenza A, influenza B and RSV nucleic acids in clinical specimens. SARS-CoV-2, influenza A, influenza B and RSV RNA identified by this test are generally detectable in upper respiratory samples during the acute phase of infection. Positive results are indicative of the presence of the identified virus, but do not rule out bacterial infection or co-infection with other pathogens not detected by this test. Clinical correlation with patient history and other diagnostic information is necessary to determine patient infection status. The agent detected may not be the definite cause of disease. Negative results do not preclude SARS-CoV-2, influenza A, influenza B and RSV infection and should not be used as the sole basis for treatment or other patient management decisions. Negative results must be combined with clinical observations, patient history and epidemiological information. An Invalid result may occur with specimen-associated inhibition unable to be resolved with specimen repeat. Fact Sheet for Healthcare Providers: https://www.fda.gov/m edia/103387/download Fact Sheet for Patients: https://www.fda.gov/m edia/122387/download Normal [facility] Comment on above: Performed By: #### C OVFLR #### [facility] ([id number]) [address] [place] [address], [place] [address] IGP,APTIMA HPV,AGE GDLNon AGE GDLN ACOG TESTING Note . [facility] Comment on above: TESTS RESULT FLAG UN ITS REF RANGE LAB Clinician Provided Cytology Information Source.............Cervix;Endocervix No. of containers..01 ThinPrep Vial Age Algo ACOG Negin... FLAG LEGEND: L-Low Normal,H-High Normal,LL-Alert Low,HH-Alert High <-Panic Low,>-Panic High,A-Abnormal,AA-Critical Abnormal Performed at: 01 =G [facility] [place] [address] Sunita Dyer MD, IGP, RFX APTIMA HPV ASCU Note . [facility] Comment on above: TESTS RESULT FLAG UN ITS REF RANGE LAB DIAGNOSIS: 02 NEGATIVE FOR INTRAEPITHELIAL LESION OR MALIGNANCY. THIS SPECIMEN WAS RESCREENED PART OF OUR DIRECTOR OF CARDIOLOGY PROGRAM. Specimen adequacy: 02 Satisfactory for evaluation. No endocervical component is identified. Performed by: 02 Frank Lomeli, Camp Nurse (ASCP) QC reviewed by: 02 Kaley Keller, Camp Nurse (ASCP) . 02 Note: Note 02 The Pap smear is a screening test designed to aid in the detection of premalignant and malignant conditions of the uterine cervix. It is not a diagnostic procedure and should not be used as the sole means of detecting cervical cancer. Both false-positive and false-negative reports do occur. Test Methodology: Note 02 This liquid based ThinPrep(R) pap test was screened with the use of an image guided system. . 02 The HPV DNA reflex criteria were not met with this specimen result therefore, no HPV testing was performed. FLAG LEGEND: L-Low Normal,H-High Normal,LL-Alert Low,HH-Alert High <-Panic Low,>-Panic High,A-Abnormal,AA-Critical Abnormal Performed at: [address] [address] Sunita Dyer MD, Performed at: = - [facility] [id number] Honeycomb Blanket Maker: Sunita Dyer MD, Phone: [phone] Performed at: [facility] [id number] Honeycomb Blanket Maker: Sunita Dyer MD, Phone: [phone] BRUSH-SPATULA CERVIX ENDOCERVIX [facility] RECURRENT VAGINITIS (HTRX)on 12-09-2024 ATOPOBIUM VAGINAE 30.641 Abnormal [facility] ATOPOBIUM VAGINAE Detected Abnormal [facility] BVAB 2,3 (BACTERIAL VAGINOSIS ASSOCIATED BACTERIA 2, 3); MOBILUNCUS SPP 0 [facility] BVAB 2,3 (BACTERIAL VAGINOSIS ASSOCIATED BACTERIA 2, 3); MOBILUNCUS SPP [facility] ALBICANS, PARAPSILOSIS, TROPICALIS 0 [facility] MALA ALBICANS, PARAPSILOSIS, TROPICALIS Not detected [facility] MALA GLABRATA 0 [facility] MALA GLABRATA Not detected [facility] MALA KRUSEI 0 [facility] MALA KRUSEI Not [facility] CHLAMYDIA TRACHOMATIS 0 [facility] CHLAMYDIA TRACHOMATIS Not detected [facility] GARDNERELLA VAGINALIS 0 [facility] GARDNERELLA VAGINALIS Not detected [facility] HERPES SIMPLEX VIRUS 1 0 [facility] HERPES SIMPLEX VIRUS 1 Not detected [facility] HERPES SIMPLEX VIRUS 2 0 [facility] HERPES SIMPLEX VIRUS 2 Not detected [facility] Interpretation and review of laboratory results Abnormal [facility] MEGASPHAERA (TYPES 1, 2) 0 [facility] MEGASPHAERA (TYPES 1, 2) Not detected [facility] MYCOPLASMA GENITALIUM 0 [facility] MYCOPLASMA GENITALIUM Not detected [facility] MYCOPLASMA HOMINIS 0 [facility] MYCOPLASMA HOMINIS Not detected [facility] NEISSERIA GONORRHOEAE 0 [facility] NEISSERIA GONORRHOEAE Not detected [facility] TRICHOMONAS VAGINALIS 0 [facility] TRICHOMONAS VAGINALIS Not detected [facility] UREAPLASMA PARVUM 21.819 Abnormal [facility] UREAPLASMA PARVUM Detected Abnormal [facility] UREAPLASMA UREALYTICUM 26.432 Abnormal [facility] UREAPLASMA UREALYTICUM Detected Abnormal [facility] CBC (INCLUDES DIFF/PLT)on Basophils (Bld) [#/Vol] 0.031 10*3/uL Normal 0-200 [facility] Comment on above: Performed By: #### 6 399, 75445, 14065 #### [facility] [place] [address] Clinical Quality Assurance Associate: Vikram Cadet MD Basophils/100 WBC (Bld) 0.5 % Normal [facility] Comment on above: Performed By: #### 6 399, 11850, 78210 #### [facility] [place] [address] Clinical Quality Assurance Associate: Vikram Cadet MD Eosinophils (Bld) [#/Vol] 0.062 10*3/uL Normal 15-500 [facility] Comment on above: Performed By: #### 6 399, 77534, 58897 #### [facility] [place] [address] Clinical Quality Assurance Associate: Vikram Cadet MD Eosinophils/100 WBC (Bld) 1.0 % Normal [facility] Comment on above: Performed By: #### 6 399, 25830, 98702 #### [facility] [place] [address] Clinical Quality Assurance Associate: Vikram Cadet MD Erythrocyte distribution width (RBC) [Ratio] 11.3 % Normal 11.0-15.0 [facility] Comment on above: Performed By: #### 6 399, 83557, 66809 #### [facility] [place] [address] Clinical Quality Assurance Associate: Vikram Cadet MD Hematocrit (Bld) [Volume fraction] 41.9 % Normal 35.0-45.0 [facility] Comment on above: Performed By: #### 6 399, 25788, 96601 #### [facility] of [place] [address] Clinical Quality Assurance Associate: Vikram Cadet MD Hemoglobin (Bld) [Mass/Vol] 13.9 g/dL Normal 11.7-15.5 [facility] Comment on above: Performed By: #### 6 399, 79892, 21169 #### [facility] of [place] [address] Clinical Quality Assurance Associate: Vikram Cadet MD Lymphocytes (Bld) [#/Vol] 2.232 10*3/uL Normal 850-3900 [facility] Comment on above: Performed By: #### 6 399, , 93458 #### [facility] of [place] [address] Clinical Quality Assurance Associate: Vikram Cadet MD Lymphocytes/100 WBC (Bld) 36.0 % Normal [facility] Comment on above: Performed By: #### 6 399, 64494, 29964 #### [facility] [place] [address] Clinical Quality Assurance Associate: Vikram Cadet MD MCH (RBC) [Entitic mass] 30.2 pg Normal 27.0-33.0 [facility] Comment on above: Performed By: #### 6 399, 27962, 49535 #### [facility] of [place] [address] Clinical Quality Assurance Associate: Vikram Cadet MD MCHC (RBC) [Mass/Vol] 33.2 g/dL Normal 32.0-36.0 [facility] Comment on above: Result Comment: For adults, a slight decrease in the calculated MCHC value (in the range of 30 to 32 g/dL) is most likely not clinically significant; however, it should be interpreted with caution in correlation with other red cell parameters and the patient's clinical condition. Performed By: #### 6 399, 79116, 91217 #### [facility] of [address], [address] [place] [address] Clinical Quality Assurance Associate: Vikram Cadet MD MCV (RBC) [Entitic vol] 90.9 fL Normal 80.0-100.0 [facility] Comment on above: Performed By: #### 6 399, 77181, 72349 #### [facility] of [address], [address] [place] [address] Clinical Quality Assurance Associate: Vikram Cadet MD Monocytes (Bld) [#/Vol] 0.341 10*3/uL Normal 200-950 [facility] Comment on above: Performed By: #### 6 399, 40872, 41646 #### [facility] of [address], [address] [place] [address] Clinical Quality Assurance Associate: Vikram Cadet MD Monocytes/100 WBC (Bld) 5.5 % Normal [facility] Comment on above: Performed By: #### 6 399, 91319, 55262 #### [facility] of [address], [address] [place] [address] Clinical Quality Assurance Associate: Vikram Cadet MD Neutrophils (Bld) [#/Vol] 3.534 10*3/uL Normal 6881-9602 [facility] Comment on above: Performed By: #### 6 399, 23651, 49818 #### [facility] of [address], [address] [place] [address] Clinical Quality Assurance Associate: Vikram Cadet MD Neutrophils/100 WBC (Bld) 57 % Normal [facility] Comment on above: Performed By: #### 6 399, 61839, 84580 #### [facility] of [address], [address] [place] [address] Clinical Quality Assurance Associate: Vikram Cadet MD Platelet mean volume (Bld) [Entitic vol] 9.2 fL Normal 7.5-12.5 [facility] Comment on above: Performed By: #### 6 399, 67992, 99783 #### [facility] of [address], [address] [place] [address] Clinical Quality Assurance Associate: Vikram Cadet MD Platelets (Bld) [#/Vol] 289 10*3/uL Normal 140-400 [facility] Comment on above: Performed By: #### 6 399, 39411, 73837 #### [facility] of [address], [address] [place] [address] Clinical Quality Assurance Associate: Vikram Cadet MD RBC (Bld) [#/Vol] 4.61 10*6/uL Normal 3.80-5.10 [facility] Comment on above: Performed By: #### 6 399, 83271, 95115 #### [facility] of [address], [address] [place] [address] Clinical Quality Assurance Associate: Vikram Cadet MD WBC (Bld) [#/Vol] 6.2 10*3/uL Normal 3.8-10.8 [facility] Comment on above: Performed By: #### 6 399, 26697, 79989 #### [facility] of [address], [address] [place] [address] Clinical Quality Assurance Associate: Vikram Cadet MD [facility] 10-01-2024 Albumin [Mass/Vol] 4.6 g/dL Normal 3.6-5.1 [facility] Comment on above: Performed By: #### 6 399, 57078, 97718 #### [facility] of [address], [address] [place] [address] Clinical Quality Assurance Associate: Vikram Cadet MD Albumin/Globulin [Mass ratio] 1.7 {ratio} Normal 1.0-2.5 [facility] Comment on above: Performed By: #### 6 399, 97194, 80907 #### [facility] of [place] [address] Clinical Quality Assurance Associate: Vikram Cadet MD ALP [Catalytic activity/Vol] 52 U/L Normal 31-125 [facility] Comment on above: Performed By: #### 6 399, 75187, 84656 #### [facility] of [address], [address] [place] [address] Clinical Quality Assurance Associate: Vikram Cadet MD ALT [Catalytic activity/Vol] 7 U/L Normal 6-29 [facility] Comment on above: Performed By: #### 6 399, 92648, 00323 #### [facility] [place] [address] Clinical Quality Assurance Associate: Vikram Cadet MD AST [Catalytic activity/Vol] 13 U/L Normal 10-30 [facility] Comment on above: Performed By: #### 6 399, 09614, 49633 #### [facility] of [address], [address] [place] [address] Clinical Quality Assurance Associate: Vikram Cadet MD Bilirubin [Mass/Vol] 0.3 mg/dL Normal 0.2-1.2 [facility] Comment on above: Performed By: #### 6 399, 00776, 14571 #### [facility] [place] [address] Clinical Quality Assurance Associate: Vikram Cadet MD BUN/CREATININE RATIO SEE NOTE: Normal 6- [facility] Comment on above: Result Comment: Not Reported: BUN and Creatinine are within reference range. Performed By: #### 6 399, 47716, 32489 #### [facility] [place] [address] Clinical Quality Assurance Associate: Vikram Cadet MD Calcium [Mass/Vol] 9.4 mg/dL Normal 8.6-10.2 [facility] Comment on above: Performed By: #### 6 399, 77554, 17338 #### [facility] [place] [address] Clinical Quality Assurance Associate: Vikram Cadet MD Chloride [Moles/Vol] 100 mmol/L Normal 98-110 [facility] Comment on above: Performed By: #### 6 399, 50974, 81051 #### [facility] [place] [address] Clinical Quality Assurance Associate: Vikram Cadet MD CO2 [Moles/Vol] 27 mmol/L Normal 20-32 [facility] Comment on above: Performed By: #### 6 399, 15540, 38948 #### [facility] [place] [address] Clinical Quality Assurance Associate: Vikram Cadet MD Creatinine [Mass/Vol] 0.74 mg/dL Normal 0.50-0.96 [facility] Comment on above: Performed By: #### 6 399, 36719, 53653 #### [facility] [place] [address] Clinical Quality Assurance Associate: Vikram Cadet MD GFR/1.73 sq M.predicted among non-blacks MDRD (S/P/Bld) [Vol rate/Area] 119 mL/min/{1.73_m2} Normal > OR = 60 [facility] Comment on above: Performed By: #### 6 399, 61080, 35910 #### [facility] [place] [address] Clinical Quality Assurance Associate: Vikram Cadet MD Globulin (S) [Mass/Vol] 2.7 g/dL Normal 1.9-3.7 [facility] Comment on above: Performed By: #### 6 399, 45801, 43490 #### [facility] [place] [address] Clinical Quality Assurance Associate: Vikram Cadet MD Glucose [Mass/Vol] 96 mg/dL Normal 65-139 [facility] Comment on above: Result Comment: Non-fasting reference interval Performed By: #### 6 399, 84630, 95776 #### [facility] [place] [address] Clinical Quality Assurance Associate: Vikram Cadet MD Potassium [Moles/Vol] 3.5 mmol/L Normal 3.5-5.3 [facility] Comment on above: Performed By: #### 6 399, 57465, 90982 #### [facility] [place] [address] Clinical Quality Assurance Associate: Vikram Cadet MD Protein [Mass/Vol] 7.3 g/dL Normal 6.1-8.1 [facility] Comment on above: Performed By: #### 6 399, 87095, 25079 #### [facility] [place] [address] Clinical Quality Assurance Associate: Vikram Cadet MD Sodium [Moles/Vol] 137 mmol/L Normal 135-146 [facility] Comment on above: Performed By: #### 6 399, 57119, 45513 #### [facility] [place] [address] Clinical Quality Assurance Associate: Vikram Cadet MD Urea nitrogen [Mass/Vol] 13 mg/dL Normal 7-25 [facility] Comment on above: Performed By: #### 6 399, 83910, 69980 #### [facility] [place] [address] Clinical Quality Assurance Associate: Vikram Cadet MD TSH+FREE T4on 10-01-2024 Free T4 [Mass/Vol] 1.0 ng/dL Normal 0.8-1.4 [facility] Comment on above: Order Comment: FASTI NG:NO FASTING: NO Performed By: #### 6 399, 99740, 83310 #### [facility] [place] [address] Clinical Quality Assurance Associate: Vikram Cadet MD TSH Qn 0.47 m[IU]/L Normal [facility] Comment on above: Order Comment: FASTI NG:NO FASTING: NO Result Comment: Refe rence Range > or = 20 Years 0.40-4.50 Ranges First trimester 0.26-2.66 Second trimester 0.55-2.73 Third trimester 0.43-2.91 Performed By: #### 6 399, 91521, 13620 #### [facility] [place] [address] Clinical Quality Assurance Associate: Vikram Cadet MD VITAMIN D,25-OH,TOTAL,IAon 1 12-02-2023 VITAMIN D,25-OH,TOTAL,IA 45 ng/mL Normal 30-100 [facility] Comment on above: Result Comment: Thao min D Status 25-OH Vitamin D: Deficiency: <20 ng/mL Insufficiency: 20 - 29 ng/mL Optimal: > or = 30 ng/mL For 25-OH Vitamin D testing on patients on D2-supplementation and patients for whom quantitation of D2 and D3 fractions is required, the QuestAssureD(TM) 25-OH VIT D, (D2,D3), LC/MS/MS is recommended: order code 94922 (patients >2yrs). See Note 1 Note 1 For additional information, please refer to http://education.[employer]/faq/GGQ772 (This link is being provided for informational/ educational purposes only.) Performed By: #### 6 399, 71937, 41693 #### [facility] [address], [address] [place] [id number] Clinical Quality Assurance Associate: Vikram Cadet MD COMPLETE BLOOD COUNTon 02-19 Erythrocyte distribution width (RBC) [Ratio] 12.7 % Normal 11.5-15.0 [facility] Comment on above: Performed By: #### C BC #### [facility] ([id number]) [address], [address] [place] [address] Hematocrit (Bld) [Volume fraction] 33.7 % Low 35-47 [facility] Comment on above: Performed By: #### C BC #### [facility] ([id number]) [address], [address] [place] [address] Hemoglobin (Bld) [Mass/Vol] 11.4 g/dL Low 11.7-15.5 [facility] Comment on above: Performed By: #### C BC #### [facility] ([id number]) [address], [address] [place] [address] MCH (RBC) [Entitic mass] 31.2 pg Normal 27-34 [facility] Comment on above: Performed By: #### C BC #### [facility] ([id number]) [address], [address] [place] [address] MCHC (RBC) [Mass/Vol] 33.7 g/dL Normal 32-36 [facility] Comment on above: Performed By: #### C BC #### [facility] ([id number]) [address] [address] MCV (RBC) [Entitic vol] 93 fL Normal 80-100 [facility] Comment on above: Performed By: #### C BC #### [facility] ([id number]) [address] [address] Platelet mean volume (Bld) [Entitic vol] 6.4 fL Low 7-12 [facility] Comment on above: Performed By: #### C BC #### [facility] ([id number]) [address] [address] Platelets (Bld) [#/Vol] 308 10*3/uL Normal 150-450 [facility] Comment on above: Performed By: #### C BC #### [facility] ([id number]) [address] [address] RBC COUNT 3.64 X10E12/L Low 3.80-5.20 [facility] Comment on above: Performed By: #### C BC #### [facility] ([id number]) [address] [address] WBC (Bld) [#/Vol] 10.4 10*3/uL Normal 4.0-11.0 [facility] Comment on above: Performed By: #### C BC #### [facility] ([id number]) [address] [address] Quick Strepon 07-24-2023 S. pyogenes Org specific cx Ql (Throat) Negative [employer] Other Quick Strep [employer] Other SARS-CoV-2 (COVID-19) RNA NA A+probe Ql (Resp)on 07-24-2023 SARS-CoV-2 (COVID-19) RNA DARON+probe Ql (Unsp spec) Negative [employer] Other CHLAMYDIA/GONOCOCCUS DARON (SW AB/URINE/PAPon 09-19-2022 Chlamydia trachomatis, DARON Negative Normal Negative [facility] Comment on above: Performed By: #### C T/NGNA #### [facility] [address] [place] [address] [address] Kamryn Don Neisseria gonorrhoeae, DARON Negative Normal Negative [facility] Comment on above: Performed By: #### C T/NGNA #### [facility] [address] [place] [address] Dr. Kamryn Don VAGINITIS/VAGINOSIS DNA PROB Domenic 09-18-2022 Mala species Negative Normal Negative [facility] Comment on above: Performed By: #### V AGINT #### [facility] [address] [place] [address] Dr. Kamryn Don Gardnerella vaginalis Positive Abnormal Negative [facility] Comment on above: Performed By: #### V AGINT #### [facility] [address] [place] [address] Dr. Kamryn Don Trichomonas vaginalis Negative Normal Negative [facility] Comment on above: Performed By: #### V AGINT #### [facility] [address] [place] [address] Dr. 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 - Norethin Boom-Eth Estrad-FE 1 mg-20 mcg (21)/75 mg (7) per tablet Take 1 tablet by mouth once daily. Problem List As Of Date: 09/05/2022 (None) Encounter Status:Closed by [facility] on 09/05/22 Normal [facility] XR Spine Scoliosis Study Sta renea 06-14-2022 XR Spine Scoliosis Study Standing CLINICAL [...] by Carleen Graff on 06/17/2022 0849 Normal [facility] HCG,Quantitativeon 2 HCG,Quantitative 8536.00 m[iU]/mL Normal [facility] Comment on above: Order Comment: Reaso n for Exam Less than 8 weeks gestation of Result Comment: Appr oximate Approximate hCG Gestational Age Range (mIU/ml) (weeks) 0.2-1 5-50 1-2 50-500 2-3 100-5,000 3-4 500-10,000 4-5 1,000-50,000 5-6 10,000-100,000 6-8 15,000-200,000 8-12 10,000-100,000 PERFORMED BY: [place] [address] PATHOLOGIST FLATWORK TIER EZEKIEL SERRANO M.D. Performed By: #### H CGQNT #### [address] HCG,Quantitativeon 2 HCG,Quantitative 8790.00 m[iU]/mL Normal [facility] Comment on above: Order Comment: Reaso n for Exam Missed menses;Positive blood test;Spotting affecti Result Comment: Appr oximate Approximate hCG Gestational Age Range (mIU/ml) (weeks) 0.2-1 5-50 1-2 50-500 2-3 100-5,000 3-4 500-10,000 4-5 1,000-50,000 5-6 10,000-100,000 6-8 15,000-200,000 8-12 10,000-100,000 PERFORMED BY: [place] [address] PATHOLOGIST FLATWORK TIER EZEKIEL SERRANO M.D. Performed By: #### H CGQNT #### [address] Q - HCG TOTAL QNon 2 [place] [address] m[IU]/mL [facility] Medical Records Technician Comment on above: Order Comment: [facility] performed at: [employer], [employer] [facility], [address] [place] [address], [address] [place] [address], [id number], Mechanical Manager: Vikram Cadet MD [facility] Date/Time: [facility] Results Received Date/Time: [facility] Reported Date/Time: Result Comment: Refe rence Range Non or premenopausal <5 Postmenopausal <10 Values from different assay methods may vary. The use of this assay to monitor or to diagnose patients with cancer or any condition unrelated to has not been cleared or approved by the FDA or the phlebotomy lab assistant of the assay. Performed By: #### 2 [id number] #### [facility] Default [address] [place] [address] OB 1ST Trimesteron 2021 US OB 1ST [...] Sancho German on 12/11/2021 [address] [facility] Specialist Vital Signs Date Time Vital Sign Value Performing Clinician Facility 03-02-2025 11:39-0400 Body mass index (BMI) [Ratio] 17.11 kg/m2 Wendy Nevarez DO Work Phone: [facility] 03-02-2025 11:39-0400 Body temperature 97.11 [degF] Wendy Nevarez DO Work Phone: [facility] 03-02-2025 11:39-0400 Body weight 48.08 kg Wendy Nevarez DO Work Phone: [facility] 03-02-2025 11:39-0400 Diastolic blood pressure 62 mm[Hg] Wendy Nevarez DO Work Phone: [facility] 03-02-2025 11:39-0400 Heart rate 157 /min Wendy Nevarez DO Work Phone: [facility] 03-02-2025 11:39-0400 SaO2% (BldA) [Mass fraction] 98 % Wendy Nevarez DO Work Phone: [facility] 03-02-2025 11:39-0400 Systolic blood pressure 108 mm[Hg] Wendy Nevarez DO Work Phone: [facility] 02-23-2025 14:40-0400 Heart rate 101 /min Adilson Lane JRK[employer]ZHNP[employer] Work Phone: [facility] 02-23-2025 14:09-0400 Body mass index (BMI) [Ratio] 16.95 kg/m2 Adilson [employer]CSG [employer]BC Work Phone: [facility] 02-23-2025 14:09-0400 Body weight 47.[address] PMHNP-BC Work Phone: [facility] 02-23-2025 14:09-0400 Diastolic blood pressure 62 mm[Hg] Adilson Lane PMHNP-BC Work Phone: [facility] 02-23-2025 14:09-0400 Systolic blood pressure 82 mm[Hg] Adilson Lane PMHNP-BC Work Phone: [facility] 02-01-2025 13:59-0400 Body height 167.6 cm Roge Mcmahon PA Work Phone: [facility] 02-01-2025 13:59-0400 Body mass index (BMI) [Ratio] 17.56 kg/m2 Roge Mcmahon PA Work Phone: [facility] 02-01-2025 13:59-0400 Body temperature 98.01 [degF] Roge Mcmahon PA Work Phone: [facility] 02-01-2025 13:59-0400 Body weight 49.35 kg Roge Mcmahon PA Work Phone: [facility] 02-01-2025 13:59-0400 Diastolic blood pressure 62 mm[Hg] Roge Mcmahon PA Work Phone: [facility] 02-01-2025 13:59-0400 Heart rate 115 /min Roge Mcmahon PA Work Phone: [facility] 02-01-2025 13:59-0400 SaO2% (BldA) [Mass fraction] 98 % Roge Mcmahon PA Work Phone: [facility] 02-01-2025 13:59-0400 Systolic blood pressure 108 mm[Hg] Roge Mcmahon PA Work Phone: [facility] 02-01-2025 11:20-0400 Body mass index (BMI) [Ratio] 17.56 kg/m2 Karine Keita PA Work Phone: [facility] 02-01-2025 11:20-0400 Body weight 49.35 kg Karine Keita PA Work Phone: [facility] 02-01-2025 11:20-0400 Diastolic blood pressure 68 mm[Hg] Karine Keita PA Work Phone: [facility] 02-01-2025 11:20-0400 Systolic blood pressure 110 mm[Hg] Karine Keita PA Work Phone: [facility] 12-08-2024 11:28-0500 Body mass index (BMI) [Ratio] 17.4 kg/m2 Karine Mandy PA Work Phone: [facility] 12-08-2024 11:28-0500 Body weight 48.9 kg Karine Mandy PA Work Phone: [facility] 12-08-2024 11:28-0500 Diastolic blood pressure 60 mm[Hg] Karine Mandy PA Work Phone: [facility] 12-08-2024 11:28-0500 Systolic blood pressure 100 mm[Hg] Karine Keita PA Work Phone: [facility] 11-24-2024 11:34-0500 Body mass index (BMI) [Ratio] 17.11 kg/m2 Adilson Lane TRANSFER PU[employer]ER Work Phone: [facility] 11-24-2024 11:34-0500 Body weight 48.[address] [employer]SFER [employer]ER Work Phone: [facility] 11-24-2024 11:34-0500 Diastolic blood pressure 72 mm[Hg] Adilson Lane TRANSFER PU[employer]ER Work Phone: [facility] 11-24-2024 11:34-0500 Heart rate 112 /min Adilson [address] [employer]SFER [employer]ER Work Phone: [facility] 11-24-2024 11:34-0500 Systolic blood pressure 108 mm[Hg] Adilson Lane TRANSFER PU[employer]ER Work Phone: [facility] 10-27-2024 11:35-0500 Body mass index (BMI) [Ratio] 17.59 kg/m2 Adilson [address] [employer]SFER [employer]ER Work Phone: [facility] 10-27-2024 11:35-0500 Body weight 49.[address] [employer]ER [employer]ER Work Phone: [facility] 10-27-2024 11:35-0500 Diastolic blood pressure 72 mm[Hg] Adilson Lane TRANSFER [employer]ER Work Phone: [facility] 10-27-2024 11:35-0500 Heart rate 106 /min Adilson [address] [employer]SFER [employer]ER Work Phone: [facility] 10-27-2024 11:35-0500 Systolic blood pressure 96 mm[Hg] Adilson Cardonaton TRANSFER PUMPER Work Phone: [facility] 08-18-2024 10:26-0400 Body mass index (BMI) [Ratio] 17.59 kg/m2 Adilson Cardonaton TRANSFER PU[employer]ER Work Phone: [facility] 08-18-2024 10:26-0400 Body weight 49.[address] [employer]SFER [employer]ER Work Phone: [facility] 08-18-2024 10:26-0400 Diastolic blood pressure 66 mm[Hg] Adilson Cardonaton TRANSFER PU[employer]ER Work Phone: [facility] 08-18-2024 10:26-0400 Heart rate 119 /min Adilson [address] TRANSFER [employer]ER Work Phone: [facility] 08-18-2024 10:26-0400 Systolic blood pressure 98 mm[Hg] Adilson Cardonaton TRANSFER PU[employer]ER Work Phone: [facility] 07-24-2023 16:00-0400 Body temperature 99.6 [degF] Maday Bragg Other [employer] Other 07-24-2023 16:00-0400 Body weight 49.9 kg Maday Bragg Other [employer] Other 07-24-2023 16:00-0400 Respiratory rate 20 /min Maday Bragg Other [employer] Other 07-24-2023 16:00-0400 SaO2% (BldA) [Mass fraction] 100 % Maday Bragg Other [employer] Other 09-05-2022 15:29-0500 Body height 167.6 cm Roge North MD Work Phone: [facility] 09-05-2022 15:29-0500 Body mass index (BMI) [Percentile] Per age and sex 5.14 % Roge North MD Work Phone: [facility] 09-05-2022 15:29-0500 Body weight 49.9 kg Roge North MD Work Phone: [facility] Encounters Encounter Date Encounter Type Care Provider Facility Start: 03-30-2025 End: 03-30-2025 Refill Wendy Nevarez DO Work Phone: [facility] Comment on above: Tachycardia; Social anxiety disorder (CMS/HCC) Start: 03-16-2025 End: 03-16-2025 ambulatory CHET REYNOLDS Not Available Start: 03-16-2025 End: 03-16-2025 Bamboo flowsheet Chet Shethi ELECTROLYSIS NEEDLE OPERATOR [facility] Start: 03-16-2025 End: 03-16-2025 Bamboo flowsheet Chet Herberronai ELECTROLYSIS NEEDLE OPERATOR [facility] Start: 03-02-2025 End: 03-02-2025 Bamboo flowsheet Wendy Nevarez DO Work Phone: [facility] Start: 03-02-2025 End: 03-02-2025 Bamboo flowsheet Wendy Calle Lelacollin DO Work Phone: [facility] Start: 03-02-2025 End: 03-02-2025 Office outpatient visit 15 minutes Wendy Nevarez DO Work Phone: [facility] Comment on above: Tachycardia (Primary Dx); Anxiety; Social anxiety disorder (CMS/HCC); Other fatigue Start: 03-02-2025 End: 03-02-2025 ambulatory WENDY NEVAREZ Not Available Start: 02-23-2025 End: 02-23-[address] Not Available Start: 02-23-2025 End: 02-23-[address] PMHNP-BC Work Phone: [facility] Start: 02-23-2025 End: 02-23-[address] [facility] Work [facility] Start: 02-23-2025 End: 02-23-2025 Office outpatient visit [address] [facility] Work Phone: [facility] Comment on above: Moderate episode of recurrent major depressive disorder (CMS/HCC); Social anxiety disorder (CMS/HCC) Start: 02-16-2025 End: 02-16-2025 ambulatory CHET MALICKI Not Available Start: 02-16-2025 End: 02-16-2025 Bamboo flowsheet Chet Malicki ELECTROLYSIS NEEDLE OPERATOR [facility] Start: 02-16-2025 End: 02-16-2025 Bamboo flowsheet Chet Malicki ELECTROLYSIS NEEDLE OPERATOR [facility] Start: 02-02-2025 End: 02-02-2025 ambulatory CHET MALICKI Not Available Start: 02-01-2025 End: 02-01-2025 Bamboo flowsheet Karine Keita PA Work Phone: [facility] Start: 02-01-2025 End: 02-01-2025 Bamboo flowsheet Karine Keita PA Work Phone: [facility] Start: 02-01-2025 End: 02-01-2025 ambulatory ROGE MCMAHON Not Available Start: 02-01-2025 End: 02-01-2025 Office outpatient visit 15 minutes Roge Mcmahon PA Work Phone: [facility] Comment on above: Lumbar back pain (Pr imary Dx); Scoliosis of thoracic spine, unspecified scoliosis type Start: 02-01-2025 End: 02-01-2025 ambulatory KARINE KEITA Not Available Start: 02-01-2025 End: 02-01-2025 Office outpatient visit 15 minutes Karine Keita PA Work Phone: [facility] Comment on above: BV (bacterial vagino sis) Start: 01-19-2025 End: 01-19-2025 Bamboo flowsheet Chet Malicki ELECTROLYSIS NEEDLE OPERATOR [facility] Start: 01-19-2025 End: 01-19-2025 Bamboo flowsheet Chet Shethi ELECTROLYSIS NEEDLE OPERATOR [facility] Start: 01-19-2025 End: 01-19-2025 ambulatory CHET SHETHI Not Available Start: 01-17-2025 End: 01-17-[address] Not Available Start: 01-17-2025 End: 01-17-2025 Office outpatient visit [address] [facility] Work Phone: [facility] Comment on above: Moderate episode of recurrent major depressive disorder (CMS/HCC); Social anxiety disorder (CMS/HCC) Start: 01-09-2025 End: 01-09-2025 Emergency department patient visit [facility] Start: 12-29-2024 End: 12-29-2024 Bamboo flowsheet Chet Rivasicki ELECTROLYSIS NEEDLE OPERATOR [facility] Start: 12-29-2024 End: 12-29-2024 Bamboo flowsheet Chet Rivasicki ELECTROLYSIS NEEDLE OPERATOR [facility] Start: 12-29-2024 End: 12-29-2024 ambulatory CHET SHETHI Not Available Start: 12-22-2024 End: 12-22-[address] Not Available Start: 12-22-2024 End: 12-22-2024 Office outpatient visit [address] [facility] Work Phone: [facility] Comment on above: Moderate episode of recurrent major depressive disorder (CMS/HCC); Social anxiety disorder (CMS/HCC) Start: 12-15-2024 End: 12-15-2024 Bamboo flowsheet Chetmal Rivasicki ELECTROLYSIS NEEDLE OPERATOR [facility] Start: 12-15-2024 End: 12-15-2024 Bamboo flowsheet Chetmal Rivasicki ELECTROLYSIS NEEDLE OPERATOR [facility] Start: 12-15-2024 End: 12-15-2024 ambulatory CHET RIVASICKI Not Available Start: 12-10-2024 End: 12-10-[address] [facility] Work Phone: [facility] Comment on above: Social anxiety disor angel (CMS/HCC); Moderate episode of recurrent major depressive disorder (CMS/HCC) Start: 12-08-2024 End: 12-08-2024 Bamboo flowsheet Karine BYRANT Work Phone: [facility] Start: 12-08-2024 End: 12-14-2024 Bamboo flowsheet Karine BRYANT Work Phone: [facility] Start: 12-08-2024 End: 12-14-2024 Clinisync Result Encounter Generic External Data Provider [facility] Unsolicited Start: 12-08-2024 End: 12-09-2024 External Result Encounter Karine BRYANT Work Phone: [facility] Unsolicited Start: 12-08-2024 End: 12-08-2024 ambulatory KARINE KEITA Not Available Start: 12-08-2024 End: 12-08-2024 Patient encounter procedure Karine BRYANT Work Phone: [facility] Start: 12-08-2024 End: 12-08-2024 Periodic preventive med est patient 18-39 yrs Karine BRYANT Work Phone: [facility] Comment on above: BV (bacterial vagino sis); Well woman exam with routine gynecological exam; Vaginal pain; Low libido Start: 12-01-2024 End: 12-01-2024 Bamboo flowsheet Chet Malicki ELECTROLYSIS NEEDLE OPERATOR [facility] Start: 12-01-2024 End: 12-01-2024 Bamboo flowsheet Chet Malicki ELECTROLYSIS NEEDLE OPERATOR [facility] Start: 12-01-2024 End: 12-01-2024 ambulatory CHET SHETHI Not Available Start: 11-24-2024 End: 11-24-[address] Not Available Start: 11-24-2024 End: 11-24-2024 Office outpatient visit [address] TRANSFER PUMPER Work Phone: [facility] Comment on above: Social anxiety disor angel (CMS/HCC); Moderate episode of recurrent major depressive disorder (CMS/HCC) Start: 11-17-2024 End: 11-17-2024 Bamboo flowsheet Chet Malicki ELECTROLYSIS NEEDLE OPERATOR [facility] Start: 11-17-2024 End: 11-17-2024 Bamboo flowsheet Chet Shethi ELECTROLYSIS NEEDLE OPERATOR [facility] Start: 11-17-2024 End: 11-17-2024 ambulatory CHET REYNOLDS Not Available Start: 10-27-2024 End: 10-27-[address] TRANSFER PUMPER Work Phone: [facility] Start: 10-27-2024 End: 10-27-[address] [employer] Work Phone: [facility] Start: 10-27-2024 End: 10-27-[address] Not Available Start: 10-27-2024 End: 10-27-2024 Office outpatient visit [address] [employer] Work Phone: [facility] Comment on above: Moderate episode of recurrent major depressive disorder (CMS/HCC); Social anxiety disorder (CMS/HCC) Start: 10-04-2024 End: 10-04-[address] [employer] Work Phone: [facility] Start: 09-15-2024 End: 09-15-[address] [employer] Work Phone: [facility] Start: 09-15-2024 End: 09-15-[address] [employer] Work Phone: [facility] Start: 09-15-2024 End: 09-15-[address] Not Available Start: 09-15-2024 End: 09-15-2024 Office outpatient visit [address] [employer] Work Phone: [facility] Comment on above: Moderate episode of recurrent major depressive disorder (CMS/HCC); Social anxiety disorder (CMS/HCC) Start: 08-18-2024 End: 08-18-[address] [employer] Work Phone: [facility] Start: 08-18-2024 End: 08-18-[address] [employer] Work Phone: [facility] Start: 08-18-2024 End: 08-18-2024 Office outpatient new [address] [employer] Work Phone: [facility] Comment on above: Moderate episode of recurrent major depressive disorder (CMS/HCC); Social anxiety disorder (CMS/HCC) Start: 08-18-2024 End: 08-18-[address] Not Available Start: 06-29-2024 End: 06-29-2024 Office outpatient visit 15 minutes Wendy Nevarez DO Work Phone: [facility] Comment on above: Anxiety with depress ion (Primary Dx); Anxiety Start: 03-29-2024 End: 03-29-2024 ambulatory PREET WOMACK Not Available Start: 02-20-2024 End: 02-21-2024 ambulatory PREET WOMACK [facility] Start: 07-24-2023 End: 07-24-2023 ambulatory Maday Bragg Other [employer] Other Start: 07-24-2023 Office outpatient vi sit 25 [address] [facility] Start: 09-16-2022 End: 09-16-[address] PREET WOMACK Facility:H1 Start: 09-05-2022 End: 09-05-2022 ambulatory ROGE NORTH Facility:[facility] Start: 09-05-2022 End: 09-05-2022 Patient encounter procedure Roge North MD Work Phone: [facility] Comment on above: 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 (Primary Dx) Start: 01-03-[address] PREET WOMACK Facility :[facility]1 Start: 12-17-[address] TIBURCIO Salmeron lity:H1 Procedures Date Procedure Procedure Detail Performing Clinician Start: 03-16-2025 End: 03-16-2025 Psychotherapy w/patient 60 minutes Moderate episode of recurrent major depressive disorder (CMS/HCC) Chet Reynolds LPC Comment on above: Moderate episode of recurrent major depressive disorder (CMS/HCC); Social anxiety disorder (CMS/HCC) Start: 02-16-2025 End: 02-16-2025 Psychotherapy w/patient 60 minutes Moderate episode of recurrent major depressive disorder (CMS/HCC) Chet Reynolds LPC Comment on above: Moderate episode of recurrent major depressive disorder (CMS/HCC); Social anxiety disorder (CMS/HCC) Start: 02-02-2025 End: 02-02-2025 Psychotherapy w/patient 30 minutes Moderate episode of recurrent major depressive disorder (CMS/HCC) Chet Reynolds LPC Comment on above: Moderate episode of recurrent major depressive disorder (CMS/HCC); Social anxiety disorder (CMS/HCC) Start: 01-19-2025 End: 01-19-2025 Psychotherapy w/patient 60 minutes Moderate episode of recurrent major depressive disorder (CMS/HCC) Chet Reynolds LPC Comment on above: Moderate episode of recurrent major depressive disorder (CMS/HCC); Social anxiety disorder (CMS/HCC) Start: 12-29-2024 End: 12-29-2024 Psychotherapy w/patient 60 minutes Moderate episode of recurrent major depressive disorder (CMS/HCC) Chet Reynolds LPC Comment on above: Moderate episode of recurrent major depressive disorder (CMS/HCC); Social anxiety disorder (CMS/HCC) Start: 12-15-2024 End: 12-15-2024 Psychotherapy w/patient 60 minutes Moderate episode of recurrent major depressive disorder (CMS/HCC) Chet Reynolds LPC Comment on above: Moderate episode of recurrent major depressive disorder (CMS/HCC); Social anxiety disorder (CMS/HCC) Start: 12-08-2024 RECURRENT VAGINITIS (HTRX) Karine BRYANT Work Phone: Start: 12-08-2024 IGP,APTIMA HPV,AGE GDLN Karine BRYANT Work Phone: Start: 12-01-2024 End: 12-01-2024 Psychotherapy w/patient 60 minutes Moderate episode of recurrent major depressive disorder (CMS/HCC) Chet Reynolds LPC Comment on above: Moderate episode of recurrent major depressive disorder (CMS/HCC); Social anxiety disorder (CMS/HCC) Start: 11-17-2024 End: 11-17-2024 Psychiatric diagnostic evaluation Social anxiety disorder (CMS/HCC) Chet Reynolds LPC Comment on above: Social anxiety disor angel (CMS/HCC); Moderate episode of recurrent major depressive disorder (CMS/HCC) Plan of Treatment Date Care Activity Detail Author Start: 06-20-2025 Influenza vaccination Influenz a Vaccine (Season Ended) [facility] Start: 04-27-2025 End: 04-27-2025 Social Work 04/27/2025 12:30 PM EDT Social Work [facility] [address] [place] [address] Chet Reynolds LPC [facility] Start: 04-18-2025 End: 04-18-2025 Social Work 04/18/2025 3:30 PM EDT Social Work [facility] [address] [place] [address] Chet Reynolds LPC [facility] Start: 04-13-2025 End: 04-13-2025 Patient encounter procedure 04/13/2025 3:00 PM EDT Office Visit [facility] [address] [place] [address] PMHNP- [address] [place] [address] [facility] Start: 03-16-2025 End: 03-16-2025 Social Work 03/16/2025 2:30 PM EDT Social Work [facility] [address] [facility] [address] [place] [address] Chet Reynolds LPC [facility] Start: 03-03-2025 End: 04-01-2025 CBC W Auto Differential panel - Blood CBC and differential Lab Routine Tachycardia Anxiety Social anxiety disorder (CMS/HCC) Other fatigue Expected: 03/03/2025 (Approximate), Expires: 04/01/2025 [facility] Work Phone: Comment on above: Expected: 03/03/2025 (Approximate), Expires: 04/01/2025 Start: 03-03-2025 End: 04-01-2025 Comprehensive metabolic 2000 panel - Serum or Plasma Comprehensive metabolic panel Lab Routine Tachycardia Anxiety Social anxiety disorder (CMS/HCC) Other fatigue Expected: 03/03/2025 (Approximate), Expires: 04/01/2025 [facility] Comment on above: Expected: 03/03/2025 (Approximate), Expires: 04/01/2025 Start: 03-03-2025 End: 04-01-2025 Thyrotropin [Units/volume] in Serum or Plasma TSH Lab Routine Tachycardia Anxiety Social anxiety disorder (CMS/HCC) Other fatigue Expected: 03/03/2025 (Approximate), Expires: 04/01/2025 [facility] Comment on above: Expected: 03/03/2025 (Approximate), Expires: 04/01/2025 Start: 03-02-2025 End: 03-02-2026 ECG 12 lead ECG 12 lead ECG Routine Tachycardia Expected: 03/02/2025 (Approximate), Expires: 03/02/2026 [facility] Comment on above: Expected: 03/02/2025 (Approximate), Expires: 03/02/2026 Start: 03-02-2025 End: 03-02-2025 Patient encounter procedure 03/02/2025 11:40 AM EDT Office Visit [facility] [address] [place] [address] Wendy Nevarez DO [address] [place] [address] Arrived [facility] Comment on above: Arrived Start: 02-23-2025 End: 02-23-2025 Patient encounter procedure 02/23/2025 2:30 PM EDT Office Visit [facility] [address] [place] [phone] PMHNP- [address] [place] [address] [facility] Start: 02-16-2025 End: 02-16-2025 Social Work 02/16/2025 2:30 PM EDT Social Work [facility] [address] [place] [address] Chet Reynolds LPC [facility] Start: 02-02-2025 End: 02-02-2025 Social Work 02/02/2025 1:30 PM EDT Social Work [facility] [address] [place] [address] Chet Reynolds LPC [facility] Start: 02-01-2025 End: 02-01-2026 XR Thoracic and lumbar spine Views for scoliosis [facility] Work Phone: Comment on above: Expected: 02/01/2025 , Expires: 02/01/2026 Start: 02-01-2025 End: 02-01-2025 Patient encounter procedure 02/01/2025 1:40 PM EDT Office Visit [facility] [address] [place] [phone] Roge Mcmahon PA [address] [place] [address] [facility] Start: 01-26-2025 End: 01-26-2025 Patient encounter procedure 01/26/2025 2:30 PM EDT Office Visit [facility] [address] [place] [address], PMHNP- [address] [place] [address] [facility] Start: 01-19-2025 End: 01-19-2025 Social Work 01/19/2025 12:30 PM EDT Social Work [facility] [address] [place] [address] Chet Reynolds LPC [facility] Start: 12-29-2024 End: 12-29-2024 Social Work 12/29/2024 12:30 PM EDT Social Work [facility] [address] [place] [address] Chet Reynolds LPC [facility] Start: 12-22-2024 End: 12-22-2024 Patient encounter procedure [facility] Start: 12-16-2024 End: 12-16-2024 Patient encounter procedure 12/16/2024 8:10 AM EST Office Visit [facility] [address] [facility] [address] [place] [phone] Preet Womack, DO [address] [place] [address] [facility] Start: 12-15-2024 End: 12-15-2024 Social Work 12/15/2024 11:30 AM EST Social Work [facility] [address] [place] [address] Chet Reynolds LPC [facility] Start: 12-08-2024 End: 12-08-2025 US Pelvis US Pelvis w/ TV Imaging Routine Vaginal pain Expected: 12/08/2024, Expires: 12/08/2025 [facility] Comment on above: Expected: 12/08/2024 , Expires: 12/08/2025 Start: 12-01-2024 End: 12-01-2024 Social Work 12/01/2024 12:30 PM EST Social Work [facility] [address] [place] [address] Chet Reynolds LPC [facility] Start: 11-24-2024 End: 11-24-2024 Patient encounter procedure 11/24/2024 11:30 AM EST Office Visit [facility] [address] [place] [address], [place] [address] [place] [address] [facility] Start: 11-17-2024 End: 11-17-2024 Social Work 11/17/2024 12:30 PM EST Social Work [facility] [address] [place] [address] Chet Reynolds LPC [facility] Start: 10-27-2024 End: 10-27-2024 Patient encounter procedure 10/27/2024 11:30 AM EST Office Visit [facility] [address] [place] [address], [employer]SFER [employer]ER [address] [place] [address] [facility] Start: 09-15-2024 End: 09-15-2024 Patient encounter procedure 09/15/2024 11:30 AM EST Office Visit [facility] [address] [place] [address], TRANSFER [employer]ER [address] [place] [address] [facility] Start: 08-18-2024 End: 08-18-2025 25-hydroxyvitamin D3 [Mass/volume] in Serum or Plasma Vitamin D 25 hydroxy Total Lab Routine Social anxiety disorder (CMS/HCC) Moderate episode of recurrent major depressive disorder (HCC) (CMS/HCC) Expected: 08/18/2024 (Approximate), Expires: 08/18/2025 [facility] Comment on above: Expected: 08/18/2024 (Approximate), Expires: 08/18/2025 Start: 08-18-2024 End: 08-18-2025 CBC W Auto Differential panel - Blood CBC and differential Lab Routine Social anxiety disorder (CMS/HCC) Moderate episode of recurrent major depressive disorder (HCC) (CMS/HCC) Expected: 08/18/2024 (Approximate), Expires: 08/18/2025 [facility] Work Phone: Comment on above: Expected: 08/18/2024 (Approximate), Expires: 08/18/2025 Start: 08-18-2024 End: 08-18-2025 Comprehensive metabolic 2000 panel - Serum or Plasma Comprehensive metabolic panel Lab Routine Social anxiety disorder (CMS/HCC) Moderate episode of recurrent major depressive disorder (HCC) (CMS/HCC) Expected: 08/18/2024 (Approximate), Expires: 08/18/2025 [facility] Comment on above: Expected: 08/18/2024 (Approximate), Expires: 08/18/2025 Start: 08-18-2024 End: 08-18-2025 Thyrotropin [Units/volume] in Serum or Plasma Tsh+free t4 Lab Routine Social anxiety disorder (CMS/HCC) Moderate episode of recurrent major depressive disorder (HCC) (CMS/HCC) Expected: 08/18/2024 (Approximate), Expires: 08/18/2025 [facility] Comment on above: Expected: 08/18/2024 (Approximate), Expires: 08/18/2025 Start: 08-18-2024 End: 08-18-2024 Patient encounter procedure 08/18/2024 10:00 AM EDT Office Visit [facility] [address] [facility] [address] [place] [address] NP [address] [facility] [address] [place] [address] Anxiety with depression; Anxiety [facility] Comment on above: Anxiety with depress ion; Anxiety Start: 06-20-2024 Influenza vaccination Influenza Vacc ine (#1) [facility] Start: 06-20-2022 Influenza vaccination INFLUENZA (#1) [facility] Start: 2021 CHLAMYDIA SCREENING (18-24) CHLAMYDIA SCREENING (18-24) [facility] Start: 2021 GC (GONORRHEA) SCREE SHARITA (18-24) GC (GONORRHEA) SCREENING (18-24) [facility] Start: 2021 HEPATITIS C SCREENING HEPATITIS C SC CHRISTI [facility] Start: 2021 HIV SCREENING HIV SCREENING [facility] Start: 10-20-2021 DEPRESSION ASSESSMENT DEPRESSION ASS ESSMENT [facility] Start: 2019 MENINGOCOCCAL CONJUG ATE (1 - 2-dose series) MENINGOCOCCAL CONJUGATE (1 - 2-dose series) [facility] Start: 2017 PEDS TO ADULT TRANSI TION ANNUAL ASSESSMENT PEDS TO ADULT TRANSITION ANNUAL ASSESSMENT [facility] Start: 2015 PEDS TO ADULT TRANSI TION INITIAL DISCUSSION PEDS TO ADULT TRANSITION INITIAL DISCUSSION [facility] Start: 2014 HPV VACCINE (1 - 2-d ose series) HPV VACCINE (1 - 2-dose series) [facility] Start: 2013 MENINGOCOCCAL B: Consider based on risk (1 of 2 - Risk Bexsero 2-dose series) MENINGOCOCCAL B: Consider based on risk (1 of 2 - Risk Bexsero 2-dose series) [facility] Start: 2010 Urine microalbumin profile DTAP,TDAP,TD (1 - Tdap) [facility] Start: 05-14-2004 COVID-19 VACCINE (#1) COVID-19 VACCI NE (#1) [facility] Start: 2003 HEPATITIS B (1 of 3 - 3-dose series) HEPATITIS B (1 of 3 - 3-dose series) [facility] CHLAMYDIA TRACHOMATI S (GENITO/STI) CHLAMYDIA TRACHOMATIS (GENITO/STI) Lab Routine BV (bacterial vaginosis) Ordered: 12/08/2024 [facility] Comment on above: Ordered: 12/08/2024 Cytology Cervical or vaginal smear or scraping study Pap Smear Pathology and Cytology Routine Well woman exam with routine gynecological exam Ordered: 12/08/2024 [facility] Comment on above: Ordered: 12/08/2024 Neisseria gonorrhoea e DNA [Presence] in Unspecified specimen by DARON with probe detection Neisseria gonorrhea DNA probe, direct Lab Routine BV (bacterial vaginosis) Ordered: 12/08/2024 [facility] Comment on above: Ordered: 12/08/2024 End: 10-05-2023 Radex entir thrc lmbr crv sac spi w/skull 2/3 vw XR SCOLIOSIS PA STAND/LAT 2V Radiology Routine Adolescent idiopathic scoliosis of thoracic region 1 Occurrences starting 09/05/2022 until 10/05/2023 [facility] Work Phone: Comment on above: 1 Occurrences starti ng 09/05/2022 until 10/05/2023 SURESWAB(R) ADVANCED VAGINITIS PLUS, TMA SURESWAB(R) ADVANCED VAGINITIS PLUS, TMA Pathology and Cytology Routine BV (bacterial vaginosis) Ordered: 12/08/2024 [facility] Work Phone: Comment on above: Ordered: 12/08/2024 Immunizations Immunization Date Immunization Notes Care Provider Tanesha colby 06-12-2016 Human Papillomavirus 9-valent vaccine Wendy Nevarez DO Work Phone: [facility] 06-12-2016 meningococcal oligosaccharide (groups A, C, Y and W-135) diphtheria toxoid conjugate vaccine (MCV4O) Wendy Nevarez DO Work Phone: [facility] 06-12-2016 tetanus toxoid, redu nevaeh diphtheria toxoid, and acellular pertussis vaccine, adsorbed Wendy Nevarez DO Work Phone: [facility] 06-12-2009 Diphtheria, tetanus toxoids and acellular pertussis vaccine, and poliovirus vaccine, inactivated Maday Bragg Other [facility] [employer] Other 06-12-2009 measles, mumps and rubella virus vaccine Maday Bragg Other [facility] [employer] Other 06-12-2009 varicella virus vaccine Ambe moris Bragg Other [facility] [employer] Other 06-18-2005 diphtheria, tetanus toxoids and acellular pertussis vaccine, unspecified formulation Wendy Nevarez DO Work Phone: [facility] 06-18-2005 poliovirus vaccine, inactivated Wendy Nevarez DO Work Phone: [facility] 05-15-2004 diphtheria, tetanus toxoids and acellular pertussis vaccine, unspecified formulation Wendy Nevarez DO Work Phone: [facility] 05-15-2004 haemophilus influenz ae type b conjugate and Hepatitis B vaccine Wendy Nevarez DO Work Phone: [facility] 05-15-2004 pneumococcal conjuga te vaccine, 7 valent Wendy Nevarez DO Work Phone: [facility] 03-15-2004 diphtheria, tetanus toxoids and acellular pertussis vaccine, unspecified formulation Wendy Nevarez DO Work Phone: [facility] 03-15-2004 pneumococcal conjuga te vaccine, 7 valent Wnedy Nevarez DO Work Phone: [facility] 03-15-2004 poliovirus vaccine, inactivated Wendy Nevarez DO Work Phone: [facility] 01-13-2004 diphtheria, tetanus toxoids and acellular pertussis vaccine, unspecified formulation Wendy Nevarez DO Work Phone: [facility] 01-13-2004 haemophilus influenz ae type b conjugate and Hepatitis B vaccine Wendy Nevarez DO Work Phone: [facility] 01-13-2004 poliovirus vaccine, inactivated Wendy Nevarez DO Work Phone: [facility] Payers Date Payer Category Payer Medicaid [id number] 2. [id number] 2017 Medicaid [id number] 2003 Unknown [id number] 2.16.84 0.1.842169.3.579.2.593 2003 Unknown [id number] 2.16.84 0.1.494162.3.579.2.593 2003 Unknown [id number] 2.16.84 0.1.738810.3.579.2.593 2003 Unknown [id number] 2.16.8 40.1.889824.3.579.2.1286 2003 Unknown [id number] 2.16. 840.1.479369.3.579.2.1286 2003 Unknown [id number] 2.16.84 0.1.163456.3.579.2.1259 2003 Unknown [id number] 2.16.84 0.1.672329.3.579.2.1259 2003 Unknown [id number] 2.16.84 0.1.890077.3.579.2.1259 2003 Unknown [id number] 2.16.84 0.1.989848.3.579.2.1259 2003 Unknown [id number] 2.16.84 0.1.420070.3.579.2.1258 2003 Unknown [id number] 2.16.84 0.1.037657.3.579.2.1258 2003 Unknown [id number] 2.16.84 0.1.830804.3.579.2.1258 2003 Unknown [id number] 2.16.84 0.1.859789.3.579.2.1258 2003 Unknown [id number] 2.16.84 0.1.593241.3.579.2.1258 2003 Unknown [id number] 2.16.84 0.1.787096.3.579.2.1258 2003 Unknown [id number] 2.16.84 0.1.225818.3.579.2.1258 2003 Unknown [id number] 2.16.84 0.1.284798.3.579.2.1258 2003 Unknown [id number] 2.16.84 0.1.544142.3.579.2.1258 2003 Unknown [id number] 2.16.84 0.1.116384.3.579.2.1258 2003 Unknown [id number] 2.16.84 0.1.919088.3.579.2.1258 2003 Unknown [id number] 2.16.84 0.1.413935.3.579.2.1258 2003 Unknown [id number] 2.16.84 0.1.075226.3.579.2.1258 2003 Unknown [id number] 2.16.84 0.1.556258.3.579.2.1258 2003 Unknown [id number] 2.16.84 0.1.054058.3.579.2.1258 2003 Unknown [id number] 2.16.84 0.1.506423.3.579.2.1259 2003 Unknown [id number] 2.16.84 0.1.787876.3.579.2.1259 1961 Medicaid [id number] 1961 Self-pay Social History Date Type Detail Facility Start: 09-05-2022 End: 10-27-2024 Tobacco smoking status NHIS Never smoked tobacco [facility] Start: 09-05-2022 End: 02-01-2025 Tobacco use and exposure Smokeless tobacco non-user [facility] Start: 2003 Sex Assigned At Not on file [facility] Start: 06-29-2024 End: 03-02-2025 Sex Assigned At [facility] Start: 06-29-2024 End: 03-02-2025 Alcoholic beverage intake Lifetime non-drinker (finding) [facility] Start: 06-29-2024 End: 03-02-2025 History of Social function [facility] Do you belong to any clubs or organizations such as restorationist groups, unions, [employer] or athletic groups, or school groups? No [...] [OSQ] Rather much [facility] (I/We) worried wheth er (my/our) food would run out before [...] cup pop or coffee daily [facility] Start: 02-01-2025 [facility] Start: 02-01-2025 Tobacco Comment Vape everday [facility] NEGATED: Highlighted rowStart: MARIA ESTHERF History of tobacco use Passive smoker [facility] Functional Status Date Assessment Result Facility 03-02-2025 Patient Health Quest ionnaire 2 item (PHQ-2) [Reported] [facility] 02-01-2025 Patient Health Quest ionnaire 2 item (PHQ-2) [Reported] [facility] Clinical Notes 2003 to 03-02-2025 Bk Woods LPN - 03/02/2025 11:40 AM NESSA Barber - 02/23/2025 2:30 PM MANNY Cooley - 02/01/2025 1:40 PM MANNY Solorzano - 02/01/2025 10:50 AM EDT Note Date & Type Note Facility 03-02-2025 History of Presen t illness Narrative Images from the original note were not included. SUBJECTIVE: Kath Wallace is a 19 y.o. female presents with chief complaint of Elevated HR. Subjective Kath Wallace is a 19 y.o. female who presents with palpitations, fatigue, and a skipping sensation. At times heart will beat slow. Pt states this is a daily occurrence. Pt states at times she experiences presyncopal episodes, gave example upon looking down and getting up. Denies any passing out, just feels like she is going to pass out. Relieving factors: none. Associated symptoms: SALCEDO's. Pt states she takes motrin with some relief. Pt states at the way up felt very sob due to carrying son up. Upon checking pulse it was 157. BP was on the lower end but overall ok. Psychiatry advised pt to see family doctor due to elevated HR. 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 Past Medical History: Past Medical History: Diagnosis Date Anxiety Depression (CMS/HCC) Headache History of febrile seizure as an Pelvic pain in female 10/2021 miscarraige Scoliosis Seizures (CMS/HCC) Family History: Family History Problem Relation Name Age of Onset Depression Mother Nany Anxiety disorder Mother Nany Depression Father Jeff Drug abuse Father Jeff Depression Sister [place] Anxiety disorder Sister [place] ADD / ADHD Sister [place] Hypertension Maternal Grandfather Alcohol abuse Maternal Grandfather Mental illness Maternal Grandmother Scoliosis Maternal Grandmother Alcohol abuse Paternal Grandfather Art Hypertension Paternal Grandfather Art Mental illness Paternal Grandfather Art No Known Problems Half-Brother Schizophrenia Maternal Great-Grandmother Bipolar disorder Maternal Great-Grandmother Allergies: Allergies Allergen Reactions Abilify [Aripiprazole] Dizziness nausea Amoxicillin Hives Sulfa Antibiotics Unknown Surgical History: No past surgical history on file. Social History: Social Drivers of Health Tobacco Use: High Risk (02/23/2025) Patient History Smoking Tobacco Use: Every Day Smokeless Tobacco Use: Never Passive Exposure: Never Alcohol Use: Not At Risk (06/29/2024) AUDIT-C Frequency of Alcohol Consumption: Never Average Number of Drinks: Patient does not drink Frequency of Binge Drinking: Never Financial Resource Strain: Low Risk (06/29/2024) Overall Financial Resource Strain (CARDIA) Difficulty of Paying Living Expenses: Not very hard Food Insecurity: No Food Insecurity (01/09/2025) Received from [facility] Hunger Screening Within the past 12 months we worried whether our food would run out before we got money to buy more.: Never True Within the past 12 months the food we bought just didn't last and we didn't have money to get more.: Never True Transportation Needs: Unmet Transportation Needs (06/29/2024) PRAPARE - Transportation Lack of Transportation (Medical): Yes Lack of Transportation (Non-Medical): No Physical Activity: Sufficiently Active (06/29/2024) Exercise Vital Sign Days of Exercise per Week: 4 days Minutes of Exercise per Session: 60 min Stress: Stress Concern Present (06/29/2024) Citizen Of [place] [employer] - Occupational Stress Questionnaire Feeling of Stress : Rather much Social Connections: Moderately Isolated (06/29/2024) Social Connection and Isolation Panel [NHANES] Frequency of Communication with Friends and Family: Twice a week Frequency of Social Gatherings with Friends and Family: Once a week Attends Judaism Services: More than 4 times per year Active Member of Clubs or Organizations: No Attends Club or Organization Meetings: Never Marital Status: Never Intimate Partner Violence: Not on file Depression: Not at risk (02/01/2025) PHQ-2 PHQ-2 Score: 0 Housing Stability: Low Risk (06/29/2024) Housing Stability Vital Sign Unable to Pay for Housing in the Last Year: No Number of Times Moved in the Last Year: 1 Homeless in the Last Year: No Health Literacy: Not on file OBJECTIVE: Visit Vitals OB Status Having periods Smoking Status Every Day Physical Exam No results found for this or any previous visit (from the past 4 weeks). ASSESSMENT AND PLAN: Assessment/Plan Updated Medications: I have reviewed and reconciled the history and medication list with the patient today. Current Outpatient Medications: buPROPion XL (Wellbutrin XL) 150 MG 24 hr tablet, Take 1 tablet (150 mg) by mouth in the morning. Do not crush, chew, or split.., Disp: 30 tablet, Rfl: 1 cholecalciferol (Vitamin D-3) 25 MCG (1000 UT) capsule, Take 1,000 Units by mouth Daily (Patient taking differently: Take 1,000 Units by mouth Daily Not consistant), Disp: , Rfl: desogestrel-ethinyl estradiol (Apri) 0.15-30 MG-MCG tablet, Take 1 tablet by mouth Daily, Disp: 28 tablet, Rfl: 12 hydrOXYzine HCl (Atarax) 10 MG tablet, Take 1 tablet (10 mg) by mouth every 8 (eight) hours if needed for anxiety for up to 20 doses, Disp: 20 tablet, Rfl: 0 venlafaxine XR (Effexor XR) 37.5 MG 24 hr capsule, Take 1 capsule (37.5 mg) by mouth Daily Do not crush or chew., Disp: 30 capsule, Rfl: 1 documented in this encounter [facility] 02-23-2025 History of Presen t illness Narrative Images from the original note were not included. HPI: Kath Wallace is a 19 y.o. female with a history of social anxiety and depression. Patient is here today for follow-up. At patient's last visit on 01/17/25, her Effexor was restarted and Wellbutrin dose was decreased. She states that these changes have been okay. She states she has not used the Hydroxyzine at all because it makes her tired. She continues to see Chet on a regular basis for counseling. She has not followed up with PCP regarding her elevated HR. She is otherwise asymptomatic at this time. She denies any caffeine intake or drug use. She denies any history of heart problems both personally and in her family. SUBJECTIVE: PAST MEDICAL HISTORY: Past Medical History: Diagnosis Date Anxiety Depression (CMS/[facility]) Headache History of febrile seizure as an Pelvic pain in female 10/2021 miscarraige Scoliosis Seizures (CMS/[facility]) MEDICATIONS: Current Outpatient Medications Medication Instructions buPROPion XL (WELLBUTRIN XL) 150 mg, Oral, Every morning, Do not crush, chew, or split. cholecalciferol (VITAMIN D-3) 1,000 Units, Daily desogestrel-ethinyl estradiol (Apri) 0.15-30 MG-MCG tablet 1 tablet, Oral, Daily hydrOXYzine HCl (ATARAX) 10 mg, Oral, Every 8 hours PRN venlafaxine XR (EFFEXOR XR) 37.5 mg, Oral, Daily, Do not crush or chew. ALLERGIES: Allergies Allergen Reactions Abilify [Aripiprazole] Dizziness nausea Amoxicillin Hives Sulfa Antibiotics Unknown SURGICAL HISTORY: No past surgical history on file. FAMILY HISTORY: Family History Problem Relation Name Age of Onset Depression Mother Nany Anxiety disorder Mother Nany Depression Father Jeff Drug abuse Father Jeff Depression Sister [place] Anxiety disorder Sister [place] ADD / ADHD Sister [place] Hypertension Maternal Grandfather Alcohol abuse Maternal Grandfather Mental illness Maternal Grandmother Scoliosis Maternal Grandmother Alcohol abuse Paternal Grandfather Art Hypertension Paternal Grandfather Art Mental illness Paternal Grandfather Art No Known Problems Half-Brother Schizophrenia Maternal Great-Grandmother Bipolar disorder Maternal Great-Grandmother SOCIAL HISTORY: Social History Tobacco Use Smoking status: Every Day Passive exposure: Never Smokeless tobacco: Never Tobacco comments: Vape everday Vaping Use Vaping status: Every Day Substances: Nicotine Devices: Disposable Passive vaping exposure: Yes Substance Use Topics Alcohol use: Never Comment: Caffeine intake: half cup pop or coffee daily Drug use: Not Currently Types: Marijuana Patient Care Team: Wendy Nevarez DO as PCP - General (Family Medicine) SHIRA Myers- as Nurse Practitioner (Behavioral Health) Preet Womack DO as Cigar Head Stringer (Obstetrics and Gynecology) Chet Reynolds LPC as Network Support Technician (Behavioral Health) PSYCHIATRIC REVIEW OF SYMPTOMS AND MENTAL STATUS EXAM ROS: Patient denies fatigue, malaise, night sweats, weight loss, weight gain, cough, SOB, chest pain, insomnia, dysphagia, abdominal pain, N/V/D, pruritus, rash, headache, dizziness, seizures, tremors, headache. Appearance Appearance: Normal grooming and hygiene. Appears stated age. Dressed appropriately for weather. Behavior Calm, cooperative, pleasant. Good posture. Psychomotor Activity Intact. No abnormal movements noted. Eye contact Good Speech Normal, clear, regular rate, rhythm and volume Affect Full range. Stable. Appropriate and congruent with mood. Mood Anxious Thought Process Organized, logical, and goal directed Thought Content: Denies suicidal and homicidal ideation. Perception: Denies auditory or visual hallucinations. No evidence of delusions. Denies derealization and depersonalization. Cognition Alert and attentive during visit Memory Immediate, recent and remote memory intact Insight Fair Judgement Fair OBJECTIVE: Visit Vitals BP 82/62 (BP Location: Right arm, Patient Position: Sitting) Pulse (!) 134 Wt 105 lb BMI 16.95 kg/m OB Status Having periods Smoking Status Every Day BSA 1.49 m Lab Results Component Value Date TSH 0.47 09/30/2024 Lab Results Component Value Date GLU 96 09/30/2024 CALCIUM 9.4 09/30/2024 NA 137 09/30/2024 K 3.5 09/30/2024 CO2 27 09/30/2024 CL 100 09/30/2024 BUN 13 09/30/2024 CREATININE 0.74 09/30/2024 Lab Results Component Value Date WBC 6.2 09/30/2024 HGB 13.9 09/30/2024 HCT 41.9 09/30/2024 MCV 90.9 09/30/2024 PLT 289 09/30/2024 09/30/24 - Vitamin D (45) ASSESSMENT AND PLAN: Impression: Her HR continues to be elevated despite decreasing dose of Effexor. She has been advised at many prior visits to follow-up with PCP to get this checked out. She has not done so and was encouraged to as soon as possible. She was encouraged to go to the ER if she develops any worsening symptoms. At this time, we have agreed that she needs to get heart rate checked out first before making any medication adjustments. Will consider weaning off Wellbutrin in the future as this can increase anxiety. Can consider trying Sertraline again as she had only been on low dose of 50 mg previously, or Paxil for her anxiety. Assessment/Plan Diagnoses and all orders for this visit: Moderate episode of recurrent major depressive disorder (CMS/HCC) Social anxiety disorder (CMS/HCC) Treatment Plan/Recommendations: - Continue Effexor 37.5 mg daily for anxiety and depression - Continue Hydroxyzine 10 mg q8h PRN for anxiety. - Continue Wellbutrin 150 mg daily due to side effects. - Follow-up with PCP regarding history of elevated HR. - Continue counseling for additional mental health support and treatment. - Call office when you have a follow-up appointment with PCP. We will schedule to see you 1 month after seeing PCP. Discussed any medication changes and follow-up plan with patient. Encouraged patient to call office sooner if symptoms worsen or if any questions/concerns arise. Patient was seen Face to Face, Total time spent with patient was 20 minutes, which includes reviewing chart documents, previous notes/records, counseling and discussion with patient and/or coordination of care as described above. documented in this encounter [facility] 02-01-2025 History of Presen t illness Narrative Images from the original note were not included. Subjective Patient ID: Kath Wallace is a 19 y.o. female who presents for back pain (Pt states that is she in office to see if her scoliosis has gotten worse. Pt states that her back is hurting a lot. Pt states her back started to hurt more after she had her baby. Pt states that she did get an epidural. ). Back Pain This is a chronic problem. The current episode started more than 1 year ago. The problem occurs constantly. The problem has been waxing and waning since onset. The pain is present in the thoracic spine and lumbar spine. The quality of the pain is described as aching and shooting. The pain radiates to the left thigh and right thigh. The pain is The same all the time. The symptoms are aggravated by bending. Associated symptoms include leg pain. Pertinent negatives include no chest pain, fever, numbness, paresthesias or tingling. She has tried NSAIDs for the symptoms. The treatment provided moderate relief. Review of Systems Constitutional: Negative for chills and fever. Respiratory: Negative for shortness of breath. Cardiovascular: Negative for chest pain. Gastrointestinal: Negative for diarrhea, nausea and vomiting. Musculoskeletal: Positive for back pain. Negative for myalgias. Skin: Negative for rash. Neurological: Negative for tingling, numbness and paresthesias. All other systems reviewed and are negative. Objective Visit Vitals BP 108/62 Pulse (!) 115 Temp 98 F Ht 5' 6 Wt 108 lb 12.8 oz SpO2 98% BMI 17.56 kg/m OB Status Having periods Smoking Status Every Day BSA 1.52 m Physical Exam Constitutional: General: She is not in acute distress. Appearance: Normal appearance. HENT: Head: Normocephalic and atraumatic. Mouth/Throat: Mouth: Mucous membranes are moist. Cardiovascular: Rate and Rhythm: Normal rate and regular rhythm. Pulses: Normal pulses. Heart sounds: No murmur heard. No friction rub. No gallop. Pulmonary: Effort: No respiratory distress. Breath sounds: Normal breath sounds. No wheezing, rhonchi or rales. Musculoskeletal: Thoracic back: No bony tenderness. Scoliosis (mild) present. Lumbar back: Spasms and tenderness (right-sided) present. No bony tenderness. Scoliosis (mild) present. Skin: General: Skin is warm and dry. Findings: No rash. Neurological: General: No focal deficit present. Mental Status: She is alert and oriented to person, place, and time. Psychiatric: Mood and Affect: Mood normal. Behavior: Behavior normal. Judgment: Judgment normal. Assessment/Plan Diagnoses and all orders for this visit: Lumbar back pain - XR scoliosis 1 view; Future Scoliosis of thoracic spine, unspecified scoliosis type - XR scoliosis 1 view; Future NSAIDs recommended. Recommend heat therapy, gentle massage, and gentle range of motion/stretching exercises, as alternate modalities for pain reduction. Pt may need further evaluation, if their pain worsens or does not resolve. Pt should go to the Emergency Department if they experience loss of sensation in an extremity or hips, or if they lose control of their bowels or bladder function. All questions answered. Call with any other questions or concerns. documented in this encounter [facility] 02-01-2025 History of Presen t illness Narrative Reason for Appointment: Patient ID: Kath Wallace is a 19 y.o. female who presents for Follow-up Patient presents today for Medication Follow Up appointment. MEDICATIONS Current Outpatient Medications Medication Instructions buPROPion XL (WELLBUTRIN XL) 150 mg, Oral, Every morning, Do not crush, chew, or split. cholecalciferol (VITAMIN D-3) 1,000 Units, Daily desogestrel-ethinyl estradiol (Apri) 0.15-30 MG-MCG tablet 1 tablet, Oral, Daily hydrOXYzine HCl (ATARAX) 10 mg, Oral, Every 8 hours PRN venlafaxine XR (EFFEXOR XR) 37.5 mg, Oral, Daily, Do not crush or chew. 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/2024 Resolved Ambulatory Problems Diagnosis Date Noted Anxiety with depression 06/02/2023 Other specified noninflammatory disorders of vagina 06/02/2023 Pain in female pelvis 06/02/2023 Anxiety Past Medical History: Diagnosis Date Depression (CMS/HCC) Headache History of febrile seizure Pelvic pain in female 10/2021 Scoliosis Seizures ([facility]) HISTORY PAST MEDICAL HISTORY SOCIAL HISTORY Past Medical History: Diagnosis Date Anxiety Depression ([facility]) Headache History of febrile seizure as an Pelvic pain in female 10/2021 miscarraige Scoliosis Seizures ([facility]) Social History Tobacco Use Smoking status: Every Day Passive exposure: Never Smokeless tobacco: Never Tobacco comments: Vape everday Vaping Use Vaping status: Every Day Substances: Nicotine Devices: Disposable Passive vaping exposure: Yes Substance Use Topics Alcohol use: Never Comment: Caffeine intake: half cup pop or coffee daily Drug use: Not Currently Types: Marijuana FAMILY HISTORY Family History Problem Relation Name Age of Onset Depression Mother Nany Anxiety disorder Mother Nany Depression Father Jeff Drug abuse Father Jeff Depression Sister [place] Anxiety disorder Sister [place] ADD / ADHD Sister [place] Hypertension Maternal Grandfather Alcohol abuse Maternal Grandfather Mental illness Maternal Grandmother Scoliosis Maternal Grandmother Alcohol abuse Paternal Grandfather Art Hypertension Paternal Grandfather Art Mental illness Paternal Grandfather Art No Known Problems Half-Brother Schizophrenia Maternal Great-Grandmother Bipolar disorder Maternal Great-Grandmother SURGICAL HISTORY No past surgical history on file. REVIEW OF SYSTEMS Review of Systems: Review of Systems Constitutional: Negative. HENT: Negative. Eyes: Negative. Respiratory: Negative. Cardiovascular: Negative. Gastrointestinal: Negative. Genitourinary: Negative. Musculoskeletal: Negative. Skin: Negative. Neurological: Negative. All other systems reviewed and are negative. Hematological: Negative. Endocrine: Negative. Allergic/Immunologic: Negative. OBJECTIVE Objective: Physical Exam Constitutional: Appearance: Normal appearance. She is normal weight. HENT: Head: Normocephalic. Cardiovascular: Rate and Rhythm: Normal rate. Pulses: Normal pulses. Pulmonary: Effort: Pulmonary effort is normal. Breath sounds: Normal breath sounds. Abdominal: Palpations: Abdomen is soft. Musculoskeletal: General: Normal range of motion. Neurological: General: No focal deficit present. Mental Status: She is alert and oriented to person, place, and time. Psychiatric: Mood and Affect: Mood normal. Behavior: Behavior normal. Thought Content: Thought content normal. Judgment: Judgment normal. Vitals and nursing note reviewed. Vitals: Estimated body mass index is 17.56 kg/m as calculated from the following: Height as of 06/03/23: 5' 6 . Weight as of this encounter: 108 lb 12.8 oz. BP: 110/68 No LMP recorded. ASSESSMENT & PLAN ICD-10-CM 1. BV (bacterial vaginosis) N76.0 azithromycin (Zithromax) 500 MG tablet B96.89 Patient here for medication follow up and states she did not tolerate previous medications. She states symptoms did improve but have returned. She did not want cultures today. 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 Patient agrees with plan of care Documented by MANNY Grvaes on behalf of: MANNY Graves documented in this encounter [facility] 01-17-2025 History of Presen t illness Narrative Images from the original note were not included. HPI: Kath Wallace is a 19 y.o. female with a history of social anxiety and depression. Patient is here today for follow-up via telehealth. Location of patient: Home; located in [place] Location of provider: Office; located in [place], [place] Patient seen via: [employer] Telehealth; audio and video utilized Reason for televisit: Transportation issues Total time spent with patient: 20 minutes Did patient gave verbal consent for today's visit? Yes Patient requested appointment today due to having issues since last appointment. At patient's last visit on 12/22/24, her Effexor was continued for 2 weeks then she was to stop medication. Her Wellbutrin was also increased to 300 mg. She states she isn't sure if it is the Effexor causing it, the Wellbutrin, or a combination of the two. She states that she has noticed herself lashing out more with these changes. She states she has noticed dizziness, shakiness, and nausea for the past couple of weeks. She states it feels like symptoms are consistent with coming off of an antidepressant. She states that her symptoms did improve when we increased the Effexor dose back up last time and kept her on a dose longer. She did go to the ER at [facility] on 01/09 for cold and flu-like symptoms. She was diagnosed with a viral illness and feels that these symptoms are better. She states she has not used the Hydroxyzine at all. She continues to see [facility] on a regular basis for counseling. SUBJECTIVE: PAST MEDICAL HISTORY: Past Medical History: Diagnosis Date Anxiety Depression ([facility]) Headache History of febrile seizure as an infant Pelvic pain in female 10/2021 miscarraige Scoliosis MEDICATIONS: Current Outpatient Medications Medication Instructions benzonatate (TESSALON) 100 mg, Every 8 hours buPROPion XL (WELLBUTRIN XL) 300 mg, Oral, Every morning, Do not crush, chew, or split. cholecalciferol (VITAMIN D-3) 1,000 Units, Daily desogestrel-ethinyl estradiol (Apri) 0.15-30 MG-MCG tablet 1 tablet, Oral, Daily fluticasone (Flonase) 50 MCG/ACT nasal spray 1 spray, Daily RT hydrOXYzine HCl (ATARAX) 10 mg, Oral, Every 8 hours PRN ALLERGIES: Allergies Allergen Reactions Abilify [Aripiprazole] Dizziness [...] daily Drug use: Not Currently Types: Marijuana Patient Care Team: Wendy Nevarez DO as PCP - General (Family Medicine) NESSA Myers as Nurse Practitioner (Behavioral Health) Preet Womack DO as Cigar Head Stringer (Obstetrics and Gynecology) Chet Reynolds LPC as Network Support Technician (Behavioral Health) PSYCHIATRIC REVIEW OF SYMPTOMS AND MENTAL STATUS EXAM ROS: Patient denies fatigue, malaise, night sweats, weight loss, weight gain, cough, SOB, palpitations, chest pain, insomnia, dysphagia, abdominal pain, N/V/D, pruritus, rash, headache, dizziness, seizures, tremors, headache. Appearance Appearance: Normal grooming and hygiene. Appears stated age. Dressed appropriately for weather. Behavior Calm, cooperative, pleasant. Good posture. Psychomotor Activity Intact. No abnormal movements noted. Eye contact Good Speech Normal, clear, regular rate, rhythm and volume Affect Full range. Stable. Appropriate and congruent with mood. Mood Anxious, Depressed, and Irritable Thought Process Organized, logical, and goal directed Thought Content: Denies suicidal and homicidal ideation. Perception: Denies auditory or visual hallucinations. No evidence of delusions. Denies derealization and depersonalization. Cognition Alert and attentive during visit Memory Immediate, recent and remote memory intact Insight Good. Acknowledges predominant symptoms of illness and need for treatment Judgement Good. Able to make reasonable life decisions. OBJECTIVE: Visit Vitals OB Status Having periods Smoking Status Never Lab Results Component Value Date TSH 0.47 [...] 45 ASSESSMENT AND PLAN: Impression: She reports irritability in mood since being off the Effexor. She felt that Effexor was controlling this better and desires to restart medication. She is also wanting to decrease Wellbutrin dose due to concerns for side effects. Discussed having her HR rechecked by PCP due to history of tachycardia. Can consider trying Sertraline again as she had only been on low dose of 50 mg previously, or Paxil for her anxiety if she continues to have elevated HR. Assessment/Plan Diagnoses and all orders for this visit: Moderate episode of recurrent major depressive disorder (CMS/HCC) Social anxiety disorder (CMS/HCC) Treatment Plan/Recommendations: - Restart Effexor 37.5 mg daily for anxiety and depression - Continue Hydroxyzine 10 mg q8h PRN for anxiety. - Decrease Wellbutrin to 150 mg daily due to side effects. - Follow-up with PCP regarding history of elevated HR. - Continue counseling for additional mental health support and treatment. - RTC in 56 weeks. Discussed any medication changes and follow-up plan with patient. Encouraged patient to call office sooner if symptoms worsen or if any questions/concerns arise. Patient was seen Televisit - Audio and Visual, Total time spent with patient was 20 minutes, which includes reviewing chart documents, previous notes/records, counseling and discussion with patient and/or coordination of care as described above. documented in this encounter [facility] 12-22-2024 History of Presen t illness Narrative Images from the original note were not included. HPI: Kath Wallace is a 19 y.o. female with a history of social anxiety and depression. Patient is here today for follow-up via telehealth. Location of patient: Home; located in [place] Location of provider: Office; located in [facility] Patient seen via: [employer] Tele[facility]; audio and video utilized Reason for televisit: Transportation issues; patient states she got lost on her way to appointment. Total time spent with patient: 12 minutes Did patient gave verbal consent for today's visit? Yes At patient's last visit on 11/24/24, she was to titrate off her Effexor and stop the Propranolol. She had reported problems with going off the Effexor once she hit the 37.5 mg dosage so this was adjusted to help with these side effects. She states she has been taking the 37.5 mg for the past 4-5 days. She states it is going okay and has had occasional dizzy spells. She continues to want to get off this medication. She continues to have depression and anxiety. She feels her depression is related to her environment and stress with this. She is also having anxiety in mostly social situations. She was also given PRN Hydroxyzine for her anxiety. She states that she has taken this a few times but makes her tired. She continues to see [facility] on a regular basis for counseling. SUBJECTIVE: PAST MEDICAL HISTORY: Past Medical History: Diagnosis Date Anxiety Depression ([facility]) Headache History of febrile seizure as an Pelvic pain in female 10/2021 miscarraige Scoliosis MEDICATIONS: Current Outpatient Medications Medication Instructions azithromycin (Zithromax) 500 MG tablet Day 1: Take 2 tablets PO onetime dose; Day 2,3,4: Take 1 tablet daily buPROPion XL (WELLBUTRIN XL) 300 mg, Oral, Every morning, Do not crush, chew, or split. cholecalciferol (VITAMIN D-3) 1,000 Units, Daily desogestrel-ethinyl estradiol (Apri) 0.15-30 MG-MCG tablet 1 tablet, Oral, Daily doxycycline (VIBRAMYCIN) 100 mg, Oral, 2 times daily, Take with at least 8 ounces (large glass) of water, do not lie down for 30 minutes after hydrOXYzine HCl (ATARAX) 10 mg, Oral, Every 8 hours PRN moxifloxacin (AVELOX) 400 mg, Oral, Daily, start medication AFTER completing course of Doxycycline & Azithromycin. venlafaxine XR (Effexor XR) 37.5 MG 24 hr capsule Take 2 capsules (75 mg) by mouth Daily for 7 days, THEN 1 capsule (37.5 mg) Daily for 14 days. Do not crush or chew.. ALLERGIES: [...] daily Drug use: Not Currently Types: Marijuana Patient Care Team: Wendy Nevarez DO as PCP - General (Family Medicine) [facility]) Preet Womack DO as Cigar Head Stringer (Obstetrics and Gynecology) Chet Reynolds LPC as Network Support Technician (Behavioral Health) PSYCHIATRIC REVIEW OF SYMPTOMS AND MENTAL STATUS EXAM ROS: Patient denies fatigue, malaise, night sweats, weight loss, weight gain, cough, SOB, palpitations, chest pain, insomnia, dysphagia, abdominal pain, N/V/D, pruritus, rash, headache, dizziness, seizures, tremors, headache. Appearance Appearance: Normal grooming and hygiene. Appears stated age. Dressed appropriately for weather. Behavior Calm, cooperative, pleasant. Good posture. Psychomotor Activity Intact. No abnormal movements noted. Eye contact Good Speech Normal, clear, regular rate, rhythm and volume Affect Full range. Stable. Appropriate and congruent with mood. Mood Anxious and Depressed Thought Process Organized, logical, and goal directed Thought Content: Denies suicidal and homicidal ideation. Perception: Denies auditory or visual hallucinations. No evidence of delusions. Denies derealization and depersonalization. Cognition Alert and attentive during visit Memory Immediate, recent and remote memory intact Insight Good. Acknowledges predominant symptoms of illness and need for treatment Judgement Good. Able to make reasonable life decisions. OBJECTIVE: Visit Vitals OB Status Having periods Smoking Status Never Lab Results Component Value Date TSH 0.47 [...] in her symptoms since last visit. She continues to have symptoms of depression, as well as social anxiety. She admits that a lot of this is likely situational and due to her environment. Discussed possible cardiac causes versus being medication-induced from the Effexor as it appears her HR elevation started after starting this medication. Patient agreeable to continue to titrate off Effexor. She desires to increase Wellbutrin to see if this helps with her depression. Will recheck HR at next in-person appointment once she is off Effexor. If HR remains elevated off Effexor, discussed [...] disorder (CMS/HCC) Treatment Plan/Recommendations: - Continue Effexor 37.5 mg for a total of 2 weeks then stop medication. - Start Hydroxyzine 10 mg q8h PRN for anxiety. - Increase Wellbutrin XL 300 mg for depression. - Continue counseling additional mental health support and treatment - RTC in 4-6 weeks. Discussed any medication changes and follow-up plan with patient. Encouraged patient to call office sooner if symptoms worsen or if any questions/concerns arise. Patient was seen Face to Face, Total time spent with patient was 12 minutes, which includes reviewing chart documents, previous notes/records, counseling and discussion with patient and/or coordination of care as described above. documented in this encounter [facility] 12-10-2024 History of Presen t illness Narrative Rx for effexor sent documented in this encounter [facility] 12-08-2024 History of Presen t illness Narrative Reason for Appointment: Patient ID: Kath Wallace is a 19 y.o. female who presents for BV and Well Women Visit Patient presents today for Annual Exam. MEDICATIONS Current Outpatient Medications Medication Instructions buPROPion XL (WELLBUTRIN XL) 150 mg, Oral, Every morning, Do not crush, chew, or split. cholecalciferol (VITAMIN D-3) 1,000 Units, Daily desogestrel-ethinyl estradiol (Apri) 0.15-30 MG-MCG tablet 1 tablet, Oral, Daily hydrOXYzine HCl (ATARAX) 10 mg, Oral, Every 8 hours PRN venlafaxine XR (Effexor XR) 37.5 MG 24 hr capsule Take 2 capsules (75 mg) by mouth Daily for 7 days, THEN 1 capsule (37.5 mg) Daily for 7 days. Do not crush or chew.. ALLERGIES Allergies Allergen Reactions Abilify [Aripiprazole] Dizziness nausea Amoxicillin Hives Sulfa Antibiotics Unknown PROBLEMS Active Ambulatory Problems Diagnosis Date Noted Scoliosis of thoracic spine 06/02/2023 Moderate episode of recurrent major depressive disorder ([facility]) 08/18/2024 Social anxiety disorder ([facility]) 09/15/2024 Resolved Ambulatory Problems Diagnosis Date Noted Anxiety with depression 06/02/2023 Other specified noninflammatory disorders of vagina 06/02/2023 Pain in female pelvis 06/02/2023 Anxiety Past Medical History: Diagnosis Date Depression ([facility]) Headache History of febrile seizure Pelvic pain in female 10/2021 Scoliosis HISTORY PAST MEDICAL HISTORY SOCIAL HISTORY Past Medical History: Diagnosis Date Anxiety Depression ([facility]) Headache History of febrile seizure as an infant Pelvic pain in female 10/2021 miscarraige Scoliosis Social History Tobacco Use Smoking status: Never Passive exposure: Never Smokeless tobacco: Never Vaping Use Vaping status: Every Day Substances: Nicotine Devices: Disposable Passive vaping exposure: Yes Substance Use Topics Alcohol use: Never Comment: Caffeine intake: half cup pop or coffee daily Drug use: Not Currently Types: Marijuana FAMILY HISTORY Family History Problem Relation Name Age of Onset Depression Mother Anxiety disorder Mother Depression Father Drug abuse Father Depression Sister Anxiety disorder Sister ADD / ADHD Sister Hypertension Maternal Grandfather Alcohol abuse Maternal Grandfather Mental illness Maternal Grandmother Scoliosis Maternal Grandmother Alcohol abuse Paternal Grandfather Hypertension Paternal Grandfather Mental illness Paternal Grandfather No Known Problems Half-Brother Schizophrenia Maternal Great-Grandmother Bipolar disorder Maternal Great-Grandmother SURGICAL HISTORY History reviewed. No pertinent surgical history. REVIEW OF SYSTEMS Review of Systems: Review of Systems Constitutional: Negative. HENT: Negative. Eyes: Negative. Respiratory: Negative. Cardiovascular: Negative. Gastrointestinal: Negative. Genitourinary: Negative. Musculoskeletal: Negative. Skin: Negative. Neurological: Negative. All other systems reviewed and are negative. Hematological: Negative. Endocrine: Negative. Allergic/Immunologic: Negative. OBJECTIVE Objective: Physical Exam Constitutional: Appearance: Normal appearance. She is well-developed. Genitourinary: Vulva normal. Right Adnexa: not tender and no mass present. Left Adnexa: not tender and no mass present. No cervical discharge. Breasts: Breasts are soft. Right: Normal. Left: Normal. HENT: Head: Normocephalic. Nose: Nose normal. Mouth/Throat: Mouth: Mucous membranes are moist. Cardiovascular: Rate and Rhythm: Normal rate and regular rhythm. Pulmonary: Effort: Pulmonary effort is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 [place] [address] [place] [phone] Nurse Practitioner Behavioral Health 08/18/24 Preet Womack DO [address] [place] [phone] Workers Compensation Claims Assistant/Gynecolog ist Obstetrics and Gynecology 08/18/24 Chet Reynolds [employer] Network Support Technician Behavioral Health 11/24/24 Director Of Assessment Relationship Specialty Start Date End Date Wendy Nevarez DO [address] [place] [address] [place] [address] PCP - General Family Medicine 12/01/23 [facility] [address] [place] [address] [place] [phone] Nurse Practitioner Behavioral Health 08/18/24 Preet Womack DO [address] [place] [address] Workers Compensation Claims Assistant/Gynecolog ist Obstetrics and Gynecology 08/18/24 Chet Reynolds [employer] Network Support Technician Behavioral Health 11/24/24 Director Of Assessment Relationship Specialty Start Date End Date Wendy Nevarez DO [address] [place] [address] [place] [address] PCP - General Family Medicine 12/01/[address] [facility] [address] [address] [place] [address] Nurse Practitioner Behavioral Health 08/18/24 Preet Womack DO [address] [place] [phone] Workers Compensation Claims Assistant/Gynecolog ist Obstetrics and Gynecology 08/18/24 Chet Reynolds [employer] Network Support Technician Behavioral Health 11/24/24 Director Of Assessment Relationship Specialty Start Date End Date Wendy Nevarez DO [address] [place] [address] [place] [address] PCP - General Family Medicine 12/01/23 [facility] [address] [address] [place] [address] Nurse Practitioner Behavioral Health 08/18/24 Preet Womack DO [address] [place] [address] Workers Compensation Claims Assistant/Gynecolog ist Obstetrics and Gynecology 08/18/24 Chet Reynolds [employer] Network Support Technician Behavioral Health 11/24/24 Director Of Assessment Relationship Specialty Start Date End Date Wendy Nevarez DO [address] [place] [address] [place] [address] PCP - General Family Medicine 12/01/[address] [facility] [address] [facility] [address] [place] [address] Nurse Practitioner Behavioral Health 08/18/24 Preet Womack DO [address] [place] [address] Workers Compensation Claims Assistant/Gynecolog ist Obstetrics and Gynecology 08/18/24 Chet Reynolds [employer] Network Support Technician Behavioral Health 11/24/24 FOR RECORDS PERTAINING TO [...] BE BASED ON THE PRIMARY CLINICAL RECORDS. [facility] [employer] [facility]. provides no warranty or guarantee of the accuracy or completeness of information in this document.
--- NOTE | 2025-03-30 13:00 | ECG_ITS ---
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 Measurements Intervals [place] Rate: 76 P: 80 WI: 145 QRS: 78 QRSD: 80 T: 57 QT: 354 QTc: 400 Interpretive Statements SINUS RHYTHM WITH SINUS ARRHYTHMIA POSSIBLE RIGHT VENTRICULAR CONDUCTION DELAY [RSR (QR) IN V1/V2] Compared to ECG 12/30/2023 00:24:54 ST (T wave) deviation no longer present Heart rate has decreased by 76 BPM Electronically Signed On 03-30-2025 17:29:58 EDT by WENDY ORTEZ M.D.
[2025-03-30 13:05] LABS: Basophils Absolute Auto 0.1 10^3/uL (0.0-0.1); Basophils Percent Auto 0.8 % (0.2-2.0); Eosinophils Absolute Auto 0.1 10^3/uL (0.0-0.7); Eosinophils Percent Auto 1.1 % (0.9-7.0); Hemoglobin 13.3 g/dL (12.0-16.0); Immature Granulocytes Abs Auto 0.01 10^3/uL (0.00-0.03); Immature Granulocytes Pct Auto 0.2 % (0.0-0.5); Lymphocytes Absolute Auto 1.9 10^3/uL (1.2-3.8); Lymphocytes Percent Auto 28.6 % (20.5-60.0); Mean Corpuscular HGB Conc 34.1 g/dL (29.9-35.2); Mean Corpuscular Hemoglobin 30.5 pg (26.7-34.0); Mean Corpuscular Volume 89.4 fL (81.0-99.0); Mean Platelet Volume 8.7 fL (9.5-13.5); Monocytes Absolute Auto 0.5 10^3/uL (0.3-0.8); Monocytes Percent Auto 7.2 % (1.7-12.0); Neutrophils Absolute Auto 4.1 10^3/uL (1.4-6.5); Neutrophils Percent Auto 62.1 % (43.0-75.0); Platelet Count 223 10^3/uL (150-450); Red Blood Count 4.36 10^6/uL (4.20-5.40); Red Cell Distribution Width 11.1 % (11.0-15.0); White Blood Count 6.6 10^3/uL (4.0-11.0)
[2025-03-30 13:52] LABS: Alanine Aminotransferase 16 U/L (14-59); Albumin Globulin Ratio 1.1; Albumin Level 3.7 g/dL (3.4-5.0); Alkaline Phosphatase 52 U/L (46-116); Anion Gap 11.8; Aspartate Amino Transferase 15 U/L (15-37); BUN Creatinine Ratio 22.9; Bilirubin Total 0.4 mg/dL (0.2-1.0); Calcium 9.1 mg/dL (8.5-10.1); Carbon Dioxide 28.1 mmol/L (21.0-32.0); Chloride 103 mmol/L (98-107); Estimated GFR (African America >60 (>=60 mL/min/1.73m^2); Estimated GFR (Non-African Ame >60 (>=60 mL/min/1.73m^2); Globulin 3.4 g/dL; Glucose 98 mg/dL (74-106); Potassium 3.9 mmol/L (3.5-5.1); Sodium 139 mmol/L (136-145); Thyroid Stimulating Hormone 0.519 uIU/mL (0.358-3.740); Total Protein 7.1 g/dL (6.4-8.2)
== END 2025-03-30 12:39 | disposition home or self-care (01) ==
PROVIDERS: PCP Family Medicine; Visit Provider Family Medicine
DX: R00.0 Tachycardia, unspecified (principal); F41.9 Anxiety disorder, unspecified; F40.10 Social phobia, unspecified; R53.83 Other fatigue
CPT/HCPCS: 36415; 80053; 84443; 85025; 93005

== ENCOUNTER 2025-06-01 09:58 | Outpatient (OUT) | payer MEDICAID, SELFPAY ==
--- OUTSIDE RECORDS SUMMARY | 2025-05-18 11:00 | XMS_ITS | Encounter Summary ---
Author Organization [facility] Address [address] [place] [address] Care Team Providers Care Milling/Polishing Operator Name Role Phone AugustinefelizJose DO Primary Care Provider Cece Rome PMHNP-BC Unavailable Preet Womack DO Unavailable Chet Davis LPC Unavailable Unavailable Estefani Bullock MD Unavailable [phone] Reason for Visit * Reason Comments Follow-up Med Management Depression Bipolar Anxiety Encounter Details Date Type Department Care Team (Late st Contact Info) Description 05/18/2025 11:00 AM EDT Telemedicine [facility] [address] [place] [phone] Cece Rome HNP- [address] [place] [phone] Moderate episode of recurrent major depressive disorder (HCC); Social anxiety disorder Social History Tobacco Use Types Packs/Day Years Used Date Smoking Tobacco: Every Day Passive Smoke Exposure: Never Smokeless Tobacco: Never Comments:Vape everday Alcohol Use Standard Drinks/Week Comments Never 0 (1 standard drink = 0.6 oz pure alcohol) Caffeine intake: half cup pop or coffee daily Social Connection and Isolat ion Panel [NHANES] Answer Date Recorded In a typical week, how many times do you talk on the phone with family, friends, or neighbors? Twice a week 06/29/2024 How often do you get togethe r with friends or relatives? Once a week 06/29/2024 How often do you attend chur or scientology services? More than 4 times per year 06/29/2024 Do you belong to any clubs o r organizations such as christian groups, unions, fraternal or athletic groups, or school groups? No 06/29/2024 How often do you attend meet ings of the clubs or organizations you belong to? Never 06/29/2024 Are you , , di vorced, , never , or living with a partner? Never 06/29/2024 AUDIT-C Answer Date Recorded Q1: How often do you have a drink containing alcohol? Never 06/29/2024 Q2: How many drinks containi ng alcohol do you have on a typical day when you are drinking? Patient does not drink Q3: How often do you have si x or more drinks on one occasion? Never 06/29/2024 Overall Financial Resource Strain (CARDIA) Answe r Date Recorded How hard is it for you to pa y for the very basics like food, housing, medical care, and heating? Not very hard 06/29/2024 PHQ-2 Answer Date Recorded Patient Health Questionnaire-2 Score 0 03/02/2025 [facility]ational Stress Questionnaire Answer Date Recorded Do you feel stress - tense, restless, nervous, or anxious, or unable to sleep at night because your mind is troubled all the time - these days? Rather much 06/29/2024 Exercise Vital Sign Answer Date Recorde d On average, how many days pe r week do you engage in moderate to strenuous exercise (like a brisk walk)? 4 days 06/29/2024 On average, how many minutes do you engage in exercise at this level? 60 min 06/29/2024 Hunger Vital Sign Answer Date Recorded Within the past 12 months, y ou worried that your food would run out before you got the money to buy more. Never true 06/29/20 24 Within the past 12 months, t he food you bought just didn't last and you didn't have money to get more. Never true 06/29/2024 PRAPARE - Transportation Answer Date Re corded In the past 12 months, has l ack of transportation kept you from medical appointments or from getting medications? Yes 06/20 In the past 12 months, has l ack of transportation kept you from meetings, work, or from getting things needed for daily living? No 06/29/2024 Housing Stability Vital Sign Answer Brendan e Recorded In the last 12 months, was t here a time when you were not able to pay the mortgage or rent on time? No 06/29/2024 In the past 12 months, how m any times have you moved where you were living? 1 06/29/2024 At any time in the past 12 m [facility], were you homeless or living in a nursing home (including now)? No 06/29/2024 Education Answer Date Recorded What is the highest level of school you have completed or the highest degree you have received? Some college, no degree 08/18/2024 Comments No Sex and Gender Information Value Date Recorded Sex Assigned at Not on file Legal Sex Female 7:00 PM EDT Gender Identity Female 01/01/2023 7:00 PM EDT Sexual Orientation Not on file Occupation Industry Job Start Date Job End Date Not on file Not on file Not on file Not on file Not on file Not on file Not on file Not on file documented as of this encounter Progress Notes * Cece Rome, PMHNP-BC - 05/18/2025 11:00 AM EDT Images from the original note were not included. HPI: Kath Wallace is a 19 y.o. female with a history of social anxiety and depression. Patient is here today for follow-up via telehealth. Location of patient: Home; located in [place] Location of provider: Office; located in [place], [place] Patient seen via: [facility]; audio and video utilized Reason for televisit: Transportation issues; Convenience; Access to care Total time spent with patient: 13 minutes Did patient gave verbal consent for today's visit? Yes At patient's last visit on 04/13/25, her Effexor was titrated off and she was started on Paxil. She states her fiance relapsed recently and is seeking treatment for this. She has had some more stressors in regards to finances. 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 Patient saw Pediatric Genetic Counselor on 04/20/25 who recommended increasing fluid intake, avoid caffeine and alcohol, and increase salt intake. It was also recommended to check AM cortisol, get an echocardiogram, and do a 2 week event monitor. She states she has an appointment on June 01 for her echo and hernext follow-up is at the end of May. She states she is struggling at taking her Propranolol three times a day for her heart rate. She is on oral control for prevention. She continues to see [facility] on a regular basis for counseling. SUBJECTIVE: PAST MEDICAL HISTORY: Past Medical History: Diagnosis Date Anxiety Depression Headache History of febrile seizure as an Pelvic pain in female ([facility]) 10/2021 miscarraige Scoliosis Seizures ([facility]) MEDICATIONS: Current Outpatient Medications Medication Instructions Apri 0.15-30 MG-MCG tablet 1 tablet, Oral, Daily buPROPion XL (WELLBUTRIN XL) 150 mg, Oral, Every morning, Do not crush, chew, or split. cholecalciferol (VITAMIN D-3) 1,000 Units, Daily PARoxetine (PAXIL) 20 mg, Oral, Every morning propranolol (Inderal) 10 MG tablet TAKE 1 TABLET BY MOUTH IN THE MORNING, EVENING AND BEFORE BEDTIME venlafaxine XR (EFFEXOR XR) 37.5 mg, Oral, Every other day, Do not crush or chew. ALLERGIES: Allergies Allergen Reactions Abilify [Aripiprazole] Dizziness nausea Amoxicillin Hives Sulfa Antibiotics Unknown SURGICAL HISTORY: No past surgical history on file. FAMILY HISTORY: Family History Problem Relation Name Age of Onset Depression Mother Nany Anxiety disorder Mother Nany Depression Father Jeff Drug abuse Father Jeff Depression Sister [place] Anxiety disorder Sister [place] ADD / ADHD Sister [place] Hypertension Maternal Grandfather Alcohol abuse Maternal Grandfather [...] Not Currently Types: Marijuana Patient Care Team: Jose Nevarez DO as PCP - General (Family Medicine) BREONNA Myers as Nurse Practitioner (Behavioral Health) Preet Womack DO as Fryline Attendant (Obstetrics and Gynecology) Chet Davis LPC as Lavender Farm Worker (Behavioral Health) PSYCHIATRIC REVIEW OF SYMPTOMS AND [...] Status Having periods Smoking Status Every Day Lab Results Component Value Date TSH 0.47 09/30/2024 Lab Results Component Value Date GLU 98 03/30/2025 CALCIUM 9.1 03/30/2025 NA 139 03/30/2025 K 3.9 03/30/2025 CO2 28.1 03/30/2025 CL 100 09/30/2024 BUN 19.0 (H) 03/30/2025 CREATININE 0.83 03/30/2025 Lab Results Component Value Date WBC 6.2 09/30/2024 HGB 13.9 09/30/2024 HCT 41.9 09/30/2024 MCV 90.9 09/30/2024 PLT 289 09/30/2024 09/30/24 - Vitamin D (45) 03/30/25 - TSH (0.519) ASSESSMENT AND PLAN: Impression: She reports slight improvement in symptoms since switching to Paxil. She continues to follow with Pediatric Genetic Counselor regarding her tachycardia. We discussed increasing her Paxil for further symptom reduction regarding her anxiety. She is agreeable to this. She denies any chance of and has no plans for this in the future. She is on oral control. She is aware of potential risks with its use if she does become and agrees that benefits outweigh these risks. Patient made aware of my maternity leave this Fall, as well as coverage, plan for medication refills, and if any concerns arise. Assessment/Plan Diagnoses and all orders for this visit: Moderate episode of recurrent major depressive disorder (HCC) Social anxiety disorder Treatment Plan/Recommendations: - Continue Wellbutrin 150 mg daily due to side effects. - Increase Paxil to 30 mg daily for anxiety and depression. - Continue to follow with PCP and Cardiology for non-mental health needs. - Continue counseling for additional mental health support and treatment. Encouraged her to get in more frequently to help with her symptoms. - RTC in 4-6 weeks. Discussed any medication changes and follow-up plan with patient. Encouraged patient to call office sooner if symptoms worsen or if any questions/concerns arise. Patient was seen Televisit - Audio and Visual, Total time spent with patient was 13 minutes, which includes reviewing chart documents, previous notes/records, counseling and discussion with patient and/or coordination of care as described above. documented in this encounter Plan of Treatment Upcoming Encounters Date Type Department Care Team (Late st Contact Info) Description 06/02/2025 11:00 AM EDT Social Work [facility] [address] [facility] [address] [place] [address] Chet Davis LPC 06/22/2025 1:00 PM EDT Telemedicine [facility] [place] [facility] [address] [facility] [address] [place] [address] Cece Rome PMHNP-BC [address] [facility] [address] [place] [address] documented as of this encounter Visit Diagnoses Diagnosis Moderate episode of recurrent major depressive disorder (HCC) Social anxiety disorder Social phobia documented in this encounter Additional Health Concerns Assessment Noted Time PHQ-9 Depression Total Score: 11 04/02/ 023 11:36 AM EDT documented as of this encounter Care Teams Milling/Polishing Operator Relationship Specialty Start Date End Date Jose Nevarez DO [address] [place] [address] PCP - General Family Medicine 12/01/23 Cece Rome ESTHER- [address] [place] [address] Nurse Practitioner Behavioral Health 08/18/24 Preet Womack DO [address] [facility] [place] [address] Administrative Support Associate/Gynecolog ist Obstetrics and Gynecology 08/18/24 Chet Davis LPC Lavender Farm Worker Behavioral Health 11/24/24 Estefani Bullock MD [address] [place] [phone] Referring Physician Cardiology 05/15/25 documented as of this encounter
--- OUTSIDE RECORDS SUMMARY | 2025-05-25 13:30 | XMS_ITS | Encounter Summary ---
Author Organization [facility] Address [address] [place] [address] Care Team Providers Care Squad Leader Name Role Phone AugustinefelizJose DO Primary Care Provider Cece Rome PMHNP- Unavailable Preet Womack DO Unavailable Chet Davis LPC Unavailable Unavailable Estefani Bullock MD Unavailable [phone] Reason for Visit * Reason Comments Anxiety Depression Encounter Details Date Type Department Care Team (Late st Contact Info) Description 05/25/2025 1:30 PM EDT Social Work [facility] [address] [place] [phone] Chet Davis LPC Moderate episode of recurrent major depressive disorder [...] 06/29/2024 How often do you attend chur ch or voodoo services? More than 4 times per year 06/29/2024 Do you belong to any clubs o r organizations such as pentecostalism groups, unions, fraternal or athletic groups, or [...] Recorded Patient Health Questionnaire-2 Score 0 03/02/2025 [facility] - Occupational Stress Questionnaire Answer [...] any time in the past 12 m [facility], were you homeless or living in a fpc (including now)? 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 Client shared about getting recognized at work for 90 day perfect attendance. Client's mother is watching her son while she is working and does better with goodbyes when he is distracted. Client discussed her sister (Chyna, 13) is struggling with self- harm and that her and her boyfriend offer support to her. Clinician recommended counseling at [facility]. Client identified that in her family she feels scared to let people down and that she is the peacekeeper. Clinician and client discussed boundary setting, communicating how she feels, and being ableto recognize her needs. Client shared that her boyfriend's Grandma is a positive support and helps them financially at times. Clinician used reflective listening, support, and encouragement. Mental Health Status Exam Appearance: Well groomed, appropriate eye contact. Behavior: cooperative Affect: WNL Hallucination: no Judgement: Appropriate to age Knowledge: WNL Language: Appropriate to age Orientation: Appropriate to age Speech: Coherent and Regular rate, rhythm, volume and articulation Thought Associations: No loosening of associations Thought Process: Abstract reasoning appropriate to age Thought Content: Within normal limits Sleep: has restless sleep and sleeps excessively Perception: No perceptual abnormalities noted Delusions: none Insight: Age appropriate Mood: WNL Suicidality: none Homicide: No significant risk factors identified on screening DEPRESSION Goal #1 To increase skills to manage depression to effectively reduce and manage symptoms, prevent further progression and prevent emotional crisis. Objective #1 Learn about and understand their diagnosis. Objective #2 Identify 3 of warning signs that symptoms are getting worse. Objective #3 Identify 3 resources for crisis support and access these resources to help manage symptoms. Objective #4 Identify thoughts and other triggers that make symptoms worse and identify 3 skill formanaging thoughts and triggers. Objective #5 Identify healthy coping skills they currently use and commit to using those skills 3x/week. Objective #6 Identify 3 of new coping skills to manage symptoms and rehearse skills 3x/week. ANXIETY Goal #1 To increase skills to cope with and manage symptoms of anxiety. Objective #1 Learn to identify the cues, symptoms, and triggers associated with anxiety. Objective #2 Learn how irrational thoughts increase anxiety and develop 3 skills for managing thoughts/triggers. Objective #3 Identify current and/or new coping skills as needed and rehearse these skills 3x/week. Objective #4 Learn 3 relaxation skills to manage anxiety and rehearse skills 3x/week. Objective #5 Increase awareness of the relationship between triggers, feelings, thoughts, and actions or behaviors. Cosigned by JAVIER Santana at 05/26/2025 11:54 AM EDT documented in this encounter Plan of Treatment Upcoming Encounters Date Type Department Care Team (Late st Contact Info) Description 06/02/2025 11:00 AM EDT Social Work [facility] [address] [facility] [address] [place] [address] Chet Davis LPC 06/22/2025 1:00 PM EDT Telemedicine [facility] [address] [facility] [address] [place] [address] Cece Rome [facility] [address] [facility] [address] [place] [phone] documented as of this encounter Visit Diagnoses Diagnosis Moderate episode of recurrent major depressive disorder (HCC) Social anxiety disorder Social phobia documented in this encounter Additional Health Concerns Assessment Noted Time PHQ-9 Depression Total Score: 11 023 11:36 AM EDT documented as of this encounter Care Teams Squad Leader Relationship Specialty Start Date End Date Jose Nevarez DO [address] [facility] [address] [place] [address] PCP - General Family Medicine 12/01/23 Cece Rome [facility] [address] [facility] [address] [place] [address] Nurse Practitioner Behavioral Health 08/18/24 Preet Womack DO [address] [place] [address] Can Feeder/Gynecolog ist Obstetrics and Gynecology 08/18/24 Chet Davis LPC Material Assembler Behavioral Health 11/24/24 Estefani Bullock MD [address] [place] [address] [place] [address] Referring Physician Cardiology 05/15/25 documented as of this encounter
--- OUTSIDE RECORDS SUMMARY | 2025-06-01 10:01 | XMS_ITS | Encounter Summary ---
Author Organization [facility] Address [address] [place] [address] Care Team Providers Care Insurance Professional Name Role Phone Opal Neri WORKPLACE RELATIONS ADVISER Unavailable Jose Nevarez DO Primary Care Provider [phone] Cece Rome PMHNP- Unavailable Sari Womack DO Unavailable Chet Davis LPC Unavailable Unavailable Estefani Bullock MD Unavailable Encounter Details Date Type Department Care Team (Late st Contact Info) Description 01/15/2024 Clinisync Result Encounter [facility] External Department Unsolicited Provider, Generic External Data Social History Tobacco Use Types Packs/Day Years Used Date Smoking Tobacco: Never Passive Smoke Exposure: Never Smokeless Tobacco: Never Alcohol Use Standard Drinks/Week Comments Never 0 (1 standard drink = 0.6 oz pur e alcohol) Caffeine intake: none PHQ-2 Answer Date Recorded Patient Health Questionnaire-2 Score 0 06/03/2023 Comments Yes Sex and Gender Information Value Date Recorded Sex Assigned at Not on file Legal Sex Female 7:00 PM EDT Gender Identity Female 01/01/2023 7:00 PM EDT Sexual Orientation Not on file documented as of this encounter Plan of Treatment Upcoming Encounters Date Type Department Care Team (Late st Contact Info) Description 06/02/2025 11:00 AM EDT Social Work [facility] [address] [place] [address] Chet Davis LPC 06/22/2025 1:00 PM EDT Telemedicine [facility] [place] [facility] [address] [facility] [address] [place] [phone] Cece Rome PMHNP-BC [address] [facility] [address] [place] [address] documented as of this encounter Procedures Procedure Name Priority Date/Time Associated Diagnosis Comments US OB GROWTH 01/15/2024 11:31 AM EDT documented in this encounter Results * US OB GROWTH (01/15/2024 11:31 AM EDT) Anatomical Region Laterality Modality Other 01/15/2024 11:3 1 AM EDT Narrative 01/15/2024 11:34 [place] [address] Ultrasound Report Signed Patient: SOLIS RASHID MR#: [id number] : 2005 Acct:[id number] Age/Sex: 18 / F ADM Date: 01/15/24 Loc: [facility] Attending Dr: Sari Womack D.O. Ordering Physician: Sari Womack D.O. Date of Service: 01/15/24 Procedure(s): US OB growth Accession Number(s): [id number] cc: Sari Womack D.O.; Tawnya NEVAREZ [address] [address] Patient Name: SOLIS RASHID MRN: [id number] date: 2005 Sex: F Assigned Patient Location: [facility] Current Patient Location: [facility] Accession/Order Number: [id number] Exam Date: 01/15/2024 09:40 Report Date: 01/15/2024 11:31 At the request of: SARI WOMACK Procedure: US OB growth EXAMINATION: US OB growth HISTORY: SGA COMPARISON: No relevant comparison available. FINDINGS: Heart Rate: 151.0 bpm Amniotic Fluid Volume: 12.1 cm Number: 1.0 Position: Cephalic presentation, longitudinal lie Maximum Vertical Pocket: 3.9 cm cm 2.0 cm cm 3.3 cm cm 2.8 cm cm BIOMETRY: BPD: 9.3 cm cm; 38 weeks 0 days; >97% HC: 34.2 cmcm; 39 weeks 3 days , >97% AC: 30.0 cm cm; 33 weeks 6 days, 36% FL: 6.6 cm cm; 34 weeks 1 days; 31.0 % % EFW: 2550.3 grams, 5lb 10 oz, 56% FL/AC: 22.2 FL/BPD: 71.1 HC/AC: 1.1 GESTATIONAL AGE: Age by EDC: 34 weeks 4 days KAMRON by EDC: 02/22/2024 Age by US: 36w 3d KAMRON by US: 02/09/2024 US/US OB growth IMPRESSION: BPD and head circumference are greater than the 97th percentile Estimated weight 56 percentile Electronically authenticated by: MEGHAN MELGAR Date: 01/15/2024 11:31 Dictated By: Meghan Melgar M.D. Signed By: 01/15/24 1134 DD/ 1131 TD/TT: Field Operations Farm Manager: Procedure Note Radiology, Radiologist, MD - 01/15/2024 [place] [address] Ultrasound Report Signed Patient: BRITTNEY RASHID#: [id number] : 2005Acct:[id number] Age/Sex: 18 / FADM Date: 01/15/24 Loc: [facility] Attending Dr: Sari Womack D.O. Ordering Physician: Sari Womack D.O. Date of Service: 01/15/24 Procedure(s): US OB growth Accession Number(s): [id number] cc: Sari Womack D.O.; Tawnya NEVAREZ [place] [address] Patient Name: SOLIS RASHID MRN: [facility]:[id number] date: 2005 Sex: F Assigned Patient Location: [facility] Current Patient Location: [facility] Accession/Order Number: [id number] Exam Date: 01/15/2024 09:40 Report Date: 01/15/2024 11:31 At the request of: SARI WOMACK Procedure: US OB growth EXAMINATION: US OB growth HISTORY: SGA COMPARISON: No relevant comparison available. FINDINGS: Heart Rate: 151.0 bpm Amniotic Fluid Volume: 12.1 cm Number: 1.0 Position: Cephalic presentation, longitudinal lie Maximum Vertical Pocket: 3.9 cm cm 2.0 cm cm 3.3 cm cm 2.8 cm cm BIOMETRY: BPD: 9.3 cm cm; 38 weeks 0 days; >97% HC: 34.2 cmcm; 39 weeks 3 days , >97% AC: 30.0 cm cm; 33 weeks 6 days, 36% FL: 6.6 cm cm; 34 weeks 1 days; 31.0 % % EFW: 2550.3 grams, 5lb 10 oz, 56% FL/AC: 22.2 FL/BPD: 71.1 HC/AC: 1.1 GESTATIONAL AGE: Age by EDC: 34 weeks 4 days KAMRON by EDC: 02/22/2024 Age by US: 36w 3d KAMRON by US: 02/09/2024 US/US OB growth IMPRESSION: BPD and head circumference are greater than the 97th percentile Estimated weight 56 percentile Electronically authenticated by: MEGHAN MELGAR Date: 01/15/2024 11:31 Dictated By: Meghan Melgar M.D. Signed By:01/15/24 1134 DD/ 1131 TD/TT: Field Operations Farm Manager: us Generic External Data Provider [facility] Final Result documented in this encounter Visit Diagnoses Not on filedocumented in this encounter Additional Health Concerns Assessment Noted Time PHQ-9 Depression Total Score: 11 04/02/ 023 11:36 AM EDT documented as of this encounter Care Teams Insurance Professional Relationship Specialty Start Date End Date Jose Nevarez DO [address] [place] [address] PCP - General Family Medicine 12/01/23 Opal Neri NP [address] [place] [address] Nurse Practitioner Family Medicine 04/02/23 08/17/24 Cece Rome PMHNP- [address] [place] [address] Nurse Practitioner Behavioral Health 08/18/24 Sari Womack DO [address] [place] [address] Job Hand/Gynecolog ist Obstetrics and Gynecology 08/18/24 Chet Davis LPC Structural Engineer Behavioral Health 11/24/24 Estefani Bullock MD [address] [place] [phone] Referring Physician Cardiology 05/15/25 documented as of this encounter
--- OUTSIDE RECORDS SUMMARY | 2025-06-01 10:01 | XMS_ITS | Encounter Summary ---
Author Organization [facility] Address [address] [place] [address] Care Team Providers Care Staff Auditor Name Role Phone Jose Nevarez DO Primary Care Provider Cece Rome [facility]- Unavailable Preet Womack DO Unavailable Chet Davis LPC Unavailable Unavailable Estefani Bullock MD Unavailable [phone] Encounter Details Date Type Department Care Team (Late st Contact Info) Description 04/01/2025 Abstract [facility] [address] [place] [address] [place] [phone] Jose Nevarez DO [address] [place] [address] [place] [address] Social History Tobacco Use Types Packs/Day Years [...] often do you attend chur ch or rastafari services? More than 4 times per year 06/29/2024 Do you belong to any clubs o r organizations such as restorationism groups, unions, fraternal or athletic groups, or [...] Recorded Patient Health Questionnaire-2 Score 0 03/02/2025 [facility] Occupat ional [facility] - Occupational Stress Questionnaire Answer Date Recorded [...] any time in the past 12 m [facility], were you homeless or living in a assisted (including now)? No 06/29/2024 Education Answer Date [...] Social Work [facility] [address] [facility] [address] [place] [address] Chet Davis LPC 06/22/2025 1:00 PM EDT Telemedicine [facility] [address] [facility] [address] [place] [address] Cece Rome HN- [address] [facility] [address] [place] [address] documented as of this encounter Visit Diagnoses Not on filedocumented in this encounter Additional Health Concerns Assessment Noted Time PHQ-9 Depression Total Score: 11 023 11:36 AM EDT documented as of this encounter Care Teams Staff Auditor Relationship Specialty Start Date End Date Jose Nevarez DO [address] [place] [address] [place] [address] PCP - General Family Medicine 12/01/23 Cece Rome PMHNP- [address] [address] [place] [address] Nurse Practitioner Behavioral Health 08/18/24 Preet Womack DO [address] [facility] [place] [address] Apparel Sales Leader/Gynecolog ist Obstetrics and Gynecology 08/18/24 Chet Davis LPC High Scaler Behavioral Health 11/24/24 Estefani Bullock MD [address] [place] [address] Referring Physician Cardiology 05/15/25 documented as of this encounter
--- OUTSIDE RECORDS SUMMARY | 2025-06-01 10:01 | XMS_ITS | Encounter Summary ---
Author Organization [facility] Address [address] [place] [address] Care Team Providers Care Tire Trimmer Hand Name Role Phone Opal Neri TAKER OFF Unavailable Jose Nevarez DO Primary Care Provider [phone] Cece Rome PMHNP- Unavailable Sari Womack DO Unavailable Chet Davis LPC Unavailable Unavailable Estefani Bullock MD Unavailable [phone] Encounter Details Date Type Department Care Team (Late st Contact Info) Description 12/03/2023 Clinisync Result Encounter [facility] External Department Unsolicited Provider, Generic External Data Social History Tobacco Use Types Packs/Day Years Used Date Smoking Tobacco: Never Passive Smoke Exposure: Never Smokeless Tobacco: Never Alcohol Use Standard Drinks/Week Comments Never 0 (1 standard drink = 0.6 oz pur e alcohol) PHQ-2 Answer Date Recorded Patient Health Questionnaire-2 [...] Behavioral Health [address] [place] [address] [place] [address] Chet Davis LPC 06/22/2025 1:00 PM EDT Telemedicine [facility] 112 [facility] 160 [place] [address] Cece Roem, PMHNP-BC 112 [facility] 160 [place] [address] documented as of this encounter Procedures Procedure Name Priority Date/Time Associated Diagnosis Comments US OB GROWTH 12/03/2023 1:18 PM EST documented in this encounter Results * US OB GROWTH (12/03/2023 1:18 PM EST) Anatomical Region Laterality Modality Other 12/03/2023 1:18 PM EST Narrative 12/03/2023 1:21 [place] [address] Ultrasound Report Signed Patient: SOLIS RASHID MR#: [id number] : 2005 Acct:[id number] Age/Sex: 18 / F ADM Date: 12/03/23 Loc: [facility] Attending Dr: Sari Womack D.O. Ordering Physician: Sari Womack D.O. Date of Service: 12/03/23 Procedure(s): US OB growth Accession Number(s): [id number] cc: Sari Womack D.O.; Tawnya NEVAREZ [address] [address] Patient Name: SOLIS RASHID MRN: [id number] date: 2005 Sex: F Assigned Patient Location: [facility] Current Patient Location: [facility] Accession/Order Number: [id number] Exam Date: 12/03/2023 10:42 Report Date: 12/03/2023 13:18 At the request of: SARI WOMACK Procedure: US OB growth EXAMINATION: US OB growth HISTORY: SGA COMPARISON: Ultrasound OB anatomy 10/06/2023 FINDINGS: Heart Rate: 151.0 bpm Number: 1.0 Position: CEPHALIC Amniotic Fluid Volume: 10.5 cm Maximum Vertical Pocket: 4.0 cm BIOMETRY: BPD: 7.5 cm cm; 30 weeks 2 days; 89% HC: 28.2 cmcm; 31 weeks 0 days; 89% AC: 24.3 cm cm; 28 weeks 4 days; 46% FL: 5.2 cm cm; 27 weeks 6 days; 19% EFW: 1258.8 grams; 45% FL/AC: 21.5 FL/BPD: 69.2 HC/AC: 1.2 GESTATIONAL AGE: Age by EDC: 28 weeks 3 days KAMRON by EDC: 02/22/2024 Age by US: 29 weeks 3 days KAMRON by US: 02/15/2024 US/US OB growth IMPRESSION: 1. Single live intrauterine with growth detailed above. Electronically authenticated by: JESUS COBURN Date: 12/03/2023 13:18 Dictated By: Jesus Coburn M.D. Signed By: 12/03/23 1321 DD/ 1318 TD/TT: Comptroller: Procedure Note Radiology, Radiologist, MD - 12/03/2023 [place] [address] Ultrasound Report Signed Patient: BRITTNEY RASHID#: [id number] : 2005Acct:[id number] Age/Sex: 18 / FADM Date: 12/03/23 Loc: [facility] Attending Dr: Sari Womack D.O. Ordering Physician: Sari Womack D.O. Date of Service: 12/03/23 Procedure(s): US OB growth Accession Number(s): [id number] cc: Sari Womack D.O.; Tawnya NEVAREZ [address] [place] [id number] Patient Name: SOLIS RASHID MRN: [id number] date: 2005 Sex: F Assigned Patient Location: [facility] Current Patient Location: [facility] Accession/Order Number: [id number] Exam Date: 12/03/2023 10:42 Report Date: 12/03/2023 13:18 At the request of: SARI WOMACK Procedure: US OB growth EXAMINATION: US OB growth HISTORY: SGA COMPARISON: Ultrasound OB anatomy 10/06/2023 FINDINGS: Heart Rate: 151.0 bpm Number: 1.0 Position: CEPHALIC Amniotic Fluid Volume: 10.5 cm Maximum Vertical Pocket: 4.0 cm BIOMETRY: BPD: 7.5 cm cm; 30 weeks 2 days; 89% HC: 28.2 cmcm; 31 weeks 0 days; 89% AC: 24.3 cm cm; 28 weeks 4 days; 46% FL: 5.2 cm cm; 27 weeks 6 days; 19% EFW: 1258.8 grams; 45% FL/AC: 21.5 FL/BPD: 69.2 HC/AC: 1.2 GESTATIONAL AGE: Age by EDC: 28 weeks 3 days KAMRON by EDC: 02/22/2024 Age by US: 29 weeks 3 days KAMRON by US: 02/15/2024 US/US OB growth IMPRESSION: 1. Single live intrauterine with growth detailed above. Electronically authenticated by: JESUS COBURN Date: 12/03/2023 13:18 Dictated By: Jesus Coburn M.D. Signed By:12/03/23 1321 DD/ 1318 TD/TT: Comptroller: us Generic External Data Provider [facility] Final Result documented in this encounter Visit Diagnoses Not on filedocumented in this encounter Additional Health Concerns Assessment Noted Time PHQ-9 Depression Total Score: 11 023 11:36 AM EDT documented as of this encounter Care Teams Tire Trimmer Hand Relationship Specialty Start Date End Date Jose Nevarez DO [address] [place] [address] [place] [address] PCP - General Family Medicine 12/01/23 Opal Neri NP [address] [place] [address] [place] [address] Nurse Practitioner Family Medicine 04/02/23 08/17/24 Cece Rome, PMHNP-BC [address] [place] [address] [place] [address] Nurse Practitioner Behavioral Health 08/18/24 Sari Womack DO [address] [place] [address] Platform Worker/Gynecolog ist Obstetrics and Gynecology 08/18/24 Chet Davis LPC Manager [facility] 11/24/24 Estefani Bullock MD [address] [place] [address] Referring Physician Cardiology 05/15/25 documented as of this encounter
--- OUTSIDE RECORDS SUMMARY | 2025-06-01 10:01 | XMS_ITS | Encounter Summary ---
Author Organization [facility] Address [address] [place] [address] Care Team Providers Care Learning And Development Consultant Name Role Phone Opal Neri CONGRESSIONAL AIDE Unavailable Jose Rogers DO Primary Care Provider [phone] Cece Rome PMP- Unavailable Sari Womack DO Unavailable Chet Davis LPC Unavailable Unavailable Estefani Bullock MD Unavailable [phone] Encounter Details Date Type Department Care Team (Late st Contact Info) Description 12/16/2023 Clinisync Result Encounter [facility] External Department Unsolicited Sari Womack, DO [address] [facility] [address] [place], [place] [phone] Social History Tobacco Use Types Packs/Day Years [...] 11:00 AM EDT Social Work [facility] 112 [facility] [address] [place] [address] Ryan ChetDUANE 06/22/2025 1:00 PM EDT Telemedicine [facility] 112 [facility] [address] [place] [address] Cece Rome, PMHNP- [address] [facility] [address] [place] [address] documented as of this encounter Procedures Procedure Name Priority Date/Time Associated Diagnosis Comments US AMNIOTIC FLUID VOLUME 12/16/2023 11:30 AM EST documented in this encounter Results * US AMNIOTIC FLUID VOLUME (12/16/2023 11:30 AM EST) Anatomical Region Laterality Modality Radiographic Nadya ging 12/16/2023 11:3 0 AM EST Narrative 12/16/2023 11:33 [place] [address] Ultrasound Report Signed Patient: SOLIS RASHID MR#: [id number] : 2005 Acct:[id number] Age/Sex: 18 / F ADM Date: 12/16/23 Loc: [facility] Attending Dr: Sari Womack D.O. Ordering Physician: Sari Womack D.O. Date of Service: 12/16/23 Procedure(s): US OB amniotic fluid vol Accession Number(s): [id number] cc: Sari Womack D.O.; Tawnya ROGERS [address] [address] Patient Name: SOLIS RASHID MRN: [id number] date: 2005 Sex: F Assigned Patient Location: [facility] Current Patient Location: [facility] Accession/Order Number: [id number] Exam Date: 12/16/2023 11:05 Report Date: 12/16/2023 11:30 At the request of: SARI WOMACK Procedure: US OB amniotic fluid vol EXAMINATION: US OB amniotic fluid vol HISTORY: BORDERLINE LOW COMPARISON: No relevant comparison available. FINDINGS: position: Cephalic presentation, longitudinal lie Amniotic fluid volume: 14.9 cm, normal. Largest fluid pocket: 5.6 cm Heart rate: 167 bpm Gestational age: 30 weeks 2 days US/US OB amniotic fluid vol IMPRESSION: Normal amniotic fluid volume Electronically authenticated by: MEGHAN MELGAR Date: 12/16/2023 11:30 Dictated By: Meghan Melgar M.D. Signed By: 12/16/23 1133 DD/ 1130 TD/TT: Manufacturing Area Manager: Procedure Note Radiology, Radiologist, - 12/24/2023 [place] [address] Ultrasound Report Signed Patient: BRITTNEY RASHID#: [id number] : 2005Acct:[id number] Age/Sex: 18 / FADM Date: 12/16/23 Loc: [facility] Attending Dr: Sari Womack D.O. Ordering Physician: Sari Womack D.O. Date of Service: 12/16/23 Procedure(s): US OB amniotic fluid vol Accession Number(s): [id number] cc: Sari Womack D.O.; Tawnya ROGERS [address] [place] [address] Patient Name: SOLIS RASHID MRN: [id number] date: 2005 Sex: F Assigned Patient Location: [facility] Current Patient Location: [facility] Accession/Order Number: [id number] Exam Date: 12/16/2023 11:05 Report Date: 12/16/2023 11:30 At the request of: SARI WOMACK Procedure: US OB amniotic fluid vol EXAMINATION: US OB amniotic fluid vol HISTORY: BORDERLINE LOW COMPARISON: No relevant comparison available. FINDINGS: position: Cephalic presentation, longitudinal lie Amniotic fluid volume: 14.9 cm, normal. Largest fluid pocket: 5.6 cm Heart rate: 167 bpm Gestational age: 30 weeks 2 days US/US OB amniotic fluid vol IMPRESSION: Normal amniotic fluid volume Electronically authenticated by: MEGHAN MELGAR Date: 12/16/2023 11:30 Dictated By: Meghan Melgar M.D. Signed By:12/16/23 1133 DD/ 1130 TD/TT: Manufacturing Area Manager: us Sari Womack DO IMG XR PROCEDURES Final Result documented in this encounter Visit Diagnoses Not on filedocumented in this encounter Additional Health Concerns Assessment Noted Time PHQ-9 Depression Total Score: 11 023 11:36 AM EDT documented as of this encounter Care Teams Learning And Development Consultant Relationship Specialty Start Date End Date Jose Rogers DO [address] [place] [address] [place] [address] PCP - General Family Medicine 12/01/23 Opal Neri NP [address] [place] [address] [place] [address] Nurse Practitioner Family Medicine 04/02/23 08/17/24 [facility]ce [facility] [address] [facility] 160 [place] [address] Nurse Practitioner Behavioral Health 08/18/24 Sari Womack DO [address] [place] [address] Cleaning Porter/Gynecolog ist Obstetrics and Gynecology 08/18/24 Chet Davis LPC Web Page Designer Behavioral Health 11/24/24 Estefani Bullock MD [address] [place] [address] Referring Physician Cardiology 05/15/25 documented as of this encounter
--- OUTSIDE RECORDS SUMMARY | 2025-06-01 10:01 | XMS_ITS | Encounter Summary ---
Author Organization [facility] Address [address] [place] [address] Care Team Providers Care Machine Bander And Cellophaner Helper Name Role Phone Opal Neri TERRAZZO TILE SETTER Unavailable Jose Nevarez DO Primary Care Provider [facility] Un[facility] Preet Womack DO Unavailable Chet Davis LPC Unavailable Unavailable Estefani Bullock MD Unavailable [phone] Encounter Details Date Type Department Care Team (Late st Contact Info) Description 01/16/2024 Abstract [facility] [address] [place] [address] [place] [address] Jose Nevarez DO [address] [place] [address] [place] [address] Social History Tobacco Use Types Packs/Day Years [...] Behavioral Health [address] [place] [address] [place] [address] Chet Davis LPC 06/22/2025 1:00 PM EDT Telemedicine [facility] [address] [place] [address] [place] [address] Cece Rome [facility]- [address] [place] [address] documented as of this encounter Visit Diagnoses Not on filedocumented in this encounter Additional Health Concerns Assessment Noted Time PHQ-9 Depression Total Score: 11 023 11:36 AM EDT documented as of this encounter Care Teams Machine Bander And Cellophaner Helper Relationship Specialty Start Date End Date Jose Nevarez DO [address] [facility] 230 [place] [address] PCP - General Family Medicine 12/01/23 Opal Neri NP [address] [place] [address] [place] [address] Nurse Practitioner Family Medicine 04/02/23 08/17/24 Cece Rome, [facility] [address] [facility] [address] [place] [address] Nurse Practitioner Behavioral Health 08/18/24 Preet Womack DO [address] [place] [address] Sfdc Consultant/Gynecolog ist Obstetrics and Gynecology 08/18/24 Chet Davis LPC Tree Fruit And Nut Crops Farmer Behavioral Health 11/24/24 Estefani Bullock MD [address] [place] [address] Referring Physician Cardiology 05/15/25 documented as of this encounter
--- OUTSIDE RECORDS SUMMARY | 2025-06-01 10:01 | XMS_ITS | Encounter Summary ---
Author Organization [facility] Address [address] [place] [address] Care Team Providers Care Centrifugal Station Operator Name Role Phone Jose Nevarez DO Primary Care Provider [phone] Cece Rome PMP- Unavailable Preet Womack DO Unavailable Chet Davis LPC Unavailable Unavailable Estefani Bullock MD Unavailable [phone] Encounter Details Date Type Department Care Team (Latest Contact Info) Description 05/25/2025 Travel Social History Tobacco Use Types Packs/Day Years [...] often do you attend chur ch or alevism services? More than 4 times per year 06/29/2024 Do you belong to any clubs o r organizations such as mandaeism groups, unions, fraternal or athletic groups, or [...] Recorded Patient Health Questionnaire-2 Score 0 03/02/2025 [facility] of Occupat ional Health - Occupational [...] any time in the past 12 m [facility], were you homeless or living in a fci (including now)? No 06/29/2024 Education Answer Date [...] [facility] [address] [facility] 160 [place] [address] Chet Davis LPC 06/22/2025 1:00 PM EDT Telemedicine [facility] [address] [facility] 160 [place] [address] Cece Rome [facility] [address] [facility] 160 [place] [address] documented as of this encounter Visit Diagnoses Not on filedocumented in this encounter Additional Health Concerns Assessment Noted Time PHQ-9 Depression Total Score: 11 023 11:36 AM EDT documented as of this encounter Care Teams Centrifugal Station Operator Relationship Specialty Start Date End Date Jose Nevarez DO [address] [facility] 230 [place] [address] PCP - General Family Medicine 12/01/23 Cece Rome PMHNP- [address] [facility] [address] [place] [address] Nurse Practitioner Behavioral Health 08/18/24 Preet Womack DO [address] [place] [address] Legal Instruments Examiner/Gynecolog ist Obstetrics and Gynecology 08/18/24 Chet Davis LPC Manager [facility] 11/24/24 Estefani Bullock MD 3000 [place] [address] Referring Physician Cardiology 05/15/25 documented as of this encounter
--- OUTSIDE RECORDS SUMMARY | 2025-06-01 10:01 | XMS_ITS | Encounter Summary ---
Author Organization [facility] Address [address] [place] [address] Care Team Providers Care Focus Puller Name Role Phone Jose Nevarez DO Primary Care Provider Cece Rome [facility]- Unavailable Preet Womack DO Unavailable Chet Davis LPC Unavailable Unavailable Estefani Bullock MD Unavailable [phone] Encounter Details Date Type Department Care Team (Late st Contact Info) Description 05/25/2025 Sachinboo flowsheet [facility] [address] [place] [address] [place] [address] Chet Davis, DUANE Social History Tobacco Use Types Packs/Day Years [...] week 06/29/2024 How often do you attend [facility] or moravian services? More than 4 times per year 06/29/2024 Do you belong to any clubs o r organizations such as voodoo groups, unions, fraternal or athletic groups, or [...] Recorded Patient Health Questionnaire-2 Score 0 03/02/2025 [facility] of Occupat ional Health - Occupational Stress [...] any time in the past 12 m [place], were you homeless or living in a [place] [facility] [place] (including now)? No 06/29/2024 Education Answer Date [...] [facility] [address] [facility] 160 [place] [address] Chet Davis LPC 06/22/2025 1:00 PM EDT Telemedicine [facility] [address] [facility] 160 [place] [address] Cece Rome PMHN- [address] [place] [address] [place] [address] documented as of this encounter Visit Diagnoses Not on filedocumented in this encounter Additional Health Concerns Assessment Noted Time PHQ-9 Depression Total Score: 11 023 11:36 AM EDT documented as of this encounter Care Teams Focus Puller Relationship Specialty Start Date End Date Jose Nevarez DO [address] [place] [address] [place] [address] PCP - General Family Medicine 12/01/23 Cece Rome PMHNP- [address] [place] [address] Nurse Practitioner Behavioral Health 08/18/24 Preet Womack DO [address] [place] [address] Hearing Officer/Gynecolog ist Obstetrics and Gynecology 08/18/24 Chet Davis LPC Program Advisor Behavioral Health 11/24/24 Estefani Bullock MD [address] [place] [address] Referring Physician Cardiology 05/15/25 documented as of this encounter
--- OUTSIDE RECORDS SUMMARY | 2025-06-01 10:01 | XMS_ITS | Encounter Summary ---
Author Organization [facility] Address [address] [place] [address] Care Team Providers Care Roof Cement And Paint Maker Name Role Phone Opal Neri CIRCULAR STUFFER Unavailable Jose Nevarez DO Primary Care Provider Cece Rome PMHNP- Unavailable [phone] Preet Womack DO Unavailable Chet Davis LPC Unavailable Unavailable Estefani Bullock MD Unavailable [phone] Encounter Details Date Type Department Care Team (Late st Contact Info) Description 12/03/2023 Orders Only [facility] [address] [place] [address] [place] [address] A, Unknown Practice [address] [place], [place] [address] Social History Tobacco Use Types Packs/Day Years [...] Social Work [facility] [facility] [address] [facility] [address] [place] [address] Chet Davis HYDRAULIC PUNCH PRESS OPERATOR 06/22/2025 1:00 PM EDT Telemedicine [facility] [address] [facility] [address] [place] [address] Cece Rome [facility] [address] [facility] [address] [place] [address] documented as of this encounter Procedures Procedure Name Priority Date/Time Associated Diagnosis Comments US OB > 14 WEEKS Routine 12/03/2023 2:47 PM EST documented in this encounter Results * US OB > 14 WEEKS (12/03/2023 2:47 PM EST) Anatomical Region Laterality Modality Body Ultrasound us Unknown Practice A IMG OB US PROCEDURES Final Re sult documented in this encounter Visit Diagnoses Not on filedocumented in this encounter Additional Health Concerns Assessment Noted Time PHQ-9 Depression Total Score: 11 023 11:36 AM EDT documented as of this encounter Care Teams Roof Cement And Paint Maker Relationship Specialty Start Date End Date Jose Nevarez DO [address] [place] [address] [place] [address] PCP - General Family Medicine 12/01/23 Opal Neri NP [address] [place] [address] [place] [address] Nurse Practitioner Family Medicine 04/02/23 08/17/24 Cece Rome [facility] [address] [facility] [address] [place] [address] Nurse Practitioner Behavioral Health 08/18/24 Preet Womack DO [address] [place] [address] Customer Support Engineer/Gynecolog ist Obstetrics and Gynecology 08/18/24 Chet Davis LPC General Forecaster Behavioral Health 11/24/24 Estefani Bullock MD [address] [place] [address] Referring Physician Cardiology 05/15/25 documented as of this encounter
--- OUTSIDE RECORDS SUMMARY | 2025-06-01 10:01 | XMS_ITS | Encounter Summary ---
Author Organization [facility] Address [address] [place] [address] Care Team Providers Care Echo Tech Name Role Phone Opal Neri ADJUNCT FACULTY FOR MEDICAL TERMINOLOGY Unavailable Jose Nevarez DO Primary Care Provider [phone] Cece Rome PMHNP- Unavailable Sari Womack DO Unavailable Chet Davis LPC Unavailable Unavailable Estefani Bullock MD Unavailable [phone] Encounter Details Date Type Department Care Team (Late Contact Info) Description 12/03/2023 Clinisync Result Encounter [facility] External Department Unsolicited Sari Womack, DO [address] [facility] [facility] [address] [place], [place] [id number] Social History Tobacco Use Types Packs/Day Years [...] Social Work [facility] [address] [facility] [address] [place] [id number] Chet Davis LPC 06/22/2025 1:00 PM EDT Telemedicine [facility] [address] [facility] [address] [place] [phone] Cece Rome, PMHNP-BC [address] [facility] [address] [place] [address] documented as of this encounter Procedures Procedure Name Priority Date/Time Associated Diagnosis Comments US OB GROWTH 12/03/2023 1:18 PM EST documented in this encounter Results * US OB GROWTH (12/03/2023 1:18 PM EST) Anatomical Region Laterality Modality Other 12/03/2023 1:18 PM EST Narrative 12/03/2023 1:21 [place] [address] Ultrasound Report Signed Patient: SOLIS WALLACE MR#: [id number] : 2005 Acct:[id number] Age/Sex: 18 / F ADM Date: 12/03/23 Loc: [facility] Attending Dr: Sari Womack D.O. Ordering Physician: Sari Womack D.O. Date of Service: 12/03/23 Procedure(s): US OB growth Accession Number(s): [id number] cc: Sari Womack D.O.; Tawnya NEVAREZ [address] [address] Patient Name: SOLIS WALLACE MRN: [id number] date: 2005 Sex: F Assigned Patient Location: [facility] Current Patient [facility]: [facility] Accession/Order Number: [id number] Exam Date: 12/03/2023 10:42 Report Date: 12/03/2023 [...] Signed By: 12/03/23 1321 DD/ 1318 TD/TT: Director Of Outside Sales: Procedure Note Radiology, Radiologist, - 12/24/2023 [place] [address] Ultrasound Report Signed Patient: BRITTNEY WALLACE#: [id number] : 2005Acct:[id number] Age/Sex: 18 / FADM Date: 12/03/23 Loc: [facility] Attending Dr: Sari Womack D.O. Ordering Physician: Sari Womack D.O. Date of Service: 12/03/23 Procedure(s): US OB growth Accession Number(s): [id number] cc: Sari Womack D.O.; Tawnya NEVAREZ [facility] [place] [id number] Patient Name: SOLIS WALLACE MRN: [facility]:[id number] date: 2005 Sex: F Assigned Patient Location: [facility] Current Patient Location: [facility] Accession/Order Number: [id number] Exam Date: 12/03/2023 10:42 Report Date: 12/03/2023 [...] M.D. Signed By:12/03/23 1321 DD/ 1318 TD/TT: Director Of Outside Sales: us Sari Womack DO [facility] Final Result documented in this encounter Visit Diagnoses Not on filedocumented in this encounter Additional Health Concerns Assessment Noted Time PHQ-9 Depression Total Score: 11 023 11:36 AM EDT documented as of this encounter Care Teams Echo Tech Relationship Specialty Start Date End Date Jose Nevarez DO [address] [place] [address] PCP - General Family Medicine 12/01/23 Opal Neri NP [address] [place] [address] Nurse Practitioner Family Medicine 04/02/23 08/17/24 Cece Rome PMHNP-BC [address] [place] [address] [place] [address] Nurse Practitioner Behavioral Health 08/18/24 Sari Womack DO [address] [facility] [place] [address] Armored Car Driver/Gynecolog ist Obstetrics and Gynecology 08/18/24 Chet Davis LPC Edi Manager Behavioral Health 11/24/24 Estefani Bullock MD [address] [place] [address] Referring Physician Cardiology 05/15/25 documented as of this encounter
--- OUTSIDE RECORDS SUMMARY | 2025-06-01 10:01 | XMS_ITS | Encounter Summary ---
Author Organization [facility] Address [address] [place] [address] Care Team Providers Care Information Technology Technician Name Role Phone Opal Neri PATTERN STORAGE CLERK Unavailable Jose Nevarez DO Primary Care Provider [phone] Cece Rome PMHNP-BC Unavailable Preet Womack DO Unavailable Chet Davis LPC Unavailable Unavailable Estefani Bullock MD Unavailable [phone] Encounter Details Date Type Department Care Team (Late st Contact Info) Description 02/04/2024 Abstract [facility] [place] [facility] [address] [facility] [place] [phone] Demetria Valle MA [address] [place] [address] Social History Tobacco Use Types Packs/Day Years [...] [facility] [address] [place] [phone] Chet Davis LPC 06/22/2025 1:00 PM EDT Telemedicine [facility] [address] [facility] [address] [place] [phone] Cece Rome [facility] [address] [place] [phone] documented as of this encounter Visit Diagnoses Not on filedocumented in this encounter Additional Health Concerns Assessment Noted Time PHQ-9 Depression Total Score: 11 023 11:36 AM EDT documented as of this encounter Care Teams Information Technology Technician Relationship Specialty Start Date End Date Jose Nevarez DO [address] [facility] [address] [place] [address] PCP - General Family Medicine 12/01/23 Opal Neri NP [address] [facility] [address] [place] [address] Nurse Practitioner Family Medicine 04/02/23 08/17/24 Cece Rome [facility] [address] [facility] [address] [place] [address] Nurse Practitioner Behavioral Health 08/18/24 Prete Womack DO [address] [place] [address] Watch Train Assembler/Gynecolog ist Obstetrics and Gynecology 08/18/24 Chet Davis LPC Cook Short Order Behavioral Health 11/24/24 Estefani Bullock MD [facility] [place] [address] Referring Physician Cardiology 05/15/25 documented as of this encounter
--- OUTSIDE RECORDS SUMMARY | 2025-06-01 10:01 | XMS_ITS | Encounter Summary ---
Author Organization [facility] Address [address] [place] [address] Care Team Providers Care Cottrell Blower Name Role Phone Jose Nevarez DO Primary Care Provider [phone] Cece Rome PMP- Unavailable Preet Womack DO Unavailable Chet Davis LPC Unavailable Unavailable Estefani Bullock MD Unavailable [phone] Encounter Details Date Type Department Care Team (Latest Contact Info) Description 05/18/2025 Travel Social History Tobacco Use Types Packs/Day [...] often do you attend chur ch or bahai services? More than 4 times per year 06/29/2024 Do you belong to any clubs o r organizations such as confucianist groups, unions, fraternal or athletic groups, or [...] Recorded Patient Health Questionnaire-2 Score 0 03/02/2025 [facility] - Occupational [...] any time in the past 12 m [facility], were you homeless or living in a custodial (including now)? No 06/29/2024 Education Answer Date [...] [facility] [address] [facility] [address] [place] [address] Chet Davis LPC 06/22/2025 1:00 PM EDT Telemedicine [facility] [address] [facility] [address] [place] [address] Cece Rome [facility] [address] [facility] [address] [place] [address] documented as of this encounter Visit Diagnoses Not on filedocumented in this encounter Additional Health Concerns Assessment Noted Time PHQ-9 Depression Total Score: 11 023 11:36 AM EDT documented as of this encounter Care Teams Cottrell Blower Relationship Specialty Start Date End Date Jose Nevarez DO [address] [email or web address] [address] [place] [address] PCP - General Family Medicine 12/01/23 Cece Rome PMHNP- [address] [facility] [address] [place] [phone] Nurse Practitioner Behavioral Health 08/18/24 Preet Womack DO [address] [place] [phone] Property Utilization Officer/Gynecolog ist Obstetrics and Gynecology 08/18/24 Chet Davis LPC Rig Builder Behavioral Health 11/24/24 Estefani Bullock MD [address] [place] [phone] Referring Physician Cardiology 05/15/25 documented as of this encounter
--- OUTSIDE RECORDS SUMMARY | 2025-06-01 10:01 | XMS_ITS | Clinical Summary ---
Author Organization [facility] Address [address] [place] [address] Care Team Providers Care Wrapper Counter Name Role Phone Wendy Nevarez DO Primary Care Provider [phone] Cece Rome PMHNP-BC Unavailable Preet Womack DO Unavailable Chet Davis LPC Unavailable Unavailable Estefani Bullock MD Unavailable Allergies Active Allergy Reactions Criticality Noted Date Comments Aripiprazole Dizziness 08/18/2024 nausea Amoxicillin Hives 08/18/2023 Sulfa Antibiotics Unknown 09/05/2022 Medications cholecalcifero l (Vitamin D-3) 25 MCG (1000 UT) capsule Take 1,000 Units by mouth Daily Active propranolol (Inderal) 10 MG tabletIndicati ons:Tachycardi a,Social anxiety disorder TAKE 1 TABLET BY MOUTH IN THE MORNING, EVENING AND BEFORE BEDTIME 90 tablet 03/30/20 25 Active Apri 0.15-30 MG-MCG tabletIndicati ons: control counseling TAKE 1 TABLET BY MOUTH EVERY DAY 28 tablet 12 04/19/20 25 Active PARoxetine (Paxil) 30 MG tabletIndicati ons:Moderate episode of recurrent major depressive disorder (HCC),Social anxiety disorder Take 1 tablet (30 mg) by mouth in the morning. 30 tablet 1 05/18/20 25 025 Active buPROPion XL (Wellbutrin XL) 150 MG 24 hr tabletIndicati ons:Moderate episode of recurrent major depressive disorder (HCC),Social anxiety disorder Take 1 tablet (150 mg) by mouth in the morning. Do not crush, chew, or split. 30 tablet 1 05/18/20 25 025 Active PARoxetine (Paxil) 20 MG tabletIndicati ons:Moderate episode of recurrent major depressive disorder (HCC),Social anxiety disorder Take 1 tablet (20 mg) by mouth in the morning. 30 tablet 1 04/13/20 25 025 Discontinued venlafaxine XR (Effexor XR) 37.5 MG 24 hr capsuleIndicat ions:Moderate episode of recurrent major depressive disorder (HCC),Social anxiety disorder Take 1 capsule (37.5 mg) by mouth every other day for 14 days Do not crush or chew. 8 capsule 04/13/20 25 025 Discontinued buPROPion XL (Wellbutrin XL) 150 MG 24 hr tabletIndicati ons:Moderate episode of recurrent major depressive disorder (HCC),Social anxiety disorder Take 1 tablet (150 mg) by mouth in the morning. Do not crush, chew, or split. 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 12/16/2024 Social anxiety disorder 09/15/2024 Moderate episode of recurrent major depressive d isorder 08/18/2024 Scoliosis of thoracic spine 06/02/2023 Resolved Problems Problem Noted Date Diagnosed Date Resolved Date Anxiety with depression 06/02/202308/21 Other specified noninflammat ory disorders of vagina 06/02/2023 09/15/2024 Pain in female pelvis 06/02/20232023 Anxiety 09/15/2024 Encounters Date Type Department Care Team Description 05/25/2025 1:30 PM EDT Social Work [facility] [address] [place] [address] Chet Davis LPC Moderate episode of recurrent major depressive disorder (HCC); Social anxiety disorder 05/25/2025 Bamboo flowsheet [facility] [address] [place] [address] Chet Davis LPC 05/25/2025 Travel 05/18/2025 11:00 AM EDT Telemedicine [facility] [address] [facility] [address] [place] [address] Cece oRme, PMHNP-BC Moderate episode of recurrent major depressive disorder (HCC); Social anxiety disorder 05/18/2025 Travel 05/11/2025 1:30 PM EDT Social Work [facility] [address] [facility] [address] [place] [address] Chet Davis LPC Moderate episode of recurrent major depressive disorder (HCC); Social anxiety disorder 05/11/2025 Bamboo flowsheet [facility] [address] [facility] [address] [place] [address] Chet Davis LPC 05/11/2025 Travel 05/04/2025 5:30 PM EDT Office [facility] [address] [place] [address] Claudine Frazier NP Viral illness (Primary Dx) 05/04/2025 Travel 04/27/2025 12:30 PM EDT Social Work [facility] [address] [facility] [address] [place] [address] Chet Davis LPC Moderate episode of recurrent major depressive disorder (HCC); Social anxiety disorder 04/27/2025 Bamboo flowsheet [facility] [address] [facility] [address] [place] [address] Chet Davis LPC 04/27/2025 Travel 04/19/2025 Refill [facility] [address] [place] [address] [place] [phone] Preet Womack DO control counseling 04/18/2025 3:30 PM EDT Social Work [facility] [address] [facility] [address] [place] [address] Ck DavisDUANE resendez Moderate episode of recurrent major depressive disorder (HCC); Social anxiety disorder 04/18/2025 Bamboo flowsheet [facility] [address] [place] [address] Chet DavisDUANE 04/18/2025 Travel 04/13/2025 3:00 PM EDT Telemedicine [facility] [address] [place] [address] Cece Rome, PMHNP-BC Moderate episode of recurrent major depressive disorder (HCC); Social anxiety disorder 04/13/2025 Travel 04/11/2025 Telephone [facility] [address] [place] [address] Bk Woods LPN Results 04/01/2025 Abstract [facility] [address] [place] [address] Wendy Nevarez, DO 03/31/2025 Refill [facility] [address] [facility] [address] [place] [address] Cece Rome, HNP-BC Moderate episode of recurrent major depressive disorder (HCC); Social anxiety disorder 03/31/2025 Abstract [facility] [address] [place] [address] Wendy Nevarez, 03/31/2025 Results Follow-Up [facility] [address] [place] [address] Bk Woods LPN 03/30/2025 Clinisync Result Encounter [facility] External Department Unsolicited Wendy Nevarez, 03/30/2025 Clinisync Result Encounter [facility] External Department Unsolicited Wendy Nevarez, DO 03/30/2025 Refill [facility] [address] [place] [address] Wendy Nevarez, DO Tachycardia; Social anxiety disorder 03/16/2025 2:30 PM EDT Social Work [facility] [address] [place] [address] Chet Davis LPC Moderate episode of recurrent major depressive disorder (HCC); Social anxiety disorder 03/16/2025 Bamboo flowsheet [facility] [address] [place] [address] Chet Davis LPC 03/16/2025 Travel 03/15/2025 Refill [facility] [address] [place] [address] Cece Rome, HN- Moderate episode of recurrent major depressive disorder (HCC); Social anxiety disorder 03/02/2025 11:40 AM EDT [facility] [address] [place] [address] Wendy Nevarez DO Tachycardia (Primary Dx); Anxiety; Social anxiety disorder ; Other fatigue 03/02/2025 Bamboo flowsheet [facility] [address] [place] [address] Wendy Nevarez DO 03/02/2025 Travel from Last 3 Months Immunizations Immunization Administration Dates Next Due DTaP / IPV 06/12/2009 DTaP, Unspecified 06/18/2005,05/15/2004,03/15/20 04,01/13/2004 HPV 9-Valent 06/12/2016 Hib / Hep B 05/15/2004,01/13/2004 IPV 06/18/2005,03/15/2004,01/13/2004 MMR 06/12/2009 Meningococcal MCV4O 06/12/2016 Pneumococcal Conjugate PCV 7 05/15/2004,03/15/20 04 Tdap 06/12/2016 Varicella 06/12/2009 Family History Medical History Relation Name Comments Depression Father Jeff Drug abuse Father Jeff No Known Problems Half-Brother Alcohol abuse Maternal Grandfather Hypertension Maternal Grandfather Mental illness Maternal Grandmother Scoliosis Maternal Grandmother Bipolar disorder Maternal Great-Grandmother Schizophrenia Maternal Great-Grandmother Anxiety disorder Mother Nany Depression Mother Nany Alcohol abuse Paternal Grandfather Art Hypertension Paternal Grandfather Art Mental illness Paternal Grandfather Art ADD / ADHD Sister Batsheva Anxiety disorder Sister [place] Depression Sister Batsheva Relation Name Status Comments Father Jeff Alive Half-Brother Alive 2 Maternal Grandfather Alive Maternal Grandmother Alive Maternal Great-Grandmother Alive Mother Nany Alive Paternal Grandfather Art Alive Paternal Grandmother Alive Sister Batsheva Alive Social History Tobacco Use Types Packs/Day Years Used Date Smoking Tobacco: Every Day Passive Smoke Exposure: Never Smokeless Tobacco: Never Tobacco Cessation:Ready to Q uit: Not Asked; Counseling Given: Not Answered Comments:Vape everday Alcohol Use Standard Drinks/Week Comments [...] How often do you attend chur or orthodox services? More than 4 times per year 06/29/2024 Do you belong to any clubs o r organizations such as evangelical groups, unions, fraternal or athletic groups, or [...] Recorded Patient Health Questionnaire-2 Score 0 03/02/2025 [place] [facility] Occupat ional Health - Occupational Stress [...] any time in the past 12 m [facility], were you homeless or living in [...] file Not on file Not on file Last Filed Vital Signs Vital Sign Reading Time Taken Comments Blood Pressure 118/82 05/04/2025 5:39 PM EDT Pulse 94 05/04/2025 5:39 PM EDT Temperature 36.4 C (97.6 F) 05/04/2025 5:39 PM EDT Respiratory Rate 18 04/02/2023 11:32 AM EDT Oxygen Saturation 96% 05/04/2025 5:39 PM EDT Inhaled Oxygen Concentration - - Weight 48.1 kg (106 lb) 05/04/2025 5:39 PM EDT Height 167.6 cm (5' 6 ) 02/01/2025 1:59 PM EDT Body Mass Index 17.11 02/01/2025 1:59 PM EDT Plan of Treatment Upcoming Encounters Date Type Department Care Team (Late st Contact Info) Description 06/02/2025 11:00 AM EDT Social Work [facility] [address] [facility] [address] [place] [address] Chet Davis LPC 06/22/2025 1:00 PM EDT Telemedicine [facility] [address] [facility] [address] [place] [address] Cece Rome, PMHNP-BC [address] [facility] [address] [place] [address] Health Maintenance Due Date Last Done Comments Influenza Vaccine (#1) 2025 Procedures Procedure Name Priority Date/Time Associated Diagnosis Comments ECG 12-LEAD 03/30/2025 1:03 PM EDT ALL THYROID STIM HORMONE Routine 03/30/2025 12:24 PM EDT [facility] CMP (CMP) (FOR REMOTE [facility] USE) Routine 03/30/2025 12:24 PM EDT ALL CBC WITH AUTO DIFF Routine 03/30/2025 12:24 PM EDT from Last 3 Months Results * ECG 12-LEAD (03/30/2025 1:03 PM EDT) Anatomical Region Laterality Modality Other 03/30/2025 1:03 PM EDT Narrative 03/30/2025 5:30 PM EDT The [address] [address] Electrocardiograph Report Signed Patient: SOLIS WALLACE MR#: [id number] : 2005 Acct:[id number] Age/Sex: 19 / F ADM Date: 03/30/25 Loc: LAB Attending Dr: Tawnya NEVAREZ Ordering Physician: Tawnya NEVAREZ Date of Service: 03/30/25 Procedure(s): ECG 12 lead Accession Number(s): [id number] cc: The [facility] Test Date: 2025-03-30 Pat Name: SOLIS WALLACE Department: Room: - Gender: Female Nurse Esthetician: : 2005 Requested By: Order Number: [id number] Reading MD: WENDY ORTEZ M.D. Measurements Intervals [place] Rate: 76 P: 80 AZ: 145 QRS: 78 QRSD: 80 T: 57 QT: 354 QTc: 400 Interpretive Statements SINUS RHYTHM WITH SINUS ARRHYTHMIA POSSIBLE RIGHT VENTRICULAR CONDUCTION DELAY [RSR (QR) IN V1/V2] Compared to ECG 12/30/2023 00:24:54 ST (T wave) deviation no longer present Heart rate has decreased by 76 BPM Electronically Signed On 03-30-2025 17:29:58 EDT by WENDY ORTEZ M.D. 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 Measurements Intervals Lawrence Rate: 76 P: 80 AZ: 145 QRS: 78 QRSD: 80 T: 57 QT: 354 QTc: 400 Interpretive Statements SINUS RHYTHM WITH SINUS ARRHYTHMIA POSSIBLE RIGHT VENTRICULAR CONDUCTION DELAY [RSR (QR) IN V1/V2] Compared to ECG 12/30/2023 00:24:54 ST (T wave) deviation no longer present Heart rate has decreased by 76 BPM Electronically Signed On 03-30-2025 17:29:58 EDT by WENDY ORTEZ M.D. Dictated By: WENDY ORTEZ Signed By:03/30/25 1730 03/30/25 1730 DD/ 1303 TD/TT: Retort Pre Cooker: Wendy Nevarez DO [facility] Final Resul t * (ABNORMAL) [facility] CMP (CMP) (FOR REMOTE [facility] USE) (03/30/2025 12:24 PM EDT) SODIUM 139 136 - 145 mmol/L [facility] POTASSIUM 3.9 3.5 - 5.1 mmol/L [facility] CHLORIDE 103 98 - 107 mmol/L TBH CARBON DIOXIDE 28.1 21.0 - 32.0 mmol/L TBH ANION GAP 11.8 TBH GLUCOSE 98 74 - 106 mg/dL TBH BLOOD UREA NITROGEN 19.0(H) 7.0 - 18.0 mg/dL TB[facility] CREATININE 0.83 0.55 - 1.02 mg/dL TBH TBH EGFR-AF POLISH >60 >=60 mL/min/1. 73m 2 TBH TBH EGFR-NON AF POLISH >60 >=60 mL/min/1. 73m 2 TBH BUN CREATININE RATIO 22.9 TBH CALCIUM 9.1 8.5 - 10.1 mg/dL TBH BILIRUBIN TOTAL 0.4 0.2 - 1.0 mg/dL TBH ASPARTATE AMINO TRANSFERASE 15 15 - 37 U/L TBH ALANINE AMINOTRANSFERASE 16 14 - 59 U/L TBH ALKALINE PHOSPHATASE 52 46 - 116 U/L TBH TOTAL PROTEIN 7.1 6.4 - 8.2 g/dL TBH ALBUMIN LEVEL 3.7 3.4 - 5.0 g/dL TBH GLOBULIN 3.4 g/dL TBH ALBUMIN GLOBULIN RATIO 1.1 TBH 03/30/2025 12:2 4 PM EDT 03/30/2025 12:50 PM EDT Narrative [facility] - 03/30/2025 1:54 PM EDT Wendy Nevarez DO [facility] * ALL THYROID STIM HORMONE (03/30/2025 12:24 PM EDT) THYROID STIMULATING HORMONE 0.519 0.358 - 3.740 uIU/mL TB 03/30/2025 12:2 4 PM EDT 03/30/2025 12:50 PM EDT Narrative [facility] - 03/30/2025 1:54 PM EDT Wendy Nevarez DO [facility] * (ABNORMAL) ALL CBC WITH AUTO DIFF (03/30/2025 12:24 PM EDT) TB WBC 6.6 4.0 - 11.0 10 3/uL TBH TBH RBC 4.36 4.20 - 5.40 10 6/uL TBH TBH HGB 13.3 12.0 - 16.0 g/dL TB TBH HCT 39.0 36.0 - 48.0 % TBH TBH MCV 89.4 81.0 - 99.0 fL TBH TBH MCH 30.5 26.7 - 34.0 pg TBH TBH MCHC 34.1 29.9 - 35.2 g/dL TBH TBH RDW 11.1 11.0 - 15.0 % TBH TBH PLT 223 150 - 450 10 3/uL TBH TBH MPV 8.7(L) 9.5 - 13.5 fL TBH NEUTROPHILS PERCENT AUTO 62.1 43.0 - 75.0 % TBH LYMPHOCYTES PERCENT AUTO 28.6 20.5 - 60.0 % TBH MONOCYTES PERCENT AUTO 7.2 1.7 - 12.0 % TBH TBH EO % 1.1 0.9 - 7.0 % TBH BASOPHILS PERCENT AUTO 0.8 0.2 - 2.0 % TBH IMMATURE GRANULOCYTES PCT AUTO 0.2 0.0 - 0.5 % TBH NEUTROPHILS ABSOLUTE AUTO 4.1 1.4 - 6.5 10 3/uL TBH LYMPHOCYTES ABSOLUTE AUTO 1.9 1.2 - 3.8 10 3/uL TBH MONOCYTES ABSOLUTE AUTO 0.5 0.3 - 0.8 10 3/uL TBH TBH EO # 0.1 0.0 - 0.7 10 3/uL TBH BASOPHILS ABSOLUTE AUTO 0.1 0.0 - 0.1 10 3/uL TBH IMMATURE GRANULOCYTES ABS AUTO 0.01 0.00 - 0.03 10 3/uL TBH 03/30/2025 12:2 4 PM EDT 03/30/2025 12:50 PM EDT Narrative [facility] - 03/30/2025 1:06 PM EDT Wendy Nevarez DO [facility] Final [facility] Last 3 Months Insurance [facility] MEDICAID [place] Care Teams Wrapper Counter Relationship Specialty Start Date End Date Wendy Nevarez DO [address] [place] [address] PCP - General Family Medicine 12/01/23 Cece Rome [facility] [address] [place] [address] Nurse Practitioner Behavioral Health 08/18/24 Preet Womack DO [address] [place] [place] [address] Patch Press Operator/Gynecolog ist Obstetrics and Gynecology 08/18/24 Chet Davis LPC Certified Addiction Counselor Behavioral Health 11/24/24 Estefani Bullock MD [address] [place] [address] Referring Physician Cardiology 05/15/25
--- OUTSIDE RECORDS SUMMARY | 2025-06-01 10:01 | XMS_ITS | Encounter Summary ---
Author Organization [facility] Address [address] [place] [address] Care Team Providers Care Geropsychologist Name Role Phone Opal Neri WATER QUALITY SPECIALIST Unavailable Jose Nevarez DO Primary Care Provider [phone] Cece Rome PMHNP- Unavailable Sari Womack DO Unavailable Chet Davis LPC Unavailable Unavailable Estefani Bullock MD Unavailable [phone] Encounter Details Date Type Department Care [...] Health [address] [place] [address] Chet Davis LPC 06/22/2025 1:00 PM EDT Telemedicine [facility] [address] [facility] [address] [place] [address] Cece Rome, PMHNP-BC [address] [facility] [address] [place] [address] documented as of this encounter Procedures Procedure Name Priority Date/Time Associated Diagnosis Comments US AMNIOTIC FLUID VOLUME 12/16/2023 11:30 AM EST documented in this encounter Results * US AMNIOTIC FLUID VOLUME (12/16/2023 11:30 AM EST) Anatomical Region Laterality Modality Radiographic Nadya ging 12/16/2023 11:3 0 AM EST Narrative 12/16/2023 11:33 [place] [address] Ultrasound Report Signed Patient: SOLIS RASHID MR#: [id number] : 2005 Acct:[id number] Age/Sex: 18 / F ADM Date: 12/16/23 Loc: [facility] Attending Dr: Sair Womack D.O. Ordering Physician: Sari Womack D.O. Date of Service: 12/16/23 Procedure(s): US OB amniotic fluid vol Accession Number(s): [id number] cc: Sari Womack D.O.; Tawnya NEVAREZ The [place] [id number] Patient Name: SOLIS RASHID MRN: [id number] date: 2005 Sex: F Assigned Patient Location: [facility] Current Patient Location: [facility] Accession/Order Number: [id number] Exam Date: 12/16/2023 11:05 Report Date: 12/16/2023 [...] MEGHAN MELGAR Date: 12/16/2023 11:30 Dictated By: Mehgan Melgar M.D. Signed By: 12/16/23 1133 DD/ 1130 TD/TT: Rotary Engraver: Procedure Note Radiology, Radiologist, MD - 12/16/2023 [place] [address] Ultrasound Report Signed Patient: BRITTNEY RASHID#: [id number] : 2005Acct:[id number] Age/Sex: 18 / FADM Date: 12/16/23 Loc: [facility] Attending Dr: Sari Womack D.O. Ordering Physician: Sari Womack D.O. Date of Service: 12/16/23 Procedure(s): US OB amniotic fluid vol Accession Number(s): [id number] cc: Sari Womack D.O.; Tawnya NEVAREZ The [place] [address] Patient Name: SOLIS RASHID MRN: [facility]:[id number] date: 2005 Sex: F Assigned Patient Location: [facility] Current Patient Location: [facility] Accession/Order Number: [id number] Exam Date: 12/16/2023 11:05 Report Date: 12/16/2023 [...] M.D. Signed By:12/16/23 1133 DD/ 1130 TD/TT: Rotary Engraver: us Generic External Data Provider IMG XR PROCEDURES Final Result documented in this encounter Visit Diagnoses Not on filedocumented in this encounter Additional Health Concerns Assessment Noted Time PHQ-9 Depression Total Score: 11 023 11:36 AM EDT documented as of this encounter Care Teams Geropsychologist Relationship Specialty Start Date End Date Jose Nevarez DO [address] [place] [address] PCP - General Family Medicine 12/01/23 Opal Neri NP [address] [place] [address] Nurse Practitioner Family Medicine 04/02/23 08/17/24 [facility] [address] [place] [address] Nurse Practitioner Behavioral Health 08/18/24 Sari Womack DO [address] [place] [address] Bicycle Repairer/Gynecolog ist Obstetrics and Gynecology 08/18/24 Chet Davis LPC [facility] 11/24/24 Estefani Bullock MD [address] [place] [address] Referring Physician Cardiology 05/15/25 documented as of this encounter
--- OUTSIDE RECORDS SUMMARY | 2025-06-01 10:02 | XMS_ITS | Clinical Summary ---
Author Organization [facility] Address [id number] [address] [place] [address] Care Team Providers Care Residential Case Manager Name Role Phone Pcp, Not In System Primary Care Provider Unavail able Allergies Active Allergy Reactions Criticality Noted Date Comments Amoxicillin 01/09/2025 Sulfa (Sulfonamide Antibiotics) 12/19 Medications benzonatate (TESSALON PERLES) 100 mg capsule Take 1 capsule (100 mg total) by mouth every 8 (eight) hours. 21 capsule Active fluticasone propionate (FLONASE) 50 mcg/actuation nasal spray Administer 1 spray into each nostril in the morning. 16 g Active Social History Tobacco Use Types Packs/Day Years Used Date Smoking Tobacco: Never Assessed Childcare Answer Date Recorded Childcare Unknown 03/31/2019 Employment Answer Date Recorded Employment Unknown 03/31/2019 Hunger Screening Answer Date Recorded Within the past 12 months we worried whether our food would run out before we got money to buy more. Never True 01/09/2025 Within the past 12 months th e food we bought just didn't last and we didn't have money to get more. Never True 01/09/2025 Comments Unknown Sex and Gender Information Value Date Recorded Sex Assigned at Not on file Legal Sex Female 5:12 PM EDT Gender Identity Not on file Sexual Orientation Not on file Last Filed Vital Signs Vital Sign Reading Time Taken Comments Blood Pressure 95/71 01/09/2025 3:15 PM EDT Pulse 96 01/09/2025 3:15 PM EDT Temperature 36.8 C (98.2 F) 01/09/2025 2:31 PM EDT Respiratory Rate 16 01/09/2025 3:15 PM EDT Oxygen Saturation 100% 01/09/2025 3:15 PM EDT Inhaled Oxygen Concentration - - Weight 47.6 kg (105 lb) 01/09/2025 2:31 PM EDT Height 167.6 cm (5' 6 ) 01/09/2025 2:31 PM EDT Body Mass Index 16.95 01/09/2025 2:31 PM EDT Plan of Treatment Health Maintenance Due Date Last Done Comments Depression Screening 2015 Tobacco Screening 2015 Adult BMI Follow Up Plan 2021 Influenza Vaccine 06/20/2025 Adult BMI Screening 01/09/2026 01/09/2025 DTaP,Tdap and Td Vaccines (7 - Td or Tdap) 06/12/2026 06/12/2016, 06/12/2009, 06/18/2005, Additional history exists Pap Smear 12/08/2027 12/08/2024 Medical Devices Not on file Insurance [employer] Care Teams Residential Case Manager Relationship Specialty Start Date End Date Pcp, Not In System [place] [address] PCP - General Family Medicine 01/09/25
--- OUTSIDE RECORDS SUMMARY | 2025-06-01 10:02 | XMS_ITS | Encounter Summary ---
Author Organization [facility] Address [address] [place] [address] Care Team Providers Care Public Opinion Survey Taker Name Role Phone Jose Nevarez DO Primary Care Provider Opal Neri INDUSTRIAL REAL ESTATE AGENT Unavailable Jose Nevarez DO Primary Care Provider Cece Rome PMHNP- Unavailable [phone] Preet Womack DO Unavailable Chet Davis LPC Unavailable Unavailable Estefani Bullock MD Unavailable [phone] Encounter Details Date Type Department Care Team (Late st Contact Info) Description 10/06/2023 Orders Only [facility] [address] [place] [address] [place] [address] A, Unknown Practice [address] [place] [phone] Social History Tobacco Use Types Packs/Day Years [...] Health [address] [address] [place] [address] Chet Davis LPC 06/22/2025 1:00 PM EDT Telemedicine [facility] [place] [facility] [address] [place] [address] [place] [address] Cece Rome PMHNP-JI [address] [place] [address] [place] [address] documented as of this encounter Procedures Procedure Name Priority Date/Time Associated Diagnosis Comments OB US TRANSVAGINAL Routine 10/06/2023 3:46 PM EST documented in this encounter Results * OB US TRANSVAGINAL (10/06/2023 3:46 PM EST) Anatomical Region Laterality Modality Radiographic Nadya ging us Unknown Practice A IMG XR PROCEDURES Final Resul t documented in this encounter Visit Diagnoses Not on filedocumented in this encounter Additional Health Concerns Assessment Noted Time PHQ-9 Depression Total Score: 11 023 11:36 AM EDT documented as of this encounter Care Teams Public Opinion Survey Taker Relationship Specialty Start Date End Date Jose Nevarez DO PCP - General Family Medicine 04/02/23 11/30/23 Jose Nevarez DO [address] [place] [address] [place] [address] PCP - General Family Medicine 12/01/23 Opal Neri NP [address] [place] [address] [place] [address] Nurse Practitioner Family Medicine 04/02/23 08/17/24 Cece Rome PMHNP-BC [address] [facility] [address] [place] [address] Nurse Practitioner Behavioral Health 08/18/24 Preet Womack DO [address] [place] [address] Beaver Trapper/Gynecolog ist Obstetrics and Gynecology 08/18/24 Chet Davis LPC Sports Book Board Attendant Behavioral Health 11/24/24 Estefani Bullock MD [address] [place] [address] Referring Physician Cardiology 05/15/25 documented as of this encounter
--- OUTSIDE RECORDS SUMMARY | 2025-06-01 10:02 | XMS_ITS | Encounter Summary ---
Author Organization [facility] Address [address] [place] [address] Care Team Providers Care Manager Web Name Role Phone Roque Murrieta MD, Sancho Primary Care Provider + Encounter Details Date Type Department Care Team (Late Contact Info) Description 05/19/2025 Orders Only [place] [address] [place] [address] ProviderDwayne MD [address] [place] [address] Social History Tobacco Use Types Packs/Day Years Used Date Smoking Tobacco: Some Days Smokeless Tobacco: Current Comments:Vape hourly through out the day Alcohol Use Standard Drinks/Week Comments Never 0 (1 standard drink = 0.6 oz pur e alcohol) Comments No Sex and Gender Information Value Date Recorded Sex Assigned at Not on file Legal Sex Female 1:10 PM EDT Gender Identity Not on file Sexual Orientation Not on file documented as of this encounter Plan of Treatment Upcoming Encounters Date Type Department Care Team (Late st Contact Info) Description 06/17/2025 2:20 PM EDT Office Visit [facility] [address] [place] [address] Jay Mora MD [address] [place] [address] documented as of this encounter Procedures Procedure Name Priority Date/Time Associated Diagnosis Comments HOLTER MONITOR RESIDENTIAL Routine 04/20/2025 8:48 AM EDT documented in this encounter Results * Holter monitor - intermediate (04/20/2025 8:48 AM EDT) Anatomical Region Laterality Modality Other us Historical Provider [facility] MADELINE LOPEZ Final Result documented in this encounter Visit Diagnoses Not on filedocumented in this encounter Care Teams Manager Web Relationship Specialty Start Date End Date Tawnya Nevarez Jr., MD [address] [facility] [address] [place] [address] PCP - General Family Medicine 04/19/25 documented as of this encounter
--- OUTSIDE RECORDS SUMMARY | 2025-06-01 10:02 | XMS_ITS | Encounter Summary ---
Author Organization [facility] Address [address] [place] [address] Care Team Providers Care Senior Web Analyst Name Role Phone AugustinefelizJose DO Primary Care Provider [phone] Cece Rome PMHNP-BC Unavailable Preet Womack DO Unavailable Chet Davis LPC Unavailable Unavailable Estefani Bullock MD Unavailable [phone] Reason for Visit * Reason Comments Med Refill Encounter Details Date Type Department Care Team (Late st Contact Info) Description 03/31/2025 Refill [facility] [place] [facility] [address] [place] [address] [place] [address] Cece Rome HNP- [address] [place] [address] [place] [phone] Moderate episode of recurrent major depressive disorder [...] often do you attend chur ch or uatsdin services? More than 4 times per year 06/29/2024 Do you belong to any clubs o r organizations such as restorationist groups, unions, fraternal or athletic groups, or [...] Recorded Patient Health Questionnaire-2 Score 0 03/02/2025 [facility] - Occupational [...] any time in the past 12 m [facility], were you homeless or living in a snf (including now)? No 06/29/2024 Education Answer Date [...] [facility] [address] [facility] 160 [place] [address] Chet Davis LPC 06/22/2025 1:00 PM EDT Telemedicine [facility] [address] [facility] [address] [place] [address] Cece Rome PMHNP- [address] [facility] [address] [place] [address] documented as of this encounter Visit Diagnoses Diagnosis Moderate episode of recurrent major depressive disorder (HCC) Social anxiety disorder Social phobia documented in this encounter Additional Health Concerns Assessment Noted Time PHQ-9 Depression Total Score: 11 023 11:36 AM EDT documented as of this encounter Care Teams Senior Web Analyst Relationship Specialty Start Date End Date Jose Nevarez DO [address] [place] [address] [place] [address] PCP - General Family Medicine 12/01/23 Cece Rome ESTHER- [address] [place] [address] [place] [address] Nurse Practitioner Behavioral Health 08/18/24 Preet Womack DO [address] [place] [address] Fur Finisher/Gynecolog ist Obstetrics and Gynecology 08/18/24 Chet Davis LPC Bulb Assembler Behavioral Health 11/24/24 Estefani Bullock MD [address] [place] [address] Referring Physician Cardiology 05/15/25 documented as of this encounter
--- OUTSIDE RECORDS SUMMARY | 2025-06-01 10:02 | XMS_ITS | Encounter Summary ---
Author Organization [facility] Address [address] [place] [address] Care Team Providers Care Box Storage Worker Name Role Phone Jose Nevarez DO Primary Care Provider Cece Rome PMP- Unavailable [phone] Preet Womack DO Unavailable Chet Davis LPC Unavailable Unavailable Estefani Bullock MD Unavailable [phone] Encounter Details Date Type Department Care Team (Late st Contact Info) Description 12/22/2024 Orders Only [facility] [address] [place] [address] Penelope Landry LPN [address] [place] [address] Social History Tobacco Use Types Packs/Day Years [...] often do you attend chur ch or restorationism services? More than 4 times per year 06/29/2024 Do you belong to any clubs o r organizations such as alevism groups, unions, fraternal or athletic groups, or [...] Answer Date Recorded Patient Health Questionnaire-2 Score 6 10/27/2024 [facility] - [...] medical appointments or from getting medications? Yes 09/1 In the past 12 months, has l [...] any time in the past 12 m [facility], were you homeless or living in a alf (including now)? No 06/29/2024 Education Answer Date [...] [facility] [facility] [address] [facility] [address] [place] [address] Chet Davis LPC 06/22/2025 1:00 PM EDT Telemedicine [facility] [place] [facility] [address] [facility] [address] [place] [address] Cece Rome, HN- [address] [facility] [address] [place] [address] documented as of this encounter Procedures Procedure Name Priority Date/Time Associated Diagnosis Comments PAP SMEAR Routine 12/08/2024 12:00 AM EST documented in this encounter Results * Pap Smear (12/08/2024 12:00 AM EST) Swab Cervical swab / Unknown Shanta Nurse [facility] LAB CYTOLOGY ORDERABLES Final Result EXTERNAL LAB documented in this encounter Visit Diagnoses Not on filedocumented in this encounter Additional Health Concerns Assessment Noted Time PHQ-9 Depression Total Score: 11 023 11:36 AM EDT documented as of this encounter Care Teams Box Storage Worker Relationship Specialty Start Date End Date Jose Nevarez DO [address] [place] [address] [place] [address] PCP - General Family Medicine 12/01/23 Cece Rome PMHNP- [address] [place] [address] [place] [address] Nurse Practitioner Behavioral Health 08/18/24 Preet Womack DO [address] [place] [address] Mule Developer/Gynecolog ist Obstetrics and Gynecology 08/18/24 Chet Davis LPC Scale Balancer Behavioral Health 11/24/24 Estefani Bullock MD [address] [place] [address] Referring Physician Cardiology 05/15/25 documented as of this encounter
--- OUTSIDE RECORDS SUMMARY | 2025-06-01 10:02 | XMS_ITS | Encounter Summary ---
Author Organization [facility] Address [address] [place] [address] Care Team Providers Care Leadership Intern Name Role Phone Roque Murrieta MD, Sancho Primary Care Provider + Encounter Details Date Type Department Care Team (Late st Contact Info) Description 05/23/2025 Telephone [facility] [address] [place] [address] Maribel Schultz MA Social History Tobacco Use Types Packs/Day Years [...] on file documented as of this encounter Miscellaneous Notes * Telephone Encounter - Maribel Schultz MA - 05/23/2025 10:31 AM EDT Detailed voicemail left for patient. Maribel Schultz MA * Telephone Encounter - Maribel Schultz MA - 05/23/2025 10:[address] Mora: Overall no significant arrhythmias at the time of symptoms, CCM documented in this encounter Plan of Treatment Upcoming Encounters Date Type Department Care Team (Late st Contact Info) Description 06/17/2025 2:20 PM EDT Office Visit [facility] [address] [place] [address] Jay Mora MD [address] [id number] [place] [address] documented as of this encounter Visit Diagnoses Not on filedocumented in this encounter Care Teams Leadership Intern Relationship Specialty Start Date End Date Tawnya Nevarez Jr., MD [address] [place] [address] [place] [address] PCP - General Family Medicine 04/19/25 documented as of this encounter
--- OUTSIDE RECORDS SUMMARY | 2025-06-01 10:02 | XMS_ITS | Encounter Summary ---
Author Organization [facility] Address [address] [place] [address] Care Team Providers Care Police Commanding Officer Name Role Phone Jose Nevarez DO Primary Care Provider Opal Neri PROPERTY AND SUPPLY OFFICER Unavailable Jose Nevarez DO Primary Care Provider Cece Rome [facility] Un[facility] Preet Womack DO Unavailable Chet Davis LPC Unavailable Unavailable Estefani Bullock MD Unavailable [phone] Encounter Details Date Type Department Care Team (Late st Contact Info) Description 04/07/2023 Orders Only [facility] [address] [address] [place] [address] Opal Neri, PROPERTY AND SUPPLY OFFICER [address] [place] [address] [place] [address] Acute cystitis without hematuria (Primary Dx) Social History Tobacco Use Types Packs/Day Years Used Date Smoking Tobacco: Never Passive Smoke Exposure: Never Smokeless Tobacco: Never Alcohol Use Standard Drinks/Week Comments Never 0 (1 standard drink = 0.6 oz pur e alcohol) PHQ-2 Answer Date Recorded Patient Health Questionnaire-2 Score 0 04/08/2023 Comments No Sex and Gender Information Value Date Recorded Sex Assigned at Not on file Legal Sex Female 7:00 PM EDT Gender Identity Female 01/01/2023 7:00 PM EDT Sexual Orientation Not on file documented as of this encounter Functional Status * Over the past 2 weeks, how often have you been bothered by any of the following problems? Question Answer Date of Assessment Author Little interest or pleasure in doing things Not at all 04/08/2023 1:41 PM EDT Sacha Marie MA Feeling down, depressed, or hopeless Not at all 04/08/2023 1:41 PM EDT Sacha Marie MA Patient Health Questionnaire -2 Score 0 04/08/2023 1:41 PM EDT Sacha Marie MA documented as of this encounter Plan of Treatment Upcoming Encounters Date Type Department Care Team (Late st Contact Info) Description 06/02/2025 11:00 AM EDT Social Work [facility] [address] [facility] 160 [place] [address] Chet Davis LPC 06/22/2025 1:00 PM EDT Telemedicine [facility] [facility] [address] [facility] 160 [place] [address] Cece Rome HN- [address] [facility] 160 [place] [address] documented as of this encounter Visit Diagnoses Diagnosis Acute cystitis without hematuria- Primary documented in this encounter Additional Health Concerns Assessment Noted Time PHQ-9 Depression Total Score: 11 023 11:36 AM EDT documented as of this encounter Care Teams Police Commanding Officer Relationship Specialty Start Date End Date Jose Nevarez DO PCP - General Family Medicine 04/02/23 11/30/23 Jose Nevarez DO [address] [facility] [address] [place] [address] PCP - General Family Medicine 12/01/23 Opal Neri NP [address] [facility] [address] [place] [address] Nurse Practitioner Family Medicine 04/02/23 08/17/24 Cece Rome [facility] [address] [facility] 160 [place] [address] Nurse Practitioner Behavioral Health 08/18/24 Preet Womack DO [address] [place] [address] University Internship/Gynecolog ist Obstetrics and Gynecology 08/18/24 Chet Davis LPC Scalping Machine Operator Behavioral Health 11/24/24 Estefani Bullock MD [address] [place] [address] Referring Physician Cardiology 05/15/25 documented as of this encounter
--- OUTSIDE RECORDS SUMMARY | 2025-06-01 10:02 | XMS_ITS | Encounter Summary ---
Author Organization [facility] Address [address] [place] [address] Care Team Providers Care Print Controller Name Role Phone Opal Neri REGULATOR ASSEMBLER Unavailable Jose Nevarez DO Primary Care Provider [phone] Cece Rome PMHNP- Unavailable Preet Womack DO Unavailable Chet Davis LPC Unavailable Unavailable Estefani Bullock MD Unavailable [phone] Encounter Details Date Type Department Care Team (Late st Contact Info) Description 03/31/2024 Abstract [facility] [address] [place] [address] Preet Womack DO [address] [facility] [place] [address] Social History Tobacco Use Types Packs/Day Years Used Date Smoking Tobacco: Never Passive Smoke Exposure: Never Smokeless Tobacco: Never Alcohol Use Standard Drinks/Week Comments Never 0 (1 standard drink = 0.6 oz pur e alcohol) Caffeine intake: none PHQ-2 Answer Date Recorded Patient Health Questionnaire-2 Score 0 06/03/2023 Comments No Sex and Gender Information Value [...] Health [address] [address] [place] [address] Chet Davis LPC 06/22/2025 1:00 PM EDT Telemedicine [facility] [place] [facility] [address] [address] [place] [address] Cece Rome [facility] [address] [place] [address] documented as of this encounter Visit Diagnoses Not on filedocumented in this encounter Additional Health Concerns Assessment Noted Time PHQ-9 Depression Total Score: 11 023 11:36 AM EDT documented as of this encounter Care Teams Print Controller Relationship Specialty Start Date End Date Jose Nevarez DO [address] [place] [address] [place] [address] PCP - General Family Medicine 12/01/23 Opal Neri NP [address] [place] [address] [place] [address] Nurse Practitioner Family Medicine 04/02/23 08/17/24 Cece Rome, [facility] [address] [place] [address] Nurse Practitioner Behavioral Health 08/18/24 Preet Womack DO [address] [place] [address] Sql Server Bi Developer/Gynecolog ist Obstetrics and Gynecology 08/18/24 Chet Davis LPC Investigator Narcotics Behavioral Health 11/24/24 Estefani Bullock MD [address] [place] [address] Referring Physician Cardiology 05/15/25 documented as of this encounter
--- OUTSIDE RECORDS SUMMARY | 2025-06-01 10:02 | XMS_ITS | Encounter Summary ---
Author Organization [facility] Address [address] [place] [address] Care Team Providers Care Market Developer Name Role Phone Opal Neri RECOVERY COLLECTOR Unavailable Jose Nevarez DO Primary Care Provider [phone] Cece Rome PMHNP- Unavailable Preet Womack DO Unavailable Chet Davis LPC Unavailable Unavailable Estefani Bullock MD Unavailable [phone] Encounter Details Date Type Department Care Team (Late st Contact Info) Description 12/03/2023 Abstract [facility] [address] [facility] [place] [address] Penelope Landry LPN [address] [facility] [address] [place] [id number] Social History Tobacco Use Types Packs/Day Years [...] Health [address] [place] [address] Chet Davis LPC 06/22/2025 1:00 PM EDT Telemedicine [facility] [place] [facility] [address] [place] [address] Cece Rome, [facility] [address] [place] [address] documented as of this encounter Visit Diagnoses Not on filedocumented in this encounter Additional Health Concerns Assessment Noted Time PHQ-9 Depression Total Score: 11 023 11:36 AM EDT documented as of this encounter Care Teams Market Developer Relationship Specialty Start Date End Date Jose Nevarez DO [address] [place] [address] [place] [address] PCP - General Family Medicine 12/01/23 Opal Neri NP [address] [place] [address] [place] [address] Nurse Practitioner Family Medicine 04/02/23 08/17/24 Cece Rome, [facility] [address] [facility] [address] [place] [address] Nurse Practitioner Behavioral Health 08/18/24 Preet Womack DO [address] [place] [address] Fans Clerk/Gynecolog ist Obstetrics and Gynecology 08/18/24 Chet Davis LPC Middle School Coach Behavioral Health 11/24/24 Estefani Bullock MD [address] [place] [address] Referring Physician Cardiology 05/15/25 documented as of this encounter
--- OUTSIDE RECORDS SUMMARY | 2025-06-01 10:02 | XMS_ITS | Encounter Summary ---
Author Organization [facility] Address [address] [place] [address] Care Team Providers Care Payroll Administrative Assistant Name Role Phone Jose Nevarez DO Primary Care Provider [phone] Opal Neri MARKLOGIC DEVELOPER Unavailable Jose Nevarez DO Primary Care Provider [phone] Cece Rome PMHNP- Unavailable Preet Womack DO Unavailable Chet Davis LPC Unavailable Unavailable Estefani Bullock MD Unavailable [phone] Encounter Details Date Type Department Care Team (Late st Contact Info) Description 08/04/2023 Abstract [facility] [address] [facility] [place] [address] Preet Womack DO [address] [facility] [place] [address] Social History Tobacco Use Types Packs/Day Years [...] Behavioral Health [address] [place] [address] [place] [address] Chet Davis LPC 06/22/2025 1:00 PM EDT Telemedicine [facility] [place] [facility] [address] [facility] [address] [place] [address] Cece Rome [facility] [address] [facility] 160 [place] [address] documented as of this encounter Visit Diagnoses Not on filedocumented in this encounter Additional Health Concerns Assessment Noted Time PHQ-9 Depression Total Score: 11 023 11:36 AM EDT documented as of this encounter Care Teams Payroll Administrative Assistant Relationship Specialty Start Date End Date Jose Nevarez DO PCP - General Family Medicine 04/02/23 11/30/23 Jose Nevarez DO [address] [facility] 230 [place] [address] PCP - General Family Medicine 12/01/23 Opal Neri NP [address] [facility] 230 [place] [address] Nurse Practitioner Family Medicine 04/02/23 08/17/24 Cece Rome [facility] [address] [facility] [address] [place] [address] Nurse Practitioner Behavioral Health 08/18/24 Preet Womack DO [address] [place] [address] Paint Stripper/Gynecolog ist Obstetrics and Gynecology 08/18/24 Chet Davis LPC Securities Dealer Behavioral Health 11/24/24 Estefani Bullock MD [address] [place] [address] Referring Physician Cardiology 05/15/25 documented as of this encounter
--- OUTSIDE RECORDS SUMMARY | 2025-06-01 10:02 | XMS_ITS | Encounter Summary ---
Author Organization [facility] Address [address] [place] [address] Care Team Providers Care Retail Department Supervisor Name Role Phone Jose Nevarez DO Primary Care Provider [phone] Cece Rome PMHNP-BC Unavailable Preet Womack DO Unavailable Chet Davis LPC Unavailable Unavailable Estefani Bullock MD Unavailable [phone] Reason for Visit * Reason Comments Med Refill Encounter Details Date Type Department Care Team (Late st Contact Info) Description 11/24/2024 Refill [facility] [address] [place] [address] [facility]ce [facility] [address] [place] [address] Social anxiety disorder Social History Tobacco Use [...] any clubs o r organizations such as mu-ism groups, unions, fraternal or athletic groups, or [...] Recorded Patient Health Questionnaire-2 Score 6 10/27/2024 [facility] of Occupat ional Health - Occupational Stress [...] any time in the past 12 m [facility], were you homeless or living in a prison (including now)? No 06/29/2024 Education Answer Date [...] [facility] [address] [facility] [address] [place] [address] Chet Davis LPC 06/22/2025 1:00 PM EDT Telemedicine [facility] [address] [facility] [address] [place] [address] Cece Rome PMHN- [address] [facility] [address] [place] [address] documented as of this encounter Visit Diagnoses Diagnosis Social anxiety disorder Social phobia documented in this encounter Additional Health Concerns Assessment Noted Time PHQ-9 Depression Total Score: 11 04/02/ 023 11:36 AM EDT documented as of this encounter Care Teams Retail Department Supervisor Relationship Specialty Start Date End Date Jose Nevarez DO [address] [place] [address] PCP - General Family Medicine 12/01/23 Cece Rome PMHNP- [address] [facility] [address] [place] [address] Nurse Practitioner Behavioral Health 08/18/24 Preet Womack DO [address] [place] [address] Therapy Tech/Gynecolog ist Obstetrics and Gynecology 08/18/24 Chet Davis LPC Cold Strip Feeder Behavioral Health 11/24/24 Estefani Bullock MD [address] [place] [address] Referring Physician Cardiology 05/15/25 documented as of this encounter
--- OUTSIDE RECORDS SUMMARY | 2025-06-01 10:02 | XMS_ITS | Encounter Summary ---
Author Organization [facility] Address [address] [place] [address] Care Team Providers Care Principal Librarian Name Role Phone Opal Neri FILLER SHREDDER MACHINE Unavailable Jose Nevarez DO Primary Care Provider [facility] Unavailable [phone] Preet Womack DO Unavailable Chet Davis LPC Unavailable Unavailable Estefani Bullock MD Unavailable [phone] Encounter Details Date Type Department Care Team (Late st Contact Info) Description 02/16/2024 Abstract [facility] [address] [place] [address] Jose Nevarez DO [address] [place] [address] Social History Tobacco Use Types Packs/Day Years [...] Health [address] [place] [address] Chet Davis LPC 06/22/2025 1:00 PM EDT Telemedicine [facility] [place] [facility] [address] [place] [address] Cece Rome [facility]- [address] [place] [address] documented as of this encounter Visit Diagnoses Not on filedocumented in this encounter Additional Health Concerns Assessment Noted Time PHQ-9 Depression Total Score: 11 023 11:36 AM EDT documented as of this encounter Care Teams Principal Librarian Relationship Specialty Start Date End Date Jose Nevarez DO [address] [facility] [address] [place] [address] PCP - General Family Medicine 12/01/23 Opal Neri NP [address] [place] [address] [place] [address] Nurse Practitioner Family Medicine 04/02/23 08/17/24 Cece Rome, [facility] [address] [place] [address] Nurse Practitioner Behavioral Health 08/18/24 Preet Womack DO [address] [place] [address] Storage Garage Attendant/Gynecolog ist Obstetrics and Gynecology 08/18/24 Chet Davis LPC Intelligence Officer Behavioral Health 11/24/24 Estefani Bullock MD [address] [place] [address] Referring Physician Cardiology 05/15/25 documented as of this encounter
--- OUTSIDE RECORDS SUMMARY | 2025-06-01 10:02 | XMS_ITS | Encounter Summary ---
Author Organization [facility] Address [address] [place] [address] Care Team Providers Care Food And Beverage Intern Name Role Phone Jose Nevarez DO Primary Care Provider Opal Neri PACKING ATTENDANT Unavailable Jose Nevarez DO Primary Care Provider Cece Rome PMHNP- Unavailable Preet Womack DO Unavailable Chet Davis LPC Unavailable Unavailable Estefani Bullock MD Unavailable [phone] Encounter Details Date Type Department Care Team (Late st Contact Info) Description 07/21/2023 Orders Only [facility] [address] [place] [address] A, Unknown Practice [address] [place] [address] Social History Tobacco Use Types Packs/Day [...] Health [address] [place] [address] Chet Davis LPC 06/22/2025 1:00 PM EDT Telemedicine [facility] [place] [facility] [address] [place] [phone] Cece Rome PMHNP-BC [address] [place] [phone] documented as of this encounter Procedures Procedure Name Priority Date/Time Associated Diagnosis Comments OB US TRANSVAGINAL Routine 07/18/2023 12:48 PM EDT documented in this encounter Results * OB US TRANSVAGINAL (07/18/2023 12:48 PM EDT) Anatomical Region Laterality Modality Radiographic Nadya ging us Unknown Practice A IMG XR PROCEDURES Final Resul t documented in this encounter Visit Diagnoses Not on filedocumented in this encounter Additional Health Concerns Assessment Noted Time PHQ-9 Depression Total Score: 11 023 11:36 AM EDT documented as of this encounter Care Teams Food And Beverage Intern Relationship Specialty Start Date End Date Jose Nevarez DO PCP - General Family Medicine 04/02/23 11/30/23 Jose Nevarez DO [address] [place] [address] PCP - General Family Medicine 12/01/23 Opal Neri NP [address] [place] [address] Nurse Practitioner Family Medicine 04/02/23 08/17/24 Cece Rome PMHNP-BC [address] [place] [address] Nurse Practitioner Behavioral Health 08/18/24 Preet Womack DO [address] [place] [address] Robotic Weld Technician/Gynecolog ist Obstetrics and Gynecology 08/18/24 Chet Davis LPC Crm Consultant Behavioral Health 11/24/24 Estefani Bullock MD [address] [place] [address] Referring Physician Cardiology 05/15/25 documented as of this encounter
--- OUTSIDE RECORDS SUMMARY | 2025-06-01 10:02 | XMS_ITS | Encounter Summary ---
Author Organization [facility] Address [address] [place] [address] Care Team Providers Care Leather Parts Matcher Name Role Phone Jose Nevarez DO Primary Care Provider [phone] Opal Neri SOFTWARE DEVELOPER MID LEVEL Unavailable Jose Nevarez DO Primary Care Provider [phone] Cece Rome PMHNP-BC Unavailable Sari Womack DO Unavailable Chet Davis LPC Unavailable Unavailable Estefani Bullock MD Unavailable [phone] Encounter Details Date Type Department Care Team (Late st Contact Info) Description 10/06/2023 Clinisync Result Encounter [facility] External Department Unsolicited [...] EDT Social Work [facility] [address] [facility] [address] [place] [address] Chet Davis LPC 06/22/2025 1:00 PM EDT Telemedicine [facility] [address] [facility] [address] [place] [address] Cece Rome, PMHNP-BC [address] [facility] [address] [place] [address] documented as of this encounter Procedures Procedure Name Priority Date/Time Associated Diagnosis Comments US OB TRANSVAGINAL 10/06/2023 3: 23 PM EST documented in this encounter Results * US OB TRANSVAGINAL (10/06/2023 3:23 PM EST) Anatomical Region Laterality Modality Other 10/06/2023 3:23 PM EST Narrative 10/06/2023 3:26 [place] [address] Ultrasound Report Signed Patient: SOLIS RASHID MR#: [id number] : 2005 Acct:[id number] Age/Sex: 17 / F ADM Date: 10/06/23 Loc: US Attending Dr: Sari Womack D.O. Ordering Physician: Sari Womack D.O. Date of Service: 10/06/23 Procedure(s): US OB transvaginal Accession Number(s): [id number] cc: Sari Womack D.O.; Tawyna NEVAREZ [address] [address] Patient Name: SOLIS RASHID MRN: [id number] date: 2005 Sex: F Assigned Patient Location: US Current Patient Location: US Accession/Order Number: [id number] Exam Date: 10/06/2023 13:05 Report Date: 10/06/2023 15:23 At the request of: SARI WOMACK Procedure: US OB transvaginal EXAMINATION: US OB anatomy, US OB transvaginal HISTORY: SECOND TRIMESTER COMPARISON: No relevant comparison available. TECHNIQUE: Transabdominal sonographic examination was performed for obstetrical and evaluation. FINDINGS: Number: 1 Heart Rate: 157.9 bpm H.B. /min Amniotic Fluid Volume: Subjectively normal position: cephalic presentation, longitudinal lie Placental Location: ANTERIOR, Grade 0, 4.2 cm from the placental edge to the internal os Cervix Length: 3.7 cm , closed Normal anatomy: Lateral ventricles, cerebellum, posterior fossa, nose, lips, orbits, four-chamber heart, RVOT, LVOT, diaphragm, stomach, kidneys, abdominal cord insertion, bladder, umbilical arteries, three-vessel cord, spine, extremities BIOMETRY: BPD: 4.6 cm 19 weeks 6 days , 39% HC: 17.5 cm 20 weeks 0 days, 36.3% AC: 14.7 cm 20 weeks 0 days, 39% FL: 3.1 cm 19 weeks 5 days ,26.4% EFW:318.0 grams; 11 oz, 30% FL/AC: 21.2 FL/BPD: 67.9 HC/AC: 1.2 GESTATIONAL AGE: Age by EDC: 20 weeks 1 days Age by current US: 19 weeks 6 days KAMRON by current US: 02/24/24 KAMRON by EDC: 02/22/24 US/US OB transvaginal IMPRESSION: Normal anatomy scan *Reference: [facility] Practice Guideline for the performance of Obstetric Ultrasound Examinations, July 20, 2007. Electronically authenticated by: MEGHAN MELGAR Date: 10/06/2023 15:23 Dictated By: Meghan Melgar M.D. Signed By: 10/06/23 1526 DD/ 1523 TD/TT: Alcohol Still Operator: Procedure Note Radiology, Radiologist, MD - 12/24/2023 [place] [address] Ultrasound Report Signed Patient: BRITTNEY RASHID#: [id number] : 2005Acct:[id number] Age/Sex: 17 / FADM Date: 10/06/23 Loc: US Attending Dr: Sari Womack D.O. Ordering Physician: Sari Womack D.O. Date of Service: 10/06/23 Procedure(s): US OB transvaginal Accession Number(s): [id number] cc: Sari Womack D.O.; Tawnya NEVAREZ [place] [id number] Patient Name: SOLIS RASHID MRN: [facility]:[id number] date: 2005 Sex: F Assigned Patient Location: US Current Patient Location: US Accession/Order Number: [id number] Exam Date: 10/06/2023 13:05 Report Date: 10/06/2023 15:23 At the request of: SARI WOMACK Procedure: US OB transvaginal EXAMINATION: US OB anatomy, US OB transvaginal HISTORY: SECOND TRIMESTER COMPARISON: No relevant comparison available. TECHNIQUE: Transabdominal sonographic examination was performed for obstetrical and evaluation. FINDINGS: Number: 1 Heart Rate: 157.9 bpm H.B. /min Amniotic Fluid Volume: Subjectively normal position: cephalic presentation, longitudinal lie Placental Location: ANTERIOR, Grade 0, 4.2 cm from the placental edge tothe internal os Cervix Length: 3.7 cm , closed Normal anatomy: Lateral ventricles, cerebellum, posterior fossa, nose,lips, orbits, four-chamber heart, RVOT, LVOT, diaphragm, stomach, kidneys,abdominal cord insertion, bladder, umbilical arteries, three-vessel cord, spine, extremities BIOMETRY: BPD: 4.6 cm 19 weeks 6 days , 39% HC: 17.5 cm 20 weeks 0 days, 36.3% AC: 14.7 cm 20 weeks 0 days, 39% FL: 3.1 cm 19 weeks 5 days ,26.4% EFW:318.0 grams; 11 oz, 30% FL/AC: 21.2 FL/BPD: 67.9 HC/AC: 1.2 GESTATIONAL AGE: Age by EDC: 20 weeks 1 days Age by current US: 19 weeks 6 days KAMRON by current US: 02/24/24 KAMRON by EDC: 02/22/24 US/US OB transvaginal IMPRESSION: Normal anatomy scan *Reference: [facility] Practice Guideline for the performance of Obstetric Ultrasound Examinations, July 20, 2007. Electronically authenticated by: MEGHAN MELGAR Date: 10/06/2023 15:23 Dictated By: Meghan Melgar M.D. Signed By:10/06/23 1526 DD/ 1523 TD/TT: Alcohol Still Operator: us Generic External Data Provider [facility] Final Result documented in this encounter Visit Diagnoses Not on filedocumented in this encounter Additional Health Concerns Assessment Noted Time PHQ-9 Depression Total Score: 11 023 11:36 AM EDT documented as of this encounter Care Teams Leather Parts Matcher Relationship Specialty Start Date End Date Jose Nevarez DO PCP - General Family Medicine 04/02/23 11/30/23 Jose Nevarez DO [address] [place] [address] PCP - General Family Medicine 12/01/23 Opal Neri NP [address] [place] [address] Nurse Practitioner Family Medicine 04/02/23 08/17/24 Cece Rome [facility] [address] [place] [address] Nurse Practitioner Behavioral Health 08/18/24 Sari Womack DO [address] [place] [address] Solution Make Up Operator/Gynecolog ist Obstetrics and Gynecology 08/18/24 Chet Davis LPC Straight Tooth Gear Generator Operator Behavioral Health 11/24/24 Estefani Bulolck MD [address] [place] [address] Referring Physician Cardiology 05/15/25 documented as of this encounter
--- OUTSIDE RECORDS SUMMARY | 2025-06-01 10:02 | XMS_ITS | Encounter Summary ---
Author Organization [facility] Address [address] [place] [address] Care Team Providers Care Pie Topper Name Role Phone AugustinefelizJose DO Primary Care Provider [phone] Cece Rome PMHNP-BC Unavailable Preet Womack DO Unavailable Chet Davis LPC Unavailable Unavailable Estefani Bullock MD Unavailable [phone] Reason for Visit * Reason Comments Med Refill Encounter Details Date Type Department Care Team (Late st Contact Info) Description 12/28/2024 Refill [facility] [address] [place] [address] Cece Rome HNP- [address] [place] [address] Social anxiety disorder ; Moderate episode of recurrent major depressive disorder (HCC) Social History Tobacco Use Types Packs/Day Years [...] How often do you attend chur or anabaptism services? More than 4 times per year 06/29/2024 Do you belong to any clubs o r organizations such as hinduism groups, unions, fraternal or athletic groups, or [...] Recorded Patient Health Questionnaire-2 Score 6 10/27/2024 [facility] - Occupational Stress Questionnaire Answer Date [...] any time in the past 12 m [facility], were you homeless or living in a penitentiary (including now)? No 06/29/2024 Education Answer Date [...] [facility] [address] [facility] [address] [place] [address] Chet Davis LPC 06/22/2025 1:00 PM EDT Telemedicine [facility] [address] [facility] [address] [place] [address] Cece Rome PMHNP- [address] [facility] [address] [place] [address] documented as of this encounter Visit Diagnoses Diagnosis Social anxiety disorder Social phobia Moderate episode of recurrent major depressive disorder (HCC) documented in this encounter Additional Health Concerns Assessment Noted Time PHQ-9 Depression Total Score: 11 04/02/ 023 11:36 AM EDT documented as of this encounter Care Teams Pie Topper Relationship Specialty Start Date End Date Jose Nevarez DO [address] [place] [address] PCP - General Family Medicine 12/01/23 Cece Rome PMHNP- [address] [place] [address] Nurse Practitioner Behavioral Health 08/18/24 Preet Womack DO [address] [facility] [place] [address] Lines Tender/Gynecolog ist Obstetrics and Gynecology 08/18/24 Chet Davis LPC Director Of Quality Improvement Behavioral Health 11/24/24 Estefani Bullock MD [address] [place] [address] Referring Physician Cardiology 05/15/25 documented as of this encounter
--- OUTSIDE RECORDS SUMMARY | 2025-06-01 10:02 | XMS_ITS | Encounter Summary ---
Author Organization [facility] Address [address] [place] [address] Care Team Providers Care Educational Psychology Professor Name Role Phone Jose Nevarez DO Primary Care Provider [phone] Opal Neri SENIOR WEB ANALYST Unavailable Jose Nevarez DO Primary Care Provider Cece Rome PMHNP- Unavailable Preet Womack DO Unavailable Chet Davis LPC Unavailable Unavailable Estefani Bullock MD Unavailable [phone] Encounter Details Date Type Department Care Team (Late st Contact Info) Description 2023 Orders Only [facility] [address] [place] [address] A, Unknown Practice [address] [place] [address] Social History Tobacco Use Types Packs/Day [...] Health [address] [place] [address] Chet Davis LPC 06/22/2025 1:00 PM EDT Telemedicine [facility] [place] [facility] [address] [place] [address] Cece Rome PMHNP-JI [address] [place] [address] documented as of this encounter Procedures Procedure Name Priority Date/Time Associated Diagnosis Comments XR CHEST 1 VIEW Routine 11/13/2023 8:51 AM EST documented in this encounter Results * XR chest 1 view (11/13/2023 8:51 AM EST) Anatomical Region Laterality Modality Chest Radiographic Nadya ging us Unknown Practice A IMG XR PROCEDURES Final Resul t documented in this encounter Visit Diagnoses Not on filedocumented in this encounter Additional Health Concerns Assessment Noted Time PHQ-9 Depression Total Score: 11 023 11:36 AM EDT documented as of this encounter Care Teams Educational Psychology Professor Relationship Specialty Start Date End Date Jose Nevarez DO PCP - General Family Medicine 04/02/23 11/30/23 Jose Nevarez DO [address] [place] [address] PCP - General Family Medicine 12/01/23 Opal Neri NP [address] [place] [address] Nurse Practitioner Family Medicine 04/02/23 08/17/24 Cece Rome PMHNP-BC [address] [place] [address] Nurse Practitioner Behavioral Health 08/18/24 Preet Womack DO [address] [place] [address] Chair Spring Assembler/Gynecolog ist Obstetrics and Gynecology 08/18/24 Chet Davis LPC Drafter Detail Behavioral Health 11/24/24 Estefani Bullock MD [address] [place] [address] Referring Physician Cardiology 05/15/25 documented as of this encounter
--- OUTSIDE RECORDS SUMMARY | 2025-06-01 10:02 | XMS_ITS | Encounter Summary ---
Author Organization [facility] Address [address] [place] [address] Care Team Providers Care Tour Sales Representative Name Role Phone Jose Nevarez DO Primary Care Provider [phone] Cece Rome [facility]- Unavailable Preet Womack DO Unavailable Chet Davis LPC Unavailable Unavailable Estefani Bullock MD Unavailable [phone] Encounter Details Date Type Department Care Team (Late st Contact Info) Description 03/31/2025 Abstract [facility] [place] [facility] [address] [place] [phone] Jose Nevarez DO [address] [place] [address] Social History Tobacco Use Types Packs/Day Years [...] often do you attend chur ch or congregational services? More than 4 times per year 06/29/2024 Do you belong to any clubs o r organizations such as anglican groups, unions, fraternal or athletic groups, or [...] Recorded Patient Health Questionnaire-2 Score 0 03/02/2025 [facility] Occupat ional [facility] - Occupational Stress Questionnaire Answer Date [...] any time in the past 12 m [facility], were you homeless or living in a long-term (including now)? No 06/29/2024 Education Answer Date [...] [facility] [place] [facility] [address] [facility] [address] [place] [address] Chet Davis LPC 06/22/2025 1:00 PM EDT Telemedicine [facility] [place] [facility] [address] [facility] [address] [place] [address] Cece Rome HN- [address] [facility] [address] [place] [address] documented as of this encounter Visit Diagnoses Not on filedocumented in this encounter Additional Health Concerns Assessment Noted Time PHQ-9 Depression Total Score: 11 023 11:36 AM EDT documented as of this encounter Care Teams Tour Sales Representative Relationship Specialty Start Date End Date Jose Nevarez DO [address] [place] [address] PCP - General Family Medicine 12/01/23 Cece Rome PMHNP- [address] [address] [place] [address] Nurse Practitioner Behavioral Health 08/18/24 Preet Womack DO [address] [facility] [place] [address] Memorandum Statement Clerk/Gynecolog ist Obstetrics and Gynecology 08/18/24 Chet Davis LPC Program Coordinator For Residence Life Behavioral Health 11/24/24 Estefani Bullock MD [address] [place] [address] Referring Physician Cardiology 05/15/25 documented as of this encounter
--- OUTSIDE RECORDS SUMMARY | 2025-06-01 10:02 | XMS_ITS | Clinical Summary ---
Author Organization [facility] Address [facility] [place] [address] Care Team Providers Care Adult Crossing Guard Name Role Phone Opal Neri INSIDE TRUCKER Unavailable [phone] Allergies Active Allergy Reactions Criticality Noted Date Comments Sulfa (Sulfonamide Antibiotics) Unknown 08/20 Medications escitalopram oxalate (LEXAPRO) 10 mg tablet Take 10 mg by mouth once daily. 08/28/2022 Active Norethin Boom-Eth Estrad-FE 1 mg-20 mcg (21)/75 mg (7) per tablet Take 1 tablet by mouth once daily. 08/25/2022 Active Social History Tobacco Use Types Packs/Day Years Used Date Smoking Tobacco: Never Smokeless Tobacco: Never Tobacco Cessation:Counseling Given: Not Answered Area Deprivation Index Answer Date Clifford rded National Score (1-100), lower number is lower ri sk 47 2022 State Score (1-10), lower number is lower risk N ot on file 2022 Data from: https://www.neighborhoodatlas.medicine.[facility].edu/. Last address used for calculation [address] [address] Comments No Sex and Gender Information Value Date Recorded Sex Assigned at Not on file Legal Sex Female 10:20 AM EDT Gender Identity Not on file Sexual Orientation Not on file Last Filed Vital Signs Vital Sign Reading Time Taken Comments Blood Pressure - - Pulse - - Temperature - - Respiratory Rate - - Oxygen Saturation - - Inhaled Oxygen Concentration - - Weight 49.9 kg (110 lb) 09/05/2022 3:29 PM EST Height 167.6 cm (5' 6 ) 09/05/2022 3:29 PM EST Body Mass Index 17.75 09/05/2022 3:29 PM EST Plan of Treatment Health Maintenance Due Date Last Done Comments Hepatitis B Vaccine (3 of 3 - 3-dose series) 07/10/2004 05/15/2004, 01/13/2004 Peds To Adult Transition Ini tial Discussion 2015 HPV Vaccine (2 - 2-dose series) 12/13/2016 6 Peds To Adult Transition Ana ual Assessment 2017 Meningococcal B Vaccine (1 o f 2 - Standard) 2019 Anxiety Screening 2021 Chlamydia Screening (18-) 2021 Depression Screening 2021 GC (Gonorrhea) Screening (18-) 2021 HIV Screening 2021 Hepatitis C Screening 2021 Cervical Cancer Screening 2024 Influenza Vaccine (#1) 2025 DTaP,Tdap,Td Vaccine (6 - Td or Tdap) 06/12/2026 06/12/2016, 06/18/2005, 05/15/2004, Additional history exists [facility] [place] Care Teams Adult Crossing Guard Relationship Specialty Start Date End Date Opal Neri CNP [address] [facility] [address] [place] [address] Referring Family Medicine 06/21/22
--- OUTSIDE RECORDS SUMMARY | 2025-06-01 10:02 | XMS_ITS | Encounter Summary ---
Author Organization [facility] Address [address] [place] [address] Care Team Providers Care Scow Hand Name Role Phone Opal Neri SILK WORKER Unavailable Jose Nevarez DO Primary Care Provider [phone] Cece Rome PMHNP- Unavailable Preet Womack DO Unavailable Chet Davis LPC Unavailable Unavailable Estefani Bullock MD Unavailable [phone] Encounter Details Date Type Department Care Team (Late st Contact Info) Description 02/15/2024 Abstract [facility] [address] [place] [address] Preet Womack DO [address] [facility] [address] [place], [place] [id number] Social History Tobacco Use Types Packs/Day Years [...] Health [address] [place] [address] Chet Davis LPC 06/22/2025 1:00 PM EDT Telemedicine [facility] [place] [facility] [address] [place] [address] Cece Rome [facility] [address] [place] [address] documented as of this encounter Visit Diagnoses Not on filedocumented in this encounter Additional Health Concerns Assessment Noted Time PHQ-9 Depression Total Score: 11 023 11:36 AM EDT documented as of this encounter Care Teams Scow Hand Relationship Specialty Start Date End Date Jose Nevarez DO [address] [place] [address] [place] [address] PCP - General Family Medicine 12/01/23 Opal Neri NP [address] [place] [address] [place] [address] Nurse Practitioner Family Medicine 04/02/23 08/17/24 Cece Rome, [facility] [address] [place] [address] Nurse Practitioner Behavioral Health 08/18/24 Preet Womack DO [address] [place] [address] Education Intern/Gynecolog ist Obstetrics and Gynecology 08/18/24 Chet Davis LPC [facility] 11/24/24 Estefani Bullock MD [address] [place] [address] Referring Physician Cardiology 05/15/25 documented as of this encounter
--- OUTSIDE RECORDS SUMMARY | 2025-06-01 10:02 | XMS_ITS | Encounter Summary ---
Author Organization [facility] Address [address] [place] [address] Care Team Providers Care Hedis Review Nurse Name Role Phone Jose Rogers DO Primary Care Provider [phone] Opal Neri BACK OFFICE MEDICAL ASSISTANT Unavailable Jose Rogers DO Primary Care Provider [phone] Cece Rome PMHNP-BC Unavailable [phone] Sari Womack DO Unavailable Chet Davis LPC Unavailable Unavailable Estefani Bullock MD Unavailable [phone] Encounter Details Date Type Department Care [...] 11:00 AM EDT Social Work [facility] [address] [facility] [address] [place] [address] Chet Davis LPC 06/22/2025 1:00 PM EDT Telemedicine [facility] [address] [facility] [address] [place] [address] Cece Rome, PMHNP-BC [address] [facility] [address] [place] [address] documented as of this encounter Procedures Procedure Name Priority Date/Time Associated Diagnosis Comments US OB ANATOMY 10/06/2023 3:23 PM EST documented in this encounter Results * US OB ANATOMY (10/06/2023 3:23 PM EST) Anatomical Region Laterality Modality Other 10/06/2023 3:23 PM EST Narrative 10/06/2023 3:26 [place] [address] Ultrasound Report Signed Patient: SOLIS RASHID MR#: [id number] : 2005 Acct:[id number] Age/Sex: 17 / F ADM Date: 10/06/23 Loc: US Attending Dr: Sari Womack D.O. Ordering Physician: Sari Womack D.O. Date of Service: 10/06/23 Procedure(s): US OB anatomy Accession Number(s): [id number] cc: Sari Womack D.O.; Tawnya ROGERS [address] [address] Patient Name: SOLIS RASHID MRN: [id number] date: 2005 Sex: F Assigned Patient Location: US Current Patient Location: US Accession/Order Number: [id number] Exam Date: 10/06/2023 13:05 Report Date: 10/06/2023 15:23 At the request of: SARI WOMACK Procedure: US OB anatomy EXAMINATION: US OB anatomy, US OB transvaginal [...] 02/24/24 KAMRON by EDC: 02/22/24 US/US OB anatomy IMPRESSION: Normal anatomy scan *Reference: [facility] Practice Guideline for the performance of Obstetric Ultrasound Examinations, July 20, 2007. Electronically authenticated by: MEGHAN MELGAR Date: 10/06/2023 15:23 Dictated By: Meghan Melgar M.D. Signed By: 10/06/23 1526 DD/ 1523 TD/TT: Yeast Tender: Procedure Note Radiology, Radiologist, MD - 10/06/2023 [place] [address] Ultrasound Report Signed Patient: BRITTNEY RASHID#: [id number] : 2005Acct:[id number] Age/Sex: 17 / FADM Date: 10/06/23 Loc: US Attending Dr: Sari Womack D.O. Ordering Physician: Sari Womack D.O. Date of Service: 10/06/23 Procedure(s): US OB anatomy Accession Number(s): [id number] cc: Sari Womack D.O.; Tawnya ROGERS [address] [address] Patient Name: SOLIS RASHID MRN: [id number] date: 2005 Sex: F Assigned Patient Location: US Current Patient Location: US Accession/Order Number: [id number] Exam Date: 10/06/2023 13:05 Report Date: 10/06/2023 15:23 At the request of: SARI WOMACK Procedure: US OB anatomy EXAMINATION: US OB anatomy, US OB transvaginal [...] 02/24/24 KAMRON by EDC: 02/22/24 US/US OB anatomy IMPRESSION: Normal anatomy scan *Reference: [facility] Practice Guideline for the performance of Obstetric Ultrasound Examinations, July 20, 2007. Electronically authenticated by: MEGHAN MELGAR Date: 10/06/2023 15:23 Dictated By: Meghan Melgar M.D. Signed By:10/06/23 1526 DD/ 1523 TD/TT: Yeast Tender: us Generic External Data Provider [facility] Final Result documented in this encounter Visit Diagnoses Not on filedocumented in this encounter Additional Health Concerns Assessment Noted Time PHQ-9 Depression Total Score: 11 023 11:36 AM EDT documented as of this encounter Care Teams Hedis Review Nurse Relationship Specialty Start Date End Date Jose Rogers DO PCP - General Family Medicine 04/02/23 11/30/23 Jose Rogers DO [address] [place] [address] PCP - General Family Medicine 12/01/23 Opal Neri NP [address] [place] [address] Nurse Practitioner Family Medicine 04/02/23 08/17/24 [facility]ce [facility] [address] [facility] 160 [place] [address] Nurse Practitioner Behavioral Health 08/18/24 Sari Womack DO [address] [place] [address] Slip Mixer/Gynecolog ist Obstetrics and Gynecology 08/18/24 Chet Davis LPC Life Insurance Agent Behavioral Health 11/24/24 Estefani Bullock MD [address] [place] [address] Referring Physician Cardiology 05/15/25 documented as of this encounter
--- OUTSIDE RECORDS SUMMARY | 2025-06-01 10:02 | XMS_ITS | Encounter Summary ---
Author Organization [facility] Address [address] [place] [address] Care Team Providers Care Tumbler Plater Name Role Phone AugustinefelizJose DO Primary Care Provider [phone] Cece Rome PMHNP-BC Unavailable Preet Womack DO Unavailable Chet Davis LPC Unavailable Unavailable Estefani Bullock MD Unavailable [phone] Reason for Visit * Reason Comments Med Refill Encounter Details Date Type Department Care Team (Late st Contact Info) Description 10/12/2024 Refill [facility] [address] [place] [phone] [facility] [address] [place] [phone] Social anxiety disorder Social History Tobacco Use Types Packs/Day Years Used Date Smoking Tobacco: Never Passive Smoke Exposure: Never Smokeless Tobacco: Current Alcohol Use Standard Drinks/Week Comments Never 0 [...] often do you attend chur ch or restorationist services? More than 4 times per year 06/29/2024 Do you belong to any clubs o r organizations such as anabaptism groups, unions, fraternal or athletic groups, or [...] Date Recorded Patient Health Questionnaire-2 Score 0 06/29/2024 [facility] of Occupat ional Health - Occupational Stress [...] any time in the past 12 m [facility], were you homeless or living in a [facility] (including now)? No 06/29/2024 Education Answer Date Recorded What is the highest level of school you have completed or the highest degree you have received? Some college, no degree 08/18/2024 Comments Unknown Sex and Gender Information Value [...] [facility] [address] [facility] [address] [place] [address] Chet Davis LPC 06/22/2025 1:00 PM EDT Telemedicine [facility] [address] [facility] [address] [place] [address] Cece Rome [facility] [address] [facility] [address] [place] [address] documented as of this encounter Visit Diagnoses Diagnosis Social anxiety disorder Social phobia documented in this encounter Additional Health Concerns Assessment Noted Time PHQ-9 Depression Total Score: 11 023 11:36 AM EDT documented as of this encounter Care Teams Tumbler Plater Relationship Specialty Start Date End Date Jose Nevarez DO [address] [place] [address] PCP - General Family Medicine 12/01/23 Cece Rome PMHNP- [address] [facility] [address] [place] [address] Nurse Practitioner Behavioral Health 08/18/24 Preet Womack DO [address] [facility] [place] [address] Combination Welder/Gynecolog ist Obstetrics and Gynecology 08/18/24 Chet Davis LPC Furnace Utility Operator Behavioral Health 11/24/24 Estefani Bullock MD [address] [place] [address] Referring Physician Cardiology 05/15/25 documented as of this encounter
--- OUTSIDE RECORDS SUMMARY | 2025-06-01 10:02 | XMS_ITS | Encounter Summary ---
Author Organization [facility] Address [address] [place] [address] Care Team Providers Care Insulation Technician Name Role Phone Opal Neri NP Unavailable Jose Nevarez DO Primary Care Provider [facility] Un[facility] Preet Womack DO Unavailable Chet Davis LPC Unavailable Unavailable Estefani Bullock MD Unavailable [phone] Encounter Details Date Type Department Care Team (Late st Contact Info) Description 05/27/2024 Abstract [facility] [address] [place] [address] Jose Nevarez DO [address] [place] [address] Social History Tobacco Use Types Packs/Day Years [...] Health [address] [place] [address] Chet Davis LPC 06/22/2025 1:00 PM EDT Telemedicine [facility] [place] [facility] [address] [place] [address] Cece Rome [facility]- [address] [place] [address] documented as of this encounter Visit Diagnoses Not on filedocumented in this encounter Additional Health Concerns Assessment Noted Time PHQ-9 Depression Total Score: 11 023 11:36 AM EDT documented as of this encounter Care Teams Insulation Technician Relationship Specialty Start Date End Date Jose Nevarez DO [address] [facility] [address] [place] [address] PCP - General Family Medicine 12/01/23 Opal Neri NP [address] [place] [address] Nurse Practitioner Family Medicine 04/02/23 08/17/24 Cece Rome, [facility] [address] [facility] [address] [place] [address] Nurse Practitioner Behavioral Health 08/18/24 Preet Womack DO [address] [place] [address] End Polisher/Gynecolog ist Obstetrics and Gynecology 08/18/24 Chet Davis LPC Pickling Grader Behavioral Health 11/24/24 Estefani Bullock MD [address] [place] [address] Referring Physician Cardiology 05/15/25 documented as of this encounter
--- OUTSIDE RECORDS SUMMARY | 2025-06-01 10:02 | XMS_ITS | Encounter Summary ---
Author Organization [facility] Address [address] [place] [address] Care Team Providers Care Youth Specialist Name Role Phone Jose Rogers DO Primary Care Provider [phone] Opal Neri CANDY MIXER Unavailable Jose Rogers DO Primary Care Provider [phone] Cece Rome PMHNP-BC Unavailable Sari Womack DO Unavailable Chet Davis LPC Unavailable Unavailable Estefani Bullock MD Unavailable [phone] Encounter Details Date Type Department Care Team (Late st Contact Info) Description 07/18/2023 Clinisync Result Encounter [facility] External Department Unsolicited [...] 06/02/2025 11:00 AM EDT Social Work [facility] [address] [facility] [address] [place] [address] Chet Davis, DUANE 06/22/2025 1:00 PM EDT Telemedicine [facility] [address] [facility] [address] [place] [address] Cece Rome, PMHNP-BC [address] [facility] [address] [place] [address] documented as of this encounter Procedures Procedure Name Priority Date/Time Associated Diagnosis Comments US OB TRANSVAGINAL 07/18/2023 4: 30 PM EDT documented in this encounter Results * US OB TRANSVAGINAL (07/18/2023 4:30 PM EDT) Anatomical Region Laterality Modality Other 07/18/2023 4:30 PM EDT Narrative 07/18/2023 4:30 [place] [address] Ultrasound Report Signed Patient: SOLIS RASHID MR#: [id number] : 2005 Acct:[id number] Age/Sex: 17 / F ADM Date: 07/18/23 Loc: US Attending Dr: Sari Womack D.O. Ordering Physician: Sari Womack D.O. Date of Service: 07/18/23 Procedure(s): US OB transvaginal Accession Number(s): [id number] cc: Sari Womack D.O.; Tawnya ROGERS [address] [address] Patient Name: SOLIS RASHID MRN: [id number] date: 2005 Sex: F Assigned Patient Location: US Current Patient Location: US Accession/Order Number: [id number] Exam Date: 07/18/2023 09:42 Report Date: 07/18/2023 16:30 At the request of: SARI WOMACK Procedure: US OB transvaginal EXAMINATION: US OB transvaginal HISTORY: MISSED MENSES COMPARISON: No relevant comparison available. FINDINGS: GESTATIONAL SAC: Present and normal appearing. YOLK SAC: Present and normal appearing. POLE: Present and normal appearing. CARDIAC: Present. UTERUS: Normal size and appearance. OVARIES: Right: Normal. Left: Normal. CERVIX: 3.9 cm in length and closed. CUL-DE-SAC: Normal. OTHER: None. AGE BY LMP: 8 weeks 5 days KAMRON BY LMP: 02/22/2024 AGE BY US CRL: 8 weeks 0 days KAMRON BY US CRL: 02/27/2024 US/US OB transvaginal IMPRESSION: 1. Single live intrauterine . Electronically authenticated by: JESUS COBURN Date: 07/18/2023 16:30 Dictated By: Jesus Coburn M.D. Signed By: 07/18/23 1632 DD/ 1630 TD/TT: Certified Professional Ergonomist: Procedure Note Radiology, Radiologist, MD - 07/18/2023 [place] [address] Ultrasound Report Signed Patient: RAMU RASHIDR#: [id number] : 2005Acct:[id number] Age/Sex: 17 / FADM Date: 07/18/23 Loc: US Attending Dr: Sari Womack D.O. Ordering Physician: Sari Womack D.O. Date of Service: 07/18/23 Procedure(s): US OB transvaginal Accession Number(s): [id number] cc: Sari Womack D.O.; Tawnya ROGERS The [address] [address] Patient Name: SOLIS RASHID MRN: [id number] date: 2005 Sex: F Assigned Patient Location: US Current Patient Location: US Accession/Order Number: [id number] Exam Date: 07/18/2023 09:42 Report Date: 07/18/2023 16:30 At the request of: SARI WOMACK Procedure: US OB transvaginal EXAMINATION: US OB transvaginal HISTORY: MISSED MENSES COMPARISON: No relevant comparison available. FINDINGS: GESTATIONAL SAC: Present and normal appearing. YOLK SAC: Present and normal appearing. POLE: Present and normal appearing. CARDIAC: Present. UTERUS: Normal size and appearance. OVARIES: Right: Normal. Left: Normal. CERVIX: 3.9 cm in length and closed. CUL-DE-SAC: Normal. OTHER: None. AGE BY LMP: 8 weeks 5 days KAMRON BY LMP: 02/22/2024 AGE BY US CRL: 8 weeks 0 days KAMRON BY US CRL: 02/27/2024 US/US OB transvaginal IMPRESSION: 1. Single live intrauterine . Electronically authenticated by: JESUS COBURN Date: 07/18/2023 16:30 Dictated By: Jesus Coburn M.D. Signed By:07/18/23 163 DD/ 29 TD/TT: Certified Professional Ergonomist: us Generic External Data Provider [facility] Final Result documented in this encounter Visit Diagnoses Not on filedocumented in this encounter Additional Health Concerns Assessment Noted Time PHQ-9 Depression Total Score: 11 023 11:36 AM EDT documented as of this encounter Care Teams Youth Specialist Relationship Specialty Start Date End Date Jose Rogers DO PCP - General Family Medicine 04/02/23 11/30/23 Jose Rogers DO [address] [facility] [address] [place] [address] PCP - General Family Medicine 12/01/23 Opal Neri NP [address] [facility] [address] [place] [address] Nurse Practitioner Family Medicine 04/02/23 08/17/24 Cece Rome PMHNP-JI [address] [place] [address] [address] [place] [address] Nurse Practitioner Behavioral Health 08/18/24 Sari Womack DO [address] [place] [address] Breeder Service Technician/Gynecolog ist Obstetrics and Gynecology 08/18/24 Chet Davis LPC [facility] 11/24/24 Estefani Bullock MD [address] [place] [address] Referring Physician Cardiology 05/15/25 documented as of this encounter
--- OUTSIDE RECORDS SUMMARY | 2025-06-01 10:02 | XMS_ITS | Clinical Summary ---
Author Organization [facility] Address [address] [place] [address] Care Team Providers Care Pony Ride Attendant Name Role Phone Roque Murrieta MD, [facility] Primary Care Provider + Allergies Active Allergy Reactions Criticality Noted Date Comments Amoxicillin Hives 08/18/2023 Aripiprazole Dizziness 08/18/2024 nausea Sulfa (Sulfonamide Antibiotics) Unknown 08/20 Medications venlafaxine XR (Effexor-XR) 37.5 mg 24 hr capsule Take 37.5 mg by mouth every other day. 04/13/2025 Active PARoxetine (Paxil) 20 mg tablet Take 20 mg by mouth in the morning. 04/13/2025 Active buPROPion XL (Wellbutrin XL) 150 mg 24 hr tablet Take 150 mg by mouth in the morning. 04/13/2025 Active propranolol (Inderal) 10 mg tablet Take 10 mg by mouth three times daily. 03/30/2025 Active Apri 0.15-0.03 mg tablet Take 1 tablet by mouth in the morning. 04/19/2025 Active ferrous sulfate 325 (65 Fe) MG tablet Take 325 mg by mouth with breakfast. 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 12/16/2024 Social anxiety disorder 09/15/2024 Moderate episode of recurrent major depressive d isorder 08/18/2024 Scoliosis of thoracic spine 06/02/2023 Encounters Date Type Department Care Team Description 05/23/2025 Telephone [facility] [address] [place] [address] Maribel Schultz MA 05/22/2025 Results Follow-Up [facility] [address] [place] [address] Jay Mora MD Holter monitor - nursing home 05/19/2025 Orders Only [facility] [address] [place] [address] ProviderDwayne MD 04/20/2025 2:40 PM EDT Office Visit [place] [address] [place] [address] Jay Mora MD Palpitations (Primary Dx); Tachycardia; Dizziness; Shortness of breath; Social anxiety disorder; Moderate episode of recurrent major depressive disorder (CMS/HCC); Scoliosis of thoracic spine, unspecified scoliosis type from Last 3 Months Family History Relation Name Status Comments Father Alive Mother Alive Social History Tobacco Use Types Packs/Day Years Used Date Smoking Tobacco: Some Days Smokeless Tobacco: Current Tobacco Cessation:Ready to Q uit: Not Asked; Counseling Given: Not Answered Comments:Vape hourly through out the day Alcohol [...] Sign Reading Time Taken Comments Blood Pressure 106/72 04/20/2025 2:45 PM EDT Pulse 95 04/20/2025 2:45 PM EDT Temperature - - Respiratory Rate - - Oxygen Saturation 99% 04/20/2025 2:45 PM EDT Inhaled Oxygen Concentration - - Weight 48.1 kg (106 lb) 04/20/2025 2:45 PM EDT Height 167.6 cm (5' 6 ) 04/20/2025 2:45 PM EDT Body Mass Index 17.11 04/20/2025 2:45 PM EDT Plan of Treatment Upcoming Encounters Date Type Department Care Team (Late st Contact Info) Description 06/17/2025 2:20 PM EDT Office Visit [facility] at [facility] [address] [place] [address] Jay Mora MD [address] [facility] [id number] [place] [address] Health Maintenance Due Date Last Done Comments Varicella Vaccines (2 of 2 - 2-dose childhood series) 09/04/2009 06/12/2009 Depression Screening 2015 HPV Vaccines (2 - 2-dose series) 12/13/2016 06/12/2016 Meningococcal B Vaccine (1 of 2 - Standard) 2019 Pneumococcal Vaccine: Pediatrics (0 to 5 Years) and At-Risk Patients (6 to 64 Years) (1 of 2 - PCV) 2022 05/15/2004, 03/15/2004 COVID-19 Vaccine (1 - 2023- season) 2024 Pap Smear 2024 Influenza Vaccine (#1) 2025 DTaP/Tdap/Td Vaccines (7 - Td or Tdap) 06/12/2026 06/12/2016, 06/12/2009, 06/18/2005, Additional history exists Zoster Vaccines (1 of 2) 2053 06/12/2009 HIB Vaccines Aged Out 05/15/2004, 01/13/2004 No lo nger eligible based on patient's age to complete this topic IPV Vaccines Completed 06/12/2009, 05/22, 03/15/2004, Additional history exists Meningococcal Vaccine Aged Out 06/12/2016 No cat omero eligible based on patient's age to complete this topic Rotavirus Vaccines Aged Out No longer eligible based on patient's age to complete this topic Procedures Procedure Name Priority Date/Time Associated Diagnosis Comments HOLTER MONITOR CORRECTION Routine 04/20/2025 8:48 AM EDT from Last 3 Months Results * 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
--- OUTSIDE RECORDS SUMMARY | 2025-06-01 10:02 | XMS_ITS | Encounter Summary ---
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 Maribel Schultz MA documented in this encounter Plan of Treatment Upcoming Encounters Date Type Department Care Team (Late st Contact Info) Description 06/17/2025 2:20 PM EDT Office Visit [facility] Heart at [facility] [address] [place] [address] Jay Mora MD [address] [place] [address] documented as of this encounter Visit Diagnoses Not on filedocumented in this encounter Care Teams Machine Ironer Relationship Specialty Start Date End Date Tawnya Nevarez Jr., MD [address] [place] [address] PCP - General Family Medicine 04/19/25 documented as of this encounter
--- OUTSIDE RECORDS SUMMARY | 2025-06-01 10:02 | XMS_ITS | Encounter Summary ---
Author Organization [facility] Address [address] [place] [address] Care Team Providers Care Process Improvement Consultant Name Role Phone Jose Nevarez DO Primary Care Provider [phone] Opal Neri MEDICAL LABORATORY SPECIALIST Unavailable Jose Nevarez DO Primary Care Provider Cece Rome PMHNP-BC Unavailable Sari Womack DO Unavailable Chet Davis LPC Unavailable Unavailable Estefani Bullock MD Unavailable [phone] Encounter Details Date Type Department Care Team (Late st Contact Info) Description 10/06/2023 Clinisync Result Encounter [facility] External Department Unsolicited Sari Womack DO [address] [place], [place] [id number] Social History Tobacco Use Types Packs/Day Years [...] Health [address] [place] [address] Chet DavisDUANE 06/22/2025 1:00 PM EDT Telemedicine [facility] [place] [facility] [address] [facility] [address] [place] [address] Cece Rome, PMHNP-BC [address] [facility] [address] [place] [address] documented as of this encounter Procedures Procedure Name Priority Date/Time Associated Diagnosis Comments US OB ANATOMY 10/06/2023 3:23 PM EST documented in this encounter Results * US OB ANATOMY (10/06/2023 3:23 PM EST) Anatomical Region Laterality Modality Other 10/06/2023 3:23 PM EST Narrative 10/06/2023 3:26 [place] [address] Ultrasound Report Signed Patient: SOLIS RASHID MR#: [id number] : 2005 Acct:[id number] Age/Sex: 17 / F ADM Date: 10/06/23 Loc: US Attending Dr: Sari Womack D.O. Ordering Physician: Sari Womack D.O. Date of Service: 10/06/23 Procedure(s): US OB anatomy Accession Number(s): [id number] cc: Sari Womack D.O.; Tawnya NEVAREZ [address] [address] Patient Name: SOLIS RASHID MRN: [id number] date: 2005 Sex: F Assigned Patient Location: US Current Patient Location: US Accession/Order Number: [id number] Exam Date: 10/06/2023 13:05 Report Date: 10/06/2023 15:23 At the request of: SARI MICHAEL Procedure: US OB anatomy EXAMINATION: US OB [...] Signed By: 10/06/23 1526 DD/ 1523 TD/TT: Tube And Manifold Builder: Procedure Note Radiology, Radiologist, - 12/24/2023 [place] [address] Ultrasound Report Signed Patient: BRITTNEY RASHID#: [id number] : 2005Acct:[id number] Age/Sex: 17 / FADM Date: 10/06/23 Loc: US Attending Dr: Sari Womack D.O. Ordering Physician: Sari Womack D.O. Date of Service: 10/06/23 Procedure(s): US OB anatomy Accession Number(s): [id number] cc: Sari Womack D.O.; Tawnya NEVAREZ [place] [address] Patient Name: SOLIS RASHID MRN: [facility]:[id number] date: 2005 Sex: F Assigned Patient Location: US Current Patient Location: US Accession/Order Number: [id number] Exam Date: 10/06/2023 13:05 Report Date: 10/06/2023 [...] July 20, 2007. Electronically authenticated by: MEGHAN MELGRA Date: 10/06/2023 15:23 Dictated By: Meghan Melgar M.D. Signed By:10/06/23 1526 DD/ 1523 TD/TT: Tube And Manifold Builder: us Sari Womack DO [facility] Final Result documented in this encounter Visit Diagnoses Not on filedocumented in this encounter Additional Health Concerns Assessment Noted Time PHQ-9 Depression Total Score: 11 023 11:36 AM EDT documented as of this encounter Care Teams Process Improvement Consultant Relationship Specialty Start Date End Date Jose Nevarez DO PCP - General Family Medicine 04/02/23 11/30/23 Jose Nevarez DO [address] [place] [address] PCP - General Family Medicine 12/01/23 Opal Neri NP [address] [place] [address] Nurse Practitioner Family Medicine 04/02/23 08/17/24 Cece Rome [facility] [address] [place] [address] Nurse Practitioner Behavioral Health 08/18/24 Sari Womack DO [address] [place] [id number] Flight Data Technician/Gynecolog ist Obstetrics and Gynecology 08/18/24 Chet Davis LPC Rug Cleaner Helper Behavioral Health 11/24/24 Estefani Bullock MD [facility] [address] [place] [address] Referring Physician Cardiology 05/15/25 documented as of this encounter
--- NOTE | 2025-06-01 10:05 | CA_ITS ---
Patient Name: SOLIS RASHID MR#: [id number] : 2005 Exam Date: 06/01/2025 Ordering Doctor: DR. LEXX BENNETT M.D. ECHOCARDIOGRAM REPORT PROCEDURE: CA ECHO DOPPLER COMPLETE INDICATIONS: Shortness of breath COMPARISON: None. DESCRIPTION: COMPLETE ECHOCARDIOGRAM Real-time transthoracic echocardiography with 2D, M-mode, spectral and color flow Doppler performed. QUALITY: Technical quality was good. LEFT VENTRICLE: Normal chamber size. Normal left ventricular wall thickness. Global left ventricular systolic function is normal. LV EF: Estimated left ventricular ejection fraction is 55%. DIASTOLIC: Normal diastolic function. ATRIAL SEPTUM: LEFT ATRIUM: Normal chamber size. RIGHT ATRIUM: Normal chamber size. RIGHT VENTRICLE: Normal chamber size. Normal right ventricular systolic function. TRICUSPID VALVE: Normal mobility and thickness. No stenosis with mild regurgitation. No evidence of pulmonary hypertension. RVSP 20 mmHg. MITRAL VALVE: Normal mobility and thickness. No evidence of mitral valve stenosis. There is no mitral annular calcification. No mitral regurgitation. AORTIC VALVE: Normal trileaflet appearance. No visible sclerosis. Normal leaflet mobility. No evidence of aortic valve stenosis. No aortic regurgitation. AORTIC ROOT: Normal diameter and appearance, measuring 2.6 cm. The ascending aorta is normal in size measuring 2.6 cm. PULMONIC VALVE: Normal thickness and mobility. No stenosis. Trivial regurgitation. PERICARDIUM: No evidence of pericardial effusion. IVC: Collapses with inspiration. Normal size. PLEURA: CONCLUSION: 1. Normal ventricular size and systolic function. Estimated LVEF is 55%. 2. Normal diastolic function. 3. No significant valvular dysfunction. 4. Normal right-sided pressures. Adult Echocardiography Procedure Report Left Ventricle LVEDD (3.7 - 5.6 cm): 4.96 cm LVESD (2.2 - 4.0 cm): 3.46 cm LVIVS thickness (0.6 - 1.2 cm): 0.54 cm, 0.59 cm LVPW thickness (0.5 - 1.0 cm): 0.74 cm e': 0.20 m/s E - e': 4.02 LVOT Max Gradient: 3.06 mm[Hg] LVOT Area (cm2): 0.87 m/s Peak Velocity (LVOT): 0.87 m/s Mean Velocity (LVOT): 0.57 m/s LVOT Diameter 1.96 cm Left Ventricular Ejection Fraction: 55 % Left Atrium LA Volume Index (2D A2C): 29.14 ml/m2 Left Atrium Systolic Dimension: 2.86 cm Mitral Valve MV E to A Ratio: 1.47 Mitral Valve A-Wave Peak Velocity: 0.55 m/s Mitral Valve E-Wave Peak Velocity: 0.81 m/s Right Ventricle RV Internal Diastolic Dimension: 2.72 cm Aorta AO Root Diam: 2.61 cm Ascending Ao Diam: 2.61 cm Aortic Valve AoV Area (Peak Pankaj): 2.34 cm2, 2.34 cm2 AoV Area (VTI): 2.12 cm2, 2.12 cm2 Peak Velocity(Antegrade Flow): 1.13 m/s Peak Gradient(Antegrade Flow): 5.11 mm[Hg] Mean Velocity(Antegrade Flow): 0.79 m/s Mean Gradient(Antegrade Flow): 2.81 mm[Hg] Velocity Time Integral: 22.58 cm Tricuspid Valve Peak Velocity (Regurgitant Flow): 2.06 m/s, 2.08 m/s Pulmonic Valve Mean Gradient: 1.78 mm[Hg], 1.86 mm[Hg] Mean Velocity: 0.62 m/s, 0.64 m/s Peak Velocity: 0.89 m/s, 0.87 m/s Peak Gradient: 3.06 mm[Hg], 3.06 mm[Hg], 3.26 mm[Hg] Right Atrium Right Atrium Systolic Pressure: 21.77 ml, 21.77 ml Dictated by: Jose Tucker M.D. on 06/03/2025 at 21:27 Approved by: Jose Tucker M.D. on 06/03/2025 at 21:29
== END 2025-06-01 09:59 | disposition home or self-care (01) ==
LOC: CARD 09:58
PROVIDERS: PCP Family Medicine; Visit Provider Internal Medicine Cardiovascular Disease
DX: R06.02 Shortness of breath (principal)
CPT/HCPCS: 93306

== ENCOUNTER 2025-07-22 09:25 | Outpatient (OUT) | payer MEDICAID, SELFPAY | END 2025-07-22 09:26 | disposition home or self-care (01) | LOC: LAB 09:26 | PROVIDERS: PCP Family Medicine; Visit Provider Internal Medicine Cardiovascular Disease | DX: R42 Dizziness and giddiness (principal) | CPT/HCPCS: 36415; 82533 ==